=== PATIENT | male | born 1950 | race Caucasian/White ===

== ENCOUNTER 2022-09-12 09:23 | Outpatient (OUT) | payer MEDICARE, OTHER, SELFPAY ==
[2022-09-12 11:03] LABS: Prostate Specific Antigen Dx 9.87 ng/mL (<=4.00)
== END 2022-09-12 09:24 ==
LOC: LAB 09:29
PROVIDERS: PCP Family Medicine
DX: R97.20 Elevated prostate specific antigen [PSA] (principal); Z87.442 Personal history of urinary calculi
CPT/HCPCS: 36415; 84153

== ENCOUNTER 2022-11-05 08:30 | Emergency (ER) | payer MEDICARE, OTHER, SELFPAY ==
[2022-11-05 08:35] VITALS: BP 133/85; PULSE 77; RESP 18; TEMP 36.6; O2SAT 95; BMI 23.0
--- NOTE | 2022-11-05 08:46 | CT_ITS ---
[address] [address] Patient Name: TANK VILLA MRN: [id number] date: 1950 Sex: M Assigned Patient Location: ER Current Patient Location: .MAIN Accession/Order Number: [id number] Exam Date: 11/05/2022 09:42 Report Date: 11/05/2022 10:12 At the request of: JOLENE BALDWIN Procedure: CT abdomen pelvis w con EXAM: CT abdomen pelvis w con HISTORY: low abd pain COMPARISON: CT abdomen and pelvis 03/14/2018.. TECHNIQUE: Following intravenous administration of 100 cc of Omnipaque 350, axial soft tissue windows of the abdomen and pelvis were performed with coronal and sagittal reformats. CT dose reduction technique was used including Automated Exposure Control. Findings: ABDOMEN: There are couple scattered hepatic low-attenuation lesions, too small to characterize. Small stones within the gallbladder. The spleen, pancreas, and adrenal glands are unremarkable. Mild nonspecific bilateral perinephric fat stranding. Within the lower pole the left kidney there is a 0.4 cm nonobstructing stone. No renal collecting system dilatation bilaterally. Exophytic left renal cyst measuring approximately 1.3 cm. Bilateral low-attenuation lesions, too small to characterize. The bilateral ureters are nondilated. Evaluation of the bowel is limited given the absence of oral contrast. No bowel obstruction. Colonic diverticula. The appendix is nondilated. The aorta is normal caliber. Mild atherosclerotic disease. No enlarged abdominal lymph nodes or free abdominal fluid. Pelvis: The prostate is enlarged and exerts mild mass effect upon the posterior bladder wall. No bladder calculi. No enlarged pelvic lymph nodes or free pelvic fluid. No aggressive sclerotic or lytic osseous lesions. Mild multilevel degenerative spondylosis with mild levoconvex scoliosis of the lumbar spine. Mild bilateral hip joint osteoarthritis. CT/CT abdomen pelvis w con IMPRESSION: 1. Nonobstructing left renal stone. 2. Cholelithiasis. 3. Diverticulosis. 4. Other nonemergent findings, as described above. Electronically authenticated by: SEDA LICEA Date: 11/05/2022 10:12
--- NOTE | 2022-11-05 08:48 | ED_ITS ---
HPI - Abdominal Pain General Chief Complaint: Abdominal Pain Stated Complaint: ADOMINAL PAIN AND LOWER EXTREMITY PAIN RIGHT LEG Time Seen by Provider: 11/05/22 08:34 Mode of arrival: walk-in History of Present Illness HPI narrative: 72-year-old male presents for bilateral lower abdominal pain that he's had for about four days. He hasn't been having normal bowel movements, it's been decreased. No diarrhea or fever or injury. No dysuria or hematuria. No blood in his stool. The pain is moderate and continuous. Related Data Home Medications Medication Instructions Recorded Confirmed atenolol 25 mg tablet 25 mg PO Q24H 11/05/22 11/05/22 atorvastatin 80 mg tablet 80 mg PO DAILY 11/05/22 11/05/22 clopidogrel 75 mg tablet 75 mg PO DAILY 11/05/22 11/05/22 Previous Rx's Medication Instructions Recorded cephalexin 500 mg capsule 500 mg PO TID 10 days #30 caps 11/05/22 Allergies Allergy/AdvReac Type Severity Reaction Status Date / Time Penicillins Allergy Unknown Verified 11/05/22 08:38 Review of Systems ROS Narrative A ten point review of systems is negative except as noted above. Exam Narrative Exam Narrative: Nurses note and vital signs reviewed and patient is not hypoxic. General: The patient appears well and in no apparent distress. Patient is resting comfortably on cart. Skin: Warm, dry, no pallor noted. There is no rash noted. Head: Normocephalic, atraumatic Eye: Normal conjunctiva, no drainage Ears, Nose, Mouth, and Throat: oral mucosa is moist. Nares patent. Cardiovascular: Regular Rate and Rhythm Respiratory: Patient is in no distress, no accessory muscle use, lungs are clear to auscultation, no wheezing, rales or rhonchi Back: non-tender GI: soft and nondistended. Bilateral lower abdominal tenderness on palpation. No mass. Musculoskeletal: The patient has no evidence of calf tenderness, no pitting edema, symmetrical pulses noted bilaterally Neurological: A&O, normal speech Psychiatric: Cooperative Constitutional Vital Signs, click to edit/add: Last Vital Signs Temp 97.8 F 11/05/22 08:35 Pulse 77 11/05/22 08:35 Resp 18 11/05/22 08:35 BP 133/85 11/05/22 08:35 Pulse Ox 95 11/05/22 08:35 O2 Del Method Room Air 11/05/22 08:35 Course Vital Signs Vital signs: Vital Signs Temperature 97.8 F 11/05/22 08:35 Pulse Rate 77 11/05/22 08:35 Respiratory Rate 18 11/05/22 08:35 Blood Pressure 133/85 11/05/22 08:35 Pulse Oximetry 95 11/05/22 08:35 Oxygen Delivery Method Room Air 11/05/22 08:35 Temperature 97.8 F 11/05/22 08:35 Pulse Rate 77 11/05/22 08:35 Respiratory Rate 18 11/05/22 08:35 Blood Pressure 133/85 11/05/22 08:35 Pulse Oximetry 95 11/05/22 08:35 Oxygen Delivery Method Room Air 11/05/22 08:35 MDM - Abdominal Pain MDM Narrative Medical decision making narrative: CAT scan of the abdomen shows no acute findings. Urinary tract infection identified and he is given IV Rocephin. He doesn't require admission the hospital. Treatment diagnosis and follow-up were discussed with the patient and his . Differential Diagnosis Differential diagnosis: Likely abdominal pain, calculus of kidney, constipation, diverticulitis, gastroenteritis, pancreatitis and small bowel obstruction Lab Data Attestation: I reviewed the patient's lab results. Labs: Lab Results 11/05/22 11/05/22 Range/Units 08:52 09:55 WBC 9.0 (4.0-11.0) 10^3/uL RBC 5.06 (4.70-6.10) 10^6/uL Hgb 15.5 (14.0-18.0) g/dL Hct 46.7 (42.0-54.0) % MCV 92.3 (80.0-94.0) fL MCH 30.6 (25.9-34.0) pg MCHC 33.2 (29.9-35.2) g/dL RDW 12.4 (11.0-15.0) % Plt Count 232 (150-450) 10^3/uL MPV 10.8 (9.5-13.5) fL Neut % (Auto) 76.1 H (43.0-75.0) % Lymph % (Auto) 14.4 L (20.5-60.0) % [place]wood % (Auto) 6.7 (1.7-12.0) % Eos % (Auto) 1.6 (0.9-7.0) % Baso % (Auto) 0.6 (0.2-2.0) % Neut # (Auto) 6.9 H (1.4-6.5) 10^3/uL Lymph # (Auto) 1.3 (1.2-3.8) 10^3/uL [place] # (Auto) 0.6 (0.3-0.8) 10^3/uL Eos # (Auto) 0.1 (0.0-0.7) 10^3/uL Baso # (Auto) 0.1 (0.0-0.1) 10^3/uL Abs Immat Gran (auto) 0.05 H (0.00-0.03) 10^3/uL Imm/Tot Granulo (auto) 0.6 H (0.0-0.5) % Sodium 140 (136-145) mmol/L Potassium 4.4 (3.5-5.1) mmol/L Chloride 106 (98-107) mmol/L Carbon Dioxide 23.4 (21.0-32.0) mmol/L Anion Gap 15.0 BUN 17.0 (7.0-18.0) mg/dL Creatinine 0.87 (0.70-1.30) mg/dL Est GFR ( Amer) >60 (>=60) Est GFR (Non-Af Amer) >60 (>=60) BUN/Creatinine Ratio 19.5 Glucose 165 H (74-106) mg/dL Calcium 8.9 (8.5-10.1) mg/dL Total Bilirubin 0.5 (0.2-1.0) mg/dL Direct Bilirubin 0.1 (0.0-0.2) mg/dL AST 21 (15-37) U/L ALT 33 (16-63) U/L Alkaline Phosphatase 81 (46-116) U/L Total Protein 7.0 (6.4-8.2) g/dL Albumin 3.8 (3.4-5.0) g/dL Globulin 3.2 g/dL Albumin/Globulin Ratio 1.2 Amylase 71 (25-115) U/L Lipase 39.0 L (73.0-393.0) U/L Urine Color Lt. yellow (YELLOW) Urine Clarity Clear (CLEAR) Urine pH 6.0 (5.0-9.0) Ur Specific [place] 1.020 (1.005-1.025) Urine Protein Negative (NEG/TRACE) mg/dL Urine Glucose (UA) Negative (NEGATIVE) mg/dL Urine Ketones Negative (NEGATIVE) mg/dL Urine Occult Blood Trace-i (NEGATIVE) Urine Nitrite Negative (NEGATIVE) Urine Bilirubin Negative (NEGATIVE) Urine Urobilinogen 0.2 (0.2-1.0) EU/dL Ur Leukocyte Esterase Large A (NEGATIVE) Urine RBC 0-2 (0-2) #/HPF Urine WBC 20-50 A (NONE SEEN) #/HPF Ur Squamous Epith Cells Few A (NONE/RARE) #/LPF Urine Bacteria Small A (NONE SEEN) #/HPF Urine Mucus Trace A (NONE SEEN) Urine Yeast Seen A (NONE SEEN) Ur Culture Indicated? Yes Imaging Data CT scan - abdomen: Radiologist's impression: no acute findings Discharge Plan Discharge Chief Complaint: Abdominal Pain Clinical Impression: Urinary tract infection Patient Disposition: Home, Self-Care Time of Disposition Decision: 13:05 Condition: Good Mode of Transportation: Private Vehicle Prescriptions / Home Meds: New cephalexin 500 mg capsule 500 mg PO TID 10 Days Qty: 30 0RF No Action atenolol 25 mg tablet 25 mg PO Q24H atorvastatin 80 mg tablet 80 mg PO DAILY clopidogrel 75 mg tablet 75 mg PO DAILY Instructions: Urinary Tract Infection in Older Adults (ED) Stand Alone Forms: Portal Instructions Referrals: HOA IYER [Primary Care Provider] - 1 week
[2022-11-05 08:59] LABS: Basophils Absolute Auto 0.1 10^3/uL (0.0-0.1); Basophils Percent Auto 0.6 % (0.2-2.0); Eosinophils Absolute Auto 0.1 10^3/uL (0.0-0.7); Eosinophils Percent Auto 1.6 % (0.9-7.0); Hematocrit 46.7 % (42.0-54.0); Hemoglobin 15.5 g/dL (14.0-18.0); Immature Granulocytes Abs Auto 0.05 10^3/uL (0.00-0.03); Immature Granulocytes Pct Auto 0.6 % (0.0-0.5); Lymphocytes Absolute Auto 1.3 10^3/uL (1.2-3.8); Lymphocytes Percent Auto 14.4 % (20.5-60.0); Mean Corpuscular HGB Conc 33.2 g/dL (29.9-35.2); Mean Corpuscular Hemoglobin 30.6 pg (25.9-34.0); Mean Corpuscular Volume 92.3 fL (80.0-94.0); Mean Platelet Volume 10.8 fL (9.5-13.5); Monocytes Absolute Auto 0.6 10^3/uL (0.3-0.8); Monocytes Percent Auto 6.7 % (1.7-12.0); Neutrophils Absolute Auto 6.9 10^3/uL (1.4-6.5); Neutrophils Percent Auto 76.1 % (43.0-75.0); Platelet Count 232 10^3/uL (150-450); Red Blood Count 5.06 10^6/uL (4.70-6.10); Red Cell Distribution Width 12.4 % (11.0-15.0)
[2022-11-05 09:14] LABS: Alanine Aminotransferase 33 U/L (16-63); Albumin Globulin Ratio 1.2; Albumin Level 3.8 g/dL (3.4-5.0); Alkaline Phosphatase 81 U/L (46-116); Amylase 71 U/L (25-115); Aspartate Amino Transferase 21 U/L (15-37); BUN Creatinine Ratio 19.5; Bilirubin Direct 0.1 mg/dL (0.0-0.2); Bilirubin Total 0.5 mg/dL (0.2-1.0); Calcium 8.9 mg/dL (8.5-10.1); Carbon Dioxide 23.4 mmol/L (21.0-32.0); Chloride 106 mmol/L (98-107); Estimated GFR (African America >60 (>=60); Estimated GFR (Non-African Ame >60 (>=60); Globulin 3.2 g/dL; Glucose 165 mg/dL (74-106); Potassium 4.4 mmol/L (3.5-5.1); Sodium 140 mmol/L (136-145)
[2022-11-05 11:01] LABS: Bilirubin Urine NEGATIVE (NEGATIVE); Blood Urine TRACE-I (NEGATIVE); Clarity Urine CLEAR (CLEAR); Color Urine LT. YELLOW (YELLOW); Glucose Urine UA NEGATIVE (NEGATIVE); Ketones Urine NEGATIVE (NEGATIVE); Leukocyte Esterase Urine LARGE (NEGATIVE); Nitrite Urine NEGATIVE (NEGATIVE); Protein Urine NEGATIVE (NEG/TRACE); Urobilinogen Urine 0.2 EU/dL (0.2-1.0)
[2022-11-05 11:03] LABS: Urine Microscopic Indicated YES
[2022-11-05 11:10] LABS: WBC Urine 20-50 #/HPF (NONE SEEN)
[2022-11-05 11:11] LABS: Bacteria Urine SMALL #/HPF (NONE SEEN); Mucus Urine TRACE (NONE SEEN); RBC Urine 0-2 #/HPF (0-2); Squamous Epithelial Cell Urine FEW #/LPF (NONE/RARE)
[2022-11-05 11:12] LABS: Urine Culture Indicated YES
[2022-11-05] MEDS: CEFTRIAXONE 1,000 MG in 0.9 % SODIUM CHLORIDE 50 ML 100 MG IV (13:05)
--- NOTE | 2022-11-09 07:48 | PC.NURSE ---
11/09/22 0748 called in diflucan 150 mg 1 tab no refills to pt [facility] [place]. per Denise OCHOA order from 11/08/22 for pt urine c+s on 11/05/22. David Ruffin RN
--- NOTE | 2022-11-09 08:17 | PC.NURSE ---
11/09/22 0820 pt called updated on need for diflucan and called to [facility] [place]. pt v/horacio Ruffin RN
== END 2022-11-05 13:33 | disposition home or self-care (01) ==
PROVIDERS: Emergency Provider Emergency Medicine; PCP Family Medicine
DX: N39.0 Urinary tract infection, site not specified (principal); Z79.899 Other long term (current) drug therapy
CPT/HCPCS: 36415; 74177; 80048; 80076; 81001; 81003; 82150; 83690; 85025; 87086; 96365; 99285; Q9967

== ENCOUNTER 2023-03-04 08:39 | Outpatient (OUT) | payer MEDICARE, OTHER, SELFPAY ==
--- NOTE | 2023-03-04 09:14 | XR_ITS ---
The [address] [address] Patient Name: TANK VILLA MRN: [id number] date: 1950 Sex: M Assigned Patient Location: RAD Current Patient Location: RAD Accession/Order Number: [id number] Exam Date: 03/04/2023 09:10 Report Date: 03/04/2023 09:32 At the request of: NILSON BRICENO Procedure: XR abdomen 1V EXAM: XR abdomen 1V HISTORY: History Of Kidney Stones Z87.442 COMPARISON: None. TECHNIQUE: AP view of the abdomen. FINDINGS: Nonobstructive bowel gas pattern is noted. There is a punctate calculus in the inferior pole of the left kidney. The osseous structures are intact. XR/XR abdomen 1V IMPRESSION: Nonobstructive bowel gas pattern. Left nephrolithiasis. Electronically authenticated by: ABIEL RIVERA Date: 03/04/2023 09:32
[2023-03-04 09:51] LABS: Prostate Specific Antigen Dx 9.33 ng/mL (<=4.00)
== END 2023-03-04 08:40 | disposition home or self-care (01) ==
PROVIDERS: PCP Family Medicine; Visit Provider Physician Assistant
DX: N20.0 Calculus of kidney (principal); R97.20 Elevated prostate specific antigen [PSA]; Z87.442 Personal history of urinary calculi
CPT/HCPCS: 36415; 74018; 84153

== ENCOUNTER 2023-09-09 08:23 | Outpatient (OUT) | payer MEDICARE, OTHER, SELFPAY ==
[2023-09-09 10:34] LABS: Prostate Specific Antigen Dx 7.69 ng/mL (<=4.00)
== END 2023-09-09 08:24 | disposition home or self-care (01) ==
LOC: LAB 08:25
PROVIDERS: PCP Family Medicine; Visit Provider Physician Assistant
DX: R97.20 Elevated prostate specific antigen [PSA] (principal)
CPT/HCPCS: 36415; 84153

== ENCOUNTER 2023-09-30 09:38 | Outpatient (OUT) | payer MEDICARE, OTHER, SELFPAY ==
--- NOTE | 2023-09-30 09:44 | XR_ITS ---
The [address] [address] Patient Name: TANK VILLA MRN: [id number] date: 1950 Sex: M Assigned Patient Location: [facility] Current Patient Location: Accession/Order Number: [id number] Exam Date: 09/30/2023 09:50 Report Date: 10/01/2023 07:26 At the request of: NILSON STUBBS Procedure: XR shoulder RT min 2V PROCEDURE: XR shoulder RT min 2V HISTORY: Right Shoulder Pain, Fall COMPARISON: None. FINDINGS: BONES:Tiny ossification seen projecting over superior articular margin of the humeral head; cortical fragment versus calcification within the tendon. Narrowing of the acromioclavicular joint with large undersurface osteophytes. Unremarkable glenohumeral joint. SOFT TISSUES:No visible soft tissue swelling. EFFUSION:None visible. OTHER: Negative. XR/XR shoulder RT min 2V IMPRESSION: 1. Calcific tendinitis versus cortical avulsion fracture at superior rotator cuff attachment. 2. Marked degenerative changes of the acromioclavicular joint which would predispose to rotator cuff injury. Electronically authenticated by: IMELDA EDMOND Date: 10/01/2023 07:26
--- OUTSIDE RECORDS SUMMARY | 2023-09-30 10:00 | XMS_ITS | CCD ---
Author Organization [facility] Care Team Providers Care Rotary Adjuster Name Role Phone PHYSICIAN, DEFAULT Admitting Unavailable PHYSICIAN, DEFAULT Attending Unavailable SOULEYMANE SCHROEDER Primary Care Unavailable House, Ramin Simms Primary Care Physician [phone] [place], DR ABDIAZIZ Simpson Consulting Unavaila ble HOUSE, RAMIN Simms Primary Care Unavailable REQUEST, NONE LISTED Admitting Unavaila ble REQUEST, NONE LISTED Attending Unavaila ble MARJAN, YAMILEX Guerrero Attending Unavailable HOUSE, RAMIN P Primary Care Unavailable MARJAN, YAMILEX N Admitting Unavailable MARJAN, YAMILEX N Consulting Unavailable HOUSE, RAMIN P Primary Care Unavailable ALGHOTHANI, MOHAMAD Admitting Unavailable ALGHOTHANI, GALI Consulting Unavailable ALGHOTHANI, GALI Attending Unavailable HOUSE, RAMIN P Admitting Unavailable HOUSE, RAMIN P Primary Care Unavailable HOUSE, RAMIN P Consulting Unavailable HOUSE, RAMIN P Attending Unavailable FELI, DR IMELDA Seo Consulting Unavailable JANAK, FELICIA Ariza Attending Unavailab charity BRICENO, FELICIA Ariza Attending Unavailab charity PHILLIP, YAMILEX Attending Unavailable Allergies Allergy Classification Reported Allergen(s) Allergy Type Date of Onset Reaction(s) Facility (5 sources) Penicillins; Translations: [penicillins] Drug allergy (disorder) 4 Unknown (qualifier value) [facility] Repository Medications Current Medications Medication Drug Class(es) Dates Sig (Normalized) Sig (Original) acetaminophen 300 mg / codeine phosphate 30 mg oral tablet (1 source) Opioid Agonist Start: 04-30-2019 take 1 tablet by mouth every six hours Tylenol with Codeine 300 mg-30 mg Tab tab(s), Oral, q6hr, Refill(s) 0 Start Date: 04/30/19 Status: Ordered Aspirin (2 sources) Platelet Aggregation Inhibitor, Nonsteroidal Anti-inflammatory Drug Start: 02-17-2019 aspirin 81 mg Start Date: 02/17/19 Status: Ordered Start: 03-22-2018 take 81 mg by mouth once daily Aspirin Active 81 MG PO Daily June 20, 2017 12:00am atenolol 25 mg oral tablet (2 sources) beta-Adrenergic Michelle Start: 06-20-2017 atenolol 25 mg Tab Refills(s) 0 Start Date: 01/19/21 Status: Ordered atorvastatin 80 mg oral tablet (2 sources) HMG-CoA Reductase Inhibitor Start: 06-20-2017 atorvastatin 80 mg Tab Refills(s) 0 Start Date: 01/19/21 Status: Ordered Centrum Silver (1 source) Start: 02-17-2019 Centrum Silver tab(s) Start Date: 02/17/19 Status: Ordered Osteo Bi-Flex (1 source) Start: 02-17-2019 Osteo Bi-Flex Start Date: 02/17/19 Status: Ordered clopidogrel 75 mg oral tablet (3 sources) P2Y12 Platelet Inhibitor Start: 09-30-2023 take 75 mg by mouth once daily Clopidogrel Active 75 MG PO Daily September 30, 2023 12:00am Start: 01-19-2021 clopidogrel 75 mg Tab Refills(s) 0 Start Date: 01/19/21 Status: Ordered Start: 06-20-2017 End: 07-20-2017 take 75 mg by mouth once daily Clopidogrel Discontinue d 75 MG PO Daily June 20, 2017 12:00am July 20, 2017 8:22am Completed/Discontinued Medications Medication Drug Class(es) Dates Sig (Normalized) Sig (Original) acetaminophen 500 mg / diphenhydrAMINE hydrochloride 25 mg oral tablet (1 source) Histamine-1 Receptor Antagonist Start: 06-20-2017 End: 09-30-2023 take 2 tablets by mouth at bedtime Diphenhydramine-Anthony taminophen (Tylenol Pm Extra Strength) 25-500 mg Tablet Discontinued 2 TAB PO Bedtime June 20, 2017 12:00am September 30, 2023 8:58am acetaminophen 325 mg / HYDROcodone bitartrate 5 mg oral tablet (1 source) Opioid Agonist Start: 06-20-2017 End: 07-20-2017 Hydrocodone-Acetami nophen Discontinued 5 - 325 MG PO As Directed June 20, 2017 12:00am July 20, 2017 8:22am biotin 1 mg oral capsule (1 source) Start: 06-20-2017 End: 09-30-2023 take 1 mg by mouth once daily Biotin Discontinued 1 MG PO Daily June 20, 2017 12:00am September 30, 2023 8:58am cyclobenzaprine hydrochloride 10 mg oral tablet (1 source) Muscle Relaxant Start: 07-20-2017 End: 09-30-2023 take 10 mg by mouth three times daily Cyclobenzaprine Discontinued 10 MG PO Three times daily 50 July 20, 2017 12:00am September 30, 2023 8:58am gabapentin 300 mg oral capsule (1 source) Anti-epileptic Agent Start: 06-20-2017 End: 09-30-2023 take 300 mg by mouth twice daily Gabapentin Discontinued 300 MG PO Twice daily June 20, 2017 12:00am September 30, 2023 8:58am oxyCODONE hydrochloride 5 mg oral tablet (1 source) Opioid Agonist Start: 07-20-2017 End: 09-30-2023 Oxycodone (Roxicodone) 5 mg Tablet Discontinued 5 MG PO Q6H 60 July 20, 2017 September 30, 2023 8:52am Take 1 or 2 p.o. every 6 hours as needed for pain Prednisone (1 source) Start: 07-20-2017 End: 09-30-2023 Prednisone Discontinued 1 dose pk PO per package directions July 20, 2017 12:00am September 30, 2023 8:52am take 4 tabs for 3 days then take 3 tabs for 3 days then take 2 tabs for 3 days then take 1 tab for 3 days sulfamethoxazole 800 mg / trimethoprim 160 mg oral tablet (1 source) Dihydrofolate Reductase Inhibitor Antibacterial, Sulfonamide Antimicrobial Start: 07-20-2017 End: 09-30-2023 take 1 tablet by mouth every twelve hours Sulfamethoxazole-Tr imethoprim (Bactrim Ds) 800-160 mg Tablet Discontinued 1 TAB PO Q12H 10 July 20, 2017 12:00am September 30, 2023 8:52am Problems Active Problems Problem Classification Problem Date Documented Date Episodic/Chronic Acute myocardial infarction (1 source) Myocardial infarction 02-17-2019 Chronic Calculus of urinary tract (3 sources) History of calculus of kidney; Translations: [Personal history of urinary calculi] Onset: 03-28-2022 Episodic Coronary atherosclerosis and other heart disease (4 sources) Atherosclerotic heart disease of [place] coronary artery without angina pectoris; Translations: [Coronary arteriosclerosis] Onset: 08-03-2022 Chronic Disorders of lipid metabolism (5 sources) Hypercholesterolemia; Translations: [Mixed hyperlipidemia] Onset: 08-03-2022 02-17-2019 Chronic E Codes: Fall (2 sources) Fall; Translations: [Unspecified fall, initial encounter] 09-30-2023 Episodic Genitourinary symptoms and ill-defined conditions (4 sources) Blood in urine; Translations: [Dysuria] 02-24-2019 Episodic Heart valve disorders (6 sources) Nonrheumatic mitral (valve) insufficiency; Translations: [Rheumatic disorders of both mitral and aortic valves] Onset: 08-02-2022 Chronic Hyperplasia of prostate (3 sources) Benign prostatic hypertrophy with outflow obstruction; Translations: [Benign prostatic hyperplasia with lower urinary tract symptoms] Onset: 01-17-2022 Chronic Inflammatory conditions of male genital organs (1 source) Acute prostatitis 02-24-2019 Episodic Other non-traumatic joint disorders (2 sources) Pain in right shoulder; Translations: [Right shoulder pain] 09-30-2023 Episodic Colleen-; endo-; and myocarditis; cardiomyopathy (except that caused by tuberculosis or sexually transmitted disease) (2 sources) Cardiomyopathy, unspecified; Translations: [Cardiomyopathy, unspecified] Onset: 08-03-2022 Chronic Spondylosis; intervertebral disc disorders; other back problems (1 source) Prolapsed lumbar intervertebral disc; Translations: [Other intervertebral disc displacement, lumbar region] 03-13-2023 Chronic Substance-related disorders (1 source) Smoker 03-28-2022 Chronic Comment on above: Added secondary to d ocumentation in Social History. Unclassified (1 source) Drug therapy finding 02-24-2019 Past or Other Problems Problem Classification Problem Date Documented Da te Episodic/Chronic Nonspecific chest pain (4 sources) Other chest pain; Translations: [OTHER CHEST PAIN] Onset: 05-03-2022 Episodic Other screening for suspected conditions (not mental disorders or infectious disease) (6 sources) Raised prostate specific antigen; Translations: [Elevated prostate specific antigen [PSA]] Onset: 01-15-2022 Episodic Results Test Name Value Interpretation Reference Range Facility 37on 09-19-2023 37 Have blood drawn/ la b work in about October- must be fasting after midnight. Normal [facility] Office Visiton 09-19-2023 Follow-up visit [id number] Held,Mart Webb 1950 M Date Provider Department Center 09/19/2023 YAMILEX LUGO MARCO [facility] Family History Problem Relation Age of Onset Coronary artery disease Other Family Status - Relation Status Age at Other Level of Service:20140 SD OFFICE/OUTPATIENT ESTABLISHED LOW MDM 20 MIN Normal [facility] Lab Reportson 09-12-2023 Lab Reports [id number]#1.00 TIFF Normal [facility] Lab Reportson 03-18-2023 Lab Reports [id number]#1. 00TIFF Normal [facility] RAD - MISCon 03-18-2023 RAD - MISC [id number]#1.0 0TIFF Normal [facility] Patient Educationon 03-12-20 Patient Education Urology Kidney Stones Kidney stones are rock-like masses that form inside of the kidneys. Kidneys are organs that make pee (urine). A kidney stone may move into other parts of the urinary tract, including: ? The tubes that connect the kidneys to the bladder (ureters). ? The bladder. ? The tube that carries urine out of the body (urethra). Kidney stones can cause very bad pain and can block the flow of pee. The stone usually leaves your body (passes) through your pee. You may need to have a doctor take out the stone. What are the causes? Kidney stones may be caused by: ? A condition in which certain glands make too much parathyroid hormone (primary hyperparathyroidism). ? A buildup of a type of crystals in the bladder made of a chemical called uric acid. The body makes uric acid when you eat certain foods. ? Narrowing (stricture) of one or both of the ureters. ? A kidney blockage that you were born with. ? Past surgery on the kidney or the ureters, such as gastric bypass surgery. What increases the risk? You are more likely to develop this condition if: ? You have had a kidney stone in the past. ? You have a family history of kidney stones. ? You do not drink enough water. ? You eat a diet that is high in protein, salt (sodium), or sugar. ? You are overweight or very overweight (obese). What are the signs or symptoms? Symptoms of a kidney stone may include: ? Pain in the side of the belly, right below the ribs (flank pain). Pain usually spreads (radiates) to the groin. ? Needing to pee often or right away (urgently). ? Pain when going pee (urinating). ? Blood in your pee (hematuria). ? Feeling like you may vomit (nauseous). ? Vomiting. ? Fever and chills. How is this treated? Treatment depends on the size, location, and makeup of the kidney stones. The stones will often pass out of the body through peeing. You may need to: ? Drink more fluid to help pass the stone. In some cases, you may be given fluids through an IV tube put into one of your veins at the hospital. ? Take medicine for pain. ? Make changes in your diet to help keep kidney stones from coming back. Sometimes, medical procedures are needed to remove a kidney stone. This may involve: ? A procedure to break up kidney stones using a beam of light (laser) or shock waves. ? Surgery to remove the kidney stones. Follow these instructions at home: Medicines ? Take hwec-kpf-wdezmfi and prescription medicines only as told by your doctor. ? Ask your doctor if the medicine prescribed to you requires you to avoid driving or using heavy machinery. Eating and drinking ? Drink enough fluid to keep your pee pale yellow. You may be told to drink at least 8?10 glasses of water each day. This will help you pass the stone. ? If told by your doctor, change your diet. This may include: ? Limiting how much salt you eat. ? Eating more fruits and vegetables. ? Limiting how much meat, poultry, fish, and eggs you eat. ? Follow instructions from your doctor about eating or drinking restrictions. General instructions ? Collect pee samples as told by your doctor. You may need to collect a pee sample: ? 24 hours after a stone comes out. ? 8?12 weeks after a stone comes out, and every 6?12 months after that. ? Strain your pee every time you pee (urinate), for as long as told. Use the strainer that your doctor recommends. ? Do not throw out the stone. Keep it so that it can be tested by your doctor. ? Keep all follow-up visits as told by your doctor. This is important. You may need follow-up tests. How is this prevented? To prevent another kidney stone: ? Drink enough fluid to keep your pee pale yellow. This is the best way to prevent kidney stones. ? Eat healthy foods. ? Avoid certain foods as told by your doctor. You may be told to eat less protein. ? Stay at a healthy weight. Where to find more information ? National Kidney Foundation (NKF): www.kidney.org ? [employer] (UCF): www.urologyhealth.org Contact a doctor if: ? You have pain that gets worse or does not get better with medicine. Get help right away if: ? You have a fever or chills. ? You get very bad pain. ? You get new pain in your belly (abdomen). ? You pass out (faint). ? You cannot pee. Summary ? Kidney stones are rock-like masses that form inside of the kidneys. ? Kidney stones can cause very bad pain and can block the flow of pee. ? The stones will often pass out of the body through peeing. ? Drink enough fluid to keep your pee pale yellow. This information is not intended to replace advice given to you by your health care provider. Make sure you discuss any questions you have with your health care provider. Document Revised: 11/20/2021 Document Reviewed: 11/20/2021 AQH Patient Education ? 2022 [employer]. [facility] [place]enson 03-12-2023 Screens [id number]#1. 00TIFF [facility] Screens 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 DX: Elevated PSA, BPH & Hx of Kidney Stones. *No Urology Meds. S/P NEG TRUS/Bx 05/25/19 & Last Stone procedure 2012. Pt did got to the [facility] ER 11/05/22. CC: lower abdominal pain. CT ap 11/05/22 - showed small 4mm nonobstructing L renal stone. C&S 11/05/22 *<10k Graciela albicans Tx'd w/Keflex therapy, then diflucan. PSA 09/12/22 -9.87 PSA 03/04/23 -9.33 KUB 03/04/23 - punctate L stone confirmed. Dysuria: no Incomplete bladder emptying: no Hematuria: no Frequency: 2-3 hours Urgency: no Nocturia: no Stream: good stream Post void dripping: no Wearing pads/ Depends: no Urge incontinence: no Stress incontinence: no Incontinence without Sensory Awareness: no Abdominal pain: no Flank pain: no Review of Systems PHQ Score Initial Depression Screen Score: 0 SCORE no fever, chills, malaise, myalgia. no rash/lesions. no chest pain, palpitations, or SOB. no abdominal pain, nausea, vomiting. no unilateral calf swelling, redness, pain Physical Exam Vitals & Measurements HR: 72(Peripheral) RR: 16 BP: 151/94 HT: 70 in HT: 177 cm WT: 166.8 kg WT: 366.96 lb BMI: 53.24 General: nontoxic, NAD Mouth: moist mucosa Lungs: normal respiratory effort Cardio: regular rate, good distal perfusion Abdomen: nondistended, no suprapubic distention or tenderness, no CVA tenderness Neurologic: Grossly normal Skin: No rashes or suspicious lesions Assessment/Plan 1. Elevated PSA (R97.20: Elevated prostate specific antigen [PSA]) PSA: 04/16/19 - 10.1 & 17.8% 12/02/19 - 10.0 & 18.4% 01/29/21 - 9.92 01/15/22 - 10.74 09/12/22 -9.87 03/04/23 -9.33 S/P Trus/bx done 05/25/19 negative. Discussed PSA, remains elevated, slightly decreased from prior but pt has hx of fluctuating PSA. Discussed options, pt wishes to continue PSA monitoring. Will check in 6 mos (no visit, but will call pt if marked change) and 1 yr prior to next ov. Ordered: E&M of Est. Patient Moderate 30-39 Min 49153 PSA Total PSA Total 2. Nephrolithiasis (N20.0: Calculus of kidney) CT ap 11/05/22 - showed small 4mm nonobstructing L renal stone. KUB 03/04/23 - punctate L stone confirmed. no recent flank pain/gross hematuria or stone passage sx. continue increased fluid intake. Ordered: E&M of Est. Patient Moderate 30-39 Min 95727 XR Abdomen 1 View 3. Smoker (F17.200: Nicotine dependence, unspecified, uncomplicated) currently smoking. cessation encouraged. increased risk for ca. UA completed in office today shows no microhematuria or signs of infection. Ordered: E&M of Est. Patient Moderate 30-39 Min 57235 4. BPH with urinary obstruction (N40.1: Benign prostatic hyperplasia with lower urinary tract symptoms) Pt is currently taking no bladder/prostate medication and is highly satisfied with overall symptom control. No indication for treatment at this time. Continue to monitor. Ordered: Body Mass Index (BMI) documented 3008F Current tobacco smoker 1034F Depression Screening Negative 3352F E&M of Est. Patient Moderate 30-39 Min 33033 Influenza immunization status assessed 1030F Most recent diastolic blood pressure >=90 mm Hg 3080F Most recent systolic blood pressure >= 140 mm Hg 3077F Urnls Dip Stick Auto w/o Microscopy POC 99909 f/u 1 yr w PSA/KUB prior, 6mo PSA draw (call results if marked change). Follow-up With When Contact Information LUCY BRICENO PA-C, URL Within 1 year Additional Instructions: Patient Education Kidney Stones, Onxw-kc-Bque Problem List/Past Medical History Ongoing Acute prostatitis Anticoagulated BPH with urinary obstruction Dysuria Elevated cholesterol Elevated PSA Hematuria History of kidney stones Myocardial infarction Nephrolithiasis Nocturia Smoker Urine frequency Historical No qualifying data Procedure/Surgical History Transrectal biopsy of prostate using ultrasound (US) guidance (05/25/2019), Ureteroscopic removal of ureteric calculus (09/24/2012), Back Surgery, Cataract extraction, Foot Surgery, Knee replacement, Rotator cuff. Medications aspirin, 81 mg atenolol 25 mg Tab atorvastatin 80 mg Tab Centrum Silver clopidogrel 75 mg Tab Osteo Bi-Flex Tylenol with Codeine 300 mg-30 mg Tab, Oral, q6hr Allergies penicillins (Unknown) Social History Alcohol - Denies Alcohol Use, 05/25/2019 Substance Abuse - Denies Substance Abuse, 05/25/2019 Tobacco - High Risk, 05/25/2019 10 or more cigarettes (1/2 pack or more)/day in last 30 days, Smoker, current status unknown Tobacco Use:. Never Smokeless Tobacco Use:. Cigarettes, Yes, 03/28/2022 10 or more cigarettes (1/2 pack or more)/day in last 30 days Tobacco Use:. Cigarettes, 02/19/2019 Family History Congenital heart disease: Mother. Diverticulitis: Mother. Immunizations Vaccine Date Status Comments influenza virus vaccine, inactivated 12/2022 Recorded SARS-CoV-2 (COVID-19) [id number] (more content not included)... Normal [facility] Comment on above: Result Comment: Elec tronically Signed By: LUCY BRICENO PA-C\.br\Date and Time Signed: 03/12/23 10:28 EST ED Note-Physicianon 11-23-19 ED Note-Physician [id number]. 00CD:127 Normal [facility] Lab Reportson 11-22-2022 Lab Reports [id number]. 00CD:127 Normal [facility] RAD - CT Reporton 11-22-2022 RAD - [address] Report [id number]#1.0 0CD:127 [facility] CBC AUTO DIFFon 08-13-2022 BASO # 0.1 103/ul Normal 0.0-0.1 [facility] Comment on above: Performed By: #### C BC #### [facility] [address] [address] [address] Roxane Clayton Basophils/100 WBC (Bld) 0.7 % Normal 0.2-2.0 [facility] Comment on above: Performed By: #### C BC #### [facility] [address] [address] [address] Roxane Clayton EO # 0.3 103/ul Normal 0.0-0.7 [facility] Comment on above: Performed By: #### C BC #### [facility] [address] [address] [address] Roxane Clayton Eosinophils/100 WBC (Bld) 3.2 % Normal 0.9-7.0 [facility] Comment on above: Performed By: #### C BC #### [facility] [address] [place] [address] Dr. Roxane Clayton Erythrocyte distribution width (RBC) [Ratio] 12.3 % Normal 11.0-15.0 [facility] Comment on above: Performed By: #### C BC #### [facility] [address] [place] [address] Dr. Roxane Clayton Hematocrit (Bld) [Volume fraction] 49.2 % Normal 42.0-54.0 [facility] Comment on above: Performed By: #### C BC #### [facility] [address] [place] [address] Dr. Roxane Clayton Hemoglobin (Bld) [Mass/Vol] 15.8 g/dL Normal 14.0-18.0 [facility] Comment on above: Performed By: #### C BC #### [facility] [address] [place] [address] Dr. Roxane Clayton IG # 0.05 10e3/ul Critically high 0.00-0.03 [facility] Comment on above: Performed By: #### C BC #### [facility] [address] [place] [address] Dr. Roxane Clayton IG % 0.6 % Critically high 0.0-0.5 [facility] Comment on above: Performed By: #### C BC #### [facility] [address] [place] [address] Dr. Roxane Clayton LYMPH # 1.8 103/ul Normal 1.2-3.8 [facility] Comment on above: Performed By: #### C BC #### [facility] [address] [place] [address] Dr. Roxane Clayton Lymphocytes/100 WBC (Bld) 20.7 % Normal 20.5-60.0 [facility] Comment on above: Performed By: #### C BC #### [facility] [address] [place] [address] Dr. Roxane Clayton MANUAL DIFF REQ NO Normal [facility] Comment on above: Performed By: #### C BC #### [facility] [address] [place] [address] Dr. Roxane Clayton MCH (RBC) [Entitic mass] 30.9 pg Normal 25.9-34.0 [facility] Comment on above: Performed By: #### C BC #### [facility] [address] [place] [address] Dr. Roxane Clayton MCHC (RBC) [Mass/Vol] 32.1 g/dL Normal 29.9-35.2 [facility] Comment on above: Performed By: #### C BC #### [facility] [address] [place] [address] Dr. Roxane Clayton MCV (RBC) [Entitic vol] 96.3 fL Critically high 80.0-94.0 [facility] Comment on above: Performed By: #### C BC #### [facility] [address] [place] [address] Dr. Roxane Clayton MONO # 0.8 103/ul Normal 0.3-0.8 [facility] Comment on above: Performed By: #### C BC #### [facility] [address] [place] [address] Dr. Roxane Clayton Monocytes/100 WBC (Bld) 8.8 % Normal 1.7-12.0 [facility] Comment on above: Performed By: #### C BC #### [facility] [address] [place] [address] Dr. Roxane Clayton NEUT # 5.6 103/ul Normal 1.4-6.5 [facility] Comment on above: Performed By: #### C BC #### [facility] [address] [place] [address] Dr. Roxane Clayton Neutrophils/100 WBC (Bld) 66.0 % Normal 43.0-75.0 [facility] Comment on above: Performed By: #### C BC #### [facility] [address] [address] [address] Roxane Clayton Platelet mean volume (Bld) [Entitic vol] 10.8 fL Normal 9.5-13.5 [facility] Comment on above: Performed By: #### C BC #### [facility] [address] [address] [address] Roxane Clayton PLT 230 103/ul Normal 150-450 [facility] Comment on above: Performed By: #### C BC #### [facility] [address] [place] [address] Dr. Roxane Clayton RBC 5.11 106/ul Normal 4.70-6.10 [facility] Comment on above: Performed By: #### C BC #### [facility] [address] [place] [address] Dr. Roxane Clayton WBC 8.5 103/ul Normal 4.0-11.0 [facility] Comment on above: Performed By: #### C BC #### [facility] [address] [place] [address] Dr. Roxane Clayton LIPID PROFILEon 08-13-2022 CHOL-HDL RATIO NORM SEE BELOW Normal [facility] Comment on above: Result Comment: 3.3 - 4.4 LOW RISK 4.4 - 7.1 AVERAGE RISK 7.1 - 11.0 MODERATE RISK >11.0 HIGH RISK Performed By: #### C MP, LIPID #### [facility] [address] [place] [address] Dr. Roxane Clayton Cholesterol [Mass/Vol] 105 mg/dL Normal <=200 [facility] Comment on above: Performed By: #### C MP, LIPID #### [facility] [address] [place] [address] Dr. Roxane Clayton Cholesterol in HDL [Mass/Vol] 43 mg/dL Normal 40-60 [facility] Comment on above: Performed By: #### C MP, LIPID #### [facility] [address] [place] [address] Dr. Roxane Clayton Cholesterol in LDL [Mass/Vol] 54.8 mg/dL Normal [facility] Comment on above: Performed By: #### C MP, LIPID #### [facility] [address] [address] [address] Roxane Clayton Cholesterol.total/ Cholesterol in HDL [Mass ratio] 2.4 {ratio} Normal [facility] Comment on above: Performed By: #### C MP, LIPID #### [facility] [address] [address] [address] Roxane Clayton HDL NORMAL > or = 60 mg/dl - LO W CARDIOVASCULAR RISK <40 mg/dl - HIGH CARDIOVASCULAR RISK Normal [facility] Comment on above: Performed By: #### C MP, LIPID #### [facility] [address] [address] [address] Roxane Clayton LDL CALC NORMAL SEE BELOW Normal [facility] Comment on above: Result Comment: <100 mg/dl OPTIMAL 100 - 129 mg/dl NEAR OR ABOVE OPTIMAL 130 - 159 mg/dl BORDERLINE HIGH 160 - 189 mg/dl HIGH >190 mg/dl VERY HIGH Performed By: #### C MP, LIPID #### [facility] [address] [place] [address] Dr. Roxane Clayton Triglyceride [Mass/Vol] 36 mg/dL Normal <=150 [facility] Comment on above: Performed By: #### C MP, LIPID #### [facility] [address] [place] [address] Dr. Roxane Clayton VLDL CALC 7.2 mg/dL Normal [facility] Comment on above: Performed By: #### C MP, LIPID #### [facility] [address] [place] [address] Dr. Roxane Clayton PROF 14(COMP METB)on 023 Albumin [Mass/Vol] 4.0 g/dL Normal 3.4-5.0 [facility] Comment on above: Performed By: #### C MP, LIPID #### [facility] [address] [place] [address] Dr. Roxane Clayton Albumin/Globulin [Mass ratio] 1.1 {ratio} Normal [facility] Comment on above: Performed By: #### C MP, LIPID #### [facility] [address] [address] [address] Roxane Clayton ALP [Catalytic activity/Vol] 112 U/L Normal 46-116 [facility] Comment on above: Performed By: #### C MP, LIPID #### [facility] [address] [place] [address] Dr. Roxane Clayton ALT [Catalytic activity/Vol] 48 U/L Normal 16-63 [facility] Comment on above: Performed By: #### C MP, LIPID #### [facility] [address] [address] [address] Roxane Clayton Anion gap [Moles/Vol] 13.7 mmol/L Normal [facility] Comment on above: Performed By: #### C MP, LIPID #### [facility] [address] [place] [address] Dr. Roxane Clayton AST [Catalytic activity/Vol] 30 U/L Normal 15-37 [facility] Comment on above: Performed By: #### C MP, LIPID #### [facility] [address] [place] [address] Dr. Roxane Clayton Bilirubin [Mass/Vol] 0.3 mg/dL Normal 0.2-1.0 [facility] Comment on above: Performed By: #### C MP, LIPID #### [facility] [address] [place] [address] Dr. Roxane Clayton Calcium [Mass/Vol] 9.0 mg/dL Normal 8.5-10.1 [facility] Comment on above: Performed By: #### C MP, LIPID #### [facility] [address] [place] [address] Dr. Roxane Clayton Chloride [Moles/Vol] 107 mmol/L Normal 98-107 [facility] Comment on above: Performed By: #### C MP, LIPID #### [facility] [address] [place] [address] Dr. Roxane Clayton CO2 [Moles/Vol] 28.1 mmol/L Normal 21.0-32.0 [facility] Comment on above: Performed By: #### C MP, LIPID #### [facility] [address] [place], [place] [id number] Dr. Roxane Clayton Creatinine [Mass/Vol] 1.04 mg/dL Normal 0.70-1.30 [facility] Comment on above: Performed By: #### C MP, LIPID #### [facility] [address] [place] [address] Dr. Roxane Clayton EGFR-AF ALBANIAN >60 Normal >=60 [facility] Comment on above: Performed By: #### C MP, LIPID #### [facility] [address] [place] [address] Dr. Roxane Clayton EGFR-NON AF ALBANIAN >60 Normal >=60 [facility] Comment on above: Performed By: #### C MP, LIPID #### [facility] [address] [place] [address] Dr. Roxane Clayton Globulin (S) [Mass/Vol] 3.8 g/dL Normal [facility] Comment on above: Performed By: #### C MP, LIPID #### [facility] [address] [place] [address] Dr. Roxane Clayton Glucose [Mass/Vol] 134 mg/dL Critically high 74-106 [facility] Comment on above: Performed By: #### C MP, LIPID #### [facility] [address] [place] [address] Dr. Roxane Clayton Potassium [Moles/Vol] 4.8 mmol/L Normal 3.5-5.1 [facility] Comment on above: Performed By: #### C MP, LIPID #### [facility] [address] [place] [address] Dr. Roxane Clayton Protein [Mass/Vol] 7.8 g/dL Normal 6.4-8.2 [facility] Comment on above: Performed By: #### C MP, LIPID #### [facility] [address] [place] [address] Dr. Roxane Clayton Sodium [Moles/Vol] 144 mmol/L Normal 136-145 [facility] Comment on above: Performed By: #### C MP, LIPID #### [facility] [address] [place] [address] Dr. Roxane Clayton Urea nitrogen [Mass/Vol] 19.0 mg/dL Critically high 7.0-18.0 [facility] Comment on above: Performed By: #### C MP, LIPID #### [facility] [address], [place] [address] Dr. Roxane Clayton Urea nitrogen/Creatinin e [Mass ratio] 18.3 mg/mg Normal [facility] Comment on above: Performed By: #### C MP, LIPID #### [facility] [address], [place] [address] Dr. Roxane Clayton ECHOCARDIO M/2D COMPLETEon 0 08-02-2022 ECHOCARDIO M/2D COMPLETE Patient: MART VILLA Exam Date: 08/02/2022 : 1950 Gender:M Ordering : GALI GREENWOOD Admission #: [id number] Family : Order #: [id number] CLICK HERE TO VIEW EXAM ECHOCARDIOGRAM REPORT PROCEDURE: CARDIO PULMONARY ECHOCARDIO M/2D COMP INDICATIONS: Nonrheumatic Mitral valve regurgitation COMPARISON: None. DESCRIPTION: COMPLETE ECHOCARDIOGRAM Real-time transthoracic echocardiography with 2D, M-mode, spectral and color flow Doppler performed. QUALITY: Technical quality was good. LEFT VENTRICLE: Normal chamber size. Normal left ventricular wall thickness. LV EF: Global left ventricular systolic function is normal. Calculated left ventricular ejection fraction is 55%. Base of inferior and inferolateral wall is hypokenetic. DIASTOLIC: Normal diastolic function. ATRIAL SEPTUM: Inadequately seen. LEFT ATRIUM: Normal chamber size. RIGHT ATRIUM: Moderate dilatation. RIGHT VENTRICLE: Normal chamber size. Normal right ventricular systolic function. TRICUSPID VALVE: Normal mobility and thickness. No stenosis with mild regurgitation. No evidence of pulmonary hypertension. RVSP 31mmHg MITRAL VALVE: Normal mobility and thickness. No mitral valve prolapse. No evidence of mitral valve stenosis. There is no mitral annular calcification. Mild mitral regurgitation. AORTIC VALVE: Normal trileaflet appearance. Thickened aortic valve. Normal leaflet mobility. No evidence of aortic valve stenosis. Mild aortic regurgitation. AORTIC ROOT: Normal diameter and appearance. PULMONIC VALVE: Normal thickness and mobility. No stenosis. Trivial regurgitation. PERICARDIUM: No evidence of pericardial effusion. IVC: Collapses with inspirations. Normal size. CONCLUSION: Global left ventricular systolic function is normal; visually estimated ejection fraction is 55 to 60%. The base of the inferior and inferolateral wall is hypokinetic. Normal diastolic function. The right atrium is dilated. Right ventricle is normal in size and systolic function. Mild tricuspid regurgitation. Mild mitral regurgitation. Mild aortic regurgitation. Adult Echocardiography Procedure Report Left Ventricle LVEDD (3.7 - 5.6 cm): 5.51 cm LVESD (2.2 - 4.0 cm): 3.59 cm LVIVS thickness (0.6 - 1.2 cm): 0.98 cm LVPW thickness (0.5 - 1.0 cm): 1.03 cm e': 0.06 m/s E - e': 13.08 LVOT Max Gradient: 2.36 mm[Hg] Peak Velocity (LVOT): 0.77 m/s Mean Velocity (LVOT): 0.44 m/s LVOT Diameter 2.25 cm Left Ventricular Ejection Fraction: 63.34 %, 63.34 % Left Atrium LA Volume Index (2D A2C): 48.49 ml, 48.49 ml Left Atrium Systolic Dimension: 3.65 cm Mitral Valve MV E to A Ratio: 0.84 Mitral Valve A-Wave Peak Velocity: 0.96 m/s Mitral Valve E-Wave Peak Velocity: 0.81 m/s Right Ventricle RV Internal Diastolic Dimension: 3.99 cm Aorta AO Root Diam: 3.46 cm Ascending Ao Diam: 2.81 cm Aortic Valve AoV Area (Peak Richy): 2.03 cm2, 2.03 cm2 AoV Area (VTI): 2.21 cm2, 2.21 cm2 Peak Velocity(Antegrade Flow): 1.50 m/s Peak Gradient(Antegrade Flow): 9.06 mm[Hg] Mean Velocity(Antegrade Flow): 0.99 m/s Mean Gradient(Antegrade Flow): 4.58 mm[Hg] Velocity Time Integral: 34.81 cm Tricuspid Valve Peak Velocity (Regurgitant Flow): 2.27 m/s, 2.10 m/s, 2.62 m/s Peak Velocity: 0.45 m/s Pulmonic Valve Mean Gradient: 1.46 mm[Hg], 3.03 mm[Hg], 3.03 mm[Hg] Mean Velocity: 0.55 m/s, 0.79 m/s, 0.79 m/s Peak Velocity: 0.84 m/s, 1.26 m/s, 1.26 m/s Peak Gradient: 2.80 mm[Hg], 6.39 mm[Hg], 6.39 mm[Hg] Right Atrium Right Atrium Systolic Pressure: 47.13 ml, 47.13 ml Dictated by: Qiana Domingo M.D. on 08/03/2022 at 09:14 Approved by: Qiana Domingo M.D. on 08/03/2022 at 09:18 Normal [facility] XR RIBS LT PA Nik 3 XR RIBS LT PA CH EXAMINATION: XR RIBS LT PA CH HISTORY: Chest wall pain ; acute lower left rib pain after falling COMPARISON: No relevant comparison available. FINDINGS: LUNGS: No significant pulmonary parenchymal abnormalities. PLEURA: No pneumothorax, effusion, or pleural thickening. MEDIASTINUM: No visible mass or adenopathy. CARDIAC: No cardiomegaly or cardiac silhouette abnormality. RIBS: Normal. No significant arthropathy or acute abnormality. OTHER: Negative. IMPRESSION: 1. No appreciable rib fracture. 2. No acute cardiopulmonary process. Electronically authenticated by: IMELDA EDMOND Date: 2022-05-04 09:10 Normal [facility] Vital Signs Date Time Vital Sign Value Performing Clinician Gunnar neil 09-30-2023 08:51-0400 Body height 177.8 cm [facility] 09-30-2023 08:51-0400 Body mass index (BMI) [Ratio] 23.3 kg/m2 [facility] 09-30-2023 08:51-0400 Body weight 73.93 kg [facility] 09-30-2023 08:51-0400 Diastolic blood pressure 80 mm[Hg] [facility] 09-30-2023 08:51-0400 Heart rate 71 /min [facility] 09-30-2023 08:51-0400 SaO2% (BldA) [Mass fraction] 97 % [facility] 09-30-2023 08:51-0400 Systolic blood pressure 132 mm[Hg] [facility] 03-28-2022 14:12-0500 Blood Pressure Location LUCY BRICENO [facility] 03-28-2022 14:12-0500 Diastolic blood pressure 83 mm[Hg] LUCY BRICENO [facility] 03-28-2022 14:12-0500 Heart rate 77 /min LUCY BRICENO [facility] 03-28-2022 14:12-0500 Systolic blood pressure 144 mm[Hg] LUCY JANAK [facility] Encounters Encounter Date Encounter Type Care Provider Facility Start: 03-17-2024 ambulatory PA-Tye Gracia acility:[facility] Start: 09-30-2023 End: 09-30-2023 ambulatory [facility] Work Phone: Start: 09-30-2023 End: 09-30-2023 Patient encounter procedure [facility] Work Phone: Start: 09-19-2023 End: 09-19-2023 ambulatory YAMILEX PHILLIP [facility] Start: 03-12-2023 End: 03-12-2023 ambulatory FELICIA BRICENO [facility] Start: 08-13-2022 End: 08-14-2022 ambulatory YAMILEX PHILLIP Facility: Start: 08-02-2022 End: 08-03-2022 ambulatory RAMIN P HOUSE Facility:[facility] Start: 05-03-2022 End: 05-04-2022 ambulatory RAMIN P HOUSE Facility:[facility] Start: 03-28-2022 End: 03-28-2022 Patient encounter procedure LUCY BRICENO [facility] Start: 01-15-2022 End: 01-16-[address] ABDIAZIZ Lovell Facility:[facility] Start: 07-17-2018 End: 07-18-2018 Patient encounter procedure DEFAULT PHYSICIAN Facility:[facility] Procedures Date Procedure Procedure Detail Performing Clinician Start: 01-15-[address] ABDIAZIZ Lovell Comment on above: Performed By: #### P SAD #### [facility] [address] [place] [address] Dr. Roxane Clayton Start: 05-25-2019 Transrectal biopsy o f prostate using ultrasound guidance LUCY BRICENO Start: 09-24-2012 Ureteroscopic remova l of ureteric calculus LUCY BRICENO Arthroplasty of knee MARINA R JANAK Back Surgery LUCY BRICENO Extraction of cataract EMILIE BRICENO Comment on above: B/L Foot Surgery LUCY BRICENO Rotator cuff includi ng muscles and tendons (body structure) LUCY BRICENO Plan of Treatment Date Care Activity Detail Author XR Shoulder - right Views [facility] Immunizations Immunization Date Immunization Notes Care Provider Fa [facility] 01-13-2022 SARS-CoV-2 (COVID-19 ) [id number] LUCY BRICENO [facility] 12-18-2021 influenza virus vacc ine, unspecified formulation LUCY BRICENO [facility] 07-13-2021 SARS-CoV-2 mRNA ([id number] e) vaccine LUCY BRICENO [facility] 01-20-2021 influenza virus vacc ine, unspecified formulation LUCY BRICENO [facility] 12-27-2020 SARS-CoV-2 (COVID-19 ) mRNA BNT-162b2 vax LUCY BRICENO [facility] 05-28-2020 SARS-CoV-2 (COVID-19 ) mRNA BNT-162b2 vax LUCY JANAK [facility] Comment on above: Result Comment: 2021: [id number] 05-08-2020 SARS-CoV-2 (COVID-19 ) mRNA BNT-162b2 vax LUCY JANAK [facility] Comment on above: Result Comment: 2021: [id number] 04-01-2020 SARS-CoV-2 (COVID-19 ) mRNA BNT-162b2 vax LUCY JANAK [facility] Comment on above: Result Comment: Pt d oes not know the dates but states he has also had the booster 01-12-2019 influenza virus vacc ine, unspecified formulation LUCY JANAK [facility] 01-15-2017 influenza virus vacc ine, unspecified formulation LUCY JANAK [facility] 02-14-2015 influenza virus vacc ine, unspecified formulation LUCY JANAK [facility] 12-30-2014 influenza virus vacc ine, unspecified formulation LUCY JANAK [facility] 06-01-2014 pneumococcal polysaccharide vaccine, 23 valent LUCY JANAK [facility] 01-27-2014 influenza virus vacc ine, unspecified formulation LUCY JANAK [facility] 01-07-2013 influenza, whole LUCY PE RRY [facility] 01-19-2011 influenza, whole LUCY ROBERTS [facility] Payers Date Payer Category Payer Unknown [id number] 1960 Medicare [id number] 1960 Unknown [id number] 1960 Unknown [id number] 1950 Unknown [id number] 2.16.8 [id number] 1950 Unknown [id number] 2.16.84 [id number] 1950 Unknown [id number] 2.16.84 [id number] 1950 Unknown [id number] 2.16.84 [id number] 1950 Unknown [id number] 2.16.84 [id number] 1950 Unknown [id number] 2.16.8 [id number] 1950 Unknown [id number] 2.16.8 [id number] Medicare Medicare [id number] Self-pay Self Pay [id number] Unknown Unknown [facility] Health Claims [id number] Social History Date Type Detail Facility Start: 03-28-2022 Tobacco smoking status Heavy t obacco smoker (finding) [facility] Start: 09-30-2023 Tobacco smoking status Smoker (findi ng) [facility] Tobacco smoking status Never [facility] Sex Assigned At Male [facility] Start: 1950 Sex Assigned At Male F [facility] Functional Status Date Assessment Result Facility 03-28-2022 Functional Status N/A [facility] Clinical Notes 03-28-2022 to 09-19-2023 Note Date & Type Note Facility 09-19-2023 Note Noted Mitral, Aortic , tricuspid and pulmonic valve regurg- no concerning symptoms today. Will continue to monitor - d/w pt to call office for increased SOB, orthopnea, palpitations, syncope or chest pain. [facility] 09-19-2023 Note Heart failure is unc hanged. NYHA Class II. Continue current treatment regimen. Dietary sodium restriction. Encouraged daily monitoring of the patient's weight. Continue current medications. Heart failure will be reassessed in 1 year. [facility] 09-19-2023 Note [facility] CARDIOLOGY PROGR ESS NOTE HPI: Mart Villa is a 73 y.o. male here for Routine F/U CAD, Cardiomyopathy, HPL HPI 73 yo male here for Coronary Artery Disease and Hyperlipidemia Patient here for 1 year follow up CAD, primary cardiomyopathy, and valve disorder. Had routine labs w/ lipid last July 2022. He is doing great. Denies chest pain, SOB, palpitations, and lightheadedness/syncope. Overall he is feeling very well, denied chest pain, SOB, Orthopnea, palpitations, lightheadedness/dizziness or syncope. Denied any bleeding tendencies or concerns. Denied any activity limiting symptoms. Review of Systems Musculoskeletal: Positive for arthritis and joint pain. All other systems reviewed and are negative. Visit Vitals BP 134/76 (BP Location: Right arm, Patient Position: Sitting) Pulse 74 Ht 1.778 m (5' 10 ) Wt 73.5 kg (162 lb) SpO2 97% BMI 23.24 kg/m??? Smoking Status Every Day BSA 1.91 m??? Allergies Allergen Reactions Penicillins Other and Unknown rash Medications: Current Outpatient Medications on File Prior to Visit Medication Sig Dispense Refill aspirin 81 mg chewable tablet in the morning. atenolol (Tenormin) 25 mg tablet Take 1 tablet (25 mg) by mouth once daily as directed. 90 tablet 3 atorvastatin (Lipitor) 80 mg tablet Take 1 tablet (80 mg) by mouth at bedtime. 90 tablet 3 clopidogrel (Plavix) 75 mg tablet Take 1 tablet (75 mg) by mouth once daily as directed. 90 tablet 3 No current facility-administered medications on file prior to visit. Physical Exam: Constitutional: Appearance: Normal appearance. Without apparent distress HENT: Head: Normocephalic and atraumatic. Nose: Nose normal. Mouth/Throat: Mouth: Mucous membranes are moist. Eyes: Extraocular Movements: Extraocular movements intact. Conjunctiva/sclera: Conjunctivae normal. Neck: Vascular: No JVD. Cardiovascular: Rate and Rhythm: Normal rate and regular rhythm. Pulses: Dorsalis pedis pulses are 3 on the right side and 3on the left side. Posterior tibial pulses are 3 on the right side and 3 on the left side. Heart sounds: Normal heart sounds, S1 normal and S2 normal. Pulmonary: Effort: Pulmonary effort is normal. Breath sounds: Normal breath sounds. Abdominal: General: Bowel sounds are normal. Palpations: Abdomen is soft. Musculoskeletal: General: Normal range of motion. Cervical back: Normal range of motion. Right lower leg: No edema. Left lower leg: No edema. Skin: General: Skin is warm and dry. Capillary Refill: Capillary refill takes less than 2 seconds. Neurological: General: No focal deficit present. Mental Status: She is alert and oriented to person, place, and time. Psychiatric: Mood and Affect: Mood normal. Behavior: Behavior normal. Thought Content: Thought content normal. Judgment: Judgment normal. 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 continue risk factor modifications- heart healthy diet, regular exercise as tolerated and continue all medications. Hyperlipidemia Lipid abnormalities are stable Continue statin Primary cardiomyopathy (CMS/HCC) Heart failure is unchanged. NYHA Class II. Continue current treatment regimen. Dietary sodium restriction. Encouraged daily monitoring of the patient's weight. Continue current medications. Heart failure will be reassessed in 1 year. Mitral and aortic incompetence Noted Mitral, Aortic, tricuspid and pulmonic valve regurg- no concerning symptoms today. Will continue to monitor - d/w pt to call office for increased SOB, orthopnea, palpitations, syncope or chest pain. RTC 6 months - 1year Script for annual labs given to pt to be completed about October. [facility] 09-19-2023 Note Patient here for 1 y ear follow up CAD, primary cardiomyopathy, and valve disorder. Had routine labs w/ lipid last July 2022. He is doing great. Denies chest pain, SOB, palpitations, and lightheadedness/syncope. Review of Systems Musculoskeletal: Positive for arthritis and joint pain. All other systems reviewed and are negative. [facility] 09-19-2023 Note Lipid abnormalities are stable Continue statin [facility] 09-19-2023 Note Coronary artery dise ase is stable Continue GDMT- ASA, atenolol, lipitor and plavix for life. continue risk factor modifications- heart healthy diet, regular exercise as tolerated and continue all medications. [facility] 03-28-2022 Hospital Discharge instructions Patient Education 03/28/2022 14:24:56 Benign Prostatic Hyperplasia Benign Prostatic Hyperplasia Benign prostatic hyperplasia (BPH) is an enlarged prostate gland that is caused by the normal aging process and not by cancer. The prostate is a walnut-sized gland that is involved in the production of semen. It is located in front of the rectum and below the bladder. The bladder stores urine and the urethra is the tube that carries the urine out of the body. The prostate may get bigger as a man gets older. An enlarged prostate can press on the urethra. This can make it harder to pass urine. The build-up of urine in the bladder can cause infection. Back pressure and infection may progress to bladder damage and kidney (renal) failure. What are the causes? This condition is part of a normal aging process. However, not all men develop problems from this condition. If the prostate enlarges away from the urethra, urine flow will not be blocked. If it enlarges toward the urethra and compresses it, there will be problems passing urine. What increases the risk? This condition is more likely to develop in men over the age of 50 years. What are the signs or symptoms? Symptoms of this condition include: Getting up often during the night to urinate. Needing to urinate frequently during the day. Difficulty starting urine flow. Decrease in size and strength of your urine stream. Leaking (dribbling) after urinating. Inability to pass urine. This needs immediate treatment. Inability to completely empty your bladder. Pain when you pass urine. This is more common if there is also an infection. Urinary tract infection (UTI). How is this diagnosed? This condition is diagnosed based on your medical history, a physical exam, and your symptoms. Tests will also be done, such as: A post-void bladder scan. This measures any amount of urine that may remain in your bladder after you finish urinating. A digital rectal exam. In a rectal exam, your health care provider checks your prostate by putting a lubricated, gloved finger into your rectum to feel the back of your prostate gland. This exam detects the size of your gland and any abnormal lumps or growths. An exam of your urine (urinalysis). A prostate specific antigen (PSA) screening. This is a blood test used to screen for prostate cancer. An ultrasound. This test uses sound waves to electronically produce a picture of your prostate gland. Your health care provider may refer you to a specialist in kidney and prostate diseases (urologist). How is this treated? Once symptoms begin, your health care provider will monitor your condition (active surveillance or watchful waiting). Treatment for this condition will depend on the severity of your condition. Treatment may include: Observation and yearly exams. This may be the only treatment needed if your condition and symptoms are mild. Medicines to relieve your symptoms, including: ?Medicines to shrink the prostate. ?Medicines to relax the muscle of the prostate. Surgery in severe cases. Surgery may include: ?Prostatectomy. In this procedure, the prostate tissue is removed completely through an open incision or with a laparoscope or robotics. ?Transurethral resection of the prostate (TURP). In this procedure, a tool is inserted through the opening at the tip of the penis (urethra). It is used to cut away tissue of the inner core of the prostate. The pieces are removed through the same opening of the penis. This removes the blockage. ?Transurethral incision (TUIP). In this procedure, small cuts are made in the prostate. This lessens the prostate's pressure on the urethra. ?Transurethral microwave thermotherapy (TUMT). This procedure uses microwaves to create heat. The heat destroys and removes a small amount of prostate tissue. ?Transurethral needle ablation (TUNA). This procedure uses radio frequencies to destroy and remove a small amount of prostate tissue. ?Interstitial laser coagulation (ILC). This procedure uses a laser to destroy and remove a small amount of prostate tissue. ?Transurethral electrovaporization (TUVP). This procedure uses electrodes to destroy and remove a small amount of prostate tissue. ?Prostatic urethral lift. This procedure inserts an implant to push the lobes of the prostate away from the urethra. Follow these instructions at home: Take tkzk-chz-bynygky and prescription medicines only as told by your health care provider. Monitor your symptoms for any changes. Contact your health care provider with any changes. Avoid drinking large amounts of liquid before going to bed or out in public. Avoid or reduce how much caffeine or alcohol you drink. Give yourself time when you urinate. Keep all follow-up visits as told by your health care provider. This is important. Contact a health care provider if: You have unexplained back pain. Your symptoms do not get better with treatment. You develop side effects from the medicine you are taking. Your urine becomes very dark or has a bad smell. Your lower abdomen becomes distended and you have trouble passing your urine. Get help right away if: You have a fever or chills. You suddenly cannot urinate. You feel lightheaded, or very dizzy, or you faint. There are large amounts of blood or clots in the urine. Your urinary problems become hard to manage. You develop moderate to severe low back or flank pain. The flank is the side of your body between the ribs and the hip. These symptoms may represent a serious problem that is an emergency. Do not wait to see if the symptoms will go away. Get medical help right away. Call your local emergency services (911 in the [place] Do not drive yourself to the hospital. Summary Benign prostatic hyperplasia (BPH) is an enlarged prostate that is caused by the normal aging process and not by cancer. An enlarged prostate can press on the urethra. This can make it hard to pass urine. This condition is part of a normal aging process and is more likely to develop in men over the age of 50 years. Get help right away if you suddenly cannot urinate. This information is not intended to replace advice given to you by your health care provider. Make sure you discuss any questions you have with your health care provider. Document Released: 03/18/2006 Document Revised: 02/10/2019 Document Reviewed: 04/22/2017 [employer] Patient Education 2020 [employer]. Follow Up Care 01/19/2021 11:03:50 With:JANAK DUARTE, LUCY Ariza, URL Address: [address] [place] [address] When: Unknown [facility] Evaluation + Plan note Future Appointments Appointment Date:03/12/2023 11:15:00 AM Scheduled Provider:Raf Stinson MD, Abdiaziz Simpson Location:[facility] Appointment Type:URO Office Visit Diagnostic Tests PendingPSA Total 03/28/22PSA Total 03/28/22 [facility] Evaluation note Diagnosis Onset Date CAD (coronary artery disease) acute Fall acute Hyperlipemia acute Right shoulder pain acute [facility] Work Phone: Hospital course Narrative No data available for this section [facility] progress note No data available for this section [facility] Summary Purpose Family History No Family History Records FoundNo Family History Records FoundNo Family History Records FoundNo Family History Records Found Advance Directives Advance Directive Response Recorded Date/ Time Advance Directives Yes July 25, 2 018 10:09am Chief Complaint and Reason for Visit Chief Complaint Establish Reason for Visit CAD (coronary artery disease) Fall Hyperlipemia Right shoulder pain Additional Source Comments (unrecognized sect ion and content) No Status Records FoundNo Status Records FoundNo Status Records FoundNo Status Records Found INFORMATION SOURCE (unrecogn ized section and content) DATE CREATED AUTHOR 07/18/2018 [facility] DATE CREATED AUTHOR AUTHOR'S ORGANIZ ATION 08/14/2022 [facility] DATE CREATED AUTHOR AUTHOR'S ORGANIZ ATION 09/14/2023 [facility] DATE CREATED AUTHOR AUTHOR'S ORGANIZ ATION 09/20/2023 [facility] Patient Care team informatio n (unrecognized section and content) Team Status: Active Member Role Status Dates Lucy Alfaro APRN [employer]IP[employer]TER-C Primary Care Provider Active Team Status: Inactive Member Role Status Dates Lucy Alfaro APRN [employer]TER-C Primary Care Provider, Attending Provider Active Start: September 30, 2023 End: September 30, 2023 Goals (unrecognized section and content) Goals may be documented in a n alternate section FOR RECORDS PERTAINING TO PATIENTS WHO ARE OR HAVE BEEN ENROLLED IN A CHEMICAL DEPENDENCY/SUBSTANCEABUSE PROGRAM, SOME INFORMATION MAY BE OMITTED. This clinical summary was aggregated from multiple sources. Caution should be exercised in using it in the provision of clinical care. This summary normalizes information from multiple sources, and as a consequence, information in this document may materially change the coding, format and clinical context of patient data. In addition, data may be omitted in some cases. CLINICAL DECISIONS SHOULD BE BASED ON THE PRIMARY CLINICAL RECORDS. [facility] [employer] [facility]. provides no warranty or guarantee of the accuracy or completeness of information in this document.
== END 2023-09-30 09:39 | disposition home or self-care (01) ==
LOC: RAD 09:41
PROVIDERS: PCP Nurse Practitioner Family; Visit Provider Nurse Practitioner Family
DX: M25.511 Pain in right shoulder (principal); W19.XXXA Unspecified fall, initial encounter; M19.011 Primary osteoarthritis, right shoulder
CPT/HCPCS: 73030

== ENCOUNTER 2023-10-09 09:53 | Outpatient (OUT) | payer MEDICARE, OTHER, SELFPAY ==
--- NOTE | 2023-10-09 10:00 | CT_ITS ---
[address] [address] Patient Name: TANK VILLA MRN: [id number] date: 1950 Sex: M Assigned Patient Location: CT Current Patient Location: CT Accession/Order Number: [id number] Exam Date: 10/09/2023 10:12 Report Date: 10/09/2023 11:56 At the request of: NILSON STUBBS Procedure: CT lung screening low-dose EXAMINATION: CT lung screening low-dose HISTORY: Nicotine Dependence F17.210 COMPARISON: No relevant comparison available. TECHNIQUE: Axial, Coronal, and Sagittal images were created without the administration of IV contrast material.Dose reduction techniques were achieved by using automated exposure control and/or adjustment of mA and/or kV according to patient size and/or use of iterative reconstruction technique. FINDINGS: LUNGS: Scattered punctate bilateral pulmonary nodules measuring up to 4 mm, nonspecific. No focal parenchymal infiltrate PLEURA: No mass, effusion, or pneumothorax. VASCULATURE: No abnormality. LOWELL: No mass or pathologic adenopathy. MEDIASTINUM: No mass or pathologic adenopathy. CARDIAC: No enlargement, pericardial thickening, or significant calcification. CORONARY ARTERIES: Coronary calcifications are moderate. AORTA: No aortic aneurysm or dissection. Mild calcific atherosclerosis CHEST WALL: No mass or axillary adenopathy BONES: No bone lesion or fracture. LIMITED ABDOMEN: Cholelithiasis without CT evidence of acute cholecystitis OTHER: Negative. CT/CT lung screening low-dose IMPRESSION: LUNG SCREENING: Lung-RADS Category 2- Benign Appearance or Behavior. Nodules with a very low likelihood of becoming a clinically active cancer due to size or lack of growth. 2. Continue annual screening with LDCT in 12 months. Electronically authenticated by: EMILY WEINSTEIN Date: 10/09/2023 11:56
== END 2023-10-09 09:54 | disposition home or self-care (01) ==
LOC: CT 09:53
PROVIDERS: PCP Nurse Practitioner Family; Visit Provider Nurse Practitioner Family
DX: F17.210 Nicotine dependence, cigarettes, uncomplicated (principal); R91.8 Other nonspecific abnormal finding of lung field
CPT/HCPCS: 71271

== ENCOUNTER 2023-10-17 08:10 | Outpatient (OUT) | payer MEDICARE, OTHER, SELFPAY ==
--- NOTE | 2023-10-17 08:14 | MR_ITS ---
[address] [address] Patient Name: TANK VILLA MRN: [id number] date: 1950 Sex: M Assigned Patient Location: MRI Current Patient Location: MRI Accession/Order Number: [id number] Exam Date: 10/17/2023 08:45 Report Date: 10/17/2023 11:13 At the request of: JAQUELIN Perkins APLING Procedure: MR shoulder RT wo con EXAMINATION: MR shoulder RT wo con HISTORY: Internal Derangement Of Right Shoulder M24.811 ; right shoulder pain after falling COMPARISON: No relevant comparison available. TECHNIQUE: A variety of imaging planes and parameters were utilized for visualization of suspected pathology. Imaging was performed without or with contrast as indicated by examination type. FINDINGS: ROTATOR CUFF REGION CUFF TENDONS: Full-thickness tear the supraspinatus tendon and retraction approximately 2.0 cm. CUFF MUSCLES: Normal appearing muscles. DELTOID: No significant atrophy or tear. LONG BICEPS TENDON: No abnormal signal, attrition, or tear. LABRUM/BICEPS ANCHOR SUPERIOR: No visible labral tear or biceps anchor pathology. ANTERIOR/INFERIOR: No visible tear or attrition. POSTERIOR: No posterior labrum abnormality. CAPSULE No visible capsular laxity or thickening. AC JOINT REGION AC JOINT: Marked degenerative changes with large undersurface osteophyte projecting from distal end of clavicle extending inferiorly approximately 6.5 mm and impinging upon the supraspinatus muscle/tendon. AC LIGAMENTS: Normal acromioclavicular ligament. CC LIGAMENTS: Normal coracoclavicular ligaments. ACROMION: Mild lateral downsloping. SUBACROMIAL BURSA: Small effusion. HYALINE CARTILAGE: Normal. No visible cartilage narrowing or focal defect. OTHER BONES: Multiple subchondral cysts within humeral head deep to the location of the superior rotator cuff attachment. OTHER OBSERVATIONS: Negative. No other significant findings or glenohumeral effusion. MR/MR shoulder RT wo con IMPRESSION: 1. Complete tear and 2.0 cm retraction of the supraspinatus tendon. 2. Marked degenerative changes of acromioclavicular joint with large undersurface osteophyte likely contributing to disruption of the supraspinatus tendon. 3. Multiple subchondral cysts within lateral humeral head. Electronically authenticated by: IMELDA EDMOND Date: 10/17/2023 11:13
--- OUTSIDE RECORDS SUMMARY | 2023-10-17 08:18 | XMS_ITS | CCD ---
Author Organization [facility] Care Team Providers Care Sales Representative Printing Supplies Name Role Phone PHYSICIAN, DEFAULT Admitting Unavailable PHYSICIAN, DEFAULT Attending Unavailable SOULEYMANE SCHROEDER Primary Care Unavailable House, Ramin Simms Primary Care Physician RAF Lovell, DR ABDIAZIZ Simpson Consulting Unavaila ble HOUSE, RAMIN Simms Primary Care Unavailable REQUEST, NONE LISTED Admitting Unavaila ble REQUEST, NONE LISTED Attending Unavaila ble MARJAN, YAMILEX Guerrero Attending Unavailable HOUSE, RAMIN P Primary Care Unavailable MARJAN, YAMILEX N Admitting Unavailable MARJAN, YAMILEX N Consulting Unavailable HOUSE, RAMNI P Primary Care Unavailable ALGHOTHANI, MOHAMAD Admitting [...] allergy (disorder) 4 Unknown (qualifier value) [facility] Repository Medications Current Medications Medication Drug Class(es) Dates Sig (Normalized) Sig (Original) acetaminophen 300 mg / codeine phosphate 30 mg oral tablet (1 source) Opioid Agonist Start: 04-30-2019 take 1 tablet by mouth every six hours Tylenol with Codeine 300 mg-30 mg Tab tab(s), Oral, q6hr, Refill(s) 0 Start Date: 04/30/19 Status: Ordered Aspirin (3 sources) Platelet Aggregation Inhibitor, Nonsteroidal Anti-inflammatory Drug Start: 02-17-2019 aspirin 81 mg Start Date: 02/17/19 Status: Ordered Start: 03-22-2018 take 81 mg by mouth once daily Aspirin Active 81 MG PO Daily June 20, 2017 12:00am atenolol 25 mg oral tablet (3 sources) beta-Adrenergic Michelle Start: 06-20-2017 take 25 mg by mouth once daily at bedtime Atenolol Active 25 MG PO Daily at bedtime June 20, 2017 12:00am atorvastatin 80 mg oral tablet (3 sources) HMG-CoA Reductase Inhibitor Start: 06-20-2017 take 80 mg by mouth once daily Atorvastatin Active 80 MG PO Daily June 20, 2017 12:00am Centrum Silver (1 source) Start: 02-17-2019 Centrum Silver tab(s) Start Date: 02/17/19 Status: Ordered Osteo Bi-Flex (1 source) Start: 02-17-2019 Osteo Bi-Flex Start Date: 02/17/19 Status: Ordered clopidogrel 75 mg oral tablet (5 sources) P2Y12 Platelet Inhibitor Start: 09-30-2023 take [...] / diphenhydrAMINE hydrochloride 25 mg oral tablet (2 sources) Histamine-1 Receptor Antagonist Start: 06-20-2017 End: 09-30-2023 take 2 tablets by mouth at bedtime Diphenhydramine-Anthony taminophen (Tylenol Pm Extra Strength) 25-500 mg Tablet Discontinued 2 TAB PO Bedtime June 20, 2017 12:00am September 30, 2023 8:58am acetaminophen 325 mg / HYDROcodone bitartrate 5 mg oral tablet (2 sources) Opioid Agonist Start: 06-20-2017 End: 07-20-2017 Hydrocodone-Acetami nophen Discontinued 5 - 325 MG PO As Directed June 20, 2017 12:00am July 20, 2017 8:22am biotin 1 mg oral capsule (2 sources) Start: 06-20-2017 End: 09-30-2023 take 1 mg by mouth once daily Biotin Discontinued 1 MG PO Daily June 20, 2017 12:00am September 30, 2023 8:58am cyclobenzaprine hydrochloride 10 mg oral tablet (2 sources) Muscle Relaxant Start: 07-20-2017 End: 09-30-2023 take 10 mg by mouth three times daily Cyclobenzaprine Discontinued 10 MG PO Three times daily July 20, 2017 12:00am September 30, 2023 8:58am gabapentin 300 mg oral capsule (2 sources) Anti-epileptic Agent Start: 06-20-2017 End: 09-30-2023 take 300 mg by mouth twice daily Gabapentin Discontinued 300 MG PO Twice daily June 20, 2017 12:00am September 30, 2023 8:58am oxyCODONE hydrochloride 5 mg oral tablet (2 sources) Opioid Agonist Start: 07-20-2017 End: 09-30-2023 Oxycodone (Roxicodone) 5 mg Tablet Discontinued 5 MG PO Q6H 60 July 20, 2017 September 30, 2023 8:52am Take 1 or 2 p.o. every 6 hours as needed for pain Prednisone (2 sources) Start: 07-20-2017 End: 09-30-2023 Prednisone Discontinued 1 dose pk PO per package directions July 20, 2017 12:00am September 30, 2023 8:52am take 4 tabs for 3 days then take 3 tabs for 3 days then take 2 tabs for 3 days then take 1 tab for 3 days sulfamethoxazole 800 mg / trimethoprim 160 mg oral tablet (2 sources) Dihydrofolate Reductase Inhibitor Antibacterial, Sulfonamide Antimicrobial Start: [...] Episodic Coronary atherosclerosis and other heart disease (6 sources) Atherosclerotic heart disease of [place] coronary artery without angina pectoris; Translations: [Coronary arteriosclerosis] Onset: 08-03-2022 Chronic Coronary atherosclerosis and other heart disease (1 source) Presence of coronary angioplasty implant and graft; Translations: [Percutaneous transluminal coronary angioplasty status] 09-30-2023 Episodic Disorders of lipid metabolism (7 sources) Hypercholesterolemia; Translations: [Mixed hyperlipidemia] Onset: 08-03-2022 02-17-2019 Chronic E Codes: Fall (4 sources) Fall; Translations: [Unspecified fall, initial encounter] 09-30-2023 Episodic Essential hypertension (2 sources) Hypertensive disorder; Translations: [Essential (primary) hypertension] 09-30-2023 Chronic Genitourinary symptoms and ill-defined conditions (4 sources) [...] prostatitis 02-24-2019 Episodic Other non-traumatic joint disorders (4 sources) Pain in right shoulder; Translations: [Right shoulder pain] 09-30-2023 Episodic Other screening for suspected conditions (not mental disorders or infectious disease) (8 sources) Raised prostate specific antigen; Translations: [Elevated prostate specific antigen [PSA]] Onset: 01-15-2022 Episodic Colleen-; endo-; and myocarditis; cardiomyopathy (except that caused by tuberculosis or sexually transmitted disease) (2 sources) Cardiomyopathy, unspecified; Translations: [Cardiomyopathy, unspecified] Onset: 08-03-2022 Chronic Spondylosis; intervertebral disc disorders; other back problems (2 sources) Prolapsed lumbar intervertebral disc; Translations: [Other intervertebral disc displacement, lumbar region] 03-13-2023 Chronic Substance-related disorders (3 sources) Smoker; Translations: [Nicotine dependence] 03-28-2022 Chronic Comment on above: Added secondary to d ocumentation in Social History. Unclassified (1 source) Drug therapy finding 02-24-2019 Past or Other Problems Problem Classification Problem Date Documented Da te Episodic/Chronic Nonspecific chest pain (4 sources) Other chest pain; Translations: [OTHER CHEST PAIN] Onset: 05-03-2022 Episodic Results Test Name Value Interpretation Reference Range Facility 37on 09-19-2023 37 Have blood drawn/ la b work in about October- must be fasting after midnight. Normal [facility] Office Visiton 09-19-2023 Follow-up visit [id number] Mart Villa 1950 M Date Provider Department Center 09/19/2023 Hermelinda-YAMILEX PHILLIP CARD [facility] Family History Problem Relation Age of Onset Coronary artery disease Other Family Status - Relation Status Age at Other Level of Service:88094 [place] OFFICE/OUTPATIENT ESTABLISHED LOW MDM 20 MIN Normal [facility] Lab Reportson 09-12-2023 Lab Reports [id number]#1.00 TIFF Normal [facility] Lab Reportson 03-18-2023 Lab Reports [id number]#1. 00TIFF Normal [facility] RAD - MISCon 03-18-2023 RAD - MISC [id number]#1.0 0TIFF Normal [facility] Patient Educationon 03-12-20 23 Patient Education Urology Kidney Stones Kidney stones [...] these instructions at home: Medicines ? Take rlnh-tdd-sqfmnpl and prescription medicines only as told by [...] provider. Document Revised: 11/20/2021 Document Reviewed: 11/20/2021 [employer] Patient Education ? 2022 [employer] [facility] Screenson 03-12-2023 Screens [id number]#1. 00TIFF [facility] Screens 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 DX: Elevated PSA, BPH & Hx of Kidney Stones. *No Urology Meds. S/P NEG TRUS/Bx 05/25/19 & Last Stone procedure 2012. Pt did got to the [facility] ER 11/05/22. CC: lower abdominal pain. CT [...] E&M of Est. Patient Moderate 30-39 Min 82934 PSA Total PSA Total 2. Nephrolithiasis (N20.0: Calculus of kidney) CT ap 11/05/22 - showed small 4mm nonobstructing L renal stone. KUB 03/04/23 - punctate L stone confirmed. no recent flank pain/gross hematuria or stone passage sx. continue increased fluid intake. Ordered: E&M of Est. Patient Moderate 30-39 Min 73144 XR Abdomen 1 View 3. Smoker (F17.200: Nicotine dependence, unspecified, uncomplicated) currently smoking. cessation encouraged. increased risk for ca. UA completed in office today shows no microhematuria or signs of infection. Ordered: E&M of Est. Patient Moderate 30-39 Min 04929 4. BPH with urinary obstruction (N40.1: Benign prostatic hyperplasia with lower urinary tract symptoms) Pt is currently taking no bladder/prostate medication and is highly satisfied with overall symptom control. No indication for treatment at this time. Continue to monitor. Ordered: Body Mass Index (BMI) documented 3008F Current tobacco smoker 1034F Depression Screening Negative 3352F E&M of Est. Patient Moderate 30-39 Min 67833 Influenza immunization status assessed 1030F Most recent diastolic blood pressure >=90 mm Hg 3080F Most recent systolic blood pressure >= 140 mm Hg 3077F Urnls Dip Stick Auto w/o Microscopy POC 42213 f/u 1 yr w PSA/KUB prior, 6mo PSA draw (call results if marked change). Follow-up With When Contact Information LUCY BRICENO PA-C, URL Within 1 year Additional Instructions: Patient Education Kidney Stones, Apic-jk-Nctc Problem List/Past Medical History Ongoing Acute prostatitis [...] (COVID-19) [id number] (more content not included)... Normal [facility] Comment on above: Result Comment: Elec tronically Signed By: LUCY BRICENO PA-C\.br\Date and Time Signed: 03/12/23 10:28 EST ED Note-Physicianon 11-23-19 ED Note-Physician [id number]#1. 00CD:127 [facility] Lab Reportson 11-22-2022 Lab Reports [id number]#1. 00CD:127 Normal [facility] RAD - CT Reporton 11-22-2022 RAD - CT Report [id number]#1.0 0CD:127 [facility] CBC AUTO DIFFon 08-13-2022 BASO # 0.1 103/ul Normal 0.0-0.1 [facility] Comment on above: Performed By: #### C BC #### [facility] [address] [place] [address] Dr. Roxane Clayton Basophils/100 WBC (Bld) 0.7 % Normal 0.2-2.0 [facility] Comment on above: Performed By: #### C BC #### [facility] [address] [place] [address] Dr. Roxane Clayton EO # 0.3 103/ul Normal 0.0-0.7 [facility] Comment on above: Performed By: #### C BC #### [facility] [address] [place] [address] Dr. Roxane Calyton Eosinophils/100 WBC (Bld) 3.2 % Normal 0.9-7.0 [facility] Comment on above: Performed By: #### C BC #### [facility] [address] [place] [address] Dr. Roxane Clayton Erythrocyte distribution width (RBC) [Ratio] 12.3 % Normal 11.0-15.0 [facility] Comment on above: Performed By: #### C BC #### [facility] [address] [place] [address] Dr. Roxane Clayton Hematocrit (Bld) [Volume fraction] 49.2 % Normal 42.0-54.0 [facility] Comment on above: Performed By: #### C BC #### [facility] [address] [place] [address] Dr. Roxane Clayton Hemoglobin (Bld) [Mass/Vol] 15.8 g/dL Normal 14.0-18.0 [facility] Comment on above: Performed By: #### C BC #### [facility] [address] [place] [address] Dr. Roxane Clayton IG # 0.05 10e3/ul Critically high 0.00-0.03 [facility] Comment on above: Performed By: #### C BC #### [facility] [address] [place] [address] Dr. Roxane Clayton IG % 0.6 % Critically high 0.0-0.5 [facility] Comment on above: Performed By: #### C BC #### [facility] [address] [place] [address] Dr. Roxane Clayton LYMPH # 1.8 103/ul Normal 1.2-3.8 [facility] Comment on above: Performed By: #### C BC #### [facility] [address] [place] [address] Dr. Roxane Clayton Lymphocytes/100 WBC (Bld) 20.7 % Normal 20.5-60.0 [facility] Comment on above: Performed By: #### C BC #### [facility] [address] [place] [address] Dr. Roxane Clayton MANUAL DIFF REQ NO Normal [facility] Comment on above: Performed By: #### C BC #### [facility] [address] [place] [address] Dr. Roxane Clayton MCH (RBC) [Entitic mass] 30.9 pg Normal 25.9-34.0 [facility] Comment on above: Performed By: #### C BC #### [facility] [address] [place] [address] Dr. Roxane Clayton MCHC (RBC) [Mass/Vol] 32.1 g/dL Normal 29.9-35.2 [facility] Comment on above: Performed By: #### C BC #### [facility] [address] [place] [address] Dr. Roxane Clayton MCV (RBC) [Entitic vol] 96.3 fL Critically high 80.0-94.0 [facility] Comment on above: Performed By: #### C BC #### [facility] [address] [place] [address] Dr. Roxane Clayton MONO # 0.8 103/ul Normal 0.3-0.8 [facility] Comment on above: Performed By: #### C BC #### [facility] [address] [place] [address] Dr. Roxane Clayton Monocytes/100 WBC (Bld) 8.8 % Normal 1.7-12.0 [facility] Comment on above: Performed By: #### C BC #### [facility] [address] [place] [address] Dr. Roxane Clatyon NEUT # 5.6 103/ul Normal 1.4-6.5 [facility] Comment on above: Performed By: #### C BC #### [facility] [address] [address] [address] Roxane Clayton Neutrophils/100 WBC (Bld) 66.0 % Normal 43.0-75.0 [facility] Comment on above: Performed By: #### C BC #### [facility] [address] [place] [address] Dr. Roxane Clayton Platelet mean volume (Bld) [Entitic vol] 10.8 fL Normal 9.5-13.5 [facility] Comment on above: Performed By: #### C BC #### [facility] [address] [place] [address] Dr. Roxane Clayton PLT 230 103/ul Normal 150-450 [facility] Comment on above: Performed By: #### C BC #### [facility] [address] [place] [address] Dr. Roxane Clayton RBC 5.11 106/ul Normal 4.70-6.10 [facility] Comment on above: Performed By: #### C BC #### [facility] [address] [place] [address] Dr. Roxane Clayton WBC 8.5 103/ul Normal 4.0-11.0 [facility] Comment on above: Performed By: #### C BC #### [facility] [address] [place] [address] Dr. Roxane Clayton LIPID PROFILEon 08-13-2022 CHOL-HDL RATIO NORM SEE BELOW Normal [facility] Comment on above: Result Comment: 3.3 - 4.4 LOW RISK 4.4 - 7.1 AVERAGE RISK 7.1 - 11.0 MODERATE RISK >11.0 HIGH RISK Performed By: #### C MP, LIPID #### [facility] [address] [place] [address] Dr. Roxane Clayton Cholesterol [Mass/Vol] 105 mg/dL Normal <=200 [facility] Comment on above: Performed By: #### C MP, LIPID #### [facility] [address] [place] [address] Dr. Roxane Clayton Cholesterol in HDL [Mass/Vol] 43 mg/dL Normal 40-60 [facility] Comment on above: Performed By: #### C MP, LIPID #### [facility] [address] [place] [address] Dr. Roxane Clayton Cholesterol in LDL [Mass/Vol] 54.8 mg/dL Normal [facility] Comment on above: Performed By: #### C MP, LIPID #### [facility] [address] [place] [address] Dr. Roxane Clayton Cholesterol.total/ Cholesterol in HDL [Mass ratio] 2.4 {ratio} Normal [facility] Comment on above: Performed By: #### C MP, LIPID #### [facility] [address] [place] [address] Dr. Roxane Clayton HDL NORMAL > or = 60 mg/dl - LO W CARDIOVASCULAR RISK <40 mg/dl - HIGH CARDIOVASCULAR RISK Normal [facility] Comment on above: Performed By: #### C MP, LIPID #### [facility] [address] [place] [address] Dr. Roxane Clayton LDL CALC NORMAL SEE BELOW Normal [facility] Comment on above: Result Comment: <100 mg/dl OPTIMAL 100 - 129 mg/dl NEAR OR ABOVE OPTIMAL 130 - 159 mg/dl BORDERLINE HIGH 160 - 189 mg/dl HIGH >190 mg/dl VERY HIGH Performed By: #### C MP, LIPID #### [facility] [address] [place] [address] Dr. Roxane Clayton Triglyceride [Mass/Vol] 36 mg/dL Normal <=150 [facility] Comment on above: Performed By: #### C MP, LIPID #### [facility] [address] [place] [address] Dr. Roxane Clayton VLDL CALC 7.2 mg/dL Normal [facility] Comment on above: Performed By: #### C MP, LIPID #### [facility] [address] [place] [address] Dr. Roxane Clayton PROF 14(COMP METB)on 023 Albumin [Mass/Vol] 4.0 g/dL Normal 3.4-5.0 [facility] Comment on above: Performed By: #### C MP, LIPID #### [facility] [address] [address] [address] Roxane Clayton Albumin/Globulin [Mass ratio] 1.1 {ratio} Normal [facility] Comment on above: Performed By: #### C MP, LIPID #### [facility] [address] [address] [address] Roxane Clayton ALP [Catalytic activity/Vol] 112 U/L Normal 46-116 [facility] Comment on above: Performed By: #### C MP, LIPID #### [facility] [address] [address] [address] Roxane Clayton ALT [Catalytic activity/Vol] 48 U/L Normal 16-63 [facility] Comment on above: Performed By: #### C MP, LIPID #### [facility] [address] [address] [address] Roxane Clayton Anion gap [Moles/Vol] 13.7 mmol/L Normal [facility] Comment on above: Performed By: #### C MP, LIPID #### [facility] [address] [address] [address] Roxane Clayton AST [Catalytic activity/Vol] 30 U/L Normal 15-37 [facility] Comment on above: Performed By: #### C MP, LIPID #### [facility] [address] [address] [address] Roxane Clayton Bilirubin [Mass/Vol] 0.3 mg/dL Normal 0.2-1.0 [facility] Comment on above: Performed By: #### C MP, LIPID #### [facility] [address] [address] [address] Roxane Clayton Calcium [Mass/Vol] 9.0 mg/dL Normal 8.5-10.1 [facility] Comment on above: Performed By: #### C MP, LIPID #### [facility] [address] [address] [address] Roxane Clayton Chloride [Moles/Vol] 107 mmol/L Normal 98-107 [facility] Comment on above: Performed By: #### C MP, LIPID #### [facility] [address] [address] [address] Roxane Clayton CO2 [Moles/Vol] 28.1 mmol/L Normal 21.0-32.0 [facility] Comment on above: Performed By: #### C MP, LIPID #### [facility] [address] [address] [address] Roxane Clayton Creatinine [Mass/Vol] 1.04 mg/dL Normal 0.70-1.30 [facility] Comment on above: Performed By: #### C MP, LIPID #### [facility] [address] [address] [address] Roxane Clayton EGFR-AF [place] >60 Normal >=60 [facility] Comment on above: Performed By: #### C MP, LIPID #### [facility] [address] [place] [address] Dr. Roxane Clayton EGFR-NON AF [place] >60 Normal >=60 [facility] Comment on above: Performed By: #### C MP, LIPID #### [facility] [address] [place] [address] Dr. Roxane Clayton Globulin (S) [Mass/Vol] 3.8 g/dL Normal [facility] Comment on above: Performed By: #### C MP, LIPID #### [facility] [address] [place] [address] Dr. Roxane Clayton Glucose [Mass/Vol] 134 mg/dL Critically high 74-[address] [facility] Comment on above: Performed By: #### C MP, LIPID #### [facility] [address] [place] [address] Dr. Roxane Clayton Potassium [Moles/Vol] 4.8 mmol/L Normal 3.5-5.1 [facility] Comment on above: Performed By: #### C MP, LIPID #### [facility] [address] [place] [address] Dr. Roxane Clayton Protein [Mass/Vol] 7.8 g/dL Normal 6.4-8.2 [facility] Comment on above: Performed By: #### C MP, LIPID #### [facility] [address] [place], [place] [address] Dr. Roxane Clayton Sodium [Moles/Vol] 144 mmol/L Normal 136-145 [facility] Comment on above: Performed By: #### C MP, LIPID #### [facility] [address] [address] [address] Roxane Clayton Urea nitrogen [Mass/Vol] 19.0 mg/dL Critically high 7.0-18.0 [facility] Comment on above: Performed By: #### C MP, LIPID #### [facility] [address] [place], [place] [address] Dr. Roxane Clayton Urea nitrogen/Creatinin e [Mass ratio] 18.3 mg/mg Normal [facility] Comment on above: Performed By: #### C MP, LIPID #### [facility] [address] [address] [address] Roxane Clayton ECHOCARDIO M/2D COMPLETEon 0 08-02-2022 ECHOCARDIO M/2D COMPLETE Patient: MART VILLA Exam Date: 08/02/2022 : 1950 Gender:M Ordering : GLAI GREENWOOD Admission #: [id number] Family : Order #: [id number] CLICK HERE TO VIEW EXAM ECHOCARDIOGRAM REPORT [...] Domingo M.D. on 08/03/2022 at 09:18 Normal [facility] XR RIBS LT PA Nik XR RIBS LT PA CH EXAMINATION: XR [...] by: IMELDA EDMOND Date: 2022-05-04 09:10 Normal [facility] Vital Signs Date Time Vital Sign Value Performing Clinician Gunnar neil 09-30-2023 08:51-0400 Body height 177.8 cm [facility] 09-30-2023 08:51-0400 Body mass index (BMI) [Ratio] 23.3 kg/m2 [facility] 09-30-2023 08:51-0400 Body weight 73.93 kg [facility] 09-30-2023 08:51-0400 Diastolic blood pressure 80 mm[Hg] [facility] 09-30-2023 08:51-0400 Heart rate 71 /min [facility] 09-30-2023 08:51-0400 SaO2% (BldA) [Mass fraction] 97 % [facility] 09-30-2023 08:51-0400 Systolic blood pressure 132 mm[Hg] [facility] 03-28-2022 14:12-0500 Blood Pressure Location LUCY BRICENO [facility] 03-28-2022 14:12-0500 Diastolic blood pressure 83 mm[Hg] LUCY BRICENO [facility] 03-28-2022 14:12-0500 Heart rate 77 /min LUCY BRICENO [facility] 03-28-2022 14:12-0500 Systolic blood pressure 144 mm[Hg] LUCY JANAK [facility] Encounters Encounter Date Encounter Type Care Provider Facility Start: 03-17-2024 ambulatory PA-C LUCY BRICENO [facility]ility[facility] [place] Start: 10-01-2023 ambulatory [facility] Work Phone: Start: 10-01-2023 Non-patient / Non-visit [facility] Physician [facility] Work Phone: Start: 09-30-2023 End: 09-30-2023 ambulatory [facility] Work Phone: Start: 09-30-2023 End: 09-30-2023 Patient encounter procedure [facility] Physician [facility] Work Phone: Start: 09-19-2023 End: 09-19-2023 ambulatory YAMILEX PHILLIP [facility] Start: 03-12-2023 End: 03-12-2023 ambulatory PA-C LUCY BRICENO Facility:[facility] Start: 08-13-2022 End: 08-14-2022 ambulatory YAMILEX PHILLPI Facility: Start: 08-02-2022 End: 08-03-2022 ambulatory RAMIN IYER Facility:[facility] Start: 05-03-2022 End: 05-04-2022 ambulatory RAMIN IYER Facility:[facility] Start: 03-28-2022 End: 03-28-2022 Patient encounter procedure LUCYWOJCIECH BRICENO [facility] Start: 01-15-2022 End: 01-16-[address] ABDIAZIZ Lovell Facility:[facility] Start: 07-17-2018 End: 07-18-2018 Patient encounter procedure DEFAULT PHYSICIAN Facility:[facility] Procedures Date Procedure Procedure Detail Performing Clinician Start: 01-15-[address] ABDIAZIZ Lovell Comment on above: Performed By: #### P SAD #### [facility] [address] [place] [address] Dr. Roxane Clayton Start: 05-25-2019 Transrectal biopsy o f prostate using ultrasound guidance LUCY BRICENO Start: 09-24-2012 Ureteroscopic remova l of ureteric calculus LUCY BRICENO Arthroplasty of knee MARINA BRICENO Back Surgery LUCY BRICENO Extraction of cataract EMILIE BRICENO Comment on above: B/L Foot Surgery LUCY BRICENO History of placement of stent for coronary artery disease H/O heart artery stent Rotator cuff includi ng muscles and tendons (body structure) LUCY BRICENO Plan of Treatment Date Care Activity Detail Author Start: 10-01-2023 Patient referral [facility] Work Phone: Patient referral [facility] R [facility] Work Phone: XR Shoulder - right Views [facility] Immunizations Immunization Date Immunization Notes Care Provider Fa cility 01-13-2022 SARS-CoV-2 (COVID-19 ) [id number] LUCY JANAK [facility] 12-18-2021 influenza virus vacc ine, unspecified formulation LUCY JANAK [facility] 07-13-2021 SARS-CoV-2 mRNA (xdearjougyf-vhxe-cvhicc e) vaccine LUCY JANAK [facility] 01-20-2021 influenza virus vacc ine, unspecified formulation LUCY JANAK [facility] 12-27-2020 SARS-CoV-2 (COVID-19 ) mRNA BNT-162b2 vax LUCY JANAK [facility] 05-28-2020 SARS-CoV-2 (COVID-19 ) mRNA BNT-162b2 vax LUCY JANAK [facility] Comment on above: Result Comment: 2021: [id number] 05-08-2020 SARS-CoV-2 (COVID-19 ) mRNA BNT-162b2 vax LUCY JANAK [facility] Comment on above: Result Comment: 2021: [id number] 04-01-2020 SARS-CoV-2 (COVID-19 ) mRNA BNT-162b2 vax LUCY JANAK [facility] Comment on above: Result Comment: Pt d oes not know the dates but states he has also had the booster 01-12-2019 influenza virus vacc ine, unspecified formulation LUCY JANAK [facility] 01-15-2017 influenza virus vacc ine, unspecified formulation LUCY JANAK [facility] 02-14-2015 influenza virus vacc ine, unspecified formulation LUCY BRICENO [facility] 12-30-2014 influenza virus vacc ine, unspecified formulation LUCY BRICENO [facility] 06-01-2014 pneumococcal polysaccharide vaccine, 23 valent LUCY BRICENO [facility] 01-27-2014 influenza virus vacc ine, unspecified formulation LUCY BRICENO [facility] 01-07-2013 influenza, whole LUCY PE RRY [facility] 01-19-2011 influenza, whole LUCY PE RRY [facility] Payers Date Payer Category Payer Unknown [id number] 1960 Medicare [id number] 1960 Unknown [id number] 1960 Unknown [id number] 1950 Unknown [id number] 2.16.8 [id number] 1950 Unknown [id number] 2.16.84 [id number] 1950 Unknown [id number] 2.16.84 [id number] 1949 Unknown [id number] 2.16.84 [id number] 1950 Unknown [id number] 2.16.84 [id number] 1949 Unknown [id number] 2.16.8 [id number] 1950 Unknown [id number] 2.16.8 [id number] Medicare Medicare [id number] Self-pay Self Pay [id number] Unknown Unknown [facility] Health Claims [id number] Social History Date Type Detail Facility Start: 03-28-2022 Tobacco smoking status Heavy t obacco smoker (finding) [facility] Start: 09-30-2023 Tobacco smoking status Smoker (findi ng) [facility] Tobacco smoking status Never [facility] Sex Assigned At Male [facility] Start: 1950 Sex Assigned At Male F [facility] Functional Status Date Assessment Result Facility 03-28-2022 Functional Status N/A [facility] Clinical Notes 03-28-2022 to 09-19-2023 Note Date & Type Note Facility 09-19-2023 Note Noted Mitral, Aortic , tricuspid and pulmonic valve regurg- no concerning symptoms today. Will continue to monitor - d/w pt to call office for increased SOB, orthopnea, palpitations, syncope or chest pain. [facility] 09-19-2023 Note Heart failure is unc hanged. NYHA Class II. Continue current treatment regimen. Dietary sodium restriction. Encouraged daily monitoring of the patient's weight. Continue current medications. Heart failure will be reassessed in 1 year. [facility] 09-19-2023 Note UTP CARDIOLOGY PROGR ESS [...] to pt to be completed about October. [facility] 09-19-2023 Note Patient here for 1 y ear follow up CAD, primary cardiomyopathy, and valve disorder. Had routine labs w/ lipid last July 2022. He is doing great. Denies chest pain, SOB, palpitations, and lightheadedness/syncope. Review of Systems Musculoskeletal: Positive for arthritis and joint pain. All other systems reviewed and are negative. [facility] 09-19-2023 Note Lipid abnormalities are stable Continue statin [facility] 09-19-2023 Note Coronary artery dise ase is stable Continue GDMT- ASA, atenolol, lipitor and plavix for life. continue risk factor modifications- heart healthy diet, regular exercise as tolerated and continue all medications. [facility] 03-28-2022 Hospital Discharge instructions Patient Education [...] urethra. Follow these instructions at home: Take ltzc-frm-lbbwyoh and prescription medicines only as told by [...] 03/18/2006 Document Revised: 02/10/2019 Document Reviewed: 04/22/2017 [employer] Patient Education 2020 [employer] Follow Up Care 01/19/2021 11:03:50 With:LUCY BRICENO PA-C, URL Address: [address] [place] [address] When: Unknown [facility] Evaluation + Plan note Future Appointments Appointment Date:03/12/2023 11:15:00 AM Scheduled Provider:Raf Stinson MD, Abdiaziz Simpson Location:[facility] Appointment Type:URO Office Visit Diagnostic Tests PendingPSA Total 03/28/22PSA Total 03/28/22 [facility] Evaluation note Diagnosis Onset Date CAD (coronary artery disease) acute Fall acute Hyperlipemia acute Right shoulder pain acute [facility] Work Phone: Evaluation note* Diagnosis Onset Date Resolution Status CAD (coronary artery disease) acute Fall acute H/O heart artery stent acute Hyperlipemia acute Hypertension acute Nicotine dependence acute Right shoulder pain acute Screening for lung cancer ac john [facility] Work Phone: Hospital course Narrative No data available for this section [facility] Hospital Discharge instructionsAmbulatory Orders* Referral to Orthopedics Time Frame: 10/01/23, Location: None Selected [facility] Work Phone: Progress note No data available for this section [facility] Summary Purpose Family History No Family History Records FoundNo Family History Records FoundNo Family History Records FoundNo Family History Records Found Advance Directives Advance Directive Response Recorded Date/ Time Advance Directives Yes July 25, 2 018 10:09am Chief Complaint and Reason for Visit Chief Complaint Establish Reason for Visit CAD (coronary artery disease) Fall Hyperlipemia Right shoulder pain Chief Complaint Establish Reason for Visit CAD (coronary artery disease) Fall H/O heart artery stent Hyperlipemia Hypertension Nicotine dependence Right shoulder pain Screening for lung cancer Additional Source Comments (unrecognized sect ion and content) No Status Records FoundNo Status Records FoundNo Status Records FoundNo Status Records Found INFORMATION SOURCE (unrecogn ized section and content) DATE CREATED AUTHOR 07/18/2018 [facility] DATE CREATED AUTHOR AUTHOR'S ORGANIZ ATION 08/14/2022 [facility] DATE CREATED AUTHOR AUTHOR'S ORGANIZ ATION 09/14/2023 [facility] DATE CREATED AUTHOR AUTHOR'S ORGANIZ ATION 09/20/2023 [facility] Patient Care team informatio n (unrecognized section and content) Team Status: Active Member Role Status Dates Lucy Alfaro APRN GOVERNMENT MINISTER-C Primary Care Provider Active Team Status: Inactive Member Role Status Dates Lucy Alfaro APRN GOVERNMENT MINISTER-C Primary Care Provider, Attending Provider Active Start: September 30, 2023 End: September 30, 2023 Team Status: Active Member Role Status Dates Lucy MENG Alfaro GOVERNMENT MINISTER-C Primary Care Provider, Attending Provider Active Start: October 01, 2023 Goals (unrecognized section and content) Goals [...] BE BASED ON THE PRIMARY CLINICAL RECORDS. [facility] [employer] [facility]. provides no warranty or guarantee of the accuracy or completeness of information in this document.
== END 2023-10-17 08:11 | disposition home or self-care (01) ==
LOC: MRI 08:10
PROVIDERS: PCP Nurse Practitioner Family; Visit Provider Nurse Practitioner Family
DX: M24.811 Other specific joint derangements of right shoulder, not elsewhere classified (principal); M75.121 Complete rotator cuff tear or rupture of right shoulder, not specified as traumatic
CPT/HCPCS: 73221

== ENCOUNTER 2023-11-26 08:20 | Outpatient (OUT) | payer MEDICARE, OTHER, SELFPAY ==
[2023-11-26 08:34] LABS: Basophils Absolute Auto 0.1 10^3/uL (0.0-0.1); Basophils Percent Auto 0.6 % (0.2-2.0); Eosinophils Absolute Auto 0.2 10^3/uL (0.0-0.7); Eosinophils Percent Auto 2.8 % (0.9-7.0); Hematocrit 45.3 % (42.0-54.0); Hemoglobin 14.9 g/dL (14.0-18.0); Immature Granulocytes Abs Auto 0.04 10^3/uL (0.00-0.03); Immature Granulocytes Pct Auto 0.5 % (0.0-0.5); Lymphocytes Absolute Auto 1.9 10^3/uL (1.2-3.8); Lymphocytes Percent Auto 22.1 % (20.5-60.0); Mean Corpuscular HGB Conc 32.9 g/dL (29.9-35.2); Mean Corpuscular Volume 94.4 fL (80.0-94.0); Mean Platelet Volume 10.9 fL (9.5-13.5); Monocytes Absolute Auto 0.8 10^3/uL (0.3-0.8); Monocytes Percent Auto 9.6 % (1.7-12.0); Neutrophils Absolute Auto 5.6 10^3/uL (1.4-6.5); Neutrophils Percent Auto 64.4 % (43.0-75.0); Platelet Count 232 10^3/uL (150-450); Red Cell Distribution Width 12.2 % (11.0-15.0); White Blood Count 8.7 10^3/uL (4.0-11.0)
--- OUTSIDE RECORDS SUMMARY | 2023-11-26 08:38 | XMS_ITS | CCD ---
Author Organization [facility] CliniSyla Care Team Providers Care Vendor Specialist Name Role Phone PHYSICIAN, DEFAULT Admitting Unavailable PHYSICIAN, DEFAULT Attending Unavailable SOULEYMANE SCHROEDER Primary Care Unavailable House, Ramin Simms Primary Care Physician RAF Lovell, DR ABDIAZIZ Simpson Consulting Unavaila ble HOUSE, RAMIN Simms Primary Care Unavailable REQUEST, NONE LISTED Admitting Unavaila ble REQUEST, NONE LISTED Attending Unavaila ble MARJAN, YAMILEX N Attending Unavailable HOUSE, RAMIN P Primary Care Unavailable MARJAN, YAMILEX N Admitting Unavailable MARJAN, YAMILEX N Consulting Unavailable HOUSE, RAMIN P Primary Care Unavailable ALGHOTHANI, MOHAMAD Admitting Unavailable ALGHOTHANI, MOHAMAD Consulting Unavailable ALGHOTHANI, MOHAMAD Attending Unavailable HOUSE, RAMIN P Admitting Unavailable HOUSE, RAMIN P Primary Care Unavailable HOUSE, RAMIN P Consulting Unavailable HOUSE, RAMIN P Attending Unavailable FELI, DR IMELDA Seo Consulting Unavailable JANAK, FELICIA Ariza Attending Unavailab charity BRICENO, FELICIA Ariza Attending Unavailab charity PHILLIP, YAMILEX Attending Unavailable HOUSE, RAMIN P Referring Unavailable HOUSE, RAMIN P Primary Care Unavailable DAINA, SEDA Webb Attending Unavailable DAINA, SEDA Webb Referring Unavailable HOUSE, RAMIN P Primary Care Unavailable DAINA, SEDA Webb Referring Unavailable HOUSE, RAMIN P Primary Care Unavailable DAINA, SEDA Webb Attending Unavailable DAINA, SEDA Webb Referring Unavailable HOUSE, RAMIN P Primary Care Unavailable DAINA, SEDA Webb Admitting Unavailable DAINA, SEDA Webb Attending Unavailable DAINA, SEDA Webb Referring Unavailable HOUSE, RAMIN P Primary Care Unavailable EMILY SILVER Attending Unavailable ROHRBACHELUCY Seo Primary Care Unavailable JAQUELIN SMALL Attending Unavailable DAINA, SEDA Webb Attending Unavailable JAQUELIN SMALL Attending Unavailable Allergies Allergy Classification Reported Allergen(s) Allergy Type Date of Onset Reaction(s) Facility (6 sources) Penicillins; Translations: [penicillins] Drug allergy (disorder) 4 Unknown (qualifier value) [facility] Rep[facility] Medications Current Medications Medication Drug Class(es) Dates Sig (Normalized) Sig (Original) acetaminophen 300 mg / codeine phosphate 30 mg oral tablet (1 source) Opioid Agonist Start: 04-30-2019 take 1 tablet by mouth every six hours Tylenol with Codeine 300 mg-30 mg Tab tab(s), Oral, q6hr, Refill(s) 0 Start Date: 04/30/19 Status: Ordered Aspirin (4 sources) Platelet Aggregation Inhibitor, Nonsteroidal Anti-inflammatory Drug Start: 02-17-2019 aspirin 81 mg Start Date: 02/17/19 Status: Ordered Start: 06-20-2017 take 81 mg by mouth once daily Aspirin Active 81 MG PO Daily June 20, 2017 12:00am atenolol 25 mg oral tablet (4 sources) beta-Adrenergic Michelle Start: 06-20-2017 take 25 mg by mouth once daily at bedtime Atenolol Active 25 MG PO Daily at bedtime June 20, 2017 12:00am atorvastatin 80 mg oral tablet (4 sources) HMG-CoA Reductase Inhibitor Start: 06-20-2017 take 80 mg by mouth once daily Atorvastatin Active 80 MG PO Daily June 20, 2017 12:00am Centrum Silver (1 source) Start: 02-17-2019 Centrum Silver tab(s) Start Date: 02/17/19 Status: Ordered Osteo Bi-Flex (1 source) Start: 02-17-2019 Osteo Bi-Flex Start Date: 02/17/19 Status: Ordered clopidogrel 75 mg oral tablet (7 sources) P2Y12 Platelet Inhibitor Start: 09-30-2023 take [...] / diphenhydrAMINE hydrochloride 25 mg oral tablet (3 sources) Histamine-1 Receptor Antagonist Start: 06-20-2017 End: 09-30-2023 take 2 tablets by mouth at bedtime Diphenhydramine-Anthony taminophen (Tylenol Pm Extra Strength) 25-500 mg Tablet Discontinued 2 TAB PO Bedtime June 20, 2017 12:00am September 30, 2023 8:58am acetaminophen 325 mg / HYDROcodone bitartrate 5 mg oral tablet (3 sources) Opioid Agonist Start: 06-20-2017 End: 07-20-2017 Hydrocodone-Acetami nophen Discontinued 5 - 325 MG PO As Directed June 20, 2017 12:00am July 20, 2017 8:22am biotin 1 mg oral capsule (3 sources) Start: 06-20-2017 End: 09-30-2023 take 1 mg by mouth once daily Biotin Discontinued 1 MG PO Daily June 20, 2017 12:00am September 30, 2023 8:58am cyclobenzaprine hydrochloride 10 mg oral tablet (3 sources) Muscle Relaxant Start: 07-20-2017 End: 09-30-2023 take 10 mg by mouth three times daily Cyclobenzaprine Discontinued 10 MG PO Three times daily 50 July 20, 2017 12:00am September 30, 2023 8:58am gabapentin 300 mg oral capsule (3 sources) Anti-epileptic Agent Start: 06-20-2017 End: 09-30-2023 take 300 mg by mouth twice daily Gabapentin Discontinued 300 MG PO Twice daily June 20, 2017 12:00am September 30, 2023 8:58am oxyCODONE hydrochloride 5 mg oral tablet (3 sources) Opioid Agonist Start: 07-20-2017 End: 09-30-2023 Oxycodone (Roxicodone) 5 mg Tablet Discontinued 5 MG PO Q6H 60 July 20, 2017 September 30, 2023 8:52am Take 1 or 2 p.o. every 6 hours as needed for pain Prednisone (3 sources) Start: 07-20-2017 End: 09-30-2023 Prednisone Discontinued 1 dose pk PO per package directions 30 July 20, 2017 12:00am September 30, 2023 8:52am take 4 tabs for 3 days then take 3 tabs for 3 days then take 2 tabs for 3 days then take 1 tab for 3 days sulfamethoxazole 800 mg / trimethoprim 160 mg oral tablet (3 sources) Dihydrofolate Reductase Inhibitor Antibacterial, Sulfonamide Antimicrobial Start: 07-20-2017 End: 09-30-2023 take 1 tablet by mouth every twelve hours Sulfamethoxazole-Tr imethoprim (Bactrim Ds) 800-160 mg Tablet Discontinued 1 TAB PO Q12H July 20, 2017 12:00am September 30, 2023 8:52am Problems Active Problems Problem Classification Problem Date Documented Da te Episodic/Chronic Acute myocardial infarction (1 source) Myocardial infarction 02-17-2019 Chronic Calculus of urinary tract (3 sources) History of calculus of kidney; Translations: [Personal history of urinary calculi] Onset: 03-28-2022 Episodic Coronary atherosclerosis and other heart disease (10 sources) Coronary arteriosclerosis; Translations: [Atherosclerotic heart disease of kenaitze coronary artery without angina pectoris] Onset: 08-03-2022 09-30-2023 Chronic Coronary atherosclerosis and other heart disease (3 sources) Presence of coronary angioplasty implant and graft; Translations: [Percutaneous transluminal coronary angioplasty status] 09-30-2023 Episodic Disorders of lipid metabolism (10 sources) Hypercholesterolemia ; Translations: [Hyperlipidemia] Onset: 08-03-2022 02-17-2019 Chronic E Codes: Fall (6 sources) Fall; Translations: [Unspecified fall, initial encounter] 09-30-2023 Episodic Essential hypertension (6 sources) Hypertensive disorder; Translations: [Essential (primary) hypertension] Onset: 10-24-2023 09-30-2023 Chronic Genitourinary symptoms and ill-defined conditions [...] prostatitis 02-24-2019 Episodic Other non-traumatic joint disorders (6 sources) Pain in right shoulder; Translations: [Right shoulder pain] 09-30-2023 Episodic Other screening for suspected conditions (not mental disorders or infectious disease) (10 sources) Raised prostate specific antigen; Translations: [Elevated prostate specific antigen [PSA]] Onset: 01-15-2022 Episodic Colleen-; endo-; and myocarditis; cardiomyopathy (except that caused by tuberculosis or sexually transmitted disease) (2 sources) Cardiomyopathy, unspecified; Translations: [Cardiomyopathy, unspecified] Onset: 08-03-2022 Chronic Spondylosis; intervertebral disc disorders; other back problems (3 sources) Prolapsed lumbar intervertebral disc; Translations: [Other intervertebral disc displacement, lumbar region] 03-13-2023 Chronic Substance-related disorders (6 sources) Smoker; Translations: [Nicotine dependence] 03-28-2022 Chronic Comment on above: Added secondary to d ocumentation in Social History. Unclassified (1 source) Drug therapy finding 02-24-2019 Unclassified (1 source) right shoulder rotator cuff tear Onset: 11-06-2023 Past or Other Problems Problem Classification Problem Date Documented Da te Episodic/Chronic Nonspecific chest pain (4 sources) Other chest pain; Translations: [OTHER CHEST PAIN] Onset: 05-03-2022 Episodic Results Test Name Value Interpretation Reference Range Facility BASIC METABOLIC PANLon 10-23 Anion gap [Moles/Vol] 8 mmol/L Normal 5-15 [facility] Comment on above: Performed By: #### 7 18-7, BMP #### [facility] ([id number]) [address] [facility] [address] [address] [address] [place] [address] Calcium [Mass/Vol] 9.1 mg/dL Normal 8.5-10.5 [facility] Comment on above: Performed By: #### 7 18-7, BMP #### [facility] ([id number]) [address], [address] [place] [address] Chloride [Moles/Vol] 106 mmol/L Normal 98-109 [facility] Comment on above: Performed By: #### 7 18-7, BMP #### [facility] ([id number]) [address], [address] [place] [address] CO2 [Moles/Vol] 26 mmol/L Normal 22-32 [facility] Comment on above: Performed By: #### 7 18-7, BMP #### [facility] ([id number]) [address] [place] [address] Creatinine [Mass/Vol] 0.88 mg/dL Normal 0.60-1.30 [facility] Comment on above: Result Comment: METH OD TRACEABLE TO IDMS STANDARD Performed By: #### 7 18-7, BMP #### [facility] ([id number]) [address] [place] [address] eGFR (CKD-EPI) NON-RACE DEPENDENT >90 Normal >59 [facility] Comment on above: Result Comment: Reported eGFR is based on the CKD-EPI 2020 equation that does not use a race coefficient. Performed By: #### 7 18-7, BMP #### [facility] ([id number]) [address] [place] [address] Glucose [Mass/Vol] 144 mg/dL High 65-99 [facility] Comment on above: Performed By: #### 7 18-7, BMP #### [facility] ([id number]) [address] [place] [address] Potassium [Moles/Vol] 4.6 mmol/L Normal 3.5-5.0 [facility] Comment on above: Performed By: #### 7 18-7, BMP #### [facility] ([id number]) [address] [place] [address] Sodium [Moles/Vol] 140 mmol/L Normal 134-146 [facility] Comment on above: Performed By: #### 7 18-7, BMP #### [facility] ([id number]) [address] [place] [address] Urea nitrogen [Mass/Vol] 18 mg/dL Normal 5-27 [facility] Comment on above: Performed By: #### 7 18-7, BMP #### [facility] ([id number]) [address] [place] [address] HEMOGLOBINon 10-24-2023 Hemoglobin (Bld) [Mass/Vol] 15.3 g/dL Normal 13.0-17.0 [facility] Comment on above: Performed By: #### 7 , BMP #### [facility] ([id number]) [address] [place] [address] Documentationon 10-23-2023 Documentation [id number] Mart Villa 1950 Date Provider Department Center 10/23/[address] Family History Problem Relation Age of Onset Coronary artery disease Other Family Status - Relation Status Age at Other [facility] 36on 09-19-2023 36 Have blood drawn/ la b work in about October- must be fasting after midnight. Normal [facility] Office Visiton 09-19-2023 Follow-up visit [id number] Mart Villa 1950 Date Provider Department Center 09/19/2023 YAMILEX LUGO MARCO A Davis Family History Problem Relation Age of Onset Coronary artery disease Other Family Status - Relation Status Age at Other Level of Service:[address] [place] OFFICE/OUTPATIENT ESTABLISHED LOW MDM 20 MIN Normal [facility] Lab Reportson 09-12-2023 Lab Reports [id number]#1. 00TIFF Normal [facility] Lab Reportson 03-18-2023 Lab Reports [id number]# 1.00TIFF Normal [facility] RAD - MISCon 03-18-2023 RAD - MISC [id number]#1 .00TIFF Normal [facility] Patient Educationon 03-12-20 23 Patient Education [...] these instructions at home: Medicines ? Take ymvh-nsd-udroxvi and prescription medicines only as told by [...] provider. Document Revised: 11/20/2021 Document Reviewed: 11/20/2021 [email or web address] Patient Education ? 2022 [employer] 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 DX: Elevated PSA, BPH & Hx of Kidney Stones. *No Urology Meds. S/P NEG TRUS/Bx 05/25/19 & Last Stone procedure 2012. Pt did got to the [facility] ER 11/05/22. CC: lower abdominal pain. [...] E&M of Est. Patient Moderate 30-39 Min 75728 PSA Total PSA Total 2. Nephrolithiasis (N20.0: Calculus of kidney) CT ap 11/05/22 - showed small 4mm nonobstructing L renal stone. KUB 03/04/23 - punctate L stone confirmed. no recent flank pain/gross hematuria or stone passage sx. continue increased fluid intake. Ordered: E&M of Est. Patient Moderate 30-39 Min 03468 XR Abdomen 1 View 3. Smoker (F17.200: Nicotine dependence, unspecified, uncomplicated) currently smoking. cessation encouraged. increased risk for ca. UA completed in office today shows no microhematuria or signs of infection. Ordered: E&M of Est. Patient Moderate 30-39 Min 15019 4. BPH with urinary obstruction (N40.1: Benign prostatic hyperplasia with lower urinary tract symptoms) Pt is currently taking no bladder/prostate medication and is highly satisfied with overall symptom control. No indication for treatment at this time. Continue to monitor. Ordered: Body Mass Index (BMI) documented 3008F Current tobacco smoker 1034F Depression Screening Negative 3352F E&M of Est. Patient Moderate 30-39 Min 45920 Influenza immunization status assessed 1030F Most recent diastolic blood pressure >=90 mm Hg 3080F Most recent systolic blood pressure >= 140 mm Hg 3077F Urnls Dip Stick Auto w/o Microscopy POC 82018 f/u 1 yr w PSA/KUB prior, 6mo PSA draw (call results if marked change). Follow-up With When Contact Information LUCY BRICENO PA-C, URL Within 1 year Additional Instructions: Patient Education Kidney Stones, Mysa-gj-Zfzt Problem List/Past Medical History Ongoing Acute prostatitis [...] (COVID-19) [id number] (more content not included)... Normal [facility] Comment on above: Result Comment: Elec tronically Signed By: LUCY BRICENO PA-C\.br\Date and Time Signed: 03/12/23 10:28 EST ED Note-Physicianon 11-23-19 ED Note-Physician [id number]# 1.00CD:127 Normal [facility] Lab Reportson 11-22-2022 Lab Reports [id number]# 1.00CD:127 Normal [facility] RAD - CT Reporton 11-22-2022 RAD - CT Report [id number]#1 .00CD:127 Normal [facility] CBC AUTO DIFFon 08-13-2022 BASO # 0.1 103/ul Normal 0.0-0.1 [facility] Comment on above: Performed By: #### C BC #### [facility] [address] [address] [address] Roxane Clayton Basophils/100 WBC (Bld) 0.7 % Normal 0.2-2.0 [facility] Comment on above: Performed By: #### C BC #### [facility] [address] [place] [address] Dr. Roxane Clayton EO # 0.3 103/ul Normal 0.0-0.7 [facility] Comment on above: Performed By: #### C BC #### [facility] [address] [place] [address] Dr. Roxane Clayton Eosinophils/100 WBC (Bld) 3.2 % Normal 0.9-7.0 [facility] Comment on above: Performed By: #### C BC #### [facility] [address] [place] [address] Dr. Roxane Clayton Erythrocyte distribution width (RBC) [Ratio] 12.3 % Normal 11.0-15.0 [facility] Comment on above: Performed By: #### C BC #### [facility] [address] [place] [address] Dr. Roxane Clayton Hematocrit (Bld) [Volume fraction] 49.2 % Normal 42.0-54.0 [facility] Comment on above: Performed By: #### C BC #### [facility] [address] [place] [address] Dr. Roxane Clayton Hemoglobin (Bld) [Mass/Vol] 15.8 g/dL Normal 14.0-18.0 [facility] Comment on above: Performed By: #### C BC #### [facility] [address] [place] [address] Dr. Roxane Clayton IG # 0.05 10e3/ul Critically high 0.00-0.03 [facility] Comment on above: Performed By: #### C BC #### [facility] [address] [place] [address] Dr. Roxane Clayton IG % 0.6 % Critically high 0.0-0.5 [facility] Comment on above: Performed By: #### C BC #### [facility] [address] [place] [address] Dr. Roxane Clayton LYMPH # 1.8 103/ul Normal 1.2-3.8 [facility] Comment on above: Performed By: #### C BC #### [facility] [address] [place] [address] Dr. Roxane Clayton Lymphocytes/100 WBC (Bld) 20.7 % Normal 20.5-60.0 [facility] Comment on above: Performed By: #### C BC #### [facility] [address] [place] [address] Dr. Roxane Clayton MANUAL DIFF REQ NO Normal [facility] Comment on above: Performed By: #### C BC #### [facility] [address] [place] [address] Dr. Roxane Clayton MCH (RBC) [Entitic mass] 30.9 pg Normal 25.9-34.0 [facility] Comment on above: Performed By: #### C BC #### [facility] [address] [place] [address] Dr. Roxane Clayton MCHC (RBC) [Mass/Vol] 32.1 g/dL Normal 29.9-35.2 [facility] Comment on above: Performed By: #### C BC #### [facility] [address] [place] [address] Dr. Roxane Clayton MCV (RBC) [Entitic vol] 96.3 fL Critically high 80.0-94.0 [facility] Comment on above: Performed By: #### C BC #### [facility] [address] [place] [address] Dr. Roxane Clayton MONO # 0.8 103/ul Normal 0.3-0.8 [facility] Comment on above: Performed By: #### C BC #### [facility] [address] [place] [address] Dr. Roxane Clayton Monocytes/100 WBC (Bld) 8.8 % Normal 1.7-12.0 [facility] Comment on above: Performed By: #### C BC #### [facility] [address] [place] [address] Dr. Roxane Clayton NEUT # 5.6 103/ul Normal 1.4-6.5 [facility] Comment on above: Performed By: #### C BC #### [facility] [address] [place] [address] Dr. Roxane Clayton Neutrophils/100 WBC (Bld) 66.0 % Normal 43.0-75.0 [facility] Comment on above: Performed By: #### C BC #### [facility] [address] [place] [address] Dr. Roxane Clayton Platelet mean volume (Bld) [Entitic vol] 10.8 fL Normal 9.5-13.5 [facility] Comment on above: Performed By: #### C BC #### [facility] [address] [place] [address] Dr. Roxane Clayton PLT 230 103/ul Normal 150-450 [facility] Comment on above: Performed By: #### C BC #### [facility] [address] [place] [address] Dr. Roxane Clayton RBC 5.11 106/ul Normal 4.70-6.10 [facility] Comment on above: Performed By: #### C BC #### [facility] [address] [place] [address] Dr. Roxane Clayton WBC 8.5 103/ul Normal 4.0-11.0 [facility] Comment on above: Performed By: #### C BC #### [facility] [address] [place] [address] Dr. Roxane Clayton LIPID PROFILEon 08-13-2022 CHOL-HDL RATIO NORM SEE BELOW Normal [facility] Comment on above: Result Comment: 3.3 - 4.4 LOW RISK 4.4 - 7.1 AVERAGE RISK 7.1 - 11.0 MODERATE RISK >11.0 HIGH RISK Performed By: #### C MP, LIPID #### [facility] [address] [address] [address] Roxane Clayton Cholesterol [Mass/Vol] 105 mg/dL Normal <=200 [facility] Comment on above: Performed By: #### C MP, LIPID #### [facility] [address] [address] [address] Roxane Clayton Cholesterol in HDL [Mass/Vol] 43 mg/dL Normal 40-60 [facility] Comment on above: Performed By: #### C MP, LIPID #### [facility] [address] [address] [address] Roxane Clayton Cholesterol in LDL [Mass/Vol] 54.8 mg/dL Normal [facility] Comment on above: Performed By: #### C MP, LIPID #### [facility] [address] [address] [address] Roxane Clayton Cholesterol.total/Ch olesterol in HDL [Mass ratio] 2.4 {ratio} Normal [facility] Comment on above: Performed By: #### C MP, LIPID #### [facility] [address] [address] [address] Roxane Clayton HDL NORMAL > or = 60 mg/dl - LO W CARDIOVASCULAR RISK <40 mg/dl - HIGH CARDIOVASCULAR RISK Normal [facility] Comment on above: Performed By: #### C MP, LIPID #### [facility] [address] [address] [address] Roxane Clayton LDL CALC NORMAL SEE BELOW Normal [facility] Comment on above: Result Comment: <100 mg/dl OPTIMAL 100 - 129 mg/dl NEAR OR ABOVE OPTIMAL 130 - 159 mg/dl BORDERLINE HIGH 160 - 189 mg/dl HIGH >190 mg/dl VERY HIGH Performed By: #### C MP, LIPID #### [facility] [address] [address] [address] Roxane Clayton Triglyceride [Mass/Vol] 36 mg/dL Normal <=150 [facility] Comment on above: Performed By: #### C MP, LIPID #### [facility] [address] [address] [address] Roxane Clayton VLDL CALC 7.2 mg/dL Normal [facility] Comment on above: Performed By: #### C MP, LIPID #### [facility] [address] [address] [address] Roxane Clayton PROF 14(COMP METB)on 023 Albumin [Mass/Vol] 4.0 g/dL Normal 3.4-5.0 [facility] Comment on above: Performed By: #### C MP, LIPID #### [facility] [address] [place] [address] Dr. Roxane Clayton Albumin/Globulin [Mass ratio] 1.1 {ratio} Normal [facility] Comment on above: Performed By: #### C MP, LIPID #### [facility] [address] [place] [address] Dr. Roxane Clayton ALP [Catalytic activity/Vol] 112 U/L Normal 46-116 [facility] Comment on above: Performed By: #### C MP, LIPID #### [facility] [address] [place] [address] Dr. Roxane Clayton ALT [Catalytic activity/Vol] 48 U/L Normal 16-63 [facility] Comment on above: Performed By: #### C MP, LIPID #### [facility] [address] [address] [address] Roxane Clayton Anion gap [Moles/Vol] 13.7 mmol/L Normal [facility] Comment on above: Performed By: #### C MP, LIPID #### [facility] [address] [address] [address] Roxane Clayton AST [Catalytic activity/Vol] 30 U/L Normal 15-37 [facility] Comment on above: Performed By: #### C MP, LIPID #### [facility] [address] [place] [address] Dr. Roxane Clayton Bilirubin [Mass/Vol] 0.3 mg/dL Normal 0.2-1.0 [facility] Comment on above: Performed By: #### C MP, LIPID #### [facility] [address] [address] [address] Roxane Clayton Calcium [Mass/Vol] 9.0 mg/dL Normal 8.5-10.1 [facility] Comment on above: Performed By: #### C MP, LIPID #### [facility] [address] [address] [address] Roxane Clayton Chloride [Moles/Vol] 107 mmol/L Normal 98-107 [facility] Comment on above: Performed By: #### C MP, LIPID #### [facility] [address] [place] [address] Dr. Roxane Clayton CO2 [Moles/Vol] 28.1 mmol/L Normal 21.0-32.0 [facility] Comment on above: Performed By: #### C MP, LIPID #### [facility] [address] [place] [address] Dr. Roxane Clayton Creatinine [Mass/Vol] 1.04 mg/dL Normal 0.70-1.30 [facility] Comment on above: Performed By: #### C MP, LIPID #### [facility] [address] [place] [address] Dr. Roxane Clayton EGFR-AF SINGAPOREAN >60 Normal >=60 [facility] Comment on above: Performed By: #### C MP, LIPID #### [facility] [address] [place] [address] Dr. Roxane Clayton EGFR-NON AF SINGAPOREAN >60 Normal >=60 [facility] Comment on above: Performed By: #### C MP, LIPID #### [facility] [address] [place] [address] Dr. Roxane Clayton Globulin (S) [Mass/Vol] 3.8 g/dL Normal [facility] Comment on above: Performed By: #### C MP, LIPID #### [facility] [address] [place] [address] Dr. Roxane Clayton Glucose [Mass/Vol] 134 mg/dL Critically high 74-106 [facility] Comment on above: Performed By: #### C MP, LIPID #### [facility] [address] [address] [address] Roxane Clayton Potassium [Moles/Vol] 4.8 mmol/L Normal 3.5-5.1 [facility] Comment on above: Performed By: #### C MP, LIPID #### [facility] [address] [address] [address] Roxane Clayton Protein [Mass/Vol] 7.8 g/dL Normal 6.4-8.2 [facility] Comment on above: Performed By: #### C MP, LIPID #### [facility] [address] [address] [address] Roxane Clayton Sodium [Moles/Vol] 144 mmol/L Normal 136-145 [facility] Comment on above: Performed By: #### C MP, LIPID #### [facility] [address] [address] [address] Roxane Clayton Urea nitrogen [Mass/Vol] 19.0 mg/dL Critically high 7.0-18.0 [facility] Comment on above: Performed By: #### C MP, LIPID #### [facility] [address] [address] [address] Roxane Clayton Urea nitrogen/Creatinine [Mass ratio] 18.3 mg/mg Normal [facility] Comment on above: Performed By: #### C MP, LIPID #### [facility] [address] [address] [address] Roxane Clayton ECHOCARDIO M/2D COMPLETEon 0 08-02-2022 ECHOCARDIO M/2D COMPLETE Patient: MART VILLA Exam Date: 08/02/2022 : 1950 Gender:M Ordering : GALI GREENWOOD Admission #: [id number] Family : Order #: [id number] CLICK HERE TO VIEW EXAM ECHOCARDIOGRAM REPORT [...] M.D. on 08/03/2022 at 09:14 Approved by: Qinaa Domingo M.D. on 08/03/2022 at 09:18 Normal [facility] XR RIBS LT PA Nik 3 XR [...] by: IMELDA EDMOND Date: 2022-05-04 09:10 Normal [facility] Vital Signs Date Time Vital Sign Value Performing Clinician Faci lity 10-25-2023 08:22-0400 Body height 177.8 cm [facility] 10-25-2023 08:22-0400 Body mass index (BMI) [Ratio] 23.3 kg/m2 [facility] 10-25-2023 08:22-0400 Body weight 73.93 kg [facility] 10-25-2023 08:22-0400 Diastolic blood pressure 74 mm[Hg] [facility] 10-25-2023 08:22-0400 Heart rate 75 /min [facility] 10-25-2023 08:22-0400 SaO2% (BldA) [Mass fraction] 96 % [facility] 10-25-2023 08:22-0400 Systolic blood pressure 122 mm[Hg] [facility] 09-30-2023 08:51-0400 Body height 177.8 cm [facility] 09-30-2023 08:51-0400 Body mass index (BMI) [Ratio] 23.3 kg/m2 [facility] 09-30-2023 08:51-0400 Body weight 73.93 kg [facility] 09-30-2023 08:51-0400 Diastolic blood pressure 80 mm[Hg] [facility] 09-30-2023 08:51-0400 Heart rate 71 /min [facility] 09-30-2023 08:51-0400 SaO2% (BldA) [Mass fraction] 97 % [facility] 09-30-2023 08:51-0400 Systolic blood pressure 132 mm[Hg] [facility] 03-28-2022 14:12-0500 Blood Pressure Location LUCY BRICENO [facility] 03-28-2022 14:12-0500 Diastolic blood pressure 83 mm[Hg] LUCY BRICENO [facility] 03-28-2022 14:12-0500 Heart rate 77 /min LUCY BRICENO [facility] 03-28-2022 14:120500 Systolic blood pressure 144 mm[Hg] LUCY BRICENO [facility] Encounters Encounter Date Encounter Type Care Provider Facility Start: 03-17-2024 ambulatory GABRIELA-C LUCY Gracia acility:[facility] [place] Start: 11-13-2023 End: 11-13-2023 ambulatory JAQUELIN B APLING Not Available Start: 11-06-2023 End: 11-06-2023 Evaluation and management of inpatient EMILY Rinaldi [facility] Start: 11-06-2023 End: 11-06-2023 Evaluation and management of inpatient SEDA Tracey [facility] Start: 10-25-2023 Patient encounter status [facility] Start: 10-25-2023 End: 10-25-2023 ambulatory [facility] Work Phone: Start: 10-25-2023 End: 10-25-2023 Patient encounter procedure [facility] Work Phone: Start: 10-24-2023 End: 10-24-2023 ambulatory [facility] Start: 10-24-2023 Encounter for other preprocedural examination [facility] Start: 10-24-2023 End: 10-25-2023 ambulatory [facility] Start: 10-22-2023 End: 10-22-2023 ambulatory SEDA TRUJILLODLESTON Not Available Start: 10-14-2023 End: 10-14-2023 ambulatory JAQUELIN B APLING Not Available Start: 10-01-2023 ambulatory [facility] Work Phone: Start: 10-01-2023 Non-patient / Non-visit [facility] Work Phone: Start: 09-30-2023 End: 09-30-2023 ambulatory [facility] Work Phone: Start: 09-30-2023 End: 09-30-2023 Patient encounter procedure [facility] Work Phone: Start: 09-19-2023 End: 09-19-2023 ambulatory YAMILEX PHILLIP [facility] Start: 03-12-2023 End: 03-12-2023 ambulatory GABRIELA-C LUCY BRICENO Facility:[facility] Start: 08-13-2022 End: 08-14-2022 ambulatory YAMILEX PHILLIP Facility:[facility] Start: 08-02-2022 End: 08-03-2022 ambulatory RAMIN P HOUSE Facility:[facility] Start: 05-03-2022 End: 05-04-2022 ambulatory RAMIN P HOUSE Facility:[facility] Start: 03-28-2022 End: 03-28-2022 Patient encounter procedure LUCY BRICENO [facility] Start: 01-15-2022 End: 01-16-[address] ABDIAZIZ Lovell Facility: Start: 07-17-2018 End: 07-18-2018 Patient encounter procedure DEFAULT PHYSICIAN Facility:[facility] Procedures Date Procedure Procedure Detail Performing Clinician Start: 01-15-[address] ABDIAZIZ Lovell Comment on above: Performed By: #### P SAD #### [facility] [address] [place] [address] Dr. Roxane Clayton Start: 05-25-2019 Transrectal biopsy o f prostate using ultrasound guidance LUCY BRICENO Start: 09-24-2012 Ureteroscopic remova l of ureteric calculus LUCY BRICENO Arthroplasty of knee EMILIEFE R JANAK Back Surgery LUCY JANAK Extraction of cataract EMILIE JEFFREY JANAK Comment on above: B/L Foot Surgery LUCY BRICENO History of placement of stent for coronary artery disease H/O heart artery stent Rotator cuff includi ng muscles and tendons (body structure) LUCY BRCIENO Plan of Treatment Date Care Activity Detail Author Start: 10-01-2023 Patient referral [facility] Work Phone: Patient referral [facility] Work Phone: XR Shoulder - right Views [facility] Immunizations Immunization Date Immunization Notes Care Provider Brooke henry 01-13-2022 SARS-CoV-2 (COVID-19 ) [id number] LUCY BRICENO [facility] 12-18-2021 influenza virus vacc ine, unspecified formulation LUCY BRICENO [facility] 07-13-2021 SARS-CoV-2 mRNA (vorlbtwqogn-orsl-vsorfx e) vaccine LUCY BRICENO [facility] 01-20-2021 influenza virus vacc ine, unspecified formulation LUCY BRICENO [facility] 12-27-2020 SARS-CoV-2 (COVID-19 ) mRNA BNT-162b2 vax LUCY BRICENO [facility] 05-28-2020 SARS-CoV-2 (COVID-19 ) mRNA BNT-162b2 vax LUCY BRICENO [facility] Comment on above: Result Comment: 2021: [id number] 05-08-2020 SARS-CoV-2 (COVID-19 ) mRNA BNT-162b2 vax LUCY BRICENO [facility] Comment on above: Result Comment: 2021: [id number] 04-01-2020 SARS-CoV-2 (COVID-19 ) mRNA BNT-162b2 vax LUCY BRICENO [facility] Comment on above: Result Comment: Pt d oes not know the dates but states he has also had the booster 01-12-2019 influenza virus vacc ine, unspecified formulation LUCY BRICENO [facility] 01-15-2017 influenza virus vacc ine, unspecified formulation LUCY BRICENO [facility] 02-14-2015 influenza virus vacc ine, unspecified formulation LUCY BRICENO [facility] 12-30-2014 influenza virus vacc ine, unspecified formulation LUCY BRICENO [facility] 06-01-2014 pneumococcal polysaccharide vaccine, 23 valent LUCY BRICENO [facility] 01-27-2014 influenza virus vacc ine, unspecified formulation LUCY BRICENO [facility] 01-07-2013 influenza, whole LUCY PE RRY [facility] 01-19-2011 influenza, whole LUCY PE RRY [facility] Payers Date Payer Category Payer Unknown [id number] 1960 Medicare [id number] 1959 Unknown [id number] 1959 Unknown [id number] 1950 Unknown [id number] 2.16.8 40.1.063938.3.579.2.647 1950 Unknown [id number] 2.16.84 0.1.850616.3.579.2.593 1950 Unknown [id number] 2.16.84 0.1.831992.3.579.2.593 1950 Unknown [id number] 2.16.84 0.1.112313.3.579.2.593 1950 Unknown [id number] 2.16.84 0.1.575294.3.579.2.593 1950 Unknown [id number] 2.16.8 40.1.019203.3.579.2.727 1950 Unknown [id number] 2.16.8 40.1.596064.3.579.2.727 1950 Unknown [id number] 2.16.8 40.1.062805.3.579.2.1286 1949 Unknown [id number] 2.16.8 40.1.803167.3.579.2.1286 1949 Unknown [id number] 2.16.8 40.1.676239.3.579.2.1286 1949 Unknown [id number] 2.16.8 40.1.199716.3.579.2.1286 1949 Unknown [id number] 2.16.8 40.1.515857.3.579.2.1286 1949 Unknown [id number] 2.16.8 40.1.866575.3.579.2.1286 1949 Unknown [id number] 2.16.8 40.1.618133.3.579.2.1286 1949 Unknown [id number] 2.16.84 0.1.360811.3.579.2.1259 1950 Unknown [id number] 2.16.84 0.1.309424.3.579.2.1259 1950 Unknown [id number] 2.16.84 0.1.968164.3.579.2.1259 Medicare Medicare [id number] Self-pay Self Pay [id number] Unknown Unknown [facility] Health Claims [id number] Social History Date Type Detail Facility Start: 03-28-2022 Tobacco smoking status Heavy t obacco smoker (finding) [facility] Start: 09-30-2023 Tobacco smoking status Smoker (findi ng) [facility] Tobacco smoking status Never [facility] Sex Assigned At Male [facility] Start: 1950 Sex Assigned At Male F [facility] Functional Status Date Assessment Result Facility 03-28-2022 Functional Status N/A [facility] Clinical Notes 03-28-2022 to 10-23-2023 Note Date & Type Note Facility 10-23-2023 Note RCRI= 2 points Class III Risk 10.1 % 30-day risk of , [place], or cardiac arrest From a cardiac perspective pt may proceed with shoulder, he is a moderate risk for a low to moderate risk surgery. He may hold plavix 5-7 days prior and resume post op. Please monitor hemodynamics carefully and prevent any major fluid shifts. Yamilex Phillip [facility] Cardiology Available 7a-5pm via [employer] Chat Pager [phone] [facility] 09-19-2023 Note Noted Mitral, Aortic , tricuspid and pulmonic valve regurg- no concerning symptoms today. Will continue to monitor - d/w pt to call office for increased SOB, orthopnea, palpitations, syncope or chest pain. [facility] 09-19-2023 Note Heart failure is unc hanged. NYHA Class II. Continue current treatment regimen. Dietary sodium restriction. Encouraged daily monitoring of the patient's weight. Continue current medications. Heart failure will be reassessed in 1 year. [facility] 09-19-2023 Note UTP CARDIOLOGY PROGR ESS NOTE [...] to pt to be completed about October. [facility] 09-19-2023 Note Patient here for 1 y ear follow up CAD, primary cardiomyopathy, and valve disorder. Had routine labs w/ lipid last July 2022. He is doing great. Denies chest pain, SOB, palpitations, and lightheadedness/syncope. Review of Systems Musculoskeletal: Positive for arthritis and joint pain. All other systems reviewed and are negative. [facility] 09-19-2023 Note Lipid abnormalities are stable Continue statin [facility] 09-19-2023 Note Coronary artery dise ase is stable Continue GDMT- ASA, atenolol, lipitor and plavix for life. continue risk factor modifications- heart healthy diet, regular exercise as tolerated and continue all medications. [facility] 03-28-2022 Hospital Discharge instructions Patient Education 03/28/2022 [...] urethra. Follow these instructions at home: Take hfri-jkd-smiblsd and prescription medicines only as told by [...] 03/18/2006 Document Revised: 02/10/2019 Document Reviewed: 04/22/2017 [employer] Patient Education 2020 [employer]. Follow Up Care 01/19/2021 11:03:50 With:LUCY BRICENO PA-C, URL Address: [address] [place] [address] When: Unknown [facility] Evaluation + Plan note Future Appointments Appointment Date:03/12/2023 11:15:00 AM Scheduled Provider:Raf Stinson MD, Abdiaziz Simpson Location:[facility] Appointment Type:URO Office Visit Diagnostic Tests PendingPSA Total 03/28/22PSA Total 03/28/22 [facility] Evaluation note Diagnosis Onset Date CAD (coronary artery disease) acute Fall acute Hyperlipemia acute Right shoulder pain acute [facility] Work Phone: Evaluation note* Diagnosis Onset Date Resolution Status CAD (coronary artery disease) acute Fall acute H/O heart artery stent acute Hyperlipemia acute Hypertension acute Nicotine dependence acute Right shoulder pain acute Screening for lung cancer [place] [facility] Work Phone: Evaluation note* Diagnosis Onset Date Resolution Status CAD (coronary artery disease) acute Fall acute H/O heart artery stent acute Hyperlipemia acute Hypertension acute Nicotine dependence acute Right shoulder pain acute Screening for lung cancer [place] CAD (coronary artery disease) acute H/O heart artery stent acute Hyperlipemia acute Hypertension acute Nicotine dependence acute Pre-op evaluation acute [facility] Work Phone: Hospital course Narrative No data available for this section [facility] Hospital Discharge instructionsAmbulatory Orders* Referral to Orthopedics Time Frame: 10/01/23, Location: None Selected [facility] Work Phone: Progress note No data available for this section [facility] Summary Purpose Family History No Family History Records FoundNo Family History Records FoundNo Family History Records FoundNo Family History Records FoundNo Family History Records FoundNo Family History Records Found Advance Directives No Advanced Directives Records Found Advance Directive Response Recorded Date/ Time Advance Directives Yes July 25, 2 018 10:09am Chief Complaint and Reason for Visit Chief Complaint Establish Reason for Visit CAD (coronary artery disease) Fall Hyperlipemia Right shoulder pain Chief Complaint Establish Reason for Visit CAD (coronary artery disease) Fall H/O heart artery stent Hyperlipemia Hypertension Nicotine dependence Right shoulder pain Screening for lung cancer Chief Complaint Establish Surgery Clearance- testing 10/23 @ [place] Reason for Visit CAD (coronary artery disease) Fall H/O heart artery stent Hyperlipemia Hypertension Nicotine dependence Right shoulder pain Screening for lung cancer CAD (coronary artery disease) H/O heart artery stent Hyperlipemia Hypertension Nicotine dependence Pre-op evaluation Additional Source Comments (unrecognized sect ion and content) No Status Records FoundNo Status Records FoundNo Status Records FoundNo Status Records FoundNo Status Records FoundNo Status Records Found INFORMATION SOURCE (unrecogn ized section and content) DATE CREATED AUTHOR 07/18/2018 [facility] DATE CREATED AUTHOR AUTHOR'S ORGANIZ ATION 08/14/2022 [facility] DATE CREATED AUTHOR AUTHOR'S ORGANIZ ATION 09/14/2023 [facility] DATE CREATED AUTHOR AUTHOR'S ORGANIZ ATION 10/25/2023 [facility] DATE CREATED AUTHOR AUTHOR'S ORGANIZ ATION 11/08/2023 [facility] DATE CREATED AUTHOR AUTHOR'S ORGANIZ ATION 11/15/2023 [facility] EPIC Patient Care team informatio n (unrecognized section and content) Team Status: Active Member Role Status Dates Lucy Alfaro APRN BOX [employer]ACKER-C Primary Care Provider Active Team Status: Inactive Member Role Status Dates Lucy Alfaro APRN [employer]-C Primary Care Provider, Attending Provider Active Start: September 30, 2023 End: September 30, 2023 Team Status: Active Member Role Status Dates Lucy Alfaro APRN NP-C Primary Care Provider, Attending Provider Active Start: October 01, 2023 Team Status: Inactive Member Role Status Dates Lucy Alfaro APRN [employer]ER-C Primary Care Provider, Attending Provider Active Start: October 25, 2023 End: October 25, 2023 Goals (unrecognized section and content) Goals [...] BE BASED ON THE PRIMARY CLINICAL RECORDS. [employer] [facility]. provides no warranty or guarantee of the accuracy or completeness of information in this document.
[2023-11-26 09:39] LABS: Alanine Aminotransferase 72 U/L (16-63); Albumin Globulin Ratio 1.4; Albumin Level 3.8 g/dL (3.4-5.0); Alkaline Phosphatase 93 U/L (46-116); Anion Gap 11.7; Aspartate Amino Transferase 28 U/L (15-37); BUN Creatinine Ratio 17.8; Bilirubin Total 0.4 mg/dL (0.2-1.0); Calcium 8.8 mg/dL (8.5-10.1); Carbon Dioxide 27.1 mmol/L (21.0-32.0); Chloride 106 mmol/L (98-107); Chol HDL Ratio 2.3; Cholesterol 100 mg/dL (<=200); Estimated GFR (African America >60 (>=60); Estimated GFR (Non-African Ame >60 (>=60); Globulin 2.7 g/dL; Glucose 153 mg/dL (74-106); HDL Cholesterol 43 mg/dL (40-60); LDL Cholesterol Calculated 44.2 mg/dL; Potassium 4.8 mmol/L (3.5-5.1); Sodium 140 mmol/L (136-145); Total Protein 6.5 g/dL (6.4-8.2); Triglycerides 64 mg/dL (<=150); VLDL CHOLESTEROL 12.8 mg/dL
== END 2023-11-26 08:21 | disposition home or self-care (01) ==
LOC: LAB 08:21
PROVIDERS: PCP Nurse Practitioner Family; Visit Provider Nurse Practitioner
DX: I08.0 Rheumatic disorders of both mitral and aortic valves (principal); E78.2 Mixed hyperlipidemia; I25.10 Atherosclerotic heart disease of native coronary artery without angina pectoris
CPT/HCPCS: 36415; 80053; 80061; 85025

== ENCOUNTER 2024-03-11 09:10 | Outpatient (OUT) | payer MEDICARE, OTHER, SELFPAY ==
--- NOTE | 2024-03-11 09:30 | XR_ITS ---
The [address] [address] Patient Name: TANK VILLA MRN: [id number] date: 1950 Sex: M Assigned Patient Location: LAB Current Patient Location: Accession/Order Number: [id number] Exam Date: 03/11/2024 09:35 Report Date: 03/12/2024 05:05 At the request of: NILSON BRICENO Procedure: XR abdomen 1V EXAMINATION: XR abdomen 1V HISTORY: Kidney Stone COMPARISON: XR abdomen 03/04/2023 FINDINGS: KIDNEY/URETER - RIGHT: No visible renal or ureteral calcifications. KIDNEY/URETER - LEFT: Stable small calcification projecting over inferior pole of kidney. PELVIS: No visible ureteral stones. Stable pelvic calcifications favoring phleboliths. BOWEL: No abnormal dilation or deviation. BONES: No acute abnormality. OTHER: Negative. No abnormal gaseous collections. XR/XR abdomen 1V IMPRESSION: 1. Grossly stable left nephrolithiasis. Electronically authenticated by: IMELDA EDMOND Date: 03/12/2024 05:05
== END 2024-03-11 09:11 | disposition home or self-care (01) ==
PROVIDERS: PCP Nurse Practitioner Family; Visit Provider Physician Assistant
DX: N20.0 Calculus of kidney (principal); R97.20 Elevated prostate specific antigen [PSA]
CPT/HCPCS: 36415; 74018; 84153

== ENCOUNTER 2024-08-17 08:48 | Outpatient (OUT) | payer MEDICARE, OTHER, SELFPAY ==
--- NOTE | 2024-08-17 08:57 | CA_ITS ---
Patient Name: TANK VILLA MR#: [id number] : 1950 Exam Date: 08/17/2024 Ordering Doctor: YAMILEX PHILLIP ECHOCARDIOGRAM REPORT PROCEDURE: CA ECHO DOPPLER COMPLETE INDICATIONS: Mitral and Aortic valve insufficiency COMPARISON: None. DESCRIPTION: COMPLETE ECHOCARDIOGRAM Real-time transthoracic echocardiography with 2D, M-mode, spectral and color flow Doppler performed. QUALITY: Technical quality was good. LEFT VENTRICLE: Normal chamber size. Borderline left ventricular hypertrophy. Global left ventricular systolic function is normal. LV EF: Estimated left ventricular ejection fraction is 55%. DIASTOLIC: Normal diastolic function. ATRIAL SEPTUM: LEFT ATRIUM: Moderate dilatation. RIGHT ATRIUM: Moderate dilatation. RIGHT VENTRICLE: Normal chamber size. Normal right ventricular systolic function. TRICUSPID VALVE: Normal mobility and thickness. No stenosis with mild regurgitation. No evidence of pulmonary hypertension. RVSP 28 mmHg MITRAL VALVE: Normal mobility and thickness. No evidence of mitral valve stenosis. There is no mitral annular calcification. Mild mitral regurgitation. AORTIC VALVE: Normal trileaflet appearance. Thickened aortic valve. Normal leaflet mobility. No evidence of aortic valve stenosis. Mild to moderate aortic regurgitation. AORTIC ROOT: Normal diameter and appearance, measuring 3.4 cm. PULMONIC VALVE: Normal thickness and mobility. No stenosis. Trivial regurgitation. PERICARDIUM: No evidence of pericardial effusion. IVC: Collapses with inspirations. Normal size. PLEURA: CONCLUSION: 1. Normal left ventricular size and systolic function. Estimated LVEF is 55%. 2. Normal right ventricular size and systolic function. 3. Moderate biatrial dilatation. 4. Normal diastolic function. 5. Mild to moderate aortic regurgitation. 6. Mild mitral and tricuspid regurgitation. 7. Normal right-sided pressures. Adult Echocardiography Procedure Report Left Ventricle LVEDD (3.7 - 5.6 cm): 4.83 cm LVESD (2.2 - 4.0 cm): 3.86 cm LVIVS thickness (0.6 - 1.2 cm): 1.34 cm LVPW thickness (0.5 - 1.0 cm): 1.15 cm e': 0.10 m/s E - e': 7.11 LVOT Max Gradient: 2.59 mm[Hg] LVOT Area (cm2): 0.80 m/s Peak Velocity (LVOT): 0.80 m/s Mean Velocity (LVOT): 0.55 m/s LVOT Diameter 2.24 cm Left Ventricular Ejection Fraction: 55 % Left Atrium LA Volume Index (2D A2C): 36.71 ml/m2 Left Atrium Systolic Dimension: 3.55 cm Mitral Valve MV E to A Ratio: 1.06 Mitral Valve A-Wave Peak Velocity: 0.64 m/s Mitral Valve E-Wave Peak Velocity: 0.68 m/s Right Ventricle RV Internal Diastolic Dimension: 3.58 cm Aorta AO Root Diam: 3.41 cm Ascending Ao Diam: 3.06 cm Aortic Valve AoV Area (Peak Richy): 2.15 cm2, 2.15 cm2 AoV Area (VTI): 2.04 cm2, 2.04 cm2 Peak Velocity(Antegrade Flow): 1.48 m/s Peak Gradient(Antegrade Flow): 8.73 mm[Hg] Mean Velocity(Antegrade Flow): 0.99 m/s Mean Gradient(Antegrade Flow): 4.56 mm[Hg] Velocity Time Integral: 34.58 cm Tricuspid Valve Peak Velocity (Regurgitant Flow): 2.23 m/s, 2.50 m/s, 2.29 m/s, 2.33 m/s Pulmonic Valve Mean Gradient: 2.52 mm[Hg] Mean Velocity: 0.73 m/s Peak Velocity: 1.12 m/s, 0.66 m/s Peak Gradient: 1.74 mm[Hg], 5.06 mm[Hg] Right Atrium Right Atrium Systolic Pressure: 48.00 ml, 48.00 ml Dictated by: Lester Alfaro M.D. on 08/17/2024 at 18:07 Approved by: Lester Alfaro M.D. on 08/17/2024 at 18:12
== END 2024-08-17 08:49 | disposition home or self-care (01) ==
LOC: CARD 08:48
PROVIDERS: PCP Nurse Practitioner Family; Visit Provider Nurse Practitioner
DX: I08.0 Rheumatic disorders of both mitral and aortic valves (principal)
CPT/HCPCS: 93306

== ENCOUNTER 2024-10-09 08:31 | Outpatient (OUT) | payer MEDICARE, OTHER, SELFPAY ==
--- NOTE | 2024-10-09 08:34 | CT_ITS ---
The [address] [address] Patient Name: TANK VILLA MRN: [id number] date: 1950 Sex: M Assigned Patient Location: CT Current Patient Location: CT Accession/Order Number: [id number] Exam Date: 10/09/2024 09:09 Report Date: 10/09/2024 09:16 At the request of: NILSON STUBBS Procedure: CT lung screening low-dose LOW-DOSE SCREENING CHEST CT WITHOUT CONTRAST COMPARISON: 10/09/2023 CLINICAL DATA: Current smoker for approximately 59 years. Spiral axial unenhanced low-dose images were obtained through the chest. Images were reviewed using both narrow and wide window settings. This CT exam was performed using one or more following dose reduction techniques: Automated exposure control, adjustment of the mA and/or kV according to patient size, or use of iterative reconstruction technique. The heart is within normal limits for size. No pericardial effusion is seen. Coronary artery disease is noted. There is no aortic aneurysm. Minor plaque is present at the aortic arch and proximal great vessels. There are small stable nonpathologic mediastinal lymph nodes. Dextroscoliotic curvature and degenerative changes are visualized at the spine. There is scarring at both apices, greater on the right where there is similar associated pleural-based nodularity. There is no developing consolidation, pleural effusion or pneumothorax. No new pulmonary nodules are identified. Limited imaging through the upper abdomen shows cholelithiasis. CT/CT lung screening low-dose IMPRESSION: STABLE SCARRING AND ASSOCIATED NODULARITY. NO NEW PULMONARY NODULES. INCIDENTAL CHOLELITHIASIS. Lung RADS category 2 - benign Twelve-month low-dose CT follow-up suggested Impression dictated by: Sosa Cornelius M.D. 10/09/2024 9:16 AM Dictation Location: [place] [address] Electronically authenticated by: [id number] Y Date: 10/09/2024 09:16
--- OUTSIDE RECORDS SUMMARY | 2024-10-09 08:50 | XMS_ITS | CCD ---
Author Organization [facility] CliniSyms Care Team Providers Care Preschool Substitute Teacher Name Role Phone PHYSICIAN, DEFAULT Admitting Unavailable PHYSICIAN, DEFAULT Attending Unavailable SOULEYMANE SCHROEDER Primary Care Unavailable House, Ramin Simms Primary Care Physician [phone] HEMANT Lovell, DR ABDIAZIZ Simpson Consulting Unavaila ble HOUSE, RAMIN Simms Primary Care Unavailable REQUEST, NONE LISTED Admitting Unavaila ble REQUEST, NONE LISTED Attending Unavaila ble MARJAN, FÁTIMA Guerrero Attending Unavailable HOUSE, RAMIN P Primary Care Unavailable MARJAN, FÁTIMA Guerrero Admitting Unavailable MARJAN, FÁTIMA Guerrero Consulting Unavailable HOUSE, RAMIN P Primary Care Unavailable ALGHOTHANI, GALI Admitting Unavailable ALGHOTHANI, GALI Consulting Unavailable ALGHOTHANI, GALI Attending Unavailable HOUSE, RAMIN P Admitting Unavailable HOUSE, RAMIN P Primary Care Unavailable HOUSE, RAMIN P Consulting Unavailable HOUSE, RAMIN P Attending Unavailable FELI, DR IMELDA Seo Consulting Unavailable HOUSE, RAMIN P Referring Unavailable HOUSE, RAMIN P Primary Care Unavailable DAINA, SEDA Webb Attending Unavailable DAINA, SEDA A Referring Unavailable HOUSE, RAMIN P Primary Care Unavailable EMPIRE, SEDA A Referring Unavailable HOUSE, RAMIN P Primary Care Unavailable EMPIRE, SEDA Webb Attending Unavailable DAINA, SEDA A Referring Unavailable HOUSE, RAMIN P Primary Care Unavailable DAINA, SEDA A Admitting Unavailable DAINA, SEDA Tracey Attending Unavailable DAINA, SEDA A Referring Unavailable HOUSE, RAMIN P Primary Care Unavailable EMILY SILVER Attending Unavailable LUCY ALFARO Primary Care Unavailable Angelina RESOURCE SPECIALIST TEACHER, Lucy Webb Primary Care Provider ALYX GARCIA Primary Care Physician LUCY BRICENO Attending Unavailable LUCY BRICENO Attending Unavailable House , Ramin Simms Primary Care Provider IMELDA VILLA Attending Unavailable IMELDA VILLA Attending Unavailable APLING, SILVA B Attending Unavailable DAINA, SEDA Webb Attending Unavailable RUSHER, IMELDA Webb Attending Unavailable RUSHER, IMELDA Webb Attending Unavailable APLING, SILVA Perkins Attending Unavailable JOHN ESPINAL Attending Unavailable ANTHONY SEGOVIA Referring Unavailable APLING, SILVA B Attending Unavailable BLACKSTON, MADELYN T Attending Unavailable APLING, SILVA B Referring Unavailable BLACKSTON, MADELYN T Attending Unavailable APLING, SILVA B Referring Unavailable KELBLEY, FÁTIMA Attending Unavailable APLING, SILVA B Referring Unavailable BLACKSTON, MADELYN T Attending Unavailable APLING, SILVA B Referring Unavailable KELBLEY, FÁTIMA Attending Unavailable APLING, SILVA B Referring Unavailable BLACKSTON, MADELYN T Attending Unavailable APLING, SILVA B Referring Unavailable KELBLEY, FÁTIMA Attending Unavailable APLING, SILVA B Referring Unavailable BLACKSTON, MADELYN T Attending Unavailable APLING, SILVA B Referring Unavailable KELBLEY, FÁTIMA Attending Unavailable APLING, SILVA B Referring Unavailable BRINK, JORY Attending Unavailable APLING, SILVA B Referring Unavailable KELBLEY, FÁTIMA Attending Unavailable APLING, SILVA B Referring Unavailable APLING, SILVA B Attending Unavailable BRINK, JORY Attending Unavailable APLING, SILVA B Referring Unavailable KELBLEY, FÁTIMA Attending Unavailable APLING, SILVA B Referring Unavailable APLING, SILVA B Attending Unavailable BRINK, JORY Attending Unavailable APLING, SILVA B Referring Unavailable KELBLEY, FÁTIMA Attending Unavailable APLING, SILVA B Referring Unavailable BLACKSTON, MADELYN T Attending Unavailable APLING, SILVA B Referring Unavailable APLING, SILVA B Attending Unavailable SHAHZAD, MOI Attending Unavailable MARJAN, FÁTIMA Attending Unavailable Lucy Alfaro APRN Primary Care Provider Lucy Alfaro APRN Attending Provider Allergies Allergy Classification Reported Allergen(s) Allergy Type Date of Onset Reaction(s) Facility (6 sources) Penicillins; Translations: [penicillins] Drug allergy (disorder) 4 Unknown (qualifier value) [facility] Repository (20 sources) Penicillins; Translations: [penicillins] Drug Intolerance 4 Rash, Unknown (qualifier value) [facility] Healthcare (1 source) Penicillins Propensity to adverse reactions to drug 9 [facility] Medications Current Medications Medication Drug Class(es) Dates Sig (Normalized) Sig (Original) acetaminophen 300 mg / codeine phosphate 30 mg oral tablet (1 source) Opioid Agonist Start: 04-30-2019 take 1 tablet by mouth every six hours Tylenol with Codeine 300 mg-30 mg Tab tab(s), Oral, q6hr, Refill(s) 0 Start Date: 04/30/19 Status: Ordered Aspirin (20 sources) Platelet Aggregation Inhibitor, Nonsteroidal Anti-inflammatory Drug Start: 02-17-2019 aspirin 81 mg Start Date: 02/17/19 Status: Ordered Start: 06-20-2017 take 1 tablet by thompson th once daily Aspirin 81 mg Tablet,Delayed Release (Dr/Ec) Active 81 MG PO Daily June 20, 2017 12:00am Complies with drug therapy take 1 tablet by thompson th once daily aspirin 81 MG chewable tablet Chew 1 tablet every day by oral route. Active atenolol 25 mg oral tablet (20 sources) beta-Adrenergic Michelle Start: 06-20-2017 take 1 tablet by mouth once daily at bedtime Atenolol 25 mg tablet Active 25 MG PO Daily at bedtime June 20, 2017 12:00am Complies with drug therapy take 0.5 tablet by mouth in the morning atenolol (TENORMIN) 50 mg tablet Take 0.5 tablets (25 mg total) by mouth in the morning. Active atorvastatin 80 mg oral tablet (20 sources) HMG-CoA Reductase Inhibitor Start: 06-20-2017 take 1 tablet by mouth once daily Atorvastatin 80 mg tablet Active 80 MG PO Daily June 20, 2017 12:00am Complies with drug therapy take 2 tablets by mouth in the m orning atorvastatin (LIPITOR) 40 mg tablet Take 2 tablets (80 mg total) by mouth in the morning. Active Centrum Silver (2 sources) Start: 02-17-2019 Centrum Silver tab(s) Start Date: 02/17/19 Status: Ordered Osteo Bi-Flex (1 source) Start: 02-17-2019 Osteo Bi-Flex Start Date: 02/17/19 Status: Ordered clopidogrel 75 mg oral tablet (20 sources) P2Y12 Platelet Inhibitor Start: 01-19-2021 take 1 tablet by mouth once daily Clopidogrel 75 mg tablet Active 75 MG PO Daily September 30, 2023 12:00am Complies with drug therapy Start: 06-20-2017 End: 07-20-2017 take 1 tablet by mouth once daily Clopidogrel 75 mg tablet Discontinued 75 MG PO Daily June 20, 2017 12:00am July 20, 2017 8:22am diphenhydrAMINE hydrochloride 25 mg oral capsule (1 source) Histamine-1 Receptor Antagonist take 1 capsule by mouth every six hours as needed diphenhydrAMINE (BENADRYL) 25 mg capsule Take 1 capsule (25 mg total) by mouth every 6 (six) hours as needed for itching. Active ferrous sulfate (20 sources) take 1 tablet by mouth in the morning Ferrous Sulfate (IRON PO) Take 1 tablet by mouth in the morning. Active hydrocortisone 10 mg/ml / neomycin 3.5 mg/ml / polymyxin b [id number] unt/ml otic solution (3 sources) Aminoglycoside Antibacterial, Polymyxin-class Antibacterial, Corticosteroid Start: End: Psrsicer-Tlzwhyaut-Gf 3.5-10,000-1 mg/mL-unit/mL-% solution Active 4 DROPS OTIC Three times daily 10 October 01, 2024 8:44am Complies with drug therapy metFORMIN hydrochloride 500 mg oral tablet (20 sources) Biguanide Start: End: take 1 tablet by mouth once daily Metformin 500 mg tablet Active 500 MG PO Daily 90 October 01, 2024 8:46am Complies with drug therapy Multiple Vitamins-Minerals (multivitamin with iron-minerals) liquid (11 sources) Multiple Vitamins-Minerals (multivitamin with iron-minerals) liquid Take by mouth Daily Active zazwabka-omcg-CX-calci um &mins (THERAGRAN-M) 9 mg iron-400 mcg tablet (1 source) wdwnzyju-ncij-DK -calc ium &mins (THERAGRAN-M) 9 mg iron-400 mcg tablet Take 1 tablet by mouth in the morning. Active triamcinolone acetonide 1 mg/ml topical cream (1 source) Corticosteroid Start: Triamcinolone Acetonide 0.1 % cream Active 1 APPLIC TOPICAL Twice daily 30 August 31, 2024 12:00am Complies with drug therapy Completed/Discontinued Medications Medication Drug Class(es) Dates Sig (Normalized) Sig (Original) acetaminophen 500 mg / diphenhydrAMINE hydrochloride 25 mg oral tablet (8 sources) Histamine-1 Receptor Antagonist Start: 06-20-2017 End: 09-30-2023 take 2 tablets by mouth at bedtime Diphenhydramine-Ac etaminophen (Tylenol Pm Extra Strength) 25-500 mg Tablet Discontinued 2 TAB PO Bedtime June 20, 2017 12:00am September 30, 2023 8:58am take 1 tablet by thompson th once daily as needed for sleep diphenhydrAMINE-acetaminophen (TYLENOL P M) 25-500 mg tablet Take 1 tablet by mouth nightly as needed for sleep. Active acetaminophen 325 mg / HYDROcodone bitartrate 5 mg oral tablet (7 sources) Opioid Agonist Start: 06-20-2017 End: 07-20-2017 Hydrocodone-Acetaminophen 5-325 mg tablet Discontinued 5 - 325 MG PO As Directed as needed for Pain June 20, 2017 12:00am July 20, 2017 8:22am biotin 1 mg oral capsule (7 sources) Start: 06-20-2017 End: 09-30-2023 take 1 capsule by mouth once daily Biotin 1 mg Capsule Discontinued 1 MG PO Daily June 20, 2017 12:00am September 30, 2023 8:58am cyclobenzaprine hydrochloride 10 mg oral tablet (7 sources) Muscle Relaxant Start: 07-20-2017 End: 09-30-2023 take 1 tablet by mouth three times daily as needed for muscle spasms Cyclobenzaprine 10 mg tablet Discontinued 10 MG PO Three times daily as needed for back spasms 50 July 20, 2017 12:00am September 30, 2023 8:58am gabapentin 300 mg oral capsule (7 sources) Anti-epilept ic Agent Start: 06-20-2017 End: 09-30-2023 take 1 capsule by mouth twice daily Gabapentin 300 mg capsule Discontinued 300 MG PO Twice daily June 20, 2017 12:00am September 30, 2023 8:58am oxyCODONE hydrochloride 5 mg oral tablet (7 sources) Opioid Agonist Start: 07-20-2017 End: 09-30-2023 Oxycodone (Roxicodone) 5 mg Tablet Discontinued 5 MG PO Q6H as needed for Pain 60 July 20, 2017 September 30, 2023 8:52am Take 1 or 2 p.o. every 6 hours as needed for pain predniSONE 10 mg oral tablet (7 sources) Start: 07-20-2017 End: 09-30-2023 Prednisone 10 mg tablets,dos e pack Discontinued 1 dose pk PO per package directions July 20, 2017 12:00am September 30, 2023 8:52am take 4 tabs for 3 days then take 3 tabs for 3 days then take 2 tabs for 3 days then take 1 tab for 3 days Start: 07-20-2017 End: 09-30-2023 Prednisone Discontinued 1 do se pk PO per package directions July 20, 2017 12:00am September 30, 2023 8:52am take 4 tabs for 3 days then take 3 tabs for 3 days then take 2 tabs for 3 days then take 1 tab for 3 days sulfamethoxazole 800 mg / trimethoprim 160 mg oral tablet (7 sources) Dihydrofolate Reductase Inhibitor Antibacterial, Sulfonamide Antimicrobial Start: 07-20-2017 End: 09-30-2023 take 1 tablet by mouth every twelve hours Sulfamethoxazole-Trimethoprim (Bactrim Ds) 800-160 mg Tablet Discontinued 1 TAB PO Q12H July 20, 2017 12:00am September 30, 2023 8:52am Problems Active Problems Problem Classification Problem Date Documented Date Episodic/Chronic Acute myocardial infarction (2 sources) Myocardial infarction 02-17-2019 Chronic Allergic reactions (2 sources) Atopic dermatitis; Translations: [Atopic dermatitis, unspecified] 08-31-2024 Chronic Calculus of urinary tract (6 sources) History of calculus of kidney; Translations: [Personal history of urinary calculi] Onset: 2 Episodic Cataract (1 source) After-cataract of bilateral eyes; Translations: [Other secondary cataract, bilateral] 11-29-2023 Chronic Chronic ulcer of skin (4 sources) Pressure ulcer of other site, stage 1; Translations: [Pressure ulcer, other site] 05-07-2024 Chronic Coronary atherosclerosis and other heart disease (17 sources) Coronary arteriosclerosis; Translations: [Atherosclerotic heart disease of [place] coronary artery without angina pectoris] Onset: 3 09-30-2023 Chronic Coronary atherosclerosis and other heart disease (4 sources) Presence of coronary angioplasty implant and graft; Translations: [Percutaneous transluminal coronary angioplasty status] 09-30-2023 Episodic Diabetes mellitus without complication (7 sources) Impaired fasting glycemia; Translations: [Impaired fasting glucose] 10-25-2023 Episodic Disorders of lipid metabolism (17 sources) Hypercholesterolemia; Translations: [Hyperlipidemia] Onset: 3 02-17-2019 Chronic E Codes: Fall (11 sources) Fall; Translations: [Unspecified fall, initial encounter] 09-30-2023 Episodic Essential hypertension (13 sources) Hypertensive disorder; Translations: [Essential (primary) hypertension] Onset: 4 09-30-2023 Chronic Genitourinary symptoms and ill-defined conditions (8 sources) Blood in urine; Translations: [Dysuria] 02-24-2019 Episodic Heart valve disorders (6 sources) Nonrheumatic mitral (valve) insufficiency; Translations: [Rheumatic disorders of both mitral and aortic valves] Onset: 3 Chronic Hyperplasia of prostate (5 sources) Benign prostatic hypertrophy with outflow obstruction; Translations: [Benign prostatic hyperplasia with lower urinary tract symptoms] Onset: 2 Chronic Inflammatory conditions of male genital organs (2 sources) Acute prostatitis 02-24-2019 Episodic Osteoarthritis (4 sources) Arthritis of right acromioclavicular joint; Translations: [Primary osteoarthritis, right shoulder] 01-14-2024 Chronic Other acquired deformities (8 sources) Deformity of metatarsal; Translations: [Unspecified acquired deformity of left lower leg] 04-30-2024 Episodic Other connective tissue disease (2 sources) Pain of left hand; Translations: [Pain in left hand] 01-28-2024 Episodic Other connective tissue disease (2 sources) Pain in finger of left hand; Translations: [Pain in left finger(s)] 01-28-2024 Episodic Other connective tissue disease (4 sources) Triggering of digit; Translations: [Trigger finger, left ring finger] 01-29-2024 Episodic Other connective tissue disease (4 sources) Dupuytren's contracture; Translations: [Palmar fascial fibromatosis [Dupuytren]] 01-29-2024 Episodic Other connective tissue disease (4 sources) Bursitis of left foot; Translations: [Other enthesopathy of left foot and ankle] 04-30-2024 Episodic Other connective tissue disease (8 sources) Pain in left foot; Translations: [Pain in left foot] 04-30-2024 Episodic Other connective tissue disease (1 source) Dupuytren contracture of left palm; Translations: [Palmar fascial fibromatosis [Dupuytren]] 01-28-2024 Episodic Other connective tissue disease (1 source) Trigger finger of left hand; Translations: [Trigger finger, unspecified finger] 01-28-2024 Episodic Other ear and sense organ disorders (3 sources) Otitis externa; Translations: [Unspecified otitis externa, unspecified ear] 08-31-2024 Chronic Other ear and sense organ disorders (1 source) Unspecified otitis externa, unspecified ear; Translations: [Infective otitis externa, unspecified] 08-31-2024 Chronic Other nervous system disorders (8 sources) Difficulty walking; Translations: [Difficulty in walking, not elsewhere classified] 04-30-2024 Chronic Other non-traumatic joint disorders (20 sources) Pain in right shoulder; Translations: [Right shoulder pain] 09-30-2023 Episodic Other non-traumatic joint disorders (16 sources) Stiffness of right shoulder; Translations: [Stiffness of right shoulder, not elsewhere classified] 12-31-2023 Episodic Other screening for suspected conditions (not mental disorders or infectious disease) (17 sources) Raised prostate specific antigen; Translations: [Elevated prostate specific antigen [PSA]] Onset: 2 Episodic Other skin disorders (4 sources) Acquired keratoderma; 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] palmaris et plantaris] 04-30-2024 Episodic Colleen-; endo-; and myocarditis; cardiomyopathy (except that caused by tuberculosis or sexually transmitted disease) (2 sources) Cardiomyopathy, unspecified; Translations: [Cardiomyopathy, unspecified] Onset: 3 Chronic Residual codes; unclassified (4 sources) History of arthroscopic procedure on shoulder; Translations: [Other specified postprocedural states] 01-22-2024 Episodic Residual codes; unclassified (2 sources) Tobacco use; Translations: [Tobacco use] Onset: 5 Episodic Spondylosis; intervertebral disc disorders; other back problems (7 sources) Prolapsed lumbar intervertebral disc; Translations: [Other intervertebral disc displacement, lumbar region] 03-13-2023 Chronic Comment on above: Problem List clean-u p per request of Phys. EHR Cmte Substance-related disorders (13 sources) Smoker; Translations: [Nicotine dependence] Onset: 4 03-28-2022 Chronic Comment on above: Added secondary to d ocumentation in Social History. Unclassified (2 sources) Drug therapy finding 02-24-2019 Unclassified (1 source) right shoulder rotator cuff tear Onset: 4 Past or Other Problems Problem Classification Problem Date Documented Da te Episodic/Chronic Nonspecific chest pain (4 sources) Other chest pain; Translations: [OTHER CHEST PAIN] Onset: 05-03-2022 Episodic Results Test Name Value Interpretation Reference Range Facility Office Visiton 08-26-2024 Follow-up visit [id number] [facility] Tracey 1950 M Date Provider Department Center 08/26/2024 [id number] Family History Problem Relation Age of Onset Coronary artery disease Other Family Status - Relation Status Age at Mother Father Other Level of Service:52361 SC OFFICE/OUTPATIENT ESTABLISHED MOD MDM 30 MIN Normal [facility] Urology Office/Clinic Noteon 03-17-2024 Urology Office/Clinic Note Urology Office/Clinic Note Chief Complaint 1yr f/u HPI Staff 74 yr old male here for 1 year with PSA and KUB. IPSS - 10 DX: Elevated PSA, BPH & Hx of Kidney Stones. PSA: 09/12/22 -9.87 03/04/23 -9.33 09/09/23 - 7.59 03/11/24 - 8.20 KUB 03/04/23 - punctate L stone confirmed. 03/11/24 - grossly stable left nephrolithiasis Dysuria: denies Incomplete bladder emptying: Hematuria: denies Frequency: denies Urgency: denies Nocturia: 1x per night sometimes, others 0 Stream: good stream Leaking: denies Post void dripping: denies Wearing pads/ Depends: denies Urge incontinence: denies Stress incontinence: denies Incontinence without Sensory Awareness: denies Abdominal pain: denies Flank pain: denies Sexual complaints: denies Physical Exam Vitals & Measurements T: 37 ???C(Oral) HR: 57(Peripheral) RR: 18 BP: 110/58 HT: 70 in HT: 177 cm WT: 72.4 kg WT: 159.614 lb BMI: 23.11 Assessment/Plan UA shows sm leuks only. Asx. MELQUIADES 21. 1. BPH with urinary obstruction (N40.1: Benign prostatic hyperplasia with lower urinary tract symptoms) IPSS 10 QOL 1 Pt is currently taking no bladder/prostate medication and is highly satisfied with overall symptom control. No indication for treatment at this time. Continue to monitor. Ordered: Body Mass Index (BMI) documented 3008F Complex E&M Add on G2211 Current tobacco smoker 1034F Depression Screening Negative 3352F E&M of Est. Patient Moderate 30-39 Min 71026 Fall Risk Screen 2 or more w/injury 1100F Influenza immunization status assessed 1030F Medication list documented in medical record 1159F Most recent diastolic blood pressure <80 mm Hg 3078F Review of all meds by a prescribing practitioner or clinical pharmacist documented in EHR 1160F Systolic BP <130 mm Hg (Most Recent) 3074F Urnls Dip Stick Auto w/o Microscopy POC 29780 2. Elevated PSA (R97.20: Elevated prostate specific antigen [PSA]) PSA: 04/16/19 - 10.1 & 17.8% 12/02/19 - 10.0 & 18.4% 01/29/21 - 9.92 01/15/22 - 10.74 09/12/22 -9.87 03/04/23 -9.33 09/09/23 - 7.59 03/11/24 - 8.2 S/P Trus/bx done 05/25/19 negative. Discussed PSA, remains elevated, decreased from prior but pt has hx of fluctuating PSA. Discussed options, pt wishes to continue PSA monitoring. Will repeat in 1 yr. Ordered: Complex E&M Add on G2211 E&M of Est. Patient Moderate 30-39 Min 56267 PSA Total 3. Nephrolithiasis (N20.0: Calculus of kidney) CT ap 11/05/22 - showed small 4mm nonobstructing L renal stone. KUB 03/04/23 - punctate L stone confirmed. KUB 03/11/24 - stable L stones. No recent flank pain/gross hematuria or stone passage sx. Continue increased fluid intake. Repeat KUB 1 yr. Ordered: Complex E&M Add on G2211 E&M of Est. Patient Moderate 30-39 Min 08509 XR Abdomen 1 View 4. Smoker (F17.200: Nicotine dependence, unspecified, uncomplicated) Cessation encouraged. Ordered: Complex E&M Add on G2211 E&M of Est. Patient Moderate 30-39 Min 11229 Follow-up With When Contact Information JANAK DUARTE, LUCY Ariza, URL In 1 year [address] [place] [address] Additional Instructions: Patient Education Benign Prostatic Hyperplasia Problem List/Past Medical History Ongoing Acute prostatitis Anticoagulated BPH with urinary obstruction Elevated cholesterol Elevated PSA Hematuria Myocardial infarction Nephrolithiasis Nocturia Smoker Historical Dysuria History of kidney stones Urine frequency Procedure/Surgical History Transrectal biopsy of prostate using ultrasound (US) guidance (05/25/2019), Ureteroscopic removal of ureteric calculus (09/24/2012), Back Surgery, Cataract extraction, Foot Surgery, Knee replacement, Rotator cuff. Medications aspirin, 81 mg atenolol 25 mg Tab atorvastatin 80 mg Tab Centrum Silver clopidogrel 75 mg Tab metformin 500 mg Tab, 500 mg= 1 tab(s) Allergies penicillins (Unknown) Social History Alcohol - Denies Alcohol Use, 05/25/2019 Never., 03/17/2024 Substance Abuse - Denies Substance Abuse, 05/25/2019 Never., 03/17/2024 Tobacco - High Risk, 05/25/2019 10 or more cigarettes (1/2 pack or more)/day in last 30 days Tobacco Use:. Never Smokeless Tobacco Use:. Cigarettes, 03/17/2024 10 or more cigarettes (1/2 pack or more)/day in last 30 days Tobacco Use:. Cigarettes, 02/19/2019 Family History Congenital heart disease: Mother. Diverticulitis: Mother. Immunizations Vaccine Date Status Comments influenza virus vaccine, inactivated 12/2022 Recorded SARS-CoV-2 (COVID-19) [id number] 01/13/2022 Recorded influenza virus vaccine, inactivated 12/18/2021 Recorded SARSCoV2 mRNA(tozinamer-glenny- sucros) vac 07/13/2021 Recorded influenza virus vaccine, inactivated 01/20/2021 Recorded SARS-CoV-2 (COVID-19) mRNA BNT-162b2 vax 12/27/2020 Recorded SARS-CoV-2 (COVID-19) mRNA BNT-162b2 vax 05/28/2020 Recorded 2022-03-28: [id number] SARS-CoV-2 (COVID-19) mRNA BNT-162b2 (more content not included)... Normal [facility] Comment on above: Result Comment: Elec tronically Signed By: LUCY BRICENO PA-C\Date and Time Signed: 03/17/24 12:50 EST No Panel Informationon 03-11 Prostate Specific Antigen Total 8.20 ng/mL High <=4.00 [facility] 36on 11-27-2023 36 Regarding lab results from 11/26/2023: VAN De Los Santos MA His labs look great- CBC, kidney and liver function perfect Cholesterol levels are well controlled- continue all meds. Patient informed. Normal [facility] Basophils Auto (Bld) [#/Vol] on 11-26-2023 Basophils (Bld) [#/Vol] 0.1 10 3/uL 0.0-0.1 [facility] Basophils/100 WBC Auto (Bld) on 11-26-2023 Basophils/100 WBC (Bld) 0.6 % 0.2-2.0 [facility] Cholesterol in LDL Calc [Mas s/Vol]on 11-26-2023 Cholesterol in LDL [Mass/Vol] 44.2 mg/dL [facility] Comment on above: <100 mg/dl [id number] 0-129 mg/dl NEAR OR ABOVE [id number] mg/dl BORDERLINE [id number] mg/dl HIGH>190 mg/dl VERY HIGH Cholesterol in VLDL Calc [Ma ss/Vol]on 11-26-2023 Cholesterol in VLDL [Mass/Vol] 12.8 mg/dL [facility] Eosinophils/100 WBC Auto (Bl d)on 11-26-2023 Eosinophils/100 WBC (Bld) 2.8 % 0.9-7.0 [facility] Erythrocyte distribution wid th Auto (RBC) [Ratio]on 11-26-2023 Erythrocyte distribution width (RBC) [Ratio] 12.2 % 11.0-15.0 [facility] Estimated glomerular filtrat ion rate (GFR) non- Americanon 11-26-2023 GFR/1.73 sq M.predicted among non-blacks MDRD (S/P/Bld) [Vol rate/Area] mL/min/{1.73_m2} >=60 [facility] Globulin Calc (S) [Mass/Vol] on 11-26-2023 Globulin (S) [Mass/Vol] 2.7 g/dL [facility] Hematocrit Auto (Bld) [Volum e fraction]on 11-26-2023 Hematocrit (Bld) [Volume fraction] 45.3 % 42.0-54.0 [facility] Hemoglobin [Mass/volume] in Bloodon 11-26-2023 Hemoglobin (Bld) [Mass/Vol] 14.9 g/dL 14.0-18.0 [facility] Laboratory - Chemistry and C hemistry - challengeon 11-26-2023 Albumin [Mass/Vol] 3.8 g/dL 3.4-5.0 [facility] ALP [Catalytic activity/Vol] 93 U/L 46-116 [facility] ALT [Catalytic activity/Vol] 72 U/L High 16-63 [facility] AST [Catalytic activity/Vol] 28 U/L 15-37 [facility] Bilirubin [Mass/Vol] 0.4 mg/dL 0.2-1.0 [facility] Calcium [Mass/Vol] 8.8 mg/dL 8.5-10.1 [facility] Chloride [Moles/Vol] 106 mmol/L 98-107 [facility] Cholesterol [Mass/Vol] 100 mg/dL <=200 [facility] Cholesterol in HDL [Mass/Vol] 43 mg/dL 40-60 [facility] Comment on above: > or =60 mg/dl - LOW CARDIOVASCULAR RISK<40 mg/dl - HIGH CARDIOVASCULAR RISK CO2 [Moles/Vol] 27.1 mmol/L 21.0-32.0 [facility] Creatinine [Mass/Vol] 0.90 mg/dL 0.70-1.30 [facility] GFR/1.73 sq M.predicted MDRD (S/P/Bld) [Vol rate/Area] mL/min/{1.73_m2} >=60 [facility] Glucose [Mass/Vol] 153 mg/dL High 74-106 [facility] Potassium [Moles/Vol] 4.8 mmol/L 3.5-5.1 [facility] Protein [Mass/Vol] 6.5 g/dL 6.4-8.2 [facility] Sodium [Moles/Vol] 140 mmol/L 136-145 [facility] Triglyceride [Mass/Vol] 64 mg/dL <=150 [facility] Urea nitrogen [Mass/Vol] 16.0 mg/dL 7.0-18.0 [facility] Urea nitrogen/Creatinine [Mass ratio] 17.8 mg/mg [facility] Laboratory - Hematology and Cell countson 11-26-2023 Immature granulocytes/100 WBC (Bld) 0.5 % 0.0-0.5 [facility] Leukocytes [#/volume] correc lila for nucleated erythrocytes in Blood by Automated counon 11-26-2023 WBC corrected for nucl RBC Auto (Bld) [#/Vol] 8.7 10 3/uL 4.0-11.0 [facility] Lymphocytes Auto (Bld) [#/Vo l]on 11-26-2023 Lymphocytes (Bld) [#/Vol] 1.9 10 3/uL 1.2-3.8 [facility] Lymphocytes/100 WBC Auto (Bl d)on 11-26-2023 Lymphocytes/100 WBC (Bld) 22.1 % 20.5-60.0 [facility] MCH Auto (RBC) [Entitic mass ]on 11-26-2023 MCH (RBC) [Entitic mass] 31.0 pg 25.9-34.0 [facility] MCHC Auto (RBC) [Mass/Vol]on 11-26-2023 MCHC (RBC) [Mass/Vol] 32.9 g/dL 29.9-35.2 [facility] MCV Auto (RBC) [Entitic vol] on 11-26-2023 MCV (RBC) [Entitic vol] 94.4 fL High 80.0-94.0 [facility] Monocytes Auto (Bld) [#/Vol] on 11-26-2023 Monocytes (Bld) [#/Vol] 0.8 10 3/uL 0.3-0.8 [facility] Monocytes/100 WBC Auto (Bld) on 11-26-2023 Monocytes/100 WBC (Bld) 9.6 % 1.7-12.0 [facility] Neutrophils Auto (Bld) [#/Vo l]on 11-26-2023 Neutrophils (Bld) [#/Vol] 5.6 10 3/uL 1.4-6.5 [facility] Neutrophils/100 WBC Auto (Bl d)on 11-26-2023 Neutrophils/100 WBC (Bld) 64.4 % 43.0-75.0 [facility] No Panel Informationon 11-25 Eosinophils # (Auto) 0.2 10 3/uL 0.0-0.7 [facility] Immature Granulocyte # (Auto) 0.04 10 3/uL High 0.00-0.03 [facility] Platelet mean volume Auto (B ld) [Entitic vol]on 11-26-2023 Platelet mean volume (Bld) [Entitic vol] 10.9 fL 9.5-13.5 [facility] Platelets Auto (Bld) [#/Vol] on 11-26-2023 Platelets (Bld) [#/Vol] 232 10 3/uL 150-450 [facility] RBC Auto (Bld) [#/Vol]on RBC (Bld) [#/Vol] 4.80 10 6/uL 4.70-6.10 [facility] Serum or plasma albumin/glob ulin mass ratioon 11-26-2023 Albumin/Globulin [Mass ratio] 1.4 {ratio} [facility] Serum or plasma anion gap de terminationon 11-26-2023 Anion gap [Moles/Vol] 11.7 mmol/L [facility] Serum or plasma total choles terol/high density lipoprotein (HDL) cholesterol mass nicolle 11-26-2023 Cholesterol.total/C holesterol in HDL [Mass ratio] 2.3 {ratio} [facility] Comment on above: 3.3 - 4.4 LOW RISK4. 4 - 7.1 AVERAGE RISK7.1 - 11.0 MODERATE RISK>11.0 HIGH RISK ECG 12 leadon 10-25-2023 TRACEMASTERVUE [facility] BASIC METABOLIC PANLon 10-23 Anion gap [Moles/Vol] 8 mmol/L Normal 5-15 [facility] Comment on above: Performed By: #### 7 18-7, BMP #### [facility] ([id number]) [address], [address] [place] [address] Calcium [Mass/Vol] 9.1 mg/dL Normal 8.5-10.5 [facility] Comment on above: Performed By: #### 7 18-7, BMP #### [facility] ([id number]) [address], [address] [place] [address] Chloride [Moles/Vol] 106 mmol/L Normal 98-109 [facility] Comment on above: Performed By: #### 7 -7, BMP #### [facility] ([id number]) [address], [address] [place] [address] CO2 [Moles/Vol] 26 mmol/L Normal 22-32 [facility] Comment on above: Performed By: #### 7 18-7, BMP #### [facility] ([id number]) [address], [address] [place] [address] Creatinine [Mass/Vol] 0.88 mg/dL Normal 0.60-1.30 [facility] Comment on above: Result Comment: METH OD TRACEABLE TO IDMS STANDARD Performed By: #### 7 -7, BMP #### [facility] ([id number]) [address], [address] [place] [address] eGFR (CKD-EPI) NON-RACE DEPENDENT >90 Normal >59 [facility] Comment on above: Result Comment: Reported eGFR is based on the CKD-EPI 2020 equation that does not use a race coefficient. Performed By: #### 7 18-7, BMP #### [facility] ([id number]) [address], [address] [place] [address] Glucose [Mass/Vol] 144 mg/dL High 65-99 [facility] Comment on above: Performed By: #### 7 18-7, BMP #### [facility] ([id number]) [address], [address] [place] [address] Potassium [Moles/Vol] 4.6 mmol/L Normal 3.5-5.0 [facility] Comment on above: Performed By: #### 7 18-7, BMP #### [facility] ([id number]) [address], [address] [place] [address] Sodium [Moles/Vol] 140 mmol/L Normal 134-146 [facility] Comment on above: Performed By: #### 7 18-7, BMP #### [facility] ([id number]) [address], [address] [place] [address] Urea nitrogen [Mass/Vol] 18 mg/dL Normal 5-27 [facility] Comment on above: Performed By: #### 7 18-7, BMP #### [facility] ([id number]) [address], [address] [place] [address] Basic Metabolic Panelon 07-2 Anion gap [Moles/Vol] 8 mmol/L 5 - 15 mmol/L [facility] Calcium [Mass/Vol] 9.1 mg/dL 8.5 - 10. 5 mg/dL [facility] Chloride [Moles/Vol] 106 mmol/L 98 - 109 mmol/L [facility] CO2 [Moles/Vol] 26 mmol/L 22 - 32 mmol/L [facility] Creatinine [Mass/Vol] 0.88 mg/dL 0.60 - 1.30 mg/dL [facility] Comment on above: METHOD TRACEABLE TO IDWY STANDARD eGFR (CKD-EPI)non-race dependent - PINF [facility] Comment on above: Reported eGFR is based on the CKD-EPI 2020 equation that does not use a race coefficient. Glucose [Mass/Vol] 144 mg/dL High 65 - 99 mg/dL [facility] Interpretation and review of laboratory results Abnormal [facility] Potassium [Moles/Vol] 4.6 mmol/L 3.5 - 5.0 mmol/L [facility] Sodium [Moles/Vol] 140 mmol/L 134 - 146 mmol/L [facility] Urea nitrogen [Mass/Vol] 18 mg/dL 5 - 27 mg/dL [facility] HEMOGLOBINon 10-24-2023 Hemoglobin (Bld) [Mass/Vol] 15.3 g/dL Normal 13.0-17.0 [facility] Comment on above: Performed By: #### 7 18-7, BMP #### [facility] ([id number]) [facility], [address] [place] [address] Hemoglobinon 10-24-2023 Hemoglobin (Bld) [Mass/Vol] 15.3 g/dL 13.0 - 17.0 g/dL [facility] Hemoglobin (Bld) [Mass/Vol]o n 10-24-2023 [facility] Documentationon 10-23-2023 Documentation [id number] [employer] 1950 [facility] Provider Department Center 10/23/2023 FÁTIMA LUGO Leida [facility] Family History Problem Relation Age of Onset Coronary artery disease Other Family Status - Relation Status Age at Other Normal [facility] 37on 09-19-2023 36 Have blood drawn/ lab work in about October- must be fasting after midnight. Normal [facility] Office Visiton 09-19-2023 Follow-up visit [id number] Mart Villa 1950 Date Provider Department Center 09/19/2023 [facility] Problem Relation Age of Onset Coronary artery disease Other Family Status - Relation Status Age at Other Level of Service:44811 SC OFFICE/OUTPATIENT ESTABLISHED LOW MDM 20 MIN Normal [facility] Lab Reportson 09-12-2023 Lab Reports [id number]# 1.00TIFF Normal [facility] CBC AUTO DIFFon 08-13-2022 BASO # 0.1 103/ul Normal 0.0-0.1 [facility] Comment on above: Performed By: #### C BC #### [facility] [address] [address] [address] Roxane Clayton Basophils/100 WBC (Bld) 0.7 % Normal 0.2-2.0 [facility] Comment on above: Performed By: #### C BC #### [facility] [address] [place] [address] Dr. Roxane Clayton EO # 0.3 103/ul Normal 0.0-0.7 [facility] Comment on above: Performed By: #### C BC #### [facility] [address] [place] [address] Dr. Roxane Clayton Eosinophils/100 WBC (Bld) 3.2 % Normal 0.9-7.0 [facility] Comment on above: Performed By: #### C BC #### [facility] [address] [place] [address] Dr. Roxane Clayton Erythrocyte distribution width (RBC) [Ratio] 12.3 % Normal 11.0-15.0 [facility] Comment on above: Performed By: #### C BC #### [facility] [address] [place] [address] Dr. Roxane Clayton Hematocrit (Bld) [Volume fraction] 49.2 % Normal 42.0-54.0 [facility] Comment on above: Performed By: #### C BC #### [facility] [address] [place] [address] Dr. Roxane Clayton Hemoglobin (Bld) [Mass/Vol] 15.8 g/dL Normal 14.0-18.0 [facility] Comment on above: Performed By: #### C BC #### [facility] [address] [place] [address] Dr. Roxane Clayton IG # 0.05 10e3/ul Critically high 0.00-0.03 [facility] Comment on above: Performed By: #### C BC #### [facility] [address] [place] [address] Dr. Roxane Clayton IG % 0.6 % Critically high 0.0-0.5 [facility] Comment on above: Performed By: #### C BC #### [facility] [address] [place] [address] Dr. Roxane Clayton LYMPH # 1.8 103/ul Normal 1.2-3.8 [facility] Comment on above: Performed By: #### C BC #### [facility] [address] [place] [address] Dr. Roxane Clayton Lymphocytes/100 WBC (Bld) 20.7 % Normal 20.5-60.0 [facility] Comment on above: Performed By: #### C BC #### [facility] [address] [place] [address] Dr. Roxane Clayton MANUAL DIFF REQ NO Normal [facility] Comment on above: Performed By: #### C BC #### [facility] [address] [place] [address] Dr. Roxane Clayton MCH (RBC) [Entitic mass] 30.9 pg Normal 25.9-34.0 [facility] Comment on above: Performed By: #### C BC #### [facility] [address] [place] [address] Dr. Roxane Clayton MCHC (RBC) [Mass/Vol] 32.1 g/dL Normal 29.9-35.2 [facility] Comment on above: Performed By: #### C BC #### [facility] [address] [place] [address] Dr. Roxane Clayton MCV (RBC) [Entitic vol] 96.3 fL Critically high 80.0-94.0 [facility] Comment on above: Performed By: #### C BC #### [facility] [address] [place] [address] Dr. Roxane Clayton MONO # 0.8 103/ul Normal 0.3-0.8 [facility] Comment on above: Performed By: #### C BC #### [facility] [address] [place] [address] Dr. Roxane Clayton Monocytes/100 WBC (Bld) 8.8 % Normal 1.7-12.0 [facility] Comment on above: Performed By: #### C BC #### [facility] [address] [place] [address] Dr. Roxane Clayton NEUT # 5.6 103/ul Normal 1.4-6.5 [facility] Comment on above: Performed By: #### C BC #### [facility] [address] [place] [address] Dr. Roxane Clayton Neutrophils/100 WBC (Bld) 66.0 % Normal 43.0-75.0 [facility] Comment on above: Performed By: #### C BC #### [facility] [address] [place] [address] Dr. Roxane Clayton Platelet mean volume (Bld) [Entitic vol] 10.8 fL Normal 9.5-13.5 [facility] Comment on above: Performed By: #### C BC #### [facility] [address] [place] [address] Dr. Roxane Clayton PLT 230 103/ul Normal 150-450 [facility] Comment on above: Performed By: #### C BC #### [facility] [address] [place] [address] Dr. Roxane Clayton RBC 5.11 106/ul Normal 4.70-6.10 [facility] Comment on above: Performed By: #### C BC #### [facility] [address] [place] [address] Dr. Roxane Clayton WBC 8.5 103/ul Normal 4.0-11.0 [facility] Comment on above: Performed By: #### C BC #### [facility] [address] [place] [address] Dr. Roxane Clayton LIPID PROFILEon 08-13-2022 CHOL-HDL RATIO NORM SEE BELOW Normal [facility] Comment on above: Result Comment: 3.3 - 4.4 LOW RISK 4.4 - 7.1 AVERAGE RISK 7.1 - 11.0 MODERATE RISK >11.0 HIGH RISK Performed By: #### C MP, LIPID #### [facility] [address] [place] [address] Dr. Roxane Clayton Cholesterol [Mass/Vol] 105 mg/dL Normal <=200 [facility] Comment on above: Performed By: #### C MP, LIPID #### [facility] [address] [address] [address] Roxane Clayton Cholesterol in HDL [Mass/Vol] 43 mg/dL Normal 40-60 [facility] Comment on above: Performed By: #### C MP, LIPID #### [facility] [address] [id number] Roxane Clayton Cholesterol in LDL [Mass/Vol] 54.8 mg/dL Normal [facility] Comment on above: Performed By: #### C MP, LIPID #### [facility] [address] [address] [address] Roxane Clayton Cholesterol.total/C holesterol in HDL [Mass ratio] 2.4 {ratio} Normal [facility] Comment on above: Performed By: #### C MP, LIPID #### [facility] [address] [address] [address] Roxane Clayton HDL NORMAL > or = 60 mg/dl - LOW CARDIOVASCULAR RISK <40 mg/dl - HIGH CARDIOVASCULAR RISK Normal [facility] Comment on above: Performed By: #### C MP, LIPID #### [facility] [address] [place] [address] Dr. Roxane Clayton LDL CALC NORMAL SEE BELOW Normal [facility] Comment on above: Result Comment: <100 mg/dl OPTIMAL 100 - 129 mg/dl NEAR OR ABOVE OPTIMAL 130 - 159 mg/dl BORDERLINE HIGH 160 - 189 mg/dl HIGH >190 mg/dl VERY HIGH Performed By: #### C MP, LIPID #### [facility] [address] [place] [address] Dr. Roxane Clayton Triglyceride [Mass/Vol] 36 mg/dL Normal <=150 [facility] Comment on above: Performed By: #### C MP, LIPID #### [facility] [address] [address] [address] Roxane Clayton VLDL CALC 7.2 mg/dL Normal [facility] Comment on above: Performed By: #### C MP, LIPID #### [facility] [address] [address] [address] Roxane Clayton PROF 14(COMP METB)on 023 Albumin [Mass/Vol] 4.0 g/dL Normal 3.4-5.0 [facility] Comment on above: Performed By: #### C MP, LIPID #### [facility] [address] [place] [address] Dr. Roxane Clayton Albumin/Globulin [Mass ratio] 1.1 {ratio} Normal [facility] Comment on above: Performed By: #### C MP, LIPID #### [facility] [address] [address] [address] Roxane Clayton ALP [Catalytic activity/Vol] 112 U/L Normal 46-116 [facility] Comment on above: Performed By: #### C MP, LIPID #### [facility] [address] [place] [address] Dr. Roxane Clayton ALT [Catalytic activity/Vol] 48 U/L Normal 16-63 [facility] Comment on above: Performed By: #### C MP, LIPID #### [facility] [address] [place] [address] Dr. Roxane Clayton Anion gap [Moles/Vol] 13.7 mmol/L Normal [facility] Comment on above: Performed By: #### C MP, LIPID #### [facility] [address] [place] [address] Dr. Roxane Clayton AST [Catalytic activity/Vol] 30 U/L Normal 15-37 [facility] Comment on above: Performed By: #### C MP, LIPID #### [facility] [address] [place] [address] Dr. Roxane Clayton Bilirubin [Mass/Vol] 0.3 mg/dL Normal 0.2-1.0 [facility] Comment on above: Performed By: #### C MP, LIPID #### [facility] [address] [address] [address] Roxane Clayton Calcium [Mass/Vol] 9.0 mg/dL Normal 8.5-10.1 [facility] Comment on above: Performed By: #### C MP, LIPID #### [facility] [address] [place] [address] Dr. Roxane Clayton Chloride [Moles/Vol] 107 mmol/L Normal 98-107 [facility] Comment on above: Performed By: #### C MP, LIPID #### [facility] [address] [address] [address] Roxane Clayton CO2 [Moles/Vol] 28.1 mmol/L Normal 21.0-32.[address] [facility] Comment on above: Performed By: #### C MP, LIPID #### [facility] [address] [address] [address] Roxane Clayton Creatinine [Mass/Vol] 1.04 mg/dL Normal 0.70-1.30 [facility] Comment on above: Performed By: #### C MP, LIPID #### [facility] [address] [place] [address] Dr. Roxane Clayton EGFR-AF UZBEK >60 Normal >=[address] [facility] Comment on above: Performed By: #### C MP, LIPID #### [facility] [address] [place] [address] Dr. Roxane Clayton EGFR-NON AF UZBEK >60 Normal >=60 [facility] Comment on above: Performed By: #### C MP, LIPID #### [facility] [address] [place] [address] Dr. Roxane Clayton Globulin (S) [Mass/Vol] 3.8 g/dL Normal [facility] Comment on above: Performed By: #### C MP, LIPID #### [facility] [address] [place] [address] Dr. Roxane Clayton Glucose [Mass/Vol] 134 mg/dL Critically high 74-106 [facility] Comment on above: Performed By: #### C MP, LIPID #### [facility] [address] [place] [address] Dr. Roxane Clayton Potassium [Moles/Vol] 4.8 mmol/L Normal 3.5-5.1 [facility] Comment on above: Performed By: #### C MP, LIPID #### [facility] [address] [place] [address] Dr. Roxane Clayton Protein [Mass/Vol] 7.8 g/dL Normal 6.4-8.2 [facility] Comment on above: Performed By: #### C MP, LIPID #### [facility] [address] [address] [address] Roxane Clayton Sodium [Moles/Vol] 144 mmol/L Normal 136-145 [facility] Comment on above: Performed By: #### C MP, LIPID #### [facility] [address] [address] [address] Roxane Clayton Urea nitrogen [Mass/Vol] 19.0 mg/dL Critically high 7.0-18.0 [facility] Comment on above: Performed By: #### C MP, LIPID #### [facility] [address] [address] [address] Roxane Clayton Urea nitrogen/Creatinine [Mass ratio] 18.3 mg/mg Normal [facility] Comment on above: Performed By: #### C MP, LIPID #### [facility] [address] [address] [address] Roxane Clayton ECHOCARDIO M/2D COMPLETEon 0 08-02-2022 ECHOCARDIO M/2D COMPLETE Patient: MART VILLA Exam Date: 08/02/2022 : 1950 Gender:M Ordering : GALI GREENWOOD Admission #: [id number] Family : Order #: [id number] CLICK HERE TO VIEW EXAM ECHOCARDIOGRAM REPORT [...] Domingo M.D. on 08/03/2022 at 09:18 Normal [facility] XR RIBS LT PA Nik 3 XR [...] by: IMELDA EDMOND Date: 2022-05-04 09:10 Normal [facility] Vital Signs Date Time Vital Sign Value Performing Clinician Facility 10-01-2024 08:25-0400 Body height 177.8 cm Lucy Alfaro APRN Work Phone: [facility] 10-01-2024 08:25-0400 Body mass index (BMI) [Ratio] 21.8 kg/m2 Lucy Alfaro APRN Work Phone: [facility] 10-01-2024 [id number] Body temperature 98.2 [degF] Lucy Rosalesacher SOFTWARE PROJECT MANAGER Work Phone: [facility] 10-01-2024 08:25-0400 Body weight 68.94 kg Lucy Cheeklemuel WARDN Work Phone: [facility] 10-01-2024 08:25-0400 Diastolic blood pressure 68 mm[Hg] Lucy Cheeklemuel WARDN Work Phone: [facility] 10-01-2024 08:25-0400 Heart rate 67 /min Lucy Cheeklemuel AWRDN Work Phone: [facility] 10-01-2024 08:25-0400 SaO2% (BldA) [Mass fraction] 98 % Lucy Rosalesrafat WARDN Work Phone: [facility] 10-01-2024 08:25-0400 Systolic blood pressure 110 mm[Hg] Lucy Rosalesrafat WARDN Work Phone: [facility] 08-31-2024 14:23-0400 Body height 177.8 cm [facility] 08-31-2024 14:23-0400 Body mass index (BMI) [Ratio] 21.8 kg/m2 [facility] 08-31-2024 14:23-0400 Body temperature 97.3 [degF] [facility] 08-31-2024 14:23-0400 Body weight 68.94 kg [facility] 08-31-2024 14:23-0400 Diastolic blood pressure 78 mm[Hg] [facility] 08-31-2024 14:23-0400 Heart rate 73 /min [facility] 08-31-2024 14:23-0400 SaO2% (BldA) [Mass fraction] 93 % [facility] 08-31-2024 14:23-0400 Systolic blood pressure 128 mm[Hg] [facility] 08-25-2024 09:34-0400 Body height 177.8 cm Imelda Villa DPM Work Phone: [facility] 08-25-2024 09:34-0400 Body mass index (BMI) [Ratio] 21.52 kg/m2 Imelda Villa DPM Work Phone: [facility] 08-25-2024 09:34-0400 Body weight 68.04 kg Imelda Villa DPM Work Phone: [facility] 05-28-2024 09:04-0500 Body height 177.8 cm Imelda Villa DPM Work Phone: [facility] 05-28-2024 09:04-0500 Body mass index (BMI) [Ratio] 22.53 kg/m2 Imelda Villa DPM Work Phone: [facility] 05-28-2024 09:04-0500 Body weight 71.22 kg Imelda Villa DPM Work Phone: [facility] 05-07-2024 15:34-0500 Body height 177.8 cm Imelda Villa DPM Work Phone: [facility] 05-07-2024 15:34-0500 Body mass index (BMI) [Ratio] 22.53 kg/m2 Imelda Villa DPM Work Phone: [facility] 05-07-2024 15:34-0500 Body weight 71.22 kg Imelda Villa DPM Work Phone: [facility] 04-29-2024 08:24-0500 Body height 177.8 cm [facility] 04-29-2024 08:24-0500 Body mass index (BMI) [Ratio] 22.4 kg/m2 [facility] 04-29-2024 08:24-0500 Body temperature 96.5 [degF] [facility] 04-29-2024 08:24-0500 Body weight 70.93 kg [facility] 04-29-2024 08:24-0500 Diastolic blood pressure 84 mm[Hg] [facility] 04-29-2024 08:24-0500 Heart rate 72 /min [facility] 04-29-2024 08:24-0500 SaO2% (BldA) [Mass fraction] 96 % [facility] 04-29-2024 08:24-0500 Systolic blood pressure 126 mm[Hg] [facility] 03-17-2024 09:32-0500 Blood Pressure Location LUCY BRICENO [facility] 03-17-2024 09:32-0500 Body temperature 98.6 [degF] LUCY GRANADOSRY [facility] 03-17-2024 09:32-0500 Diastolic blood pressure 58 mm[Hg] LUCY GRANADOSRY [facility] 03-17-2024 09:32-0500 Heart rate 57 /min LUCY BRICENO [facility] 03-17-2024 09:32-0500 Respiratory rate 18 /min LUCY BRICENO [facility] 03-17-2024 09:32-0500 Systolic blood pressure 110 mm[Hg] LUCY BRICENO [facility] 01-27-2024 14:27-0400 Body height 177.8 cm [facility] [facility] 01-27-2024 14:27-0400 Body mass index (BMI) [Ratio] 23.3 kg/m2 [facility] 01-27-2024 14:27-0400 Body temperature 97.4 [degF] [facility] 01-27-2024 14:27-0400 Body weight 73.93 kg [facility] 01-27-2024 14:27-0400 Diastolic blood pressure 78 mm[Hg] [facility] 01-27-2024 14:27-0400 Heart rate 71 /min [facility] 01-27-2024 14:27-0400 SaO2% (BldA) [Mass fraction] 98 % [facility] 01-27-2024 14:27-0400 Systolic blood pressure 130 mm[Hg] [facility] 10-25-2023 08:22-0400 Body height 177.8 cm [facility] 10-25-2023 08:22-0400 Body mass index (BMI) [Ratio] 23.3 kg/m2 [facility] 10-25-2023 08:22-0400 Body weight 73.93 kg [facility] 10-25-2023 08:22-0400 Diastolic blood pressure 74 mm[Hg] [facility] 10-25-2023 08:22-0400 Heart rate 75 /min [facility] 10-25-2023 08:22-0400 SaO2% (BldA) [Mass fraction] 96 % [facility] 10-25-2023 08:22-0400 Systolic blood pressure 122 mm[Hg] [facility] 10-24-2023 10:01-0400 Body height 177.8 cm [facility] 10-24-2023 10:01-0400 Body mass index (BMI) [Ratio] 23.39 kg/m2 [facility] 10-24-2023 10:01-0400 Body weight 73.94 kg [facility] 09-30-2023 08:51-0400 Body height 177.8 cm [facility] 09-30-2023 08:51-0400 Body mass index (BMI) [Ratio] 23.3 kg/m2 [facility] 09-30-2023 08:51-0400 Body weight 73.93 kg [facility] 09-30-2023 08:51-0400 Diastolic blood pressure 80 mm[Hg] [facility] 09-30-2023 08:51-0400 Heart rate 71 /min [facility] 09-30-2023 08:51-0400 SaO2% (BldA) [Mass fraction] 97 % [facility] 09-30-2023 08:51-0400 Systolic blood pressure 132 mm[Hg] [facility] 03-28-2022 14:12-0500 Blood Pressure Location LUCY JANAK [facility] 03-28-2022 14:12-0500 Diastolic blood pressure 83 mm[Hg] LUCY BRICENO [facility] 03-28-2022 14:12-0500 Heart rate 77 /min LCUY BRICENO [facility] 03-28-2022 14:12-0500 Systolic blood pressure 144 mm[Hg] LUCY BRICENO [facility] Encounters Encounter Date Encounter Type Care Provider Facility Start: 03-18-2025 ambulatory LUCY Burnette ty:[facility] [place] Start: 10-01-2024 End: 10-01-2024 ambulatory Lucy Alfaro APRN Work Phone: [facility] Work Phone: Start: 10-01-2024 End: 10-01-2024 Patient encounter procedure Lucy Alfaro APRN [facility] Work Phone: Start: 08-31-2024 End: 08-31-2024 ambulatory [facility] Work Phone: Start: 08-31-2024 End: 08-31-2024 [facility] Start: 08-26-2024 End: 08-26-2024 ambulatory MOI [facility] Start: 08-25-2024 End: 08-25-2024 Bamboo flowsheet Imelda Villa DPM Work Phone: [facility] Start: 08-25-2024 End: 08-25-2024 Bamboo flowsheet Imelda Villa DPM Work Phone: [facility] Start: 08-25-2024 End: 08-25-2024 Office outpatient visit 15 minutes Imelda Villa DPM Work Phone: [facility] Comment on above: Bursitis of left rea t (Primary Dx); Acquired keratoderma; 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; Pain in left foot; Difficulty walking Start: 08-25-2024 End: 08-25-2024 ambulatory IMELDA VILLA Not Available Start: 05-28-2024 End: 05-28-2024 Bamboo flowsheet Imelda Villa DPM Work Phone: [facility] Start: 05-28-2024 End: 05-28-2024 Bamboo flowsheet Imelda Villa DPM Work Phone: [facility] Start: 05-28-2024 End: 05-28-2024 Office outpatient visit 15 minutes Imelda Villa DPM Work Phone: [facility] Comment on above: Pressure injury of l eft foot, stage 1 (Primary Dx); Pain in left foot; 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; Difficulty walking Start: 05-28-2024 End: 05-28-2024 ambulatory IMELDA VILLA Not Available Start: 05-07-2024 End: 05-07-2024 Office outpatient visit 15 minutes Imelda Villa DPM Work Phone: [facility] Comment on above: Pressure injury of l eft foot, stage 1 (Primary Dx); Pain in left foot; 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; Difficulty walking Start: 05-07-2024 End: 05-07-2024 ambulatory IMELDA VILLA Not Available Start: 05-07-2024 End: 05-07-2024 Bamboo flowsheet Imelda Villa DPM Work Phone: [facility] Start: 05-07-2024 End: 05-07-2024 Bamboo flowsheet Imelda Villa DPM Work Phone: [facility] Start: 04-30-2024 End: 04-30-2024 Bamboo flowsheet Imelda Villa DPM Work Phone: [facility] Start: 04-30-2024 End: 04-30-2024 Bamboo flowsheet Imelda Villa DPM Work Phone: [facility] Start: 04-30-2024 End: 04-30-2024 Office outpatient visit 25 minutes Imelda Villa DPM Work Phone: [facility] Comment on above: Bursitis of left rea t (Primary Dx); 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; Acquired keratoderma; Pain in left foot; Difficulty walking Start: 04-30-2024 End: 04-30-2024 ambulatory IMELDA VILLA Not Available Start: 04-29-2024 End: 04-29-2024 ambulatory [facility] Work Phone: Start: 04-29-2024 End: 04-29-2024 [facility] encounter [facility] Work Phone: Start: 03-17-2024 End: 03-17-2024 ambulatory LUCY BRICENO Facility:[facility] Start: 03-17-2024 End: 03-17-2024 Patient encounter procedure LUCY BRICENO [facility] Start: 03-11-2024 Non-patient / Non-visit [facility] Work Phone: Start: 03-04-2024 End: 03-04-2024 Bamboo flowsheet Silva Mak RESOURCE SPECIALIST TEACHER Work Phone: [facility] Start: 03-04-2024 End: 03-04-2024 Bamboo flowsheet Silva Perkins Apling RESOURCE SPECIALIST TEACHER Work Phone: [facility] Start: 03-04-2024 End: 03-04-2024 Office outpatient visit 10 minutes Silva Mak RESOURCE SPECIALIST TEACHER Work Phone: [facility] Comment on above: Right shoulder pain, unspecified chronicity (Primary Dx); S/P right rotator cuff repair Start: 03-04-2024 End: 03-04-2024 ambulatory SILVA MAK Not Available Start: 02-06-2024 End: 02-06-2024 Bamboo flowsheet Madelyn Smyth [place] PT Work Phone: [facility] Start: 02-06-2024 End: 02-06-2024 Bamboo flowsheet Madelyn T Erlinda PT Work Phone: [facility] Start: 02-06-2024 End: 02-06-2024 ambulatory Madelyn Smyth Erlinda PT Work Phone: [facility] Comment on above: Acute pain of right shoulder (Primary Dx); Shoulder stiffness, right; S/P right rotator cuff repair Start: 02-04-2024 End: 02-04-2024 ambulatory Fátima Sanders DEVELOPMENT PLANNER [facility] Comment on above: Acute pain of right shoulder (Primary Dx); Shoulder stiffness, right; S/P right rotator cuff repair Start: 01-30-2024 End: 01-30-2024 ambulatory Jory Walsh DEVELOPMENT PLANNER [facility] Comment on above: Acute pain of right shoulder (Primary Dx); Shoulder stiffness, right; S/P right rotator cuff repair Start: 01-29-2024 End: 01-29-2024 Bamboo flowsheet Silva Mak RESOURCE SPECIALIST TEACHER Work Phone: [facility] Start: 01-29-2024 End: 01-29-2024 Bamboo flowsheet Silva Mak RESOURCE SPECIALIST TEACHER Work Phone: [facility] Start: 01-29-2024 End: 01-29-2024 Office outpatient visit 15 minutes Silva Mak RESOURCE SPECIALIST TEACHER Work Phone: [facility] Comment on above: Left hand pain (Prim zack Dx); Finger pain, left; Trigger ring finger of left hand; Dupuytren's contracture Start: 01-29-2024 End: 01-29-2024 ambulatory SILVA B APLING Not Available Start: 01-28-2024 End: 01-28-2024 Bamboo flowsheet Fátima Sanders DEVELOPMENT PLANNER [facility] Start: 01-28-2024 End: 01-28-2024 Bamboo flowsheet Fátima Sanders DEVELOPMENT PLANNER [facility] Start: 01-28-2024 End: 01-28-2024 ambulatory Fátima Sanders DEVELOPMENT PLANNER [facility] Comment on above: Acute pain of right shoulder (Primary Dx); Shoulder stiffness, right; S/P right rotator cuff repair Start: 01-27-2024 End: 01-27-2024 ambulatory [facility] Work Phone: Start: 01-27-2024 End: 01-27-2024 Patient encounter procedure [facility] Work Phone: Start: 01-23-2024 End: 01-23-2024 Bamboo flowsheet Jory Walsh DEVELOPMENT PLANNER [facility] Start: 01-23-2024 End: 01-23-2024 Bamboo flowsheet Jory Walsh DEVELOPMENT PLANNER [facility] Start: 01-23-2024 End: 01-23-2024 ambulatory Jory Walsh DEVELOPMENT PLANNER [facility] Comment on above: Acute pain of right shoulder (Primary Dx); Shoulder stiffness, right; S/P right rotator cuff repair Start: 01-22-2024 End: 01-22-2024 Bamboo flowsheet Silva Mak RESOURCE SPECIALIST TEACHER Work Phone: [facility] Start: 01-22-2024 End: 01-22-2024 Bamboo flowsheet Silva Tracying RESOURCE SPECIALIST TEACHER Work Phone: [facility] Start: 01-22-2024 End: 01-22-2024 Postop follow up visit related to original px Silva Mak RESOURCE SPECIALIST TEACHER Work Phone: [facility] Comment on above: S/P right rotator cu ff repair (Primary Dx); Arthritis of right acromioclavicular joint Start: 01-22-2024 End: 01-22-2024 ambulatory SILVA Perkins APLING Not Available Start: 01-21-2024 End: 01-21-2024 Bamboo flowsheet Fátima Rinaldiy DEVELOPMENT PLANNER [facility] Start: 01-21-2024 End: 01-21-2024 Bamboo flowsheet Fátima Rinaldiy DEVELOPMENT PLANNER [facility] Start: 01-21-2024 End: 01-21-2024 ambulatory Fátima Rinaldiy DEVELOPMENT PLANNER [facility] Comment on above: Acute pain of right shoulder (Primary Dx); Shoulder stiffness, right; S/P right rotator cuff repair Start: 01-16-2024 End: 01-16-2024 Bamboo flowsheet Jory Walsh DEVELOPMENT PLANNER [facility] Start: 01-16-2024 End: 01-16-2024 Bamboo flowsheet Jory Walsh DEVELOPMENT PLANNER [facility] Start: 01-16-2024 End: 01-16-2024 ambulatory Jory Walsh DEVELOPMENT PLANNER [facility] Comment on above: Acute pain of right shoulder (Primary Dx); Shoulder stiffness, right; S/P right rotator cuff repair Start: 01-14-2024 End: 01-14-2024 Bamboo flowsheet Fátima Rinaldiy DEVELOPMENT PLANNER [facility] Start: 01-14-2024 End: 01-14-2024 Bamboo flowsheet Fátima Rinaldiy DEVELOPMENT PLANNER [facility] Start: 01-14-2024 End: 01-14-2024 ambulatory Fátima Rinaldiy DEVELOPMENT PLANNER [facility] Comment on above: Acute pain of right shoulder (Primary Dx); Shoulder stiffness, right; S/P right rotator cuff repair Start: 01-09-2024 End: 01-09-2024 Bamboo flowsheet Madelyn Coffey PT Work Phone: [facility] Start: 01-09-2024 End: 01-09-2024 Bamboo flowsheet Madelyn Coffey PT Work Phone: [facility] Start: 01-09-2024 End: 01-09-2024 ambulatory Madelyn Coffey PT Work Phone: [facility] Comment on above: Acute pain of right shoulder (Primary Dx); Shoulder stiffness, right; S/P right rotator cuff repair Start: 01-07-2024 End: 01-07-2024 Bamboo flowsheet Fátima Rinaldiy DEVELOPMENT PLANNER [facility] Start: 01-07-2024 End: 01-07-2024 Bamboo flowsheet Fátima Rinaldiy DEVELOPMENT PLANNER [facility] Start: 01-07-2024 End: 01-07-2024 ambulatory Fátima Rinaldiy DEVELOPMENT PLANNER [facility] Comment on above: S/P right rotator cu ff repair (Primary Dx); Acute pain of right shoulder; Shoulder stiffness, right Start: 01-02-2024 End: 01-02-2024 Bamboo flowsheet Madelyn Coffey PT Work Phone: [facility] Start: 01-02-2024 End: 01-02-2024 Bamboo flowsheet Madelyn Coffey PT Work Phone: [facility] Start: 01-02-2024 End: 01-02-2024 ambulatory Madelyn Coffey PT Work Phone: [facility] Comment on above: Acute pain of right shoulder (Primary Dx); S/P right rotator cuff repair; Shoulder stiffness, right Start: 12-31-2023 End: 12-31-2023 Bamboo flowsheet Fátima Rinaldiy DEVELOPMENT PLANNER [facility] Start: 12-31-2023 End: 12-31-2023 Bamboo flowsheet Fátima Rinaldiy DEVELOPMENT PLANNER [facility] Start: 12-31-2023 End: 12-31-2023 ambulatory Fátima Rinaldiy DEVELOPMENT PLANNER [facility] Comment on above: Acute pain of right shoulder (Primary Dx); Shoulder stiffness, right; S/P right rotator cuff repair Start: 12-26-2023 End: 12-26-2023 ambulatory Madelyn Coffey PT Work Phone: [facility] Comment on above: Acute pain of right shoulder (Primary Dx); Shoulder stiffness, right; S/P right rotator cuff repair Start: 12-24-2023 End: 12-24-2023 Bamboo flowsheet Fátima Rinaldiy DEVELOPMENT PLANNER [facility] Start: 12-24-2023 End: 12-24-2023 Bamboo flowsheet Fátima Sanders DEVELOPMENT PLANNER [facility] Start: 12-24-2023 End: 12-24-2023 ambulatory Fátima Sanders DEVELOPMENT PLANNER [facility] Comment on above: Acute pain of right shoulder (Primary Dx); Shoulder stiffness, right; S/P right rotator cuff repair Start: 12-19-2023 End: 12-19-2023 Bamboo flowsheet Madelyn Mckeonton PT Work Phone: [facility] Start: 12-19-2023 End: 12-19-2023 Bamboo flowsheet Madelyn Smyth [place] PT Work Phone: [facility] Start: 12-19-2023 End: 12-19-2023 ambulatory Madelyn Mckeonton PT Work Phone: [facility] Comment on above: Acute pain of right shoulder (Primary Dx); Shoulder stiffness, right; S/P right rotator cuff repair Start: 12-17-2023 End: 12-17-2023 ambulatory Madelyn Coffey PT Work Phone: [facility] Comment on above: Acute pain of right shoulder (Primary Dx); Shoulder stiffness, right; S/P right rotator cuff repair Start: 12-17-2023 End: 12-17-2023 Bamboo flowsheet Madelyn Smyth [place] PT Work Phone: [facility] Start: 12-17-2023 End: 12-17-2023 Bamboo flowsheet Madelyn Smyth [place] PT Work Phone: [facility] Start: 12-11-2023 End: 12-11-2023 Bamboo flowsheet Silva Mak RESOURCE SPECIALIST TEACHER Work Phone: [facility] Start: 12-11-2023 End: 12-11-2023 Bamboo flowspaloma Mak RESOURCE SPECIALIST TEACHER Work Phone: [facility] Start: 12-11-2023 End: 12-11-2023 Postop follow up visit related to original px Silva Mak RESOURCE SPECIALIST TEACHER Work Phone: [facility] Comment on above: S/P right rotator cu ff repair (Primary Dx) Start: 12-11-2023 End: 12-11-2023 ambulatory SILVA Perkins APLING Not Available Start: 11-29-2023 End: 11-29-2023 Bamboo flowsheet John Espinal DO Work Phone: [facility] Start: 11-29-2023 End: 11-29-2023 Bamboo flowsheet John Espinal DO Work Phone: [facility] Start: 11-29-2023 End: 11-29-2023 ambulatory JOHN ESPINAL Not Available Start: 11-26-2023 Non-patient / Non-visit [facility] Work Phone: Start: 11-13-2023 End: 11-13-2023 ambulatory SILVA Perkins APLING Not Available Start: 11-06-2023 End: 11-06-2023 Evaluation and management of inpatient EMILY Rinaldi NADEEM [facility] Start: 11-06-2023 End: 11-06-2023 Evaluation and management of inpatient [facility] Start: 10-25-2023 Patient encounter status [facility] Start: 10-25-2023 Preprocedural examin ation done Lucy Alfaro APRN Work Phone: [facility] Start: 10-25-2023 End: 10-25-2023 ambulatory [facility] Work Phone: Start: 10-25-2023 End: 10-25-2023 Patient encounter procedure [facility] Work Phone: Start: 10-24-2023 End: 10-24-2023 ambulatory [facility] Start: 10-24-2023 Encounter for other preprocedural examination [facility] Start: 10-24-2023 End: 10-24-2023 Patient encounter procedure [facility] Pre-Admission Testing 1 [facility] - Pre Admit Comment on above: Preop examination (P rimary Dx); Coronary artery disease, unspecified vessel or lesion type, unspecified whether angina present, unspecified whether [place] or transplanted heart; Hypertension, unspecified type Start: 10-24-2023 End: 10-24-2023 Preprocedural examination done Pm 1 [facility] Start: 10-24-2023 End: 10-25-2023 ambulatory SEDA WASHINGTON [facility] Start: 10-22-2023 End: 10-22-2023 ambulatory SEDA WASHINGTON Not Available Start: 10-14-2023 End: 10-14-2023 ambulatory SILVA MAK Not Available Start: 10-01-2023 ambulatory [facility] Work Phone: Start: 10-01-2023 Non-patient / Non-visit [facility] Work Phone: Start: 09-30-2023 End: 09-30-2023 ambulatory [facility] Work Phone: Start: 09-30-2023 End: 09-30-2023 Patient encounter procedure [facility] Work Phone: Start: 09-19-2023 End: 09-19-2023 ambulatory FÁTIMA PHILLIP [facility] Start: 08-13-2022 End: 08-14-2022 ambulatory FÁTIMA PHILLIP Facility:[facility] Start: 08-02-2022 End: 08-03-2022 ambulatory RAMIN IYER Facility:[facility] Start: 05-03-2022 End: 05-04-2022 ambulatory RAMIN P JAYLON Facility:[facility] Start: 03-28-2022 End: 03-28-2022 Patient encounter procedure LUCY BRICENO [facility] Start: 01-15-2022 End: 01-16-[address] ABDIAZIZ Lovell Facility:[facility] Start: 07-17-2018 End: 07-18-2018 Patient encounter procedure DEFAULT PHYSICIAN Facility:[facility] Procedures Date Procedure Procedure Detail Performing Clinician Start: 11-29-2023 End: 11-29-2023 [facility] medical xm&eval steffany new pt 1/> vst Bilateral posterior capsular opacification John Espinal DO Work Phone: Comment on above: Bilateral posterior capsular opacification (Primary Dx) Start: 01-15-[address] ABDIAZIZ Lovell Comment on above: Performed By: #### P SAD #### [facility] [address] [place] [address] Dr. Roxane Clayton Start: 05-25-2019 Transrectal biopsy o f prostate using ultrasound guidance LUCY BRICENO Start: 09-24-2012 Ureteroscopic remova l of ureteric calculus LUCY BRICENO Arthroplasty of knee MARINA BRICENO Back Surgery LUCY BRICENO Extraction of cataract EMILIE BRICENO Comment on above: B/L Foot Surgery LUCY BRICENO History of placement of stent for coronary artery disease H/O heart artery stent History of repair of musculotendinous cuff of shoulder S/P right rotator cuff repair Fátima Kelbley DEVELOPMENT PLANNER History of repair of musculotendinous cuff of shoulder S/P right rotator cuff repair Madelyn Coffey PT Work Phone: History of repair of musculotendinous cuff of shoulder S/P right rotator cuff repair Fátima Kelbley DEVELOPMENT PLANNER History of repair of musculotendinous cuff of shoulder S/P right rotator cuff repair Madelyn Coffey PT Work Phone: History of repair of musculotendinous cuff of shoulder S/P right rotator cuff repair Fátima Kelbley DEVELOPMENT PLANNER History of repair of musculotendinous cuff of shoulder S/P right rotator cuff repair Jory Walsh DEVELOPMENT PLANNER History of repair of musculotendinous cuff of shoulder S/P right rotator cuff repair Fátima Kelbley DEVELOPMENT PLANNER History of repair of musculotendinous cuff of shoulder S/P right rotator cuff repair Silva Mak RESOURCE SPECIALIST TEACHER Work Phone: History of repair of musculotendinous cuff of shoulder S/P right rotator cuff repair Jory Bralz DEVELOPMENT PLANNER History of repair of musculotendinous cuff of shoulder S/P right rotator cuff repair Fátima Sanders DEVELOPMENT PLANNER History of repair of musculotendinous cuff of shoulder S/P right rotator cuff repair Jory Brlaz DEVELOPMENT PLANNER History of repair of musculotendinous cuff of shoulder S/P right rotator cuff repair Fátima Nimcoy DEVELOPMENT PLANNER History of repair of musculotendinous cuff of shoulder S/P right rotator cuff repair Madelyn Mckeonton PT Work Phone: History of repair of musculotendinous cuff of shoulder S/P right rotator cuff repair Silva Mak RESOURCE SPECIALIST TEACHER Work Phone: History of repair of musculotendinous cuff of shoulder S/P right rotator cuff repair Madelyn Mckeonton PT Work Phone: History of repair of musculotendinous cuff of shoulder S/P right rotator cuff repair Silva Mak RESOURCE SPECIALIST TEACHER Work Phone: History of repair of musculotendinous cuff of shoulder S/P right rotator cuff repair Madelyn Mckeonton PT Work Phone: History of repair of musculotendinous cuff of shoulder S/P right rotator cuff repair Fátima Sanders DEVELOPMENT PLANNER History of repair of musculotendinous cuff of shoulder S/P right rotator cuff repair Madelyn Mckeonton PT Work Phone: Rotator cuff includi ng muscles and tendons (body structure) LUCY BRICENO Plan of Treatment Date Care Activity Detail Author Start: 10-23-2024 Adult BMI Screening Adult BMI Screen ing [facility] Start: 10-23-2024 Tobacco Screening Tobacco Screening [facility] Start: 08-25-2024 End: 08-25-2024 Patient encounter procedure [facility] Comment on above: Arrived Start: 05-28-2024 End: 05-28-2024 Patient encounter procedure [facility] Comment on above: Arrived Start: 05-07-2024 End: 05-07-2024 Patient encounter procedure 05/07/2024 3:45 PM EST Office Visit [facility] [address] [place] [id number] Imelda Villa, DPM [address] [place] [address] Arrived [facility] Comment on above: Arrived Start: 04-30-2024 End: 04-30-2024 Patient encounter procedure 04/30/2024 9:15 AM EST Office Visit [facility] [address] [place] [phone] Imelda Villa, DP [address] [place] [address] Arrived [facility] Comment on above: Arrived Start: 03-04-2024 End: 03-04-2024 Patient encounter procedure [facility] Comment on above: Right shoulder pain, unspecified chronicity (Primary Dx); S/P right rotator cuff repair Start: 02-06-2024 End: 02-06-2024 ambulatory 02/06/2024 7:00 AM EST Treatment [facility] [address] [facility] [address] [place] [address] Madelyn Coffey, PT [address] [facility] [address] [place] [address] [facility] Start: 02-04-2024 End: 02-04-2024 ambulatory 02/04/2024 7:00 AM EST Treatment [facility] [address] [place] [address] [place] [address] Fátima Sanders PTA [facility] Start: 01-30-2024 End: 01-30-2024 ambulatory 01/30/2024 7:30 AM EDT Treatment [facility] [address] [place] [address] [place] [address] Jory Walsh PTA [facility] Start: 01-29-2024 End: 01-29-2024 Patient encounter procedure [facility] Comment on above: Left hand pain (Prim zack Dx); Finger pain, left Start: 01-28-2024 End: 01-28-2024 ambulatory 01/28/2024 7:00 AM EDT Treatment [facility] [address] [place] [address] [place] [address] Fátima Sanders PTA [facility] Start: 01-23-2024 End: 01-23-2024 ambulatory [facility] Comment on above: Arrived Start: 01-22-2024 End: 01-22-2024 Patient encounter procedure [facility] Comment on above: S/P right rotator cu ff repair (Primary Dx); Arthritis of right acromioclavicular joint Start: 01-21-2024 End: 01-21-2024 ambulatory 01/21/2024 7:00 AM EDT Treatment [facility] [address] [facility] [address] [place] [address] Fátima Sanders DEVELOPMENT PLANNER [facility] Start: 01-16-2024 End: 01-16-2024 ambulatory [facility] Comment on above: Arrived Start: 01-15-2024 End: 01-15-2024 Patient encounter procedure 01/15/2024 7:20 AM EDT Procedure Visit [facility] John Espinal, DO [address] [facility] [address] [place], [place] [id number] [facility] Start: 01-14-2024 End: 01-14-2024 ambulatory 01/14/2024 7:00 AM EDT Treatment [facility] [address] [facility] [address] [place] [address] Fátima Sanders DEVELOPMENT PLANNER [facility] Start: 01-09-2024 End: 01-09-2024 ambulatory [facility] Comment on above: Arrived Start: 01-07-2024 End: 01-07-2024 ambulatory 01/07/2024 7:00 AM EDT Treatment [facility] [address] [place] [place] [address] Fátima Sanders DEVELOPMENT PLANNER [facility] Start: 01-02-2024 End: 01-02-2024 ambulatory 01/02/2024 7:00 AM EDT Treatment [facility] [address] [place] [address] Madelyn Coffey, PT [address] [place] [address] [facility] Start: 12-31-2023 End: 12-31-2023 ambulatory 12/31/2023 7:00 AM EDT Treatment [facility] [address] [place] [address] Fátima Sanders PTA [facility] Start: 12-26-2023 End: 12-26-2023 ambulatory 12/26/2023 7:00 AM EDT Treatment [facility] [address] [place] [place] [address] Madelyn Coffey, PT [address] [place] [address] [facility] Start: 12-25-2023 End: 12-25-2023 Patient encounter procedure 12/25/2023 6:40 AM EDT Procedure Visit [facility] John Espinal, DO [address] [place] [address] [facility] Start: 12-24-2023 End: 12-24-2023 ambulatory 12/24/2023 7:00 AM EDT Treatment [facility] [address] [place] [address] Fátima Sanders DEVELOPMENT PLANNER [facility] Start: 12-19-2023 End: 12-19-2023 ambulatory 12/19/2023 7:00 AM EDT Treatment [facility] [address] [place] [address] Madelyn Coffey, PT [address] [place] [address] [facility] Start: 12-17-2023 End: 12-17-2023 ambulatory 12/17/2023 2:30 PM EDT Evaluation [facility] [address] [place] [address] Madelyn Coffey, PT [address] [place] [address] Arrived [facility] Comment on above: Arrived Start: 12-11-2023 End: 12-11-2023 Patient encounter procedure [facility] Comment on above: S/P right rotator cu ff repair (Primary Dx) Start: 12-01-2023 Influenza vaccination [facility] Start: 11-29-2023 End: 11-29-2023 Patient encounter procedure 11/29/2023 10:00 AM EDT Office Visit [facility] [address] [place] [id number] John Espinal, DO [address] [place] [address] Arrived [facility] Comment on above: Arrived Start: 11-06-2023 End: 11-06-2023 Admission to same day surgery center 11/06/2023 7:30 AM EDT - 11/06/2023 9:15 AM EDT Surgery [facility] [address] [place] [id number] Seda Washington, DO [address] [place] [address] ARTHROSCOPIC REPAIR ROTATOR CUFF SHOULDER [48551 (CPT )] [facility] Comment on above: ARTHROSCOPIC REPAIR ROTATOR CUFF SHOULDER [36160 (CPT )] Start: 11-06-2023 End: 11-06-2023 Arthroscopy shoulder rotator cuff repair ARTHROSCOPIC REPAIR ROTATOR CUFF SHOULDER right shoulder rotator cuff tear 11/06/2023 7:30 AM EDT [facility] Start: 11-06-2023 Subsequent hospital visit by physician 11/06/2023 7:30 AM EDT Hospital Encounter [facility] [address] [place] [phone] Seda Washington, DO [address] [facility] [address] [place] [address] [facility] Start: 10-01-2023 Patient referral [facility] Work Phone: Start: 05-27-2023 COVID-19 Vaccine ( season) COVID-19 Vaccine ( season) [facility] Start: 2014 Fall Risk Screening Fall Risk Screen ing [facility] Start: 01-06-1968 DTaP,Tdap and Td Vac cines (1 - Tdap) DTaP,Tdap and Td Vaccines (1 - Tdap) [facility] Start: 1961 Depression Screening Depression Scre ening [facility] Start: 1950 Medicare Annual Well ness Visit Medicare Annual Wellness Visit [facility] Start: 1950 Screening for malign ant neoplasm of colon [facility] Start: 1950 Tobacco Counseling Tobacco Counselin g [facility] Comprehensive metabo lic 2000 panel - Serum or Plasma [facility] Patient referral [facility] Work Phone: XR Shoulder - right Views [facility] Immunizations Immunization Date Immunization Notes Care Provider Fa cility 01-28-2024 influenza virus vacc ine, unspecified formulation Silva Mak NP Work Phone: [facility] 01-21-2023 influenza virus vacc ine, unspecified formulation Fátima Sanders [facility] 12-30-2022 influenza virus vacc ine, unspecified formulation LUCY BRICENO [facility] 01-13-2022 SARS-CoV-2 (COVID-19 ) [id number] LUCY GRANADOSRY [facility] 12-18-2021 influenza virus vacc ine, unspecified formulation LUCY JANAK [facility] 07-13-2021 SARS-CoV-2 mRNA (fbcjmwsclij-olft-mojsiw e) vaccine LUYC JANAK [facility] 01-20-2021 influenza virus vacc ine, unspecified formulation LUCY JAANK [facility] 12-27-2020 SARS-CoV-2 (COVID-19 ) mRNA BNT-162b2 vax LUCY JANAK [facility] 05-28-2020 SARS-CoV-2 (COVID-19 ) mRNA BNT-162b2 vax LUCY JANAK [facility] Comment on above: Result Comment: 2021: [id number] 05-08-2020 SARS-CoV-2 (COVID-19 ) mRNA BNT-162b2 vax LUCY JANAK [facility] Comment on above: Result Comment: 2021: [id number] 04-01-2020 SARS-CoV-2 (COVID-19 ) mRNA BNT-162b2 vax LUCY JANAK [facility] Comment on above: Result Comment: Pt d oes not know the dates but states he has also had the booster 01-12-2019 influenza virus vacc ine, unspecified formulation LUCY JANAK [facility] 01-15-2017 influenza virus vacc ine, unspecified formulation LUCY JANAK [facility] 02-14-2015 influenza virus vacc ine, unspecified formulation LUCY JANAK [facility] 12-30-2014 influenza virus vacc ine, unspecified formulation LUCY JANAK [facility] 06-01-2014 pneumococcal polysaccharide vaccine, 23 valent LUCY JANAK [facility] 01-27-2014 influenza virus vacc ine, unspecified formulation LUCY JANAK [facility] 01-07-2013 influenza, whole LUCY PE RRY [facility] 01-19-2011 influenza, whole LUCY PE RRY [facility] Payers Date Payer Category Payer Private Health Insurance [id number] 2022 Unknown 2022 Unknown [id number] 2013 Medicare [id number] [id number]. [id number] 1959 Medicare [id number] 1959 Unknown [id number] 1959 Unknown [id number] 1949 Unknown [id number] 2.16.840.1.386783.3.579.2.647 1949 Unknown [id number] 2.16.840.1.665933.3.579.2.593 1949 Unknown [id number] 2.16.840.1.596039.3.579.2.593 1949 Unknown [id number] 2.16.840.1.230006.3.579.2.593 1949 Unknown [id number] 2.16.840.1.371367.3.579.2.593 1949 Unknown [id number] 2.16.840.1.902198.3.579.2.1286 1949 Unknown [id number] 2.16.840.1.755451.3.579.2.1286 1949 Unknown [id number] 2.16.840.1.590864.3.579.2.1286 1949 Unknown [id number] 2.16.840.1.378347.3.579.2.1286 1949 Unknown [id number] 2.16.840.1.292047.3.579.2.1286 1949 Unknown [id number] 2.16.840.1.306739.3.579.2.1286 1949 Unknown [id number] 2.16.840.1.826971.3.579.2.1286 1949 Unknown [id number] 2.16.840.1.635558.3.579.2.727 1949 Unknown [id number] 2.16.840.1.939544.3.579.2.727 1949 Unknown [id number] 2.16.840.1.858224.3.579.2.1259 1949 Unknown [id number] 2.16.840.1.033341.3.579.2.125 1949 Unknown [id number] 2.16.840.1.358351.3.579.2.125 1949 Unknown [id number] 2.16.840.1.771489.3.579.2.125 1949 Unknown [id number] 2.16.840.1.146097.3.579.2.125 1949 Unknown [id number] 2.16.840.1.640419.3.579.2.1258 1949 Unknown [id number] 2.16.840.1.926820.3.579.2.1258 1949 Unknown [id number] 2.16.840.1.727297.3.579.2.1258 1949 Unknown [id number] 2.16.840.1.338631.3.579.2.125 1949 Unknown [id number] 2.16.840.1.300219.3.579.2.1258 1949 Unknown [id number] 2.16.840.1.198620.3.579.2.1258 1949 Unknown [id number] 2.16.840.1.539630.3.579.2.1258 1949 Unknown [id number] 2.16.840.1.000726.3.579.2.125 1949 Unknown [id number] 2.16.840.1.135395.3.579.2.125 1949 Unknown [id number] 2.16.840.1.790784.3.579.2.125 1949 Unknown [id number] 2.16.840.1.339401.3.579.2.125 1949 Unknown [id number] 2.16.840.1.061107.3.579.2.1259 1949 Unknown [id number] 2.16.840.1.628785.3.579.2.1259 1949 Unknown [id number] 2.16.840.1.386140.3.579.2.1259 1949 Unknown [id number] 2.16.840.1.118566.3.579.2.1259 1949 Unknown [id number] 2.16.840.1.087987.3.579.2.125 1949 Unknown [id number] 2.16.840.1.519678.3.579.2.125 1949 Unknown [id number] 2.16.840.1.484649.3.579.2.125 1949 Unknown [id number] 2.16.840.1.309088.3.579.2.1259 1949 Unknown [id number] 2.16.840.1.067599.3.579.2.125 1949 Unknown [id number] 2.16.840.1.373366.3.579.2.1259 1949 Unknown [id number] 2.16.840.1.042356.3.579.2.125 1949 Unknown [id number] 2.16.840.1.810849.3.579.2.1259 Medicare Medicare [id number] Self-pay Self Pay [id number] Unknown [facility] Health Claims [id number] Social History Date Type Detail Facility Start: 03-28-2022 End: 03-17-2024 Tobacco smoking status Heavy tobacco smoker (finding) [facility] Start: 09-30-2023 End: 09-30-2023 Tobacco smoking status Smoker (finding) [facility] Tobacco smoking status Never [facility] Start: 12-11-2023 End: 08-25-2024 Sex Assigned At Male [facility] Start: 1950 Sex Assigned At Male F [facility] Start: 09-30-2023 End: 10-14-2023 Tobacco smoking status NHIS Smokes tobacco daily [facility] History of tobacco use Cigarette Smoker [facility] Start: 10-14-2023 End: 10-24-2023 Tobacco use and exposure Smokeless tobacco non-user [facility] Start: 12-11-2023 End: 08-25-2024 Alcoholic beverage intake Ex-drinker (finding) [facility] Start: 12-11-2023 End: 08-25-2024 History of Social function [facility] Start: 1950 Sex assigned at Not on file [facility] Start: 04-29-2024 End: 08-31-2024 Sex Male (finding) [facility] Start: 10-24-2023 Alcoholic beverage intake Lifetime non-drinker (finding) [facility] Medical Equipment Procedure Code Equipment Code Equipment Origin al Text Equipment Identifier Dates Anch Sut 4.75mm 2 Healicoil - Sna - [id number] Start: 01-28-2019 Anch Sut 4.75mm 2 Regenesorb - Sna - [id number] Start: 01-28-2019 Anch Sut 4.5mm Ftprnt Ult Pk Rpl [id number] +Cmt - Sna - [id number] Start: 01-28-2019 Functional Status Date Assessment Result Facility 03-17-2024 Functional Status N/A [facility] 03-28-2022 Functional Status N/A [facility] Clinical Notes 03-28-2022 to 08-31-2024 Note Date & Type Note Facility 08-31-2024 Evaluation note Diagnosis Onset Date Resolution Atopic dermatitis acute August 2:20pm Otitis externa acute August 31, 2024 2:20pm CAD (coronary artery disease) acute October 01, 2024 8 :21am Hyperlipemia acute October 01 8:21am Hypertension acute October 01 8:21am Impaired fasting glucose acute October 01, 2024 8 :21am [facility] Work Phone: [phone]) 745-304805-28-2025 NoteSUBJECTIVE Reason for Visit: Mart Villa is a 74 y.o. year old male patient being seen for routine 1 year follow-up visit. HPI: Mart Villa is a 74 y.o. year old male with significant medical history of CAD and hyperlipidemia, cardiomyopathy, and valvular disorder. 08/26/2024 office visit: Patient is seen and evaluated at the office today, he is accompanied by his . He has no significant complaints. He denies chest pain, palpitations, lightheadedness or dizziness, or lower extremity edema. He does endorse HASSAN but he says he can walk at least a couple blocks before he has to take breaks but he said this is stable and has not gotten worse. He is interested in quitting smoking and expressed interest in taking Chantix. 09/19/2023 office visit (Fátima Phillip NP): Patient here for 1 year follow up CAD, primary cardiomyopathy, and valve disorder. Had routine labs w/ lipid last July 2022. He is doing great. Denies chest pain, SOB, palpitations, and lightheadedness/syncope. Overall he is feeling very well, denied chest pain, SOB, Orthopnea, palpitations, lightheadedness/dizziness or syncope. Denied any bleeding tendencies or concerns. Denied any activity limiting symptoms. Past Medical History: Diagnosis Date Cardiomyopathy (CMS/HCC) Coronary artery disease Heart valve disease Hyperlipidemia Myocardial infarction (CMS/HCC) Past Surgical History: Procedure Laterality Date BACK SURGERY CARDIAC CATHETERIZATION CORONARY STENT PLACEMENT KNEE SURGERY PROSTATE BIOPSY SHOULDER SURGERY TONSILLECTOMY Patient Active Problem List Diagnosis Acute prostatitis Anticoagulated BPH with urinary obstruction Coronary atherosclerosis Current smoker Disorder of lipid metabolism Dysuria Elevated PSA Hematuria History of kidney stones Elevated cholesterol Hyperlipidemia Old myocardial infarction Nocturia Nephrolithiasis Mitral and aortic incompetence Primary cardiomyopathy (CMS/HCC) Urine frequency Chronic ischemic heart disease Essential hypertension Hypertensive heart disease without heart failure Nicotine dependence Osteoarthritis family history includes Coronary artery disease in an other family member. Social History Tobacco Use Smoking status: Every Day Current packs/day: 1.25 Types: Cigarettes Smokeless tobacco: Never Substance Use Topics Alcohol use: Not Currently Drug use: Not Currently OBJECTIVE Visit Vitals Smoking Status Every Day Physical Exam Constitutional: General Appearance: well-developed, appears stated age. Level of Distress: no acute distress. Neck: Jugular Veins: normal jugular venous pressure. Lungs: Auscultation: no rales or rhonchi and normal breath sounds. Cardiovascular: Rate And Rhythm: regular Heart Sounds: normal S1 and s2; Systolic Murmur: not heard. Diastolic Murmur: not heard. Extremities: no edema Peripheral Pulses: Pulses: full and equal in all extremities except if noted. Abdomen: Inspection and Palpation: non distended or tender and soft. Musculoskeletal: Inspection: no joint tenderness or swelling. Neurologic: Gait: normal gait. Psychiatric: Mental Status: alert and normal affect. Skin: Inspection and Palpation: warm and dry. Allergies: Allergies Allergen Reactions Penicillins Other and Unknown rash Outpatient Medications: Current Outpatient Medications Medication Instructions aspirin 81 mg chewable tablet Daily RT atenolol (TENORMIN) 25 mg, oral, Once Daily atorvastatin (LIPITOR) 80 mg, oral, Nightly clopidogrel (PLAVIX) 75 mg, oral, Once Daily metFORMIN (GLUCOPHAGE) 500 mg, oral, Daily traMADol (ULTRAM) 50 mg, oral, Every 6 hours PRN Recent Labs: No visits with results within 6 Month(s) from this visit. Latest known visit with results is: No results found for any previous visit. Most recent labs 11/26/2023, reviewed: I have personally reviewed and anaylzed the following laboratory results above. These findings have been analyzed in the context of the patient's clinical presentation. 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 I have personally reviewed and analyzed all available cardiac diagnostic tests and imaging reports. Findings have been analyzed in the context of the patient's clinical status. Assessment and Plan # Coronary atherosclerosis Denies chest pain Coronary artery disease is stable Stent x 2 2005 Stable - Continue aspirin 81 mg daily - Continue clopidog (more content not included)...[facility]05-27-2025 History of Present illness Narrative* Imelda Villa, DPM - 08/25/2024 9:30 AM EDT Images from the original note were not included. Subjective Patient ID: Mart Villa is a 74 y.o. male who presents for FUV (Mart Villa is a 74 y.o. male. Ptis here today for FUV of left foot, area where the lesion was removed. Patient relates wound is healed. Vinicius Alfaro 04/23/24 A1C: 6.1(04/2024)). HPI Follow-up assessment: Persistent callus left forefoot with ulceration by history. Patient reports favorable progress with skin care and offloading measures. Reports mild occasional discomfort, depending on activity. Denies redness, swelling, bleeding or drainage. Reports good compliance with modified functional orthotic therapy. Medications Current Outpatient Medications: aspirin 81 MG chewable tablet, Chew 1 tablet every day by oral route., Disp: , Rfl: atenolol (Tenormin) 25 MG tablet, Take 25 mg by mouth Daily, Disp: , Rfl: atorvastatin (Lipitor) 80 MG tablet, Take 80 mg by mouth at bedtime, Disp: , Rfl: clopidogrel (Plavix) 75 MG tablet, Take 75 mg by mouth Daily, Disp: , Rfl: Ferrous Sulfate (IRON PO), Take 1 tablet by mouth in the morning. (Patient not taking: Reported on 04/30/2024), Disp: , Rfl: metFORMIN (Glucophage) 500 MG tablet, Daily, Disp: , Rfl: Multiple Vitamins-Minerals (multivitamin with iron-minerals) liquid, Take by mouth Daily, Disp: , Rfl: Allergies Penicillins Past Surgical History Past Surgical History: Procedure Laterality Date BACK SURGERY 1994 BACK SURGERY 2020 CATARACT EXTRACTION FOOT SURGERY 1999 KNEE SURGERY 2012 ROTATOR CUFF REPAIR Right 11/06/2023 Dr. Washington Family History No family history on file. Objective General Examination: GENERAL EXAMINATION: Alert and oriented. Pleasant disposition. Presents wearing New Balance shoes, with modified functional orthoses. Vascular: DORSALIS PEDIS PULSE: 2/4, bilaterally . POSTERIOR TIBIAL PULSE: 1/4, bilaterally . TEMPERATURE GRADIENT: warm to slightly cool . EDEMA: Unremarkable for ankle edema. CAPILLARY FILLING TIME(sec): capillary fill intact bilateral digits less than 3 secs . Neurologic: MUSCLE POWER: No focal deficits. TINELS SIGN: Negative along the tarsal tunnel. SHARP SENSATION:Tactile and soft touch sensation intact. Dermatologic: SKIN FINDINGS:Intact, skin turgor is good. HYPERTROPHIC LESION: Left foot: Well-defined, raised IPK lesion located sub 5th metatarsal condyle;mildly tender, mildly inflamed, non-fluctuant, without ulcerative changes. Toenail pathology: mildly dystrophic. INTERDIGITAL MACERATION: Clean, non-inflamed and dry. ULCER: There are no clinical signs of ulceration or open wound; maintaining effective secondary intention closure left foot left foot SKIN PATHOLOGY: texture, turgor, hair growth, within normal limits . Orthopedic: FOOT MORPHOLOGY: Stance assessment: Right foot: Moderately pronated foot type; relaxed hind foot position is slightly everted, with loss of medial column height and contour. Deformity remains somewhat flexible and reducible. Left foot: Stable, nearly rectus foot construct, status post reconstruction. Well-healed surgical incisions are noted. Patient is able to initiate and hold a double heel raise; functional hindfoot supination is noted; no symptoms noted today. JOINT RANGE OF MOTION: Passive ankle dorsiflexion is limited bilateral; reflective of mild gastrocsoleus equinus, somewhat more apparent on the right. Otherwise maintains functional subtalar joint, midtarsal and MTP joint range of motion, without guarding or crepitus . DEFORMITIES: Adult acquired flat foot deformity on the right as noted . PAIN ELICITED WITH PALPATION OF: Radiology: Assessment/Plan Symptomatic IPK/sub lesional bursitis left foot. Maintains effective closure of previous ulceration left foot.. Plan: Review of clinical findings, response to date and treatment rationale and objectives. Left foot: Aseptic technique: # 15 scalpel: Sharp debridement of symptomatic IPK lesion; reducing direct and indirect pressure; providing favorable symptom relief. Offloading: Modified functional orthotic left. Patient again noted favorable ineffective relief upon leaving the clinic. Skin care measures reviewed. Discourage any barefoot walking. Procedure: This note was created with the assistance of a speech recognition program. While intending to generate a timely document that accurately reflects the content of the visit, no guarantee can be provided that every grammatical or spelling mistake has been or will be identified or corrected. Thank you for your understanding. Imelda Villa DPM documented in this [facility]05-27-2025 Instructions* Patient Instructions* Imelda Villa DPM - 08/25/2024 9:30 AM EDT As noted documented in this [facility]02-27-2025 History of Present illness Narrative* Imelda Villa DPM - 05/28/2024 9:15 AM EST Images from the original note were not included. Subjective Patient ID: Mart Villa is a 74 y.o. male who presents for FUV (Mart Villa is a 74 y.o. male. Ptis here today for FUV of left foot, area where the lesion was removed. Patient relates wound is healed. A1C: 6.1). HPI Follow-up assessment: Enriquez stage I pressure ulceration of the left forefoot. Patient reports effective relief of symptoms, with favorable healing of the wound. Reports no bleeding or drainage over the past week or so. Denies streaking or constitutional symptoms. Reports favorable resolution of localized redness and swelling. Tolerance to ADLs and walking activity much improved. Modification of functional orthotic has remained beneficial in offloading the symptomatic area. Medications Current Outpatient Medications: aspirin 81 MG chewable tablet, Chew 1 tablet every day by oral route., Disp: , Rfl: atenolol (Tenormin) 25 MG tablet, Take 25 mg by mouth Daily, Disp: , Rfl: atorvastatin (Lipitor) 80 MG tablet, Take 80 mg by mouth at bedtime, Disp: , Rfl: clopidogrel (Plavix) 75 MG tablet, Take 75 mg by mouth Daily, Disp: , Rfl: Ferrous Sulfate (IRON PO), Take 1 tablet by mouth in the morning. (Patient not taking: Reported on 04/30/2024), Disp: , Rfl: metFORMIN (Glucophage) 500 MG tablet, Daily, Disp: , Rfl: Multiple Vitamins-Minerals (multivitamin with iron-minerals) liquid, Take by mouth Daily, Disp: , Rfl: Allergies Penicillins Past Surgical History Past Surgical History: Procedure Laterality Date BACK SURGERY 1994 BACK SURGERY 2020 CATARACT EXTRACTION FOOT SURGERY 1999 KNEE SURGERY 2011 ROTATOR CUFF REPAIR Right 11/06/2023 Dr. Washington Family History No family history on file. Objective General Examination: GENERAL EXAMINATION: Alert and oriented. Pleasant disposition. Presents wearing a good-quality new balance shoes, with modified functional orthoses. Vascular: DORSALIS PEDIS PULSE: 2/4, bilaterally . POSTERIOR TIBIAL PULSE: 1/4, bilaterally . TEMPERATURE GRADIENT: warm to slightly cool . EDEMA: Unremarkable for ankle edema. CAPILLARY FILLING TIME(sec): capillary fill intact bilateral digits less than 3 secs . Neurologic: MUSCLE POWER: No focal deficits. TINELS SIGN: Negative along the tarsal tunnel. SHARP SENSATION:Tactile and soft touch sensation intact. Dermatologic: SKIN FINDINGS:Intact, skin turgor is good. HYPERTROPHIC LESION: Left foot: Mild residual, minimally raised keratosis sub 5th metatarsal condyle. NAIL PATHOLOGY: Mildly dystrophic. INTERDIGITAL MACERATION: Clean, non-inflamed and dry. ULCER: Left foot: Enriquez stage 0 wound appearance; reflecting effective secondary intention healing. The site is minimally tender, non-inflamed, non-fluctuant. Soft tissue envelope well-perfused. Wound measurements: 05/07/2024: 0.9 x 0.7 x 0.1 cm. SKIN PATHOLOGY: texture, turgor, hair growth, within normal limits . Orthopedic: FOOT MORPHOLOGY: Stance assessment: Right foot: Moderately pronated foot type; relaxed hind foot position is slightly everted, with loss of medial column height and contour. Deformity remains somewhat flexible and reducible. Left foot: Stable, nearly rectus foot construct, status post reconstruction. Well-healed surgical incisions are noted. Patient is able to initiate and hold a double heel raise; functional hindfoot supination is noted; no symptoms noted today. JOINT RANGE OF MOTION: Passive ankle dorsiflexion is limited bilateral; reflective of mild gastrocsoleus equinus, somewhat more apparent on the right. Otherwise maintains functional subtalar joint, midtarsal and MTP joint range of motion, without guarding or crepitus . DEFORMITIES: Adult acquired flat foot deformity on the right as noted . PAIN ELICITED WITH PALPATION OF: Associated with ulcerative changes of IPK lesion of the left forefoot as described. Radiology: Assessment/Plan Symptomatic Enriquez stage I decubitus ulceration of IPK lesion sub 5th metatarsal condyle left foot. Plan: Review of clinical findings, response to date and treatment objectives. Skin care measures: Recommend use of file or pumice stone as needed; followed by emollient of choice. Offloading: Modification of left functional orthotic and insole. Discussed appropriate supportive footwear. Discourage any barefoot walking. Procedure: This note was created with the assistance of a speech recognition program. While intending to generate a timely document that accurately reflects the content of the visit, no guarantee can be provided that every grammatical or spelling mistake has been or will be identified or corrected. Thank you for your understanding. Imelda Villa DPM documented in this [facility]02-27-2025 Instructions* Patient Instructions* Imelda Villa DPM - 05/28/2024 9:15 AM EST As noted documented in this [facility]02-06-2025 History of Present illness Narrative* Imelda Villa DPM - 05/07/2024 3:45 PM EST Images from the original note were not included. Subjective Patient ID: Mart Villa is a 74 y.o. male who presents for Foot Pain (Pt is here today with continued pain to the area where the lesion was removed. Hard to walk, can't touch it. He also noted swelling in the Lt ankle /A1C: 6.1/). HPI Chief complaint: Continued, somewhat progressive pain of the left forefoot subsequent to most recent visit and debridement of IPK lesion. Denies interval injury or trauma. Denies pop or snap sensation. Denies streaking or constitutional symptoms. Has noted no obvious bleeding or drainage. Modification of functional orthotic has been beneficial in offloading the symptomatic area. There has been no specific treatment otherwise since last visit. Medications Current Outpatient Medications: aspirin 81 MG chewable tablet, Chew 1 tablet every day by oral route., Disp: , Rfl: atenolol (Tenormin) 25 MG tablet, Take 25 mg by mouth Daily, Disp: , Rfl: atorvastatin (Lipitor) 80 MG tablet, Take 80 mg by mouth at bedtime, Disp: , Rfl: clopidogrel (Plavix) 75 MG tablet, Take 75 mg by mouth Daily, Disp: , Rfl: Ferrous Sulfate (IRON PO), Take 1 tablet by mouth in the morning. (Patient not taking: Reported on 04/30/2024), Disp: , Rfl: metFORMIN (Glucophage) 500 MG tablet, Daily, Disp: , Rfl: Multiple Vitamins-Minerals (multivitamin with iron-minerals) liquid, Take by mouth Daily, Disp: , Rfl: Allergies Penicillins Past Surgical History Past Surgical History: Procedure Laterality Date BACK SURGERY 1994 BACK SURGERY 2020 CATARACT EXTRACTION FOOT SURGERY 1999 KNEE SURGERY 2011 ROTATOR CUFF REPAIR Right 11/06/2023 Dr. Washington Family History No family history on file. Objective General Examination: GENERAL EXAMINATION: Alert and oriented. Pleasant disposition. Presents wearing a good-quality new balance shoes, with modified functional orthoses. Vascular: DORSALIS PEDIS PULSE: 2/4, bilaterally . POSTERIOR TIBIAL PULSE: 1/4, bilaterally . TEMPERATURE GRADIENT: warm to slightly cool . EDEMA: Unremarkable for ankle edema. CAPILLARY FILLING TIME(sec): capillary fill intact bilateral digits less than 3 secs . Neurologic: MUSCLE POWER: No focal deficits. TINELS SIGN: Negative along the tarsal tunnel. SHARP SENSATION:Tactile and soft touch sensation intact. Dermatologic: SKIN FINDINGS:Intact, skin turgor is good. HYPERTROPHIC LESION: Left foot: The IPK lesion has progressed to a Enriquez stage I decubitus wound; located sub 5th metatarsal condyle. NAIL PATHOLOGY: Mildly dystrophic. INTERDIGITAL MACERATION: Clean, non-inflamed and dry. ULCER: Left foot: Enriquez stage I full-thickness decubitus wound of IPK lesion; located sub 5th metatarsal condyle. The wound bed is well hydrated, clean and granular; without probing, tunneling, underminingor tracking. Minimal serous drainage without pustular drainage. The margins are well adhered, mildly keratotic. Unremarkable for pustular drainage, malodor or clinical evidence of infection or cellulitis. Unremarkable for streaking. Soft tissue envelope well-perfused without evidence of ischemic necrosis. Wound measurements: 05/07/2024: 0.9 x 0.7 x 0.1 cm. SKIN PATHOLOGY: texture, turgor, hair growth, within normal limits . Orthopedic: FOOT MORPHOLOGY: Stance assessment: Right foot: Moderately pronated foot type; relaxed hind foot position is slightly everted, with loss of medial column height and contour. Deformity remains somewhat flexible and reducible. Left foot: Stable, nearly rectus foot construct, status post reconstruction. Well-healed surgical incisions are noted. Patient is able to initiate and hold a double heel raise; functional hindfoot supination is noted; no symptoms noted today. JOINT RANGE OF MOTION: Passive ankle dorsiflexion is limited bilateral; reflective of mild gastrocsoleus equinus, somewhat more apparent on the right. Otherwise maintains functional subtalar joint, midtarsal and MTP joint range of motion, without guarding or crepitus . DEFORMITIES: Adult acquired flat foot deformity on the right as noted . PAIN ELICITED WITH PALPATION OF: Associated with ulcerative changes of IPK lesion of the left forefoot as described. Radiology: Assessment/Plan Symptomatic Enriquez stage I decubitus ulceration of IPK lesion sub 5th metatarsal condyle left foot. Plan: Review of clinical findings, suspected etiology and contributing/aggravating factors, treatment strategy, rationale and objectives. Left foot. Wound site cleansing followed by antibiotic dressing. Debridement not indicated. Daily wound care measures: Cleanse once or twice daily with warm soapy water; apply Neosporin ointment or equivalent. Band-Aid dressing while active and in footwear, otherwise allow exposure to air as able to do so. Offloading: Modification of left functional orthotic and insole. Procedure: This note was created with the assistance of a speech recognition program. While intending to generate a timely document that accurately reflects the content of the visit, no guarantee can be provided that every grammatical or spelling mistake has been or will be identified or corrected. Thank you for your understanding. Imelda Villa DPM documented in this encounterSaint [facility]–[id number] Instructions* Patient Instructions* Imelda Villa DPM - 05/07/2024 3:45 PM EST Wound care measures as noted documented in this encounterSaint [facility]–[id number] History of Present illness Narrative* Imelda Villa DPM - 04/30/2024 9:15 AM EST Images from the original note were not included. Subjective Patient ID: Mart Villa is a 74 y.o. male who presents for Foot Callouses (74 yo OP presents todaywith concerns of a painful callus on left foot, ongoing for quite a while . ). HPI Patient last in clinic in January of 2022. Chief complaint: Progressively painful and enlarging callus of the left forefoot; over the past 6months or so, impacting ADLs and his ability to walk comfortably. Has recently noted some element of dark discoloration. Denies bleeding or drainage. Denies streaking or constitutional symptoms. Attempts at self care have been difficult, ineffective and not practical; increasing risk exposure;in light of recent shoulder surgery. Denies injury or trauma. Relates no recent change in in footwear, typically wearing new balance shoes with polypropylene functional orthoses. Medications Current Outpatient Medications: aspirin 81 MG chewable tablet, Chew 1 tablet every day by oral route., Disp: , Rfl: atenolol (Tenormin) 25 MG tablet, Take 25 mg by mouth Daily, Disp: , Rfl: atorvastatin (Lipitor) 80 MG tablet, Take 80 mg by mouth at bedtime, Disp: , Rfl: clopidogrel (Plavix) 75 MG tablet, Take 75 mg by mouth Daily, Disp: , Rfl: metFORMIN (Glucophage) 500 MG tablet, Daily, Disp: , Rfl: Multiple Vitamins-Minerals (multivitamin with iron-minerals) liquid, Take by mouth Daily, Disp: , Rfl: Ferrous Sulfate (IRON PO), Take 1 tablet by mouth in the morning. (Patient not taking: Reported on 04/30/2024), Disp: , Rfl: Allergies Penicillins Past Surgical History Past Surgical History: Procedure Laterality Date BACK SURGERY 1994 BACK SURGERY 2020 CATARACT EXTRACTION FOOT SURGERY 1999 KNEE SURGERY 2012 ROTATOR CUFF REPAIR Right 11/06/2023 Dr. Washington Family History No family history on file. Objective General Examination: GENERAL EXAMINATION: Alert and oriented. Pleasant disposition. Presents wearing a good-quality new balance shoes. Vascular: DORSALIS PEDIS PULSE: 2/4, bilaterally . POSTERIOR TIBIAL PULSE: 1/4, bilaterally . TEMPERATURE GRADIENT: warm to slightly cool . EDEMA: Unremarkable for ankle edema. CAPILLARY FILLING TIME(sec): capillary fill intact bilateral digits less than 3 secs . Neurologic: MUSCLE POWER: No focal deficits. TINELS SIGN: Negative along the tarsal tunnel. SHARP SENSATION:Tactile and soft touch sensation intact. Dermatologic: SKIN FINDINGS:Intact, skin turgor is good. HYPERTROPHIC LESION: Left foot: Raised, well-defined, nucleated IPK lesion; located sub-5th metatarsal condyle; acutely tender and locally inflamed, without drainage or ulcerative changes. Negative for pigment or verrucous change. NAIL PATHOLOGY: Mildly dystrophic. INTERDIGITAL MACERATION: Clean, non-inflamed and dry. ULCER: no sign of ulceration or open wound . SKIN PATHOLOGY: texture, turgor, hair growth, within normal limits . Orthopedic: FOOT MORPHOLOGY: Stance assessment: Right foot: Moderately pronated foot type; relaxed hind foot position is slightly everted, with loss of medial column height and contour. Deformity remains somewhat flexible and reducible. Left foot: Stable, nearly rectus foot construct, status post reconstruction. Well-healed surgical incisions are noted. Patient is able to initiate and hold a double heel raise; functional hindfoot supination is noted; no symptoms noted today. JOINT RANGE OF MOTION: Passive ankle dorsiflexion is limited bilateral; reflective of mild gastrocsoleus equinus, somewhat more apparent on the right. Otherwise maintains functional subtalar joint, midtarsal and MTP joint range of motion, without guarding or crepitus . DEFORMITIES: Adult acquired flat foot deformity on the right as noted . PAIN ELICITED WITH PALPATION OF: Associated with IPK lesion of the left forefoot as described Radiology: Assessment/Plan Progressively symptomatic IPK/sub lesional bursitis left foot. Plan: Patient remains well satisfied with a conservative and palliative care approach; typically providing favorable transient symptom relief. Left foot: Aseptic technique: # 15 scalpel: Sharp debridement of symptomatic IPK lesion; reducing direct and indirect pressure; providing favorable symptom relief. Pressure relief padding 3 days. Offloading: Modified functional orthotic left. Patient noted favorable relief upon leaving the clinic. Discussed appropriate supportive footwear. Discourage any barefoot walking. Hygiene and skin care measures discussed. Pumice stone as needed. Procedure: This note was created with the assistance of a speech recognition program. While intending to generate a timely document that accurately reflects the content of the visit, no guarantee can be provided that every grammatical or spelling mistake has been or will be identified or corrected. Thank you for your understanding. Imelda Villa DPM documented in this [facility]01-30-2025 Instructions* Patient Instructions* Imelda Villa DPM - 04/30/2024 9:15 AM EST As noted documented in this [facility]12-17-2024 Hospital Discharge instructions Patient Education 03/17/2024 11:24:55 Benign Prostatic Hyperplasia Benign Prostatic Hyperplasia Benign prostatic hyperplasia (BPH) is an enlarged prostate gland that is caused by the normal agingprocess. The prostate may get bigger as a man gets older. The condition is not caused by cancer. The prostate is a walnut-sized gland that is involved in the production of semen. It is located in front of the rectum and below the bladder. The bladder stores urine. The urethra carries stored urine ou t of the body. An enlarged prostate can press on the urethra. This can make it harder to pass urine. The buildup of urine in the bladder can cause infection. Back pressure and infection may progress to bladder damage and kidney (renal) failure. What are the causes? This condition is part of the normal aging process. However, not all men develop problems from thiscondition. If the prostate enlarges away from the urethra, urine flow will not be blocked. If it enlarges toward the urethra and compresses it, there will be problems passing urine. What increases the risk? This condition is more likely to develop in men older than 50 years. What are the signs or [...] urethra. Follow these instructions at home: Take [id number] and prescription medicines only as told by your health care provider. Monitor your symptoms for any changes. Contact your health care provider with any changes. Avoid drinking large amounts of liquid before going to bed or out in public. Avoid or reduce how much caffeine or alcohol you drink. Give yourself time when you urinate. Keep all follow-up visits. This is important. Contact a health care provider if: You have unexplained back pain. Your symptoms do not get better with treatment. You develop side effects from the medicine you are taking. Your urine becomes very dark or has a bad smell. Your lower abdomen becomes distended and you have trouble passing urine. Get help right away if: You have a fever or chills. You suddenly cannot urinate. You feel light-headed or very dizzy, or you faint. There are large amounts of blood or clots in your urine. Your urinary problems become hard to manage. You develop moderate to severe low back or flank pain. The flank is the side of your body between the ribs and the hip. These symptoms may be an emergency. Get help right away. Call 911. Do not wait to see if the symptoms will go away. Do not drive yourself to the hospital. Summary Benign prostatic hyperplasia (BPH) is an enlarged prostate that is caused by the normal aging process. It is not caused by cancer. An enlarged prostate can press on the urethra. This can make it hard to pass urine. This condition is more likely to develop in men older than 50 years. Get help right away if you suddenly cannot urinate. This information is not intended to replace advice given to you by your health care provider. Make sure you discuss any questions you have with your health care provider. Document Revised: 10/04/2021 Document Reviewed: 10/04/2021 [employer] Patient Education 2023 [employer]. Follow Up Care 03/12/2023 10:35:12 With:JANAK DUARTE, LUCY To, URL Address: [place] [address] When:Within 1 Year(s) [facility] [place] 12-17-2024 NotePatient Education Urology Benign Prostatic Hyperplasia Benign prostatic hyperplasia (BPH) is an enlarged prostate gland that is caused by the normal agingprocess. The prostate may get bigger as a man gets older. The condition is not caused by cancer. The prostate is a walnut-sized gland that is involved in the production of semen. It is located in front of the rectum and below the bladder. The bladder stores urine. The urethra carries stored urine ou t of the body. An enlarged prostate can press on the urethra. This can make it harder to pass urine. The buildup of urine in the bladder can cause infection. Back pressure and infection may progress to bladder damage and kidney (renal) failure. What are the causes? This condition is part of the normal aging process. However, not all men develop problems from thiscondition. If the prostate enlarges away from the urethra, urine flow will not be blocked. If it enlarges toward the urethra and compresses it, there will be problems passing urine. What increases the risk? This condition is more likely to develop in men older than 50 years. What are the signs or symptoms? Symptoms of this condition include: ??? Getting up often during the night to urinate. ??? Needing to urinate frequently during the day. ??? Difficulty starting urine flow. ??? Decrease in size and strength of your urine stream. ??? Leaking (dribbling) after urinating. ??? Inability to pass urine. This needs immediate treatment. ??? Inability to completely empty your bladder. ??? Pain when you pass urine. This is more common if there is also an infection. ??? Urinary tract infection (UTI). How is this diagnosed? This condition is diagnosed based on your medical history, a physical exam, and your symptoms. Tests will also be done, such as: ??? A post-void bladder scan. This measures any amount of urine that may remain in your bladder after you finish urinating. ??? A digital rectal exam. In a rectal exam, your health care provider checks your prostate by putting a lubricated, gloved finger into your rectum to feel the back of your prostate gland. This exam detects the size of your gland and any abnormal lumps or growths. ??? An exam of your urine (urinalysis). ??? A prostate specific antigen (PSA) screening. This is a blood test used to screen for prostate cancer. ??? An ultrasound. This test uses sound waves [...] severity of your condition. Treatment may include: ??? Observation and yearly exams. This may be the only treatment needed if your condition and symptoms are mild. ??? Medicines to relieve your symptoms, including: ? Medicines to shrink the prostate. ? Medicines to relax the muscle of the prostate. ??? Surgery in severe cases. Surgery may include: ? Prostatectomy. In this procedure, the prostate tissue is removed completely through an open incision or with a laparoscope or robotics. ? Transurethral resection of the prostate (TURP). In this procedure, a tool is inserted through theopening at the tip of the penis (urethra). It is used to cut away tissue of the inner core of the prostate. The pieces are removed through the same opening of the penis. This removes the blockage. ? Transurethral incision (TUIP). In this procedure, small cuts are made in the prostate. This lessens the prostate's pressure on the urethra. ? Transurethral microwave thermotherapy (TUMT). This procedure uses microwaves to create heat. The heat destroys and removes a small amount of prostate tissue. ? Transurethral needle ablation (TUNA). This procedure uses radio frequencies to destroy and removea small amount of prostate tissue. ? Interstitial laser coagulation (ILC). This procedure uses a laser to destroy and remove a small amount of prostate tissue. ? Transurethral electrovaporization (TUVP). This procedure uses electrodes to destroy and remove a small amount of prostate tissue. ? Prostatic urethral lift. This procedure inserts an implant to push the lobes of the prostate awayfrom the urethra. Follow these instructions at home: ??? Take pgnr-exf-gswwkob and prescription medicines only as told by your health care provider. ??? Monitor your symptoms for any changes. Contact your health care provider with any changes. ??? Avoid drinking large amounts of liquid before going to bed or out in public. ??? Avoid or reduce how much caffeine or alcohol you drink. ??? Give yourself time when you urinate. ??? Keep all follow-up visits. This is important. Contact a health care provider if: ??? You have unexplained back pain. ??? Your symptoms do not get (more content not included)...[facility]12-04-2024 History of Present illness Narrative* Silva Mak NP - 03/04/2024 8:00 AM EST Subjective Patient ID: Mart Villa is a 74 y.o. male. 3 months and 3 1/2 weeks s/p RT RCR and distal clavicle resection (DOS 11/06/23). He is very pleased with surgery. S/p PT at [facility] #16 visits Doing well. Occas pain, especially in the AM. He tends to sleep on RT side. Pain will be anterior and top of shoulder. Denies pain the last couple days. No pain meds. Denies topicals. Finished PT. Doing HEP. Denies N/T, swelling. Denies popping/grinding. Denies issues with incisions. Objective Ortho Exam Shoulder Musculoskeletal Exam Inspection Inspection additional comments: Nv intact distally, 180 abduction, 180 forward flexion, IR L1, ER 70, 4/5 abduction I reviewed the p.t note from 02/06/24 #16, pt d/C from therapy, doing well. Assessment/Plan Encounter Diagnoses: ICD-10-CM 1. Right shoulder pain, unspecified chronicity M25.511 2. S/P right rotator cuff repair Z98.890 Activities as tolerated, f/U prn documented in this encounterSaint [facility]–[id number] History of Present illness Narrative* Silva Mak NP - 01/29/2024 1:00 PM EDT Images from the original note were not included. Subjective Patient ID: Mart Villa is a 74 y.o. male. LT Hand/LT RF Trigger Finger No studies Pt is RT handed Notes he has a small callus/swelling at 4th MCP joint x 2-3 years. He noticed some locking/popping/cracking x 1 week in the RF. Notes he can make a full fist w/o locking. Admits catching when bendingthe finger. Denies pain. Denies N/T. Notes he can see and feel his tendon in his RF, it has become more prominent the past week. Denies swelling. The past few weeks he has noticed the tendon poking out more. Admits cracking and clicking only in the RF x past few weeks. Denies ice, heat or creams. Denies waking at night. He notes stiffness in the am in the RF otherwise he has no issues throughout the day, it is more the appearance that bothers him TX: Objective Ortho Exam Hand/Wrist Musculoskeletal Exam Inspection Left Erythema: none Ecchymosis: none Edema: none Deformity comment: there is a dupytrens nodule along the RF into the palm Palpation Left Triggering: middle Ring tenderness to palpation: A1 renee Palpation additional comments: No pain to palpation Range of Motion Range of motion additional comments: Full rom of the finger without pain or triggering Neurovascular Left Radial pulse: normal and 2+ Capillary refill: brisk Assessment/Plan Encounter Diagnoses: ICD-10-CM 1. Left hand pain M79.642 2. Finger pain, left M79.645 3. Trigger ring finger of left hand M65.342 4. Dupuytren's contracture M72.0 In regards to the trigger finger It seems like this is the worst in the am and eventually goes away, it does not affect him in his daily life, he notes he will keep an eye on it In regards to the dupuytrens There is a nodule but has full rom of the ring finger and no pain, we discussed there is surgery for this but if not causing any issues would recommend to continue to monitor, he was more concerned about the cosmetic appearance, discussed activities as tolerated, f/U prn documented in this encounterNOMS [id number] History of Present illness Narrative* Silva Mak NP - 01/22/2024 8:00 AM EDT Subjective Patient ID: Mart Villa is a 74 y.o. male. 11 weeks s/p RT RCR and distal clavicle resection (DOS 11/06/23) Denies issues with incisions. Denies drainage/fevers/chills. Pain anterior and superior shoulder. The radiating pain into his neck has resolved. Pain comes and goes. Notes a lot of improvement in his ROM with P.T. Pain at rest 2/10. Pain at worst 6/10 when showering and washing himself. Denies waking at night. Denies N/T. Denies swelling. Denies pain meds. Denies ice, heat or creams. Has been doing pendulum exercises. Objective Ortho Exam Shoulder Musculoskeletal Exam Inspection Inspection additional comments: Nv intact distally, 170 abduction, 170 forward flexion, IR L1, ER 50, 4-/5 abduction Assessment/Plan Encounter Diagnoses: ICD-10-CM 1. S/P right rotator cuff repair Z98.890 2. Arthritis of right acromioclavicular joint M19.011 May begin strengthening, also sent a referral for P.T. for therapy to begin strengthening, f/u in 6-8 weeks documented in this [facility]10-10-2024 History of Present illness Narrative* Madelyn Coffey, PT - 01/09/2024 7:30 AM EDT Physical Therapy Treatment Visit Patient Name: Mart Villa Today's Date: 01/09/2024 Encounter Diagnoses Name Primary? Acute pain of right shoulder Yes Shoulder stiffness, right S/P right rotator cuff repair Visit number: 8 Timed Code Treatment: 42 minutes Total Treatment Time: 50 minutes Time In: 7:30 AM Time Out: 8:20AM History: Pt. Presents to PT PO right RCR and distal clavicle resection. DOS 11/06/23. Pt. Having increased right upper trapezius muscle pain. No pendulum exercises and has not been doing anything with right UE. Precautions: AROM/PROM only; NO strengthening Subjective: pt. Reports of less shoulder pain while reaching overhead to perform tasks. Pain: 1-2/10 Objective: PT Evaluation (12/17/23) Right shoulder AROM: flexion 120 degrees, abduction 80 deg, ER C5, IR L5 Right shoulder PROM: flexion 130 degrees, abduction 90 deg, ER 40 deg Palpation: supraspinatus and infraspinatus atrophy Strength: right shoulder grossly 3-/5 in all planes, fires rotator cuff muscles Flexibility: right upper trapezius muscle tightness Treatment: Manual Therapy: (12 minutes) Delivered manual ther to right UE/ shoulder pt supine: STM, PROM in all planes to improve mobility and decrease pain, within pt toelrance Therapeutic Exercise: (21 minutes supervised/ 31 minutes total) Guided pt through A-AROM ther and flex ex per grid to improve right UE/shoulder functional mobility and strength Therapeutic Activity: (10 minutes) Exercises to improve dynamic activities, functional tasks, functional mobility to return to prior activity level Neuromuscular re-education: Balance Training, Muscle Facilitation, Dynamic Stability, Core Stabilization, and Blood Flow Restriction Training (BFRT) Modalities:( minutes) IFC with ice right shoulder Post session CP to R shoulder to decrease muscle soreness Assessment: Pt. Has participated in 8 PT session with start of POC on 12/17/23 for right shoulder RCR/distal clavicle resection. 8 weeks P.O, pt able to reach above shoulder height with less shoulder pain. Continues to demonstrate good PROM but AROM is limited due to shoulder weakness. Good tolerance with all ther ex today. AROM to 145 degrees in flexion and abduction today. 01-22-24 F/U with Nicanor Mak Outcome Measure: in chart Rehab Diagnosis: right shoulder RCR Short Term Goal: To be met in 2 weeks Goal 1: Pt to be instructed in home exercise program. Summer Counselor Goals: To be met in 10 weeks Goal 1: Pt to report independence and compliance with home program. Goal 2: Pt. Will report of 0/10 right shoulder pain while reaching/lifting objects overhead to helpimprove his functional mobility and quality of life. Goal 3: Pt. Will demonstrate 160 degrees or greater right shoulder flexion/abduction to help improve his functional mobility and return to PLOF. Goal 4: Pt. Will demonstrate 75 degrees or greater passive ER to help improve his functional mobility of right shoulder with daily tasks. Goal 5: Pt. Will demonstrate 4+/5 or greater right shoulder strength grossly in all planes to help improve his functional mobility and PLOF to perform daily tasks with no limitations. Goal 6: Pt. Will score 65 or greater on UEFS to help improve his functional mobility. Pt will benefit from skilled PT for 1-2x/week from 12/17/23 to 02/25/24 to address the above impairments. I hereby deem this POC medically necessary. Please sign below. Date: documented in this encounterSaint [id number] History of Present illness Narrative* Madelyn Coffey, PT - 01/02/2024 7:00 AM EDT Physical Therapy Treatment Visit Patient Name: Mart Villa Today's Date: 01/02/2024 Encounter Diagnoses Name Primary? Acute pain of right shoulder Yes S/P right rotator cuff repair Shoulder stiffness, right Visit number: 6 Timed Code Treatment: 45 minutes Total Treatment Time: 45 minutes Time In: 7:05 AM Time Out: 7:50 AM History: Pt. Presents to PT PO right RCR and distal clavicle resection. DOS 11/06/23. Pt. Having increased right upper trapezius muscle pain. No pendulum exercises and has not been doing anything with right UE. Precautions: AROM/PROM only; NO strengthening Subjective: Pt. Reports his shoulder is feeling better today. Able to reaching overhead with less pain. Pain: 3/10 Objective: PT Evaluation (12/17/23) Right shoulder AROM: flexion 120 degrees, abduction 80 deg, ER C5, IR L5 Right shoulder PROM: flexion 130 degrees, abduction 90 deg, ER 40 deg Palpation: supraspinatus and infraspinatus atrophy Strength: right shoulder grossly 3-/5 in all planes, fires rotator cuff muscles Flexibility: right upper trapezius muscle tightness Treatment: Manual Therapy: (14 minutes) Delivered manual ther to right UE/ shoulder pt supine: STM, PROM in all planes to improve mobility and decrease pain, within pt toelrance Therapeutic Exercise: (29 minutes supervised) Guided pt through A-AROM ther and flex ex per grid toimprove right UE/shoulder functional mobility and strength Therapeutic Activity: Exercises to improve dynamic activities, functional tasks, functional mobility to return to prior activity level Neuromuscular re-education: Balance Training, Muscle Facilitation, Dynamic Stability, Core Stabilization, and Blood Flow Restriction Training (BFRT) Modalities:( minutes) IFC with ice right shoulder Post session CP to R shoulder to decrease muscle soreness Assessment: Pt. Has participated in 6 PT session with start of POC on 12/17/23 for right shoulder RCR/distal clavicle resection. 7 weeks P.O, pt. Is able to reach above shoulder height with less shoulder pain today. Continues to demonstrate good PROM but AROM is limited due to shoulder weakness. Good tolerancewith all ther ex today. 01-22-24 F/U with Nicanor Mak Outcome Measure: in chart Rehab Diagnosis: right shoulder RCR Short Term Goal: To be met in 2 weeks Goal 1: Pt to be instructed in home exercise program. Summer Counselor Goals: To be met in 10 weeks Goal 1: Pt to report independence and compliance with home program. Goal 2: Pt. Will report of 0/10 right shoulder pain while reaching/lifting objects overhead to helpimprove his functional mobility and quality of life. Goal 3: Pt. Will demonstrate 160 degrees or greater right shoulder flexion/abduction to help improve his functional mobility and return to PLOF. Goal 4: Pt. Will demonstrate 75 degrees or greater passive ER to help improve his functional mobility of right shoulder with daily tasks. Goal 5: Pt. Will demonstrate 4+/5 or greater right shoulder strength grossly in all planes to help improve his functional mobility and PLOF to perform daily tasks with no limitations. Goal 6: Pt. Will score 65 or greater on UEFS to help improve his functional mobility. Pt will benefit from skilled PT for 1-2x/week from 12/17/23 to 02/25/24 to address the above impairments. I hereby deem this POC medically necessary. Please sign below. Date: documented in this encounterSaint [id number] History of Present illness Narrative* Madelyn Coffey, PT - 12/26/2023 7:00 AM EDT Physical Therapy Treatment Visit Patient Name: Mart Villa Today's Date: 12/26/2023 Encounter Diagnoses Name Primary? Acute pain of right shoulder Yes Shoulder stiffness, right S/P right rotator cuff repair Visit number: 4 Timed Code Treatment Minutes: 30 minutes Total Treatment Time: 45 minutes Time In: 7:00 AM Time Out: 7:45 AM History: Pt. Presents to PT PO right RCR and distal clavicle resection. DOS 11/06/23. Pt. Having increased right upper trapezius muscle pain. No pendulum exercises and has not been doing anything with right UE. Precautions: AROM/PROM only; NO strengthening Subjective: Pt. Reports of increases right shoulder pain since last PT session for no reason. Pt reports he has not done anything and has no reason for increased pain. Pain: 2-7/10; increased shoulder pain while reaching up Objective: PT Evaluation (12/17/23) Right shoulder AROM: flexion 120 degrees, abduction 80 deg, ER C5, IR L5 Right shoulder PROM: flexion 130 degrees, abduction 90 deg, ER 40 deg Palpation: supraspinatus and infraspinatus atrophy Strength: right shoulder grossly 3-/5 in all planes, fires rotator cuff muscles Flexibility: right upper trapezius muscle tightness Treatment: Manual Therapy: (12 minutes) Delivered manual ther to right UE/ shoulder pt supine: STM, PROM in all planes to improve mobility and decrease pain, within pt toelrance Therapeutic Exercise: (18 minutes supervised) Guided pt through ther and flex ex per grid to improve right UE/shoulder functional mobility and strength Therapeutic Activity: Exercises to improve dynamic activities, functional tasks, functional mobility to return to prior activity level Neuromuscular re-education: Balance Training, Muscle Facilitation, Dynamic Stability, Core Stabilization, and Blood Flow Restriction Training (BFRT) Modalities:( 15 minutes) IFC with ice right shoulder Post session CP to R shoulder to decrease muscle soreness Assessment: Pt. Has participated in 4 PT session with start of POC on 12/17/23 for right shoulder RCR/distal clavicle resection. Nearing 7 weeks P.O, pt c/o can't lift his arm up past shoulder height. Pt performed A-AROM static stretching and mobility ex within pt tolerance. Held most ther ex today due to increased pain today. Pt. Continues to demonstrate good shoulder PROM but has sharp catching pain with AROM. E-stim and ice to end of session to help decrease inflammation. Outcome Measure: in chart Rehab Diagnosis: right shoulder RCR Short Term Goal: To be met in 2 weeks Goal 1: Pt to be instructed in home exercise program. Halfway Goals: To be met in 10 weeks Goal 1: Pt to report independence and compliance with home program. Goal 2: Pt. Will report of 0/10 right shoulder pain while reaching/lifting objects overhead to helpimprove his functional mobility and quality of life. Goal 3: Pt. Will demonstrate 160 degrees or greater right shoulder flexion/abduction to help improve his functional mobility and return to PLOF. Goal 4: Pt. Will demonstrate 75 degrees or greater passive ER to help improve his functional mobility of right shoulder with daily tasks. Goal 5: Pt. Will demonstrate 4+/5 or greater right shoulder strength grossly in all planes to help improve his functional mobility and PLOF to perform daily tasks with no limitations. Goal 6: Pt. Will score 65 or greater on UEFS to help improve his functional mobility. Pt will benefit from skilled PT for 1-2x/week from 12/17/23 to 02/25/24 to address the above impairments. I hereby deem this POC medically necessary. Please sign below. Date: documented in this encounterSaint [facility]–[id number] History of Present illness Narrative* Madelyn Coffey, PT - 12/19/2023 7:00 AM EDT Physical Therapy Treatment Visit Patient Name: Mart Villa Today's Date: 12/19/2023 Encounter Diagnoses Name Primary? Acute pain of right shoulder Yes Shoulder stiffness, right S/P right rotator cuff repair Visit number: 2 Timed Code Treatment Minutes: 45 minutes Total Treatment Time: 45 minutes Time In: 0705 Time Out: 0750 History: Pt. Presents to PT PO right RCR and distal clavicle resection. DOS 11/06/23. Pt. Having increased right upper trapezius muscle pain. No pendulum exercises and has not been doing anything with right UE. Precautions: AROM/PROM only; NO strengthening Subjective: Pt. Reports of mild soreness after last PT session but nothing he can't handle. Pain: 2-4/10; increased shoulder pain while reaching Objective: PT Evaluation (12/17/23) Right shoulder AROM: flexion 120 degrees, abduction 80 deg, ER C5, IR L5 Right shoulder PROM: flexion 130 degrees, abduction 90 deg, ER 40 deg Palpation: supraspinatus and infraspinatus atrophy Strength: right shoulder grossly 3-/5 in all planes, fires rotator cuff muscles Flexibility: right upper trapezius muscle tightness Treatment: PT evaluation (20 minutes) Education: HEP education with demonstration, Educated on Eval Findings and POC Manual Therapy: (16 minutes) supine: PROM in flexion, abduction, ER, Passive ROM, Joint mobilization, Soft Tissue Mobilization, Myofascial Release, Muscle Energy Technique, Neural Mobilization, Myofascial Cupping, Dry Needling, IASTM, and Scar mobilization Therapeutic Exercise: (14 minutes) exercises in grid; Strength, Endurance, Flexibility, ROM, HEP, Neural Mobilization, Power, and Core Stability; UBE 3/3 Therapeutic Activity: Exercises to improve dynamic activities, functional tasks, functional mobility to return to prior activity level Neuromuscular re-education: Balance Training, Muscle Facilitation, Dynamic Stability, Core Stabilization, and Blood Flow Restriction Training (BFRT) Modalities: Heat, Ice, Electrical Stimulation, Ultrasound, Cervical Mechanical Traction, Lumbar Mechanical Traction, Iontophoresis, and Fluidotherapy Assessment: Pt. Has participated in 2 PT session with start of POC on 12/17/23 for right shoulder RCR/distal clavicle resection. Pt. Will benefit from skilled PT services. Pt. Demonstrates improved shoulder ROM in flexion and ER (50 degrees). Good tolerated with all therex. Outcome Measure: in chart Rehab Diagnosis: right shoulder RCR Short Term Goal: To be met in 2 weeks Goal 1: Pt to be instructed in home exercise program. Halfway Goals: To be met in 10 weeks Goal 1: Pt to report independence and compliance with home program. Goal 2: Pt. Will report of 0/10 right shoulder pain while reaching/lifting objects overhead to helpimprove his functional mobility and quality of life. Goal 3: Pt. Will demonstrate 160 degrees or greater right shoulder flexion/abduction to help improve his functional mobility and return to PLOF. Goal 4: Pt. Will demonstrate 75 degrees or greater passive ER to help improve his functional mobility of right shoulder with daily tasks. Goal 5: Pt. Will demonstrate 4+/5 or greater right shoulder strength grossly in all planes to help improve his functional mobility and PLOF to perform daily tasks with no limitations. Goal 6: Pt. Will score 65 or greater on UEFS to help improve his functional mobility. Pt will benefit from skilled PT for 1-2x/week from 12/17/23 to 02/25/24 to address the above impairments. I hereby deem this POC medically necessary. Please sign below. Date: documented in this [facility]09-11-2024 History of Present illness Narrative* Silva Mak NP - 12/11/2023 12:00 PM EDT Subjective Patient ID: Mart Villa is a 73 y.o. male. 5 weeks s/p RT RCR and distal clavicle resection (DOS 11/06/23) Denies issues with incisions. Denies drainage/fevers/chills. Pain anterior and superior shoulder and into his neck. Pain is constant and varies in severity. Pain at rest 3/10. Pain at worst 5-6/10 at night, notes its hard to get comfortable laying on it. Occaswakes at night. Denies N/T. Denies swelling. Denies pain meds. Denies ice, heat or creams. He still has not been doing pendulum exercises, states Dr. Washington told his to not do them,then said he would get a call saying if he can do them and never got a call. Objective Ortho Exam Shoulder Musculoskeletal Exam Inspection Right Prior incision: arthroscopic portals Incision: well-healed Inspection additional comments: Nv intact distally, 130 abduction, 40 forward flexion, IR L1, ER 50 Assessment/Plan Encounter Diagnoses: ICD-10-CM 1. S/P right rotator cuff repair Z98.890 Ambulatory referral to Physical Therapy May begin AROM/PROM, also sent a referral for P.T. for jeaneth condon to begin no strengthening , f/U in 6 weeks documented in this encounterSaint Luke[facility]–[id number] History of Present illness Narrative* John Espinal DO - 11/29/2023 10:00 AM EDT Images from the original note were not included. Subjective Patient ID: Mart Villa is a 73 y.o. male. Chief Complaint YAG; Blurred Vision HPI YAG In right eye. Blurred Vision In both eyes. Onset was gradual. Vision is blurred and difficult to focus. Severity is moderate. Occurring constantly. It is worse throughout the day. Context: mid-range vision, near vision, watchingTV and computer work. Since onset it is gradually worsening. Associated symptoms include glare and haloes. Comments Pt referred by Dr Segovia for YAG eval. Right eye (OD). Pt states vision right eye (OD) has been very cloudy. Not using any drops. Last edited by John Espinal DO on 11/29/2023 10:50 AM. No current outpatient medications on file. (Ophthalmic Agents) No current facility-administered medications for this visit. (Ophthalmic Agents) Current Outpatient Medications (Other) Medication Sig Dispense Refill aspirin 81 MG chewable tablet Chew 1 tablet every day by oral route. atenolol (Tenormin) 25 MG tablet Take 25 mg by mouth Daily atorvastatin (Lipitor) 80 MG tablet Take 80 mg by mouth at bedtime clopidogrel (Plavix) 75 MG tablet Take 75 mg by mouth Daily Ferrous Sulfate (IRON PO) Take 1 tablet by mouth in the morning. No current facility-administered medications for this visit. (Other) Past Medical History: Diagnosis Date Dry eyes H/O heart artery stent 2005 x 2 Allergies Allergen Reactions Penicillins Rash Other Reaction(s): Other, Unknown rash Review of Systems Constitutional: Negative. HENT: Negative. Eyes: Negative. Respiratory: Negative. Cardiovascular: Negative. Gastrointestinal: Negative. Genitourinary: Negative. Musculoskeletal: Negative. Skin: Negative. Neurological: Negative. Psychiatric/Behavioral: Negative. Hematological: Negative. Endocrine: Negative. Allergic/Immunologic: Negative. Objective Base Eye Exam Visual Acuity (Snellen - Linear) Right Left Dist cc 20/400 20/40 Correction: Glasses Tonometry (Applanation, 10:51 AM) Right Left Pressure 16 16 Pupils Pupils Right PERRL Left PERRL Visual Huynh Left Right Full Full Extraocular Movement Right Left Full Full Neuro/Psych Oriented x3: Yes Dilation Both eyes: 1.0% Mydriacyl @ 10:02 AM Additional Tests Glare Testing High Right Left 20/200 Slit Lamp and Fundus Exam External Exam Right Left External Rosacea Rosacea Slit Lamp Exam Right Left Lids/Lashes Blepharitis, Dermatochalasis - upper lid, Ptosis Blepharitis, Dermatochalasis - upper lid, Ptosis Conjunctiva/Sclera White and quiet White and quiet Cornea Decreased tear film/oily Decreased tear film/oily Anterior Chamber Deep and quiet Deep and quiet Iris Round and reactive Round and reactive Lens Posterior chamber intraocular lens, 4+ Posterior capsular opacification Posterior chamber intraocular lens, 2+ Posterior capsular opacification Anterior Vitreous Normal Normal Fundus Exam Right Left Disc Normal Normal Macula Normal Hypopigmented spot superior fovea Vessels Normal Normal Periphery Normal Normal Assessment/Plan Bilateral posterior capsular opacification - PCO OU: (Posterior Capsule Opacification) Can be observed without intervention if PCO is not visually significant. Nd:YAG laser capsulotomy may be considered if impairment of vision rises to a level that dose not meet the patient's functional needs or interferes with activities of daily living. Risks, benefits and alternatives to the procedure will be reviewed. If the patient has undergone Nd:YAG laser capsulotomy, they are to notify their disk operator promptly if they have a significant change in symptoms, such as flashes of light (photopsia), an increase in floaters, loss of visual field or decrease in visual acuity. documented in this encounterSaint Luke's [facility] Hospital–[id number] Instructions* Patient Instructions* Claudia Garcia RN - 10/24/2023 9:45 AM EDT Preoperative Education Checklist- General Surgery date: 11/06/23 Surgery time: 0730 a.m. Arrival time: 0610 a.m. 1. Bring a photo ID and your insurance card with you the day of surgery. You will check in at the main lobby of the [facility]- registration desk is straight ahead as soon as you walk in. Tell them you are here for surgery. 2. If you have a Living Will/Durable Power of Transmission Systems Operator for Health Care that is not on file here, please bring a copy the day of surgery. 3. Please shower/bathe the night before surgery with the provided soap or wipes. Do not shower the morning of surgery- you will do use wipes when you arrive here at the hospital before getting into your surgical gown. Do not shave the area of your procedure for 2 days prior to your surgery. 4. NO powder, lotion, perfume/cologne, aftershave, make-up, deodorant, or hair products after you have bathed. 5. NO nail nigerien/acrylic on at least one finger. If you are having a hand, wrist or foot surgery then all nail nigerien and artificial/acrylic nails must be removed from that hand or foot. 6. Avoid ALL Aspirin and non-steroidal anti-inflammatory drugs and certain vitamins (Ibuprofen, Advil, Aleve, Excedrin, Meloxicam, Celebrex, fish/krill oil, etc.) for 7 days prior to surgery as instructed by your surgeon and/or your prescribing doctor. Tylenol IS ALLOWED. If you are on Ticlid, Xarelto, Eliquis, Pradaxa, Plavix or Coumadin, please check with your prescribing doctor for instructions for when to stop them. 7. If you use an inhaler, continue to use it routinely. 8. Nothing to eat or drink (not even water, gum, mints, or hard candy!) AFTER midnight prior to your surgery. 9. Take only medications that you are instructed to on the morning of surgery with a TINY SIP OF WATER. 10. Choose a responsible adult that will be able to drive you home when you are discharged from your hospital stay for your surgery and can stay with you in your home for 24 hours after your procedure. You must NOT drive any vehicle or operate any machinery for 24 hours after surgery. 11. When you dress for your appointment, please wear loose fitting clothing that is appropriate to accommodate your surgical area procedure. BRING WITH YOU ANY DEVICES YOU MAY NEED: LILA hose, ice machine, sling/swath, brace or special shoe, oversized zip-up or button up shirt, CPAP machine if staying overnight. 12. Do NOT wear jewelry, watches, or any piercings or metal for surgery- leave these valuables and money at home. 13. Do NOT wear contact lenses for surgery- glasses are okay if needed. 14. The anesthesiologist will talk with you the day of surgery and will ask you to sign a Consent Form. 15. Refrain from smoking or any type of tobacco use for at least 8 hours and marijuana for 24 hoursprior to arrival for your surgery. 16. If a GREEN BLOOD band is given to you, please bring it with you for the day of surgery. 17. Notify your surgeon if you develop any illness before your surgery. 18. If you are staying overnight, please DO NOT BRING your home medications with you. 19. If you have any questions prior to surgery, please call the Preadmission Testing office at [phone], Mon.-Fri. 7 a.m.-3 p.m. Leave a voicemail if needed. Pre-Surgery Instructions: Medication Instructions aspirin 81 mg Check with prescribing doctor for instructions atenolol (TENORMIN) 50 mg tablet Take night before procedure as usual atorvastatin (LIPITOR) 40 mg tablet Stop taking 0 days prior to procedure clopidogrel (PLAVIX) 75 mg tablet Check with prescribing doctor for instructions diphenhydrAMINE (BENADRYL) 25 mg capsule Stop taking 0 days prior to procedure diphenhydrAMINE-acetaminophen (TYLENOL PM) 25-500 mg tablet Stop taking 0 days prior to procedure ipqcojgy-ltry-SX-calcium &mins (THERAGRAN-M) 9 mg iron-400 mcg tablet Stop taking 0 days prior to procedure How to Avoid an Infection after Your Surgery Your doctor will give you specific instructions, but remember: -ALWAYS wash hands before caring for your incision. -No picking, scratching, or rubbing your incision. -No creams, lotion, powder, rubbing alcohol or hydrogen peroxide on the incision (can harm the tissue and slow healing). -Your doctor will give you specific instructions for what type of dressing you will need and how often it will need changed for infection purposes. -No tight clothing on incision. -Do not allow anyone to touch your incision unless they are cleaning, checking, or redressing it (be sure they wash their hands first). -No contact of your incision with pets; avoid sleeping with pets. -Take full course of antibiotic if prescribed for you after surgery- do not stop unless directed lilian your physician. You may also be given an antibiotic prior to your surgery to help prevent surgical site infections. -Eat a healthy and varied diet including proteins, fruits, and vegetables to help promote wound healing and keep blood sugars under control if you are diabetic. -Smoking slows the healing process by decreasing the amount of oxygen in your blood that is needed for tissue healing. Try to avoid or stop smoking if possible. LOOK at your incision each morning and each night to check the progress of healing. Some soreness, numbness, itching and/or mild bruising around the incision is normal. Call your doctor if you noticeany of the following: -Increased redness or hardening around the incision area. -Increased pain at the incision site. -Incision feels hot to the touch. -Swelling or pulling apart of the incision edges. -Yellow or green drainage or foul odor coming from the incision. -Bleeding from the incision (apply pressure as needed). -Fever higher than 101 degrees Fahrenheit for more than 4 hours. SHOWERING: Your doctor will give you specific instructions, but remember: -Be careful getting into and out of the shower. -Showers should be quick (5 minutes or less). -Use a clean washcloth to gently wash your incision with soap and water and pat the area dry with aclean towel. -No re-using wash cloths or towels; get a fresh one to clean your incision. -Do not soak in the bathtub, go swimming or use a hot tub (Jacuzzi), or perform activities where your hand or arm are submerged in water or exposed to any fluids or substances (washing dishes, cooking, gardening, hunting, etc.) until instructed by your doctor. -If your have the sticky strips (steri-strips) over the incision, it is OK to shower with them. Do not remove them. Let them fall off on their own. If you have a question, call your doctor s office. Go to the follow-up appointment with your doctor. documented in this encounter[facility]24 Miscellaneous Notes* Perioperative Nursing Note - Claudia Garcia RN - 10/24/2023 9:45 AM EDT Preoperative Education Checklist- General Surgery date: 11/06/23 Surgery time: 0730 a.m. Arrival time: 0610 a.m. 1. Bring a photo ID and your insurance card with you the day of surgery. You will check in at the main lobby of the [facility]- registration desk is straight ahead as soon as you walk in. Tell them you are here for surgery. 2. If you have a Living Will/Durable Power of Transmission Systems Operator for Health Care that is not on file here, please bring a copy the day of surgery. 3. Please shower/bathe the night before surgery with the provided soap or wipes. Do not shower the morning of surgery- you will do use wipes when you arrive here at the hospital before getting into your surgical gown. Do not shave the area of your procedure for 2 days prior to your surgery. 4. NO powder, lotion, perfume/cologne, aftershave, make-up, deodorant, or hair products after you have bathed. 5. NO nail nigerien/acrylic on at least one finger. If you are having a hand, wrist or foot surgery then all nail nigerien and artificial/acrylic nails must be removed from that hand or foot. 6. Avoid ALL Aspirin and non-steroidal anti-inflammatory drugs and certain vitamins (Ibuprofen, Advil, Aleve, Excedrin, Meloxicam, Celebrex, fish/krill oil, etc.) for 7 days prior to surgery as instructed by your surgeon and/or your prescribing doctor. Tylenol IS ALLOWED. If you are on Ticlid, Xarelto, Eliquis, Pradaxa, Plavix or Coumadin, please check with your prescribing doctor for instructions for when to stop them. 7. If you use an inhaler, continue to use it routinely. 8. Nothing to eat or drink (not even water, gum, mints, or hard candy!) AFTER midnight prior to your surgery. 9. Take only medications that you are instructed to on the morning of surgery with a TINY SIP OF WATER. 10. Choose a responsible adult that will be able to drive you home when you are discharged from your hospital stay for your surgery and can stay with you in your home for 24 hours after your procedure. You must NOT drive any vehicle or operate any machinery for 24 hours after surgery. 11. When you dress for your appointment, please wear loose fitting clothing that is appropriate to accommodate your surgical area procedure. BRING WITH YOU ANY DEVICES YOU MAY NEED: LILA hose, ice machine, sling/swath, brace or special shoe, oversized zip-up or button up shirt, CPAP machine if staying overnight. 12. Do NOT wear jewelry, watches, or any piercings or metal for surgery- leave these valuables and money at home. 13. Do NOT wear contact lenses for surgery- glasses are okay if needed. 14. The anesthesiologist will talk with you the day of surgery and will ask you to sign a Consent Form. 15. Refrain from smoking or any type of tobacco use for at least 8 hours and marijuana for 24 hoursprior to arrival for your surgery. 16. If a GREEN BLOOD band is given to you, please bring it with you for the day of surgery. 17. Notify your surgeon if you develop any illness before your surgery. 18. If you are staying overnight, please DO NOT BRING your home medications with you. 19. If you have any questions prior to surgery, please call the Preadmission Testing office at [phone], Mon.-Fri. 7 a.m.-3 p.m. Leave a voicemail if needed. Pre-Surgery Instructions: Medication Instructions aspirin 81 mg Check with prescribing doctor for instructions atenolol (TENORMIN) 50 mg tablet Take night before procedure as usual atorvastatin (LIPITOR) 40 mg tablet Stop taking 0 days prior to procedure clopidogrel (PLAVIX) 75 mg tablet Check with prescribing doctor for instructions diphenhydrAMINE (BENADRYL) 25 mg capsule Stop taking 0 days prior to procedure diphenhydrAMINE-acetaminophen (TYLENOL PM) 25-500 mg tablet Stop taking 0 days prior to procedure qzccxocu-vzaf-TH-calcium &mins (THERAGRAN-M) 9 mg iron-400 mcg tablet Stop taking 0 days prior to procedure How to Avoid an Infection after Your Surgery Your doctor will give you specific instructions, but remember: -ALWAYS wash hands before caring for your incision. -No picking, scratching, or rubbing your incision. -No creams, lotion, powder, rubbing alcohol or hydrogen peroxide on the incision (can harm the tissue and slow healing). -Your doctor will give you specific instructions for what type of dressing you will need and how often it will need changed for infection purposes. -No tight clothing on incision. -Do not allow anyone to touch your incision unless they are cleaning, checking, or redressing it (be sure they wash their hands first). -No contact of your incision with pets; avoid sleeping with pets. -Take full course of antibiotic if prescribed for you after surgery- do not stop unless directed lilian your physician. You may also be given an antibiotic prior to your surgery to help prevent surgical site infections. -Eat a healthy and varied diet including proteins, fruits, and vegetables to help promote wound healing and keep blood sugars under control if you are diabetic. -Smoking slows the healing process by decreasing the amount of oxygen in your blood that is needed for tissue healing. Try to avoid or stop smoking if possible. LOOK at your incision each morning and each night to check the progress of healing. Some soreness, numbness, itching and/or mild bruising around the incision is normal. Call your doctor if you noticeany of the following: -Increased redness or hardening around the incision area. -Increased pain at the incision site. -Incision feels hot to the touch. -Swelling or pulling apart of the incision edges. -Yellow or green drainage or foul odor coming from the incision. -Bleeding from the incision (apply pressure as needed). -Fever higher than 101 degrees Fahrenheit for more than 4 hours. SHOWERING: Your doctor will give you specific instructions, but remember: -Be careful getting into and out of the shower. -Showers should be quick (5 minutes or less). -Use a clean washcloth to gently wash your incision with soap and water and pat the area dry with aclean towel. -No re-using wash cloths or towels; get a fresh one to clean your incision. -Do not soak in the bathtub, go swimming or use a hot tub (Jacuzzi), or perform activities where your hand or arm are submerged in water or exposed to any fluids or substances (washing dishes, cooking, gardening, hunting, etc.) until instructed by your doctor. -If your have the sticky strips (steri-strips) over the incision, it is OK to shower with them. Do not remove them. Let them fall off on their own. If you have a question, call your doctor s office. Go to the follow-up appointment with your doctor. * Perioperative Nursing Note - Claudia Garcia RN - 10/24/2023 9:45 AM EDT Hibiclens and surgical instructions reviewed. Patient verbalized understanding. [facility]* Perioperative Nursing Note - Claudia Garcia RN - 10/24/2023 9:45 AM EDT Preoperative Education Checklist- General Surgery date: 11/06/23 Surgery time: 0730 a.m. Arrival time: 0610 a.m. 1. Bring a photo ID and your insurance card with you the day of surgery. You will check in at the main lobby of the [facility]- registration desk is straight ahead as soon as you walk in. Tell them you are here for surgery. 2. If you have a Living Will/Durable Power of Transmission Systems Operator for Health Care that is not on file here, please bring a copy the day of surgery. 3. Please shower/bathe the night before surgery with the provided soap or wipes. Do not shower the morning of surgery- you will do use wipes when you arrive here at the hospital before getting into your surgical gown. Do not shave the area of your procedure for 2 days prior to your surgery. 4. NO powder, lotion, perfume/cologne, aftershave, make-up, deodorant, or hair products after you have bathed. 5. NO nail nigerien/acrylic on at least one finger. If you are having a hand, wrist or foot surgery then all nail nigerien and artificial/acrylic nails must be removed from that hand or foot. 6. Avoid ALL Aspirin and non-steroidal anti-inflammatory drugs and certain vitamins (Ibuprofen, Advil, Aleve, Excedrin, Meloxicam, Celebrex, fish/krill oil, etc.) for 7 days prior to surgery as instructed by your surgeon and/or your prescribing doctor. Tylenol IS ALLOWED. If you are on Ticlid, Xarelto, Eliquis, Pradaxa, Plavix or Coumadin, please check with your prescribing doctor for instructions for when to stop them. 7. If you use an inhaler, continue to use it routinely. 8. Nothing to eat or drink (not even water, gum, mints, or hard candy!) AFTER midnight prior to your surgery. 9. Take only medications that you are instructed to on the morning of surgery with a TINY SIP OF WATER. 10. Choose a responsible adult that will be able to drive you home when you are discharged from your hospital stay for your surgery and can stay with you in your home for 24 hours after your procedure. You must NOT drive any vehicle or operate any machinery for 24 hours after surgery. 11. When you dress for your appointment, please wear loose fitting clothing that is appropriate to accommodate your surgical area procedure. BRING WITH YOU ANY DEVICES YOU MAY NEED: LILA hose, ice machine, sling/swath, brace or special shoe, oversized zip-up or button up shirt, CPAP machine if staying overnight. 12. Do NOT wear jewelry, watches, or any piercings or metal for surgery- leave these valuables and money at home. 13. Do NOT wear contact lenses for surgery- glasses are okay if needed. 14. The anesthesiologist will talk with you the day of surgery and will ask you to sign a Consent Form. 15. Refrain from smoking or any type of tobacco use for at least 8 hours and marijuana for 24 hoursprior to arrival for your surgery. 16. If a GREEN BLOOD band is given to you, please bring it with you for the day of surgery. 17. Notify your surgeon if you develop any illness before your surgery. 18. If you are staying overnight, please DO NOT BRING your home medications with you. 19. If you have any questions prior to surgery, please call the Preadmission Testing office at [phone], Mon.-Fri. 7 a.m.-3 p.m. Leave a voicemail if needed. Pre-Surgery Instructions: Medication Instructions aspirin 81 mg Check with prescribing doctor for instructions atenolol (TENORMIN) 50 mg tablet Take night before procedure as usual atorvastatin (LIPITOR) 40 mg tablet Stop taking 0 days prior to procedure clopidogrel (PLAVIX) 75 mg tablet Check with prescribing doctor for instructions diphenhydrAMINE (BENADRYL) 25 mg capsule Stop taking 0 days prior to procedure diphenhydrAMINE-acetaminophen (TYLENOL PM) 25-500 mg tablet Stop taking 0 days prior to procedure ywdiifeq-razu-PB-calcium &mins (THERAGRAN-M) 9 mg iron-400 mcg tablet Stop taking 0 days prior to procedure How to Avoid an Infection after Your Surgery Your doctor will give you specific instructions, but remember: -ALWAYS wash hands before caring for your incision. -No picking, scratching, or rubbing your incision. -No creams, lotion, powder, rubbing alcohol or hydrogen peroxide on the incision (can harm the tissue and slow healing). -Your doctor will give you specific instructions for what type of dressing you will need and how often it will need changed for infection purposes. -No tight clothing on incision. -Do not allow anyone to touch your incision unless they are cleaning, checking, or redressing it (be sure they wash their hands first). -No contact of your incision with pets; avoid sleeping with pets. -Take full course of antibiotic if prescribed for you after surgery- do not stop unless directed lilian your physician. You may also be given an antibiotic prior to your surgery to help prevent surgical site infections. -Eat a healthy and varied diet including proteins, fruits, and vegetables to help promote wound healing and keep blood sugars under control if you are diabetic. -Smoking slows the healing process by decreasing the amount of oxygen in your blood that is needed for tissue healing. Try to avoid or stop smoking if possible. LOOK at your incision each morning and each night to check the progress of healing. Some soreness, numbness, itching and/or mild bruising around the incision is normal. Call your doctor if you noticeany of the following: -Increased redness or hardening around the incision area. -Increased pain at the incision site. -Incision feels hot to the touch. -Swelling or pulling apart of the incision edges. -Yellow or green drainage or foul odor coming from the incision. -Bleeding from the incision (apply pressure as needed). -Fever higher than 101 degrees Fahrenheit for more than 4 hours. SHOWERING: Your doctor will give you specific instructions, but remember: -Be careful getting into and out of the shower. -Showers should be quick (5 minutes or less). -Use a clean washcloth to gently wash your incision with soap and water and pat the area dry with aclean towel. -No re-using wash cloths or towels; get a fresh one to clean your incision. -Do not soak in the bathtub, go swimming or use a hot tub (Jacuzzi), or perform activities where your hand or arm are submerged in water or exposed to any fluids or substances (washing dishes, cooking, gardening, hunting, etc.) until instructed by your doctor. -If your have the sticky strips (steri-strips) over the incision, it is OK to shower with them. Do not remove them. Let them fall off on their own. If you have a question, call your doctor s office. Go to the follow-up appointment with your doctor. [facility] Nurse Note* Perioperative Nursing Note - Claudia Garcia RN - 10/24/2023 9:45 AM EDT Hibiclens and surgical instructions reviewed. Patient verbalized understanding. [facility]07-24-2024 NoteRCRI= 2 points Class III Risk 10.1 % 30- day risk of , [place], or cardiac arrest From a cardiac perspective pt may proceed with shoulder, he is a moderate risk for a low to moderate risk surgery. He may hold plavix 5-7 days prior and resume post op. Please monitor hemodynamics carefully and prevent any major fluid shifts. Fátima Phillip [facility] Card[facility] Available 7a-5pm via [employer] Chat Pager [phone]06-20-2024 NoteNoted Mitral, Aortic, tricuspid and pulmonic valve regurg- no concerning symptoms today. Will continue to monitor - d/w pt to call office for increased SOB, orthopnea, palpitations, syncope or chest pain.[facility]06-20-2024 NoteHeart failure is unchanged. NYHA Class II. Continue current treatment regimen. Dietary sodium restriction. Encouraged daily monitoring of the patient's weight. Continue current medications. Heart failure will be reassessed in 1 year.[facility] 09-19-2023 NotePatient here for 1 year follow up CAD, primary cardiomyopathy, and valve disorder. Had routine labs w/ lipid last July 2022. He is doing great. Denies chest pain, SOB, palpitations, and lightheadedness/syncope. Review of Systems Musculoskeletal: Positive for arthritis and joint pain. All other systems reviewed and are negative.[facility] 09-19-2023 NoteUTP CARDIOLOGY PROGRESS NOTE HPI: Mart Villa is a 73 [...] given to pt to be completed about October.[facility]06-20-2024 NoteLipid abnormalities are stable Continue statinUnZanesville City Hospital06-20-2024 NoteCoronary artery disease is stable Continue GDMT- ASA, atenolol, lipitor and plavix for life. continue risk factor modifications- heart healthy diet, regular exercise as tolerated and continue all medications.[facility] 03-28-2022 Hospital Discharge instructions Patient Education 03/28/2022 14:24:56 Benign Prostatic Hyperplasia Benign Prostatic Hyperplasia Benign prostatic hyperplasia (BPH) is an enlarged prostate gland that is caused by the normal agingprocess and not by cancer. The prostate is [...] urethra. Follow these instructions at home: Take ndbj-ihu-mgvkzpt and prescription medicines only as told by [...] 03/18/2006 Document Revised: 02/10/2019 Document Reviewed: 04/22/2017 [employer] Patient Education 2020 [employer]. Follow Up Care 01/19/2021 11:03:50 With:LUCY BRICENO PA-C, URL Address: [address] [place] [address]. [place] [address] When: Unknown [facility] evaluation + Plan note Future Appointments Appointment Date:03/12/2023 11:15:00 AM Scheduled Provider:Abdiaziz Carbone Jr., MD Location:[facility] Appointment Type:URO Office Visit Diagnostic Tests Pending * PSA Total 03/28/22 * PSA Total 03/28/22 [facility] evaluation + Plan note Future Appointments Appointment Date:03/18/2025 08:20:00 AM Scheduled Provider:LUCY BRICENO PA-C Location:[facility] Appointment Type:URO Office Visit Diagnostic Tests Pending * PSA Total 03/17/24 [facility] evaluation note* Diagnosis Onset Date Resolution Status CAD (coronary artery disease) acute Fall acute Hyperlipemia acute Right shoulder pain acute [facility] Work Phone: Evaluation note* Diagnosis Onset Date Resolution Status CAD (coronary artery disease) acute Fall acute H/O heart artery stent acute Hyperlipemia acute Hypertension acute Nicotine dependence acute Right shoulder pain acute Screening for lung cancer [place] [facility] Work Phone: Evaluation note* Diagnosis Onset Date Resolution Status CAD (coronary artery disease) acute Fall acute H/O heart artery stent acute Hyperlipemia acute Hypertension acute Nicotine dependence acute Right shoulder pain acute Screening for lung cancer [place] CAD (coronary artery disease) acute H/O heart artery stent acute Hyperlipemia acute Hypertension acute Nicotine dependence acute Pre-op evaluation acute [facility] Work Phone: Evaluation note* Diagnosis Acute pain of right shoulder- Primary Shoulder stiffness, right S/P right rotator cuff repair [facility] Diagnosis Acute pain of right shoulder- Primary S/P right rotator cuff repair Shoulder stiffness, right [facility] Diagnosis S/P right rotator cuff repair- Primary Acute pain of right shoulder Shoulder stiffness, right [facility] Diagnosis Acute pain of right shoulder- Primary Shoulder stiffness, right S/P right rotator cuff repair [facility] Diagnosis Acute pain of right shoulder- Primary Shoulder stiffness, right S/P right rotator cuff repair [facility] Diagnosis Acute pain of right shoulder- Primary Shoulder stiffness, right S/P right rotator cuff repair S/P right rotator cuff repair- Primary Arthritis of right acromioclavicular joint [facility]* Diagnosis Acute pain of right shoulder- Primary Shoulder stiffness, right S/P right rotator cuff repair S/P right rotator cuff repair- Primary Arthritis of right acromioclavicular joint [facility]* Diagnosis S/P right rotator cuff repair- Primary Arthritis of right acromioclavicular joint [facility]* Diagnosis Acute pain of right shoulder- Primary Shoulder stiffness, right S/P right rotator cuff repair [facility]* Diagnosis Onset Date Resolution Status Impaired fasting glucose acu te [facility] Work Phone: Evaluation note* Diagnosis Left hand pain- Primary Pain in soft tissues of limb Finger pain, left Pain in soft tissues of limb Trigger ring finger of left hand Dupuytren's contracture Contracture of palmar fascia [facility]* Diagnosis Acute pain of right shoulder- Primary Shoulder stiffness, right S/P right rotator cuff repair [facility]* Diagnosis Right shoulder pain, unspecified chronicity- Primary S/P right rotator cuff repair [facility] Diagnosis Acute pain of right shoulder- Primary Shoulder stiffness, right S/P right rotator cuff repair [facility]* Diagnosis Bilateral posterior capsular opacification- Primary Unspecified after-cataract documented in [facility]* Diagnosis S/P right rotator cuff repair- Primary documented [facility]* Diagnosis Onset Date Resolution Status Admit Date CAD (coronary artery disease) acute April 29, 2024 8:17am Fall acute April 29, 2024 8:17am H/O heart artery stent acute [facility] 2024 8:17am Hyperlipemia acute April 8:17am Hypertension acute April 8:17am Impaired fasting glucose acute April 29, 2024 8:17am Medicare annual wellness vis it, subsequent acute April 29 8:17am Nicotine dependence acute 2024 8:17am Right shoulder pain acute Apr 2024 8:17am Screening for lung cancer acute April 29, 2024 8:17am [facility] Work Phone: Evaluation note* Diagnosis Bursitis of left foot- Primary 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 Acquired keratoderma Pain in left foot Pain in soft tissues of limb Difficulty walking Difficulty in walking documented [facility]* Diagnosis Pressure injury of left foot, stage 1- Primary Pain in left foot Pain in soft tissues of limb 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 Difficulty walking Difficulty in walking documented [facility]* Diagnosis Preop examination- Primary Unspecified pre-operative examination Coronary artery disease, unspecified vessel or lesion type, unspecified whether angina present, unspecified whether [place] or transplanted heart Hypertension, unspecified type Preop examination Unspecified pre-operative examination Coronary artery disease, unspecified vessel or lesion type, unspecified whether angina present, unspecified whether [place] or transplanted heart Hypertension, unspecified type [facility] Diagnosis Bursitis of left foot- Primary 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 Pain in left foot Pain in soft tissues of limb Difficulty walking Difficulty in walking documented in this encounter [facility]* Diagnosis Onset Date Resolution Status Admit Date Otitis externa acute August 31, 2024 2:20pm [facility] Work Phone: Hospital course Narrative No data available for this section [facility] Discharge instructionsAmbulatory Orders* Referral to Orthopedics Time Frame: 10/01/23, Location: None [facility] Work Phone: Progress note No data available for this section [facility] reason for referral (narrative)* Consultation (Routine) - Authorized Specialty Diagnoses / Procedures Referred By Loy smyth Referred To Contact Physical Therapy Diagnoses S/P right rotator cuff repair Procedures SC OFFICE/OUTPATIENT NEW HIGH MDM 60 MINUTES Silva Mak, RESOURCE SPECIALIST TEACHER [address] [facility] [address] [place] [address] Madelyn Coffey, PT [address] [facility] [address] [place] [address] Referral ID Status Reason Start Date Expiration Date Visits Requested Visits Authorized [id number] Authorized Consult and Treat 12/11/2023 06/08/2024 10 10 [facility]arrative[facility]No reason for referral information [facility] Work Phone: Reason for visit Narrative* Consultation (Routine) - Authorized Specialty Diagnoses / Procedures Referred By Loy smyth Referred To Contact Physical Therapy Diagnoses S/P right rotator cuff repair Procedures SC OFFICE/OUTPATIENT NEW HIGH MDM 60 MINUTES Silva Mak, RESOURCE SPECIALIST TEACHER [address] [facility] [address] [place] [address] Madelyn Coffey, PT [address] [facility] [address] [place] [address] Referral ID Status Reason Start Date Expiration Date Visits Requested Visits Authorized [id number] Authorized Consult and Treat 12/11/2023 06/08/2024 30 30 [facility]* Consultation (Routine) - Authorized Specialty Diagnoses / Procedures Referred By Contac t Referred To Contact Physical Therapy Diagnoses S/P right rotator cuff repair Procedures SC OFFICE/OUTPATIENT NEW HIGH MDM 60 MINUTES Silva Mak, RESOURCE SPECIALIST TEACHER [address] [facility] [address] [place] [address] Phone: tel: fax: Madelyn Coffey, PT [address] [facility] [address] [place] [address] Phone: tel: fax: Referral ID Status Reason Start Date Expiration Date Visits Requested Visits Authorized [id number] Authorized Consult and Treat 12/11/2023 06/08/2024 30 30 [facility] N[facility]* Consultation (Routine) - Authorized Specialty Diagnoses / Procedures Referred By Loy t Referred To Contact Physical Therapy Diagnoses S/P right rotator cuff repair Primary osteoarthritis, right shoulder Procedures SC OFFICE/OUTPATIENT NEW HIGH MDM 60 MINUTES Silva Mak, RESOURCE SPECIALIST TEACHER [address] [facility] [address] [place] [address] Phone: tel: fax: Madelyn Cofefy, PT [address] [facility] [address] [place] [address] Phone: tel: fax: Referral ID Status Reason Start Date Expiration Date Visits Requested Visits Authorized [id number] Authorized Consult and Treat 12/11/2023 06/08/2024 30 30 [facility] N[facility]* Consultation (Routine) - Closed Specialty Diagnoses / Procedures Referred By Loy smyth Referred To Contact Physical Therapy Diagnoses S/P right rotator cuff repair Primary osteoarthritis, right shoulder Procedures SC OFFICE/OUTPATIENT NEW HIGH MDM 60 MINUTES Silva Mak, RESOURCE SPECIALIST TEACHER [address] [place] [address] Phone: tel: fax: Madelyn Coffey, PT [address] [place] [address] Phone: tel: fax: Referral ID Status Reason Start Date Expiration Date V isits Requested Visits Authorized [id number] Closed Consult and Treat 12/11/2023 06/08/2024 30 30 [facility] N[facility]* Consultation (Routine) - Authorized Specialty Diagnoses / Procedures Referred By Loy smyth Referred To Contact Physical Therapy Diagnoses S/P right rotator cuff repair Procedures SC OFFICE/OUTPATIENT NEW HIGH MDM 60 MINUTES Silva Mak NP [address] [place] [address] Madelyn Coffey, PT [address] [place] [address] Referral ID Status Reason Start Date Expiration Date Visits Requested Visits Authorized [id number] Authorized Consult and Treat 12/11/2023 06/08/2024 10 10 [facility] Summary Purpose Family History No Family History Records FoundNo Family History Records FoundNo Family History Records Found No data available for this section No Family History Records FoundNo Family History Records FoundNo Family History Records Found Advance Directives Advance Directive Response Recorded Date/ Time Advance Directives Yes July 25 10:09am Advance Directive Response Recorded Date/ Time Advance Directives Yes July 25 9:09am Chief Complaint and Reason for Visit Chief Complaint Establish Reason for Visit CAD (coronary artery disease) Fall Hyperlipemia Right shoulder pain Chief Complaint Establish Reason for Visit CAD (coronary artery disease) Fall H/O heart artery stent Hyperlipemia Hypertension Nicotine dependence Right shoulder pain Screening for lung cancer Chief Complaint Establish Surgery Clearance- testing 10/23 @ [place] Reason for Visit CAD (coronary artery disease) Fall H/O heart artery stent Hyperlipemia Hypertension Nicotine dependence Right shoulder pain Screening for lung cancer CAD (coronary artery disease) H/O heart artery stent Hyperlipemia Hypertension Nicotine dependence Pre-op evaluation Chief Complaint L Hand Pain Reason for Visit Impaired fasting glu cose Chief Complaint Admit Date Diabetic Check-up April 29, 2024 8 :17am Reason for Visit Admit Date CAD (coronary artery disease) April 292024 8:17am Fall April 29, 2024 8 :17am H/O heart artery stent April 29 8:17am Hyperlipemia April 29, 2024 8 :17am Hypertension April 29, 2024 8 :17am Impaired fasting glucose April 29 8:17am Medicare annual wellness visit, subseque nt April 29, 2024 8:17am Nicotine dependence April 29, 2024 8 :17am Right shoulder pain April 29, 2024 8 :17am Screening for lung cancer April 29, 2024 8:17am Chief Complaint Admit Date ear pain August 31, 2024 2:20p m Reason for Visit Admit Date Otitis externa August 31, 2024 2:20p m Chief Complaint Admit Date ear pain August 31, 2024 2:20p m diabetic check October 01, 2024 8:21a m Reason for Visit Admit Date Atopic dermatitis August 31, 2024 2:20p m Otitis externa August 31, 2024 2:20p m CAD (coronary artery disease) October 01, 2024 8:21am Hyperlipemia October 01, 2024 8:21a m Hypertension October 01, 2024 8:21a m Impaired fasting glucose October 01, 2024 8:21am Reason for Referral Specialty Diagnoses / Procedures Referred By Contac t Referred To Contact Diagnoses Preop examination Coronary artery disease, unspecified vessel or lesion type, unspecified whether angina present, unspecified whether [place] or transplanted heart Hypertension, unspecified type Procedures ECG 12 lead Seda [place] DO [address] [address] Referral ID Status Reason Start Date Expiration Date V isits Requested Visits Authorized [id number] Pending Review 10/22/2023 10/21/2024 1 1 Additional Source Comments (unrecognized sect ion and content) No Status Records FoundNo Status Records FoundNo Status Records FoundNo Status Records FoundNo Status Records FoundNo Status Records Found INFORMATION SOURCE (unrecogn ized section and content) DATE CREATED AUTHOR 07/18/[address] [facility] DATE CREATED AUTHOR AUTHOR'S ORGANIZ ATION 08/14/2022 [facility] DATE CREATED AUTHOR AUTHOR'S ORGANIZ ATION 11/08/2023 [facility] DATE CREATED AUTHOR AUTHOR'S ORGANIZ ATION 03/20/2024 [facility] DATE CREATED AUTHOR AUTHOR'S ORGANIZ ATION 08/28/2024 [facility] DATE CREATED AUTHOR AUTHOR'S ORGANIZ ATION 08/29/2024 [facility] Patient Care team informatio n (unrecognized section and content) Team Status: Active Member Role Status Dates Lucy Alfaro APRN RESOURCE SPECIALIST TEACHER-C Primary Care Provider Active Team Status: Inactive Member Role Status Dates Lucy Alfaro APRN RESOURCE SPECIALIST TEACHER-C Primary Care Provider, Attending Provider Active Start: September 30, 2023 End: September 30, 2023 Team Status: Active Member Role Status Dates Lucy Alfaro APRN RESOURCE SPECIALIST TEACHER-C Primary Care Provider, Attending Provider Active Start: October 01, 2023 Team Status: Inactive Member Role Status Dates Lucy Alfaro APRN RESOURCE SPECIALIST TEACHER-C Primary Care Provider, Attending Provider Active Start: October 25, 2023 End: October 25, 2023 Preschool Substitute Teacher Relationship Specialty Start Date End Date Lucy Alfaro NP [address] [place] [id number] PCP - General Family Medicine 10/14/23 Preschool Substitute Teacher Relationship Specialty Start Date End Date Lucy Alfaro NP [address] [place] [address] PCP - General Family Medicine 10/14/23 Preschool Substitute Teacher Relationship Specialty Start Date End Date Lucy Alfaro NP [address] [place], [place] [address], [place] [address] PCP - General Family Medicine 10/14/23 Preschool Substitute Teacher Relationship Specialty Start Date End Date Lucy Alfaro NP [address] [place] [address] PCP - General Family Medicine 10/14/23 Preschool Substitute Teacher Relationship Specialty Start Date End Date Lucy Alfaro NP [address] [facility] [place] [address] PCP - General Family Medicine 10/14/23 Preschool Substitute Teacher Relationship Specialty Start Date End Date Lucy Alfaro NP [address] [facility] [place] [place] [address] PCP - General Family Medicine 10/14/23 Preschool Substitute Teacher Relationship Specialty Start Date End Date Lucy Alfaro NP [address] [facility] [place] [address] PCP - General Family Medicine 10/14/23 Preschool Substitute Teacher Relationship Specialty Start Date End Date Lucy Alfaro NP [address] [facility] [place] [address] PCP - General Family Medicine 10/14/23 Preschool Substitute Teacher Relationship Specialty Start Date End Date Lucy Alfaro NP [address] [facility] [place] [address] PCP - General Family Medicine 10/14/23 Preschool Substitute Teacher Relationship Specialty Start Date End Date Lucy Alfaro NP [address] [place] [address] PCP - General Family Medicine 10/14/23 Preschool Substitute Teacher Relationship Specialty Start Date End Date Lucy Alfaro NP [address] [place] [address] PCP - General Family Medicine 10/14/23 Preschool Substitute Teacher Relationship Specialty Start Date End Date Lucy Alfaro NP [address] [place] [address] PCP - General Family Medicine 10/14/23 Team Status: Active Member Role Status Dates Lucy Alfaro APRN RESOURCE SPECIALIST TEACHER-C Primary Care Provider Active Start: November 26, 2023 SAMEER De Los Santos-C Attending Provider Active S tart: November 26, 2023 Team Status: Inactive Member Role Status Dates Lucy Alfaro APRN RESOURCE SPECIALIST TEACHER-C Primary Care Provider, Attending Provider Active Start: January 27, 2024 End: January 27, 2024 Preschool Substitute Teacher Relationship Specialty Start Date End Date Lcuy Alfaro NP [address] [place] [address] PCP - General Family Medicine 10/14/23 Preschool Substitute Teacher Relationship Specialty Start Date End Date Lucy Alfaro NP [address] [place] [address] PCP - General Family Medicine 10/14/23 Preschool Substitute Teacher Relationship Specialty Start Date End Date Lucy Alfaro NP [address] [place], [place] [id number] PCP - General Family Medicine 10/14/23 Preschool Substitute Teacher Relationship Specialty Start Date End Date Lucy Alfaro NP [address] [place] [id number] PCP - General Family Medicine 10/14/23 Team Status: Active Member Role Status Dates Lucy Alfaro APRN RESOURCE SPECIALIST TEACHER-C Primary Care Provider Active Start: March 112023 Lucy Briceno PA-C Attending Provider Active Start: March 11, 2024 Team Status: Inactive Member Role Status Dates MENG Mcneil Primary Care Provider, Attending Provider Active Start: April 29, 2024 End: April 29, 2024 Preschool Substitute Teacher Relationship Specialty Start Date End Date Lucy Alfaro NP [address] [place] [address] PCP - General Family Medicine 10/14/23 Preschool Substitute Teacher Relationship Specialty Start Date End Date Lucy Alfaro NP [address] [place] [address] PCP - General Family Medicine 10/14/23 Preschool Substitute Teacher Relationship Specialty Start Date End Date Ramin Iyer DO [address] [place] [address] PCP - General Family Medicine 01/21/19 Team Status: Inactive Member Role Status Dates Lucy Alfaro APRN RESOURCE SPECIALIST TEACHER-Tye Primary Care Provider, Attending Provider Active Start: August 31, 2024 End: August 31, 2024 Team Status: Inactive Member Role Status Dates Lucy Alfaro APRN RESOURCE SPECIALIST TEACHER-C Primary Care Provider Active Start: August 31, 2024 End: August 31, 2024 MENG Mcneil Attending Provider Act herb Start: August 31, 2024 End: August 31, 2024 Team Status: Inactive Member Role Status Dates Lucy Alfaro APRN RESOURCE SPECIALIST TEACHER-C Primary Care Provider Active Start: October 01, 2024 End: October 01, 2024 Lucy Alfaro APRN NP-C Attending Provider Act herb Start: October 01, 2024 End: October 01, 2024 Goals (unrecognized section and content) Goals may be documented in a n alternate section Reason for Visit (unrecogniz ed section and content) Reason Comments Post-op Reason Comments Pain Reason Comments Follow-up Reason Comments YAG Blurred Vision Reason Comments Follow-up Reason Comments Foot Callouses 74 yo OP presents to day with concerns of a painful callus on left foot, ongoing for quite a while . Reason Comments Foot Pain Pt is here today wit h continued pain to the area where the lesion was removed. Hard to walk, can't touch it. He also noted swelling in the Lt ankle A1C: 6.1 Reason Comments FUV Mart Villa is a 74 y.o. male. Pt is here today for FUV of left foot, area where the lesion was removed. Patient relates wound is healed. A1C: 6.1 Reason Comments PRASHANT Villa is a 74 y.o. male. Pt is here today for FUV of left foot, area where the lesion was removed. Patient relates wound is healed. Vinicius Alfaro 04/23/24 A1C: 6.1(04/2024) FOR RECORDS PERTAINING TO PATIENTS WHO ARE [...] BE BASED ON THE PRIMARY CLINICAL RECORDS. [employer] [facility]. provides no warranty or guarantee of the accuracy or completeness of information in this document.
== END 2024-10-09 08:32 | disposition home or self-care (01) ==
LOC: CT 08:32
PROVIDERS: PCP Nurse Practitioner Family; Visit Provider Nurse Practitioner Family
DX: F17.210 Nicotine dependence, cigarettes, uncomplicated (principal); K80.20 Calculus of gallbladder without cholecystitis without obstruction
CPT/HCPCS: 71271

== ENCOUNTER 2024-11-05 08:46 | Outpatient (OUT) | payer MEDICARE, OTHER, SELFPAY ==
--- OUTSIDE RECORDS SUMMARY | 2024-10-08 04:58 | XMS_ITS | Continuity of Care Document ---
Author Name [facility] Organization [facility] Care Team Providers Care Cottage Parent Name Role Phone [facility] Unavailable Unavailable Problems Combined list of problems from Department of Defense and Veterans Affairs facilities. It does not include entries that were removed or entered in error. Problem Status Onset Date Problem Type Date of Resolution Comments Source CAD - Coronary Artery Disease (SCT 47395676) Active Condition TO [facility] Coronary artery disease Active Condition [facility] Coronary Artery Disease * (ICD-9-CM 414.9) Active Condition May 27, 2012 Entered By: MATHEUS BUNN MD Comment: stents x2 CX, mi 2012 Entered By: MATHEUS BUNN MD Comment: [facility] cardio [facility] DJD * (ICD-9-CM 715.90) Active Condition May 27, 2012 Entered By: MATHEUS BUNN MD Comment: left TKA, L3-4 surgery x2 [address] [facility] Essential hypertension Active Condition [facility] Exposure to Potentially Hazardous Substance ([facility] 720223324767560) Active Condition [facility] H/O: urinary stone Active Condition [facility] HTN - Hypertension (SCT 00725783) Active Condition [facility] Hypercholesterolemia Active Condition [facility] Hyperlipidemia (SCT 71097716) Active Condition [facility] Hypertensive heart disease Active Condition [facility] Hypertensive heart disease without congestive heart failure Active Condition [facility] Nicotine dependence Active Condition [facility] Tobacco Use Disorder * (ICD-9-CM 305.1) Active Condition [facility] Tobacco User ([facility] 665012079) Active Condition [facility] Diagnosis: ICD-10-CM I25.10 Athscl heart disease of [place] coronary artery w/o ang pctrs Active Diagnosis [facility] Medications Combined list of outpatient medications from Department of Defense and Veterans Affairs facilities.Medications provided include 1) outpatient medications from the last 15 months, and 2) patient-reported medications. Medication Details Route Status Patient Instructions Prescription Expires Prescription Number Last Dispense Date Ordering Provider Order Date Order Qty Source ASCORBIC ACID TAB TAKE EVERY DAY ACTIVE MOUNIKA BUNN MD 2012 [facility] ASPIRIN 81MG TAB,EC TAKE ONE TABLET BY MOUTH EVERY DAY ORAL ACTIVE MOUNIKA BUNN MD 2012 [facility] ATENOLOL 25MG TAB TAKE ONE TABLET BY MOUTH EVERY DAY ORAL ACTIVE MOUNIKA BUNN MD 2012 [facility] ATORVASTATI N [place] 80MG TAB TAKE ONE TABLET BY MOUTH EVERY DAY ORAL ACTIVE MOUNIKA BUNN MD 2012 [facility] CLOPIDOGREL BISULFATE 75MG TAB TAKE ONE TABLET BY MOUTH EVERY DAY ORAL ACTIVE MOUNIKA BUNN MD 2012 [facility] GLUCOSAMINE CAP/TAB TAKE BY MOUTH ORAL ACTIVE MOUNIKA BUNN MD 2012 [facility] HYDROCODONE 5MG/ACETAMI NOPHEN 325MG TAB TAKE ONE TABLET BY MOUTH ORAL ACTIVE MOUNIKA BUNN MD 2012 [facility] MULTIVITAMI NS/MINERALS TAB TAKE BY MOUTH EVERY DAY ORAL ACTIVE MOUNIKA BUNN MD 2012 [facility] Allergies, Adverse Reactions, Alerts Combined list of allergies from Department of Defense and Veterans Affairs facilities. It does not include entries that were removed or entered in error. Substance Category Reaction Severity Reaction type Status Date Reported Comments Source PENICILLIN Propensity to adverse reactions to drug (finding) Eruption active 05/27/[address] [facility] Immunizations Combined list of available immunizations from the Department of Defense and Veterans Affairs facilities. Immunization Series Date Given Administered By Site Reaction Lot Number CVX Code Drug Casino Floor Walker Status Comments Source ZOSTER RECOMBINANT 2 2022 187 complet ed HISTORICA L INFORMATI ON - FROM OTHER PROVIDER, Lot#: [id number] [facility] ZOSTER RECOMBINANT 1 2022 187 complet ed HISTORICA L INFORMATI ON - FROM OTHER PROVIDER, [facility] INFLUENZA, UNSPECIFIED FORMULATION 2021 88 complet ed HISTORICA L INFORMATI ON - FROM OTHER PROVIDER, [facility] COVID-19 ([employer]), MRNA, LNP-S, PF, 30 MCG/0.3 ML DOSE 3 2021 208 complet ed [facility] INFLUENZA, UNSPECIFIED FORMULATION 2020 88 complet ed [facility] COVID-19 (PFIZER), MRNA, LNP-S, PF, 30 MCG/0.3 ML DOSE 3 2020 208 complet ed [facility] COVID-19 (PFIZER), MRNA, LNP-S, PF, 30 MCG/0.3 ML DOSE 2 2020 208 complet ed [facility] COVID-19 (PFIZER), MRNA, LNP-S, PF, 30 MCG/0.3 ML DOSE 1 2020 208 complet ed [facility] INFLUENZA, INJECTABLE, QUADRIVALENT, PRESERVATIVE FREE 2018 150 complet ed 02, Partner: [facility]. Administe red by: [email or web address] [facility] Clinician (NPI=Not Provided) . Partner 69 Lot#: [id number] Mfr: [employer] PE[place]AL[place] [facility] PNEUMOCOCCAL POLYSACCHARID E [id number] 2017 33 complet ed merck, [id number], exp 2018august 13 [facility] INFLUENZA (HISTORICAL) 2016 88 complet ed [facility] INFLUENZA (HISTORICAL) 2015 88 complet ed [facility] PNEUMOCOCCAL CONJUGATE PCV 13 2015 133 complet ed [facility] TDAP 2015 115 complet ed [employer] [id number] [facility] INFLUENZA (HISTORICAL) 2014 88 complet ed [facility] FLU,3 YRS (HISTORICAL) 2013 88 complet ed [facility] FLU,3 YRS (HISTORICAL) 2012 88 complet ed [facility] ZOSTER (varicella zoster) (HISTORICAL) 2012 complet ed [facility] PNEUMOCOCCAL, UNSPECIFIED FORMULATION 2011 109 complet ed locally [facility] FLU,3 YRS (HISTORICAL) 2011 88 complet ed [facility] Vital Signs Combined list of inpatient and outpatient Vital Signs from Department of Defense and Veterans Affairs, ranging from 12 months to all on record, depending upon the facility. Vital Sign Value Date Comments Source PAIN 2 11/28/2023 09:21:00 [facility] Encounters Combined list of: 1) Encounters from Department of Veterans Affairs facilities going backup to the last 18 months, not all [place] inpatient encounters are included; 2) Encounters from the Department of [facility] facilities going backup to 280 months. Location Location Details Encounter Type Encounter Number Reason For Visit Attending Provider ADM Date DC Date Status Disposition Source [facility] Outpatient Encounter [id number] 05/[address] [facility] Outpatient Encounter [id number] 11/27 [facility] Outpatient Encounter [id number] Diagnos is: ICD-10- CM I25.10 Athscl heart disease of [place] coronar y artery w/o ang pctrs KYLER LEE NP 11/27 [facility] Social History Combined list of available smoking, tobacco, and other social history from Department of Defense and Veterans Affairs facilities. Social History Type Response Date Comment Sourc e Tobacco smoking status NHIS VA-TOBACCO USE WI 30 MIN OF WAKEUP 11/28/2023 [facility] History of tobacco use [place]-TOBACCO USER EVERY DAY 4 [facility] History of tobacco use NM-TOBACCO USER EVERY DAY 3 [facility] History of tobacco use [place]-TOBACCO USER EVERY DAY 2 [facility] History of tobacco use VA-TOBACCO USER EVERY DAY 1 [facility] History of tobacco use VA-TOBACCO USE MED NO 05/12/2018 [facility] History of tobacco use CURRENT TOBACCO USER 05/13/2017 [facility] History of tobacco use CURRENT TOBACCO USER 05/15/2016 [facility] History of tobacco use TOBACCO SCREEN TACTICS WORKBOOK 06/13/2015 [facility] History of tobacco use CURRENT TOBACCO USER 06/05/2014 [facility] History of tobacco use CURRENT TOBACCO USER 05/13/2013 [facility] History of tobacco use CURRENT TOBACCO USER 05/27/2012 [facility] Plan of Care List of future care activities from Department of Veterans Affairs facilities. Additional future care activities may be listed in the Assessment and Plan section. Date/Time Care Activity Care Activity Detail Facili ty 11/19/2024 AMBULATORY - MEDICINE AMBULATORY - MEDICI NE [facility]
--- OUTSIDE RECORDS SUMMARY | 2024-11-05 08:48 | XMS_ITS | Clinical Summary ---
Author Organization [facility] tem Address [id number] [place] [address] Care Team Providers Care Rangeland Management Specialist Name Role Phone Lucy Alfaro APRN-VAN Primary Care Provid er Allergies Active Allergy Reactions Criticality Noted Date Comments Penicillins 01/21/2019 rash Medications clopidogrel (PLAVIX) 75 mg tablet Take 1 tablet (75 mg total) by mouth in the morning. Active atorvastatin (LIPITOR) 40 mg tablet Take 2 tablets (80 mg total) by mouth in the morning. Active atenolol (TENORMIN) 50 mg tablet Take 0.5 tablets (25 mg total) by mouth in the morning. Active aspirin 81 mg Take 1 tablet (81 mg total) by mouth in the morning. Active nghqzdzf-uyaa-[id number] A-calcium &mins (THERAGRAN-M) 9 mg iron-400 mcg tablet Take 1 tablet by mouth in the morning. Active diphenhydrAMINE -acetaminophen (TYLENOL PM) 25-500 mg tablet Take 1 tablet by mouth nightly as needed for sleep. Active diphenhydrAMINE (BENADRYL) 25 mg capsule Take 1 capsule (25 mg total) by mouth every 6 (six) hours as needed for itching. Active Family History Medical History Relation Name Comments No Known Problems Father Heart disease Mother Hyperlipidemia Mother Hypertension Mother Relation Name Status Comments Father Mother Social History Tobacco Use Types Packs/Day Years Used Date Smoking Tobacco: Every Day Cigarettes Smokeless Tobacco: Never Tobacco Cessation:Ready to Q uit: Not Asked; Counseling Given: Not Answered Alcohol Use Standard Drinks/Week Comments Never 0 (1 standard drink = 0.6 oz pur e alcohol) AUDIT-C Answer Date Recorded Frequency of Alcohol Consumption Never 01/21/2019 Average Number of Drinks Not on file 019 Frequency of Binge Drinking Not on file 12/31 Childcare Answer Date Recorded Childcare Unknown 09/10/2018 Employment Answer Date Recorded Employment Unknown 09/10/2018 Purpose - Life Answer Date Recorded Purpose and direction in life Unknown Sex and Gender Information Value Date Recorded Sex Assigned at Not on file Legal Sex Male 11:39 AM EDT Gender Identity Not on file Sexual Orientation Not on file Last Filed Vital Signs Vital Sign Reading Time Taken Comments Blood Pressure 129/62 11/06/2023 4:30 PM EDT Pulse 79 11/06/2023 4:30 PM EDT Temperature 36.1 C (97 F) 11/06/2023 3:50 PM EDT Respiratory Rate 18 11/06/2023 4:30 PM EDT Oxygen Saturation 92% 11/06/2023 4:30 PM EDT Inhaled Oxygen Concentration - - Weight 73.9 kg (163 lb) 11/06/2023 9:02 AM EDT Height 177.8 cm (5' 10 ) 11/06/2023 9:02 AM EDT Body Mass Index 23.39 11/06/2023 9:02 AM EDT Plan of Treatment Health Maintenance Due Date Last Done Comments Tobacco Counseling 1950 Depression Screening 1961 DTaP,Tdap and Td Vaccines (1 - Tdap) 01/06/1968 Fall Risk Screening 2014 COVID-19 Vaccine (2023-2 5 season) 2023 01/24/2023, 01/13/2022, 07/13/2021, Additional history exists Tobacco Screening 11/05/2024 11/06/2023 Influenza Vaccine 11/30/2024 01/21/2023, , 01/20/2021, Additional history exists Zoster (Shingles) Vaccine Completed 10/25/2022, Medical Devices Implanted Type Area Fruit Packer Device Identifier Shelf Expiration Date Model / Serial / Lot Anch Sut 4.75mm 2 Healicoil - Sna - [id number] Implanted:Qty: 1 on 01/28/2019 by Ryan [place] DO at [facility] [place] Left: Shoulder [employer] Nephew 07/14/2021 [id number] / NA / [id number] Anch Sut 4.75mm 2 Regenesorb - Sna - [id number] Implanted:Qty: 1 on 01/28/2019 by Ryan [place] DO at [facility] [place] Left: Shoulder [employer] Nephew 08/20/2021 [id number] / NA / [id number] Anch Sut 4.5mm Ftprnt Ult Pk Rpl [id number]+Cmt - Sna - [id number] Implanted:Qty: 2 on 01/28/2019 by Ryan [place] DO at [facility] [place] Left: Shoulder [employer] Nephew 11/16/2022 [id number] / NA / [id number] Healicoil Regenesorb 4.75mm Suture [place] Implanted:Qty: 1 on 11/06/2023 by Ryan [place] DO at [facility] [place] Right: Shoulder CARBONE [employer] NEPHEW ORTHO 04/03/2025 [id number] / NA / [id number] Healicoil Regenesorb 4.75 Suture [place] Implanted:Qty: 1 on 11/06/2023 by Ryan [place] DO at [facility] [place] Right: Shoulder [employer] NEPHEW ORTHO 11/23/2025 [id number] / NA / [id number] Healicoil Knotless Regenesorb Suture [place] Implanted:Qty: 2 on 11/06/2023 by Ryan [place] DO at [facility] [place] Right: Shoulder CARBONE [employer] NEPHEW ORTHO 08/01/2026 [id number] / NA / [id number] Explanted Type Area Fruit Packer Device Identifier Shelf Expiration Date Model / Serial / Lot Anch Sut 4.75mm 2 Healicoil - Sn/A - [id number] Implanted:Qty : 1 Explanted:Qty : 1 on 01/28/2019 by Ryan [place] DO at [facility] [place] Left: Shoulder [employer]hew 06/10/2021 [id number] / N/A / [id number] Insurance MEDICARE [facility] [place] [address] Care Teams Rangeland Management Specialist Relationship Specialty Start Date End Date Lucy Alfaro APRN-VAN [address] [place], [place] [id number] PCP - General Nurse Practitioner 10/30/23
--- OUTSIDE RECORDS SUMMARY | 2024-11-05 08:48 | XMS_ITS | Clinical Summary ---
Author Organization [facility] Healthcare Address [address] [place] [address] Care Team Providers Care Surgery Scheduler Name Role Phone Lucy Alfaro GAS PLUMBER Primary Care Provider Allergies Active Allergy Reactions Criticality Noted Date Comments Penicillins Rash Low 03/19/2014 Other Reaction(s): Other, Unknown rash Medications clopidogrel (Plavix) 75 MG tablet Take 75 mg by mouth Daily Active atorvastatin (Lipitor) 80 MG tablet Take 80 mg by mouth at bedtime Active atenolol (Tenormin) 25 MG tablet Take 25 mg by mouth Daily Active aspirin 81 MG chewable tablet Chew 1 tablet every day by oral route. Active Ferrous Sulfate (IRON PO) Take 1 tablet by mouth in the morning. 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; Pain in left foot; Difficulty walking 08/25/2024 Bamboo flowsheet [facility] [address] [place] [id number] Tao Villa DPM 08/25/2024 Travel from Last 3 Months Social History Tobacco Use Types Packs/Day Years Used Date Smoking Tobacco: Every Day Cigarettes Smokeless Tobacco: Never Alcohol Use Standard Drinks/Week Comments Not Currently 0 (1 standard drink = 0.6 oz pur e alcohol) Sex and Gender Information Value Date Recorded Sex Assigned at Not on file Legal Sex Male 8:33 PM EDT Gender Identity Not on file Sexual Orientation Not on file Last Filed Vital Signs Vital Sign Reading Time Taken Comments Blood Pressure 134/82 01/07/2019 12:00 PM EDT Pulse - - Temperature - - Respiratory Rate - - Oxygen Saturation - - Inhaled Oxygen Concentration - - Weight 68 kg (150 lb) 08/25/2024 9:34 AM EDT Height 177.8 cm (5' 10 ) 08/25/2024 9:34 AM EDT Body Mass Index 21.52 08/25/2024 9:34 AM EDT Plan of Treatment Health Maintenance Due Date Last Done Comments CT Colonography 1950 Colonoscopy 1950 Colorectal Cancer Screening 1950 FIT-DNA 1950 FIT 1950 FOBT 1950 Sigmoidoscopy 1950 Influenza Vaccine (#1) 2024 4, 01/21/2023, 12/18/2021, Additional history exists Pneumococcal Vaccine: 65+ Years Completed 3, 06/01/2014 Insurance MEDICARE [facility] [place] [address] Care Teams Surgery Scheduler Relationship Specialty Start Date End Date Lucy Alfaro NP [address] [place], [place] [id number] PCP - General Family Medicine 10/14/23
--- OUTSIDE RECORDS SUMMARY | 2024-11-05 08:48 | XMS_ITS | Encounter Summary ---
Author Organization [facility] Address [address] [facility] [place] [address] Care Team Providers Care Press Offbearer Name Role Phone Lucy Alfaro NP Primary Care Provider Encounter Details Date Type Department Care Team (Late st Contact Info) Description 10/21/2023 Orders Only [facility] [address] [place] [id number] Silva Mak NP Internal derangement of right shoulder Social History Tobacco Use Types Packs/Day Years Used Date Smoking Tobacco: Every Day Cigarettes Smokeless Tobacco: Never Alcohol Use Standard Drinks/Week Comments Not Currently 0 (1 standard drink = 0.6 oz pur e alcohol) Sex and Gender Information Value Date Recorded Sex Assigned at Not on file Legal Sex Male 8:33 PM EDT Gender Identity Not on file Sexual Orientation Not on file documented as of this encounter Plan of Treatment Not on file documented as of this encounter Procedures Procedure Name Priority Date/Time Associated Diagnosis Comments MR SHOULDER RIGHT WO IV CONTRAST Routine 10/21/2023 9:19 AM EDT Internal derangement of right shoulder documented in this encounter Results * MR shoulder right wo IV contrast (10/21/2023 9:19 AM EDT) Silva Mak NP IMG MRI PROCEDURES Final Resul t documented in this encounter Visit Diagnoses Diagnosis Internal derangement of right shoulder documented in this encounter Care Teams Press Offbearer Relationship Specialty Start Date End Date Lucy Alfaro NP [address] [place] [address] [place] [address] PCP - General Family Medicine 10/14/23 documented as of this encounter
--- OUTSIDE RECORDS SUMMARY | 2024-11-05 08:48 | XMS_ITS | Clinical Summary ---
Author Organization [facility] Address [address] [place] [address] Care Team Providers Care Dock Associate Name Role Phone Brenda Martínez MD Primary Care Provider [phone] Allergies Active Allergy Reactions Criticality Noted Date Comments Penicillins Other,Unknown 03/19/2014 rash Medications aspirin 81 mg chewable tablet in the morning. Active metFORMIN (Glucophage) 500 mg tablet Take 500 mg by mouth in the morning. Active traMADol (Ultram) 50 mg tablet Take 50 mg by mouth every 6 (six) hours if needed. 4 Active clopidogrel (Plavix) 75 mg tabletIndications: Atherosclerosis of [place] coronary artery of [place] heart without angina pectoris Take 1 tablet (75 mg) by mouth once daily as directed. 90 tablet 3 5 10/09/19 26 Active atorvastatin (Lipitor) 80 mg tabletIndications: Atherosclerosis of [place] coronary artery of [place] heart without angina pectoris,Mixed hyperlipidemia Take 1 tablet (80 mg) by mouth at bedtime. 90 tablet 3 5 10/09/19 26 Active atenolol (Tenormin) 25 mg tabletIndications: Atherosclerosis of [place] coronary artery of [place] heart without angina pectoris Take 1 tablet (25 mg) by mouth once daily as directed. 90 tablet 3 5 10/09/19 26 Active atenolol (Tenormin) 25 mg tabletIndications: Atherosclerosis of [place] coronary artery of [place] heart without angina pectoris Take 1 tablet (25 mg) by mouth once daily as directed. 90 tablet 3 5 10/09/19 25 Discontinu ed(Reorder ) atorvastatin (Lipitor) 80 mg tabletIndications: Atherosclerosis of [place] coronary artery of [place] heart without angina pectoris,Mixed hyperlipidemia Take 1 tablet (80 mg) by mouth at bedtime. 90 tablet 3 5 10/09/19 25 Discontinu ed(Reorder ) clopidogrel (Plavix) 75 mg tabletIndications: Atherosclerosis of [place] coronary artery of [place] heart without angina pectoris Take 1 tablet (75 mg) by mouth once daily as directed. 90 tablet 3 5 10/09/19 25 Discontinu ed(Reorder ) Active Problems Problem Noted Date Diagnosed Date Chronic ischemic heart disease 09/19/2023 Overview (09/19/2023): May 27, 2012 Entered By: MOUNIKA BUNN MD Comment: stents x2 CX, mi 2006May 27, 2012 Entered By: MOUNIKA BUNN MD Comment: [facility] cardio Essential hypertension 09/19/2023 Hypertensive heart disease without heart failure 09/19/2023 Nicotine dependence 09/19/2023 Osteoarthritis 09/19/2023 Overview (09/19/2023): May 27, 2012 Entered By: MOUNIKA BUNN MD Comment: left TKA, L3-4 surgery x2 2012 Acute prostatitis 08/03/2022 Anticoagulated 08/03/2022 BPH with urinary obstruction 08/03/2022 Current smoker 08/03/2022 Overview (08/03/2022): Added secondary to documentation in Social History. Dysuria 08/03/2022 Elevated PSA 08/03/2022 Hematuria 08/03/2022 History of kidney stones 08/03/2022 Elevated cholesterol 08/03/2022 Nocturia 08/03/2022 Nephrolithiasis 08/03/2022 Urine frequency 08/03/2022 Disorder of lipid metabolism 10/26/2013 Old myocardial infarction 02/12/2012 Primary cardiomyopathy 08/21/2011 Assessment & Plan (09/19/2023 9:50 AM EDT): Heart failure is unchanged. NYHA Class II. Continue current treatment regimen. Dietary sodium restriction. Encouraged daily monitoring of the patient's weight. Continue current medications. Heart failure will be reassessed in 1 year. Assessment & Plan (08/03/2022 2:24 PM EDT): Normal EF 55-60% Normal diastolic function Currently euvolemic and without exacerbation Coronary atherosclerosis 08/20/2011 Assessment & Plan (09/19/2023 9:54 AM EDT): Coronary artery disease is stable Continue GDMT- ASA, atenolol, lipitor and plavix for life. continue risk factor modifications- heart healthy diet, regular exercise as tolerated and continue all medications. Assessment & Plan (08/03/2022 2:21 PM EDT): Coronary artery disease is stable Continue GDMT- ASA, lipitor, atenolol, and plavix continue risk factor modifications- heart healthy diet, regular exercise as tolerated and continue all medications. Hyperlipidemia 08/20/2011 Assessment & Plan (09/19/2023 6:35 AM EDT): Lipid abnormalities are stable Continue statin Assessment & Plan (08/03/2022 2:21 PM EDT): Continue statin Lipid levels typically well controlled Mitral and aortic incompetence 08/20/2011 Assessment & Plan (09/19/2023 9:53 AM EDT): Noted Mitral, Aortic, tricuspid and pulmonic valve regurg- no concerning symptoms today. Will continue to monitor - d/w pt to call office for increased SOB, orthopnea, palpitations, syncope or chest pain. Assessment & Plan (08/03/2022 2:22 PM EDT): Reviewed echocardiogram with pt and valvular regurg remains mild TV-MV and AO valve. Encounters Date Type Department Care Team Description 10/08/[address] [phone] Nu Woods MA Atherosclerosis of [place] coronary artery of [place] heart without angina pectoris; Mixed hyperlipidemia 08/26/2024 11:20 AM EDT Office Visit [address] [phone] Bereket Hendricks CNP Atherosclerosis of [place] coronary artery of [place] heart without angina pectoris (Primary Dx); Mixed hyperlipidemia; Mitral and aortic incompetence; Tobacco abuse 08/14/2024 Orders Only [facility] [address] [place] [address] Kylee Contreras MA Mitral valve insufficiency and aortic valve insufficiency from Last 3 Months Family History Medical History Relation Name Comments Coronary artery disease Other Relation Name Status Comments Father Mother Other Social History Tobacco Use Types Packs/Day Years Used Date Smoking Tobacco: Every Day Cigarettes Smokeless Tobacco: Never Tobacco Cessation:Ready to Q uit: Not Asked; Counseling Given: Not Answered Alcohol Use Standard Drinks/Week Comments Not Currently 0 (1 standard drink = 0.6 oz pur e alcohol) [place] Safety & Environment Answer Date Rec orded Fear of Current or Ex-Partner Not on file Emotionally Abused Not on file 05/23/2023 Physically Abused Not on file 05/23/2023 Sexually Abused Not on file 05/23/2023 Physically or Sexually Abused Not on file Sex and Gender Information Value Date Recorded Sex Assigned at Not on file Legal Sex Male 9:43 PM EDT Gender Identity Not on file Sexual Orientation Not on file Last Filed Vital Signs Vital Sign Reading Time Taken Comments Blood Pressure 134/78 08/26/2024 10:55 AM EDT Pulse 65 08/26/2024 10:55 AM EDT Temperature - - Respiratory Rate - - Oxygen Saturation 98% 08/26/2024 10:55 AM EDT Inhaled Oxygen Concentration - - Weight 70.3 kg (155 lb) 08/26/2024 10:55 AM EDT Height 177.8 cm (5' 10 ) 08/26/2024 10:55 AM EDT Body Mass Index 22.24 08/26/2024 10:55 AM EDT Plan of Treatment Health Maintenance Due Date Last Done Comments CT Colonography 1950 Colonoscopy 1950 Colorectal Cancer Screening 1950 FIT-DNA 1950 FIT 1950 FOBT 1950 Medicare Annual Wellness (AWV) 1950 Sigmoidoscopy 1950 Depression Screening 1961 Fall Risk Screening 2014 COVID-19 Vaccine ( season) 2023 01/24/2023, 01/13/2022, 07/13/2021, Additional history exists Influenza Vaccine (#1) 2024 , 01/21/2023, 12/30/2021, Additional history exists Adult Tetanus 06/12/2025 06/13/2015 Pneumococcal Vaccine: 50+ Years Completed 08/24/2022, 05/13/2017, 06/13/2015, Additional history exists Zoster Vaccines Completed 10/25/2022, 08/24/2022 HIB Vaccines Aged Out No longer eligi ble based on patient's age to complete this topic HPV Vaccines Aged Out No longer eligi ble based on patient's age to complete this topic IPV Vaccines Aged Out No longer eligi ble based on patient's age to complete this topic Meningococcal B Vaccine Aged Out No l onger eligible based on patient's age to complete this topic Meningococcal Vaccine Aged Out No terry lori eligible based on patient's age to complete this topic Rotavirus Vaccines Aged Out No longer eligible based on patient's age to complete this topic Insurance [facility]ICARE [facility] Care Teams Dock Associate Relationship Specialty Start Date End Date Brenda Martínez MD [address] [facility] [address] PCP - General 09/19/23
--- NOTE | 2024-11-05 08:49 | US_ITS ---
The [address] [address] Patient Name: TANK VILLA MRN: [id number] date: 1950 Sex: M Assigned Patient Location: [place] Current Patient Location: [place] Accession/Order Number: [id number] Exam Date: 11/05/2024 09:36 Report Date: 11/05/2024 09:44 At the request of: NILSON STUBBS Procedure: US extremity nonvascular LT LIMITED ULTRASOUND - left lower extremity COMPARISON: None CLINICAL DATA: Lump at the mid left lozoya for the past week. Blood thinners. No reported trauma or bruising. Real-time ultrasound evaluation of the area of clinical concern was performed. There is a elongate subcutaneous anechoic area suggesting fluid within the subcutaneous fat measuring approximately 20 x 3 x 8 mm in size. This is compressible and shows no color flow. This is nonspecific and could be edema. Although hematoma and abscess are in the differential, they are thought less likely with the history provided. Correlation and follow-up are suggested. US/US extremity nonvascular LT IMPRESSION: NONSPECIFIC ELONGATE SUBCUTANEOUS FLUID COLLECTION AT THE SITE OF PALPABLE CONCERN, DESCRIBED. Impression dictated by: Sosa Cornelius M.D. 11/05/2024 9:44 AM Dictation Location: [facility] [employer] [employer] Electronically authenticated by: [id number] Date: 11/05/2024 09:44
== END 2024-11-05 08:47 | disposition home or self-care (01) ==
LOC: US 08:46
PROVIDERS: PCP Nurse Practitioner Family; Visit Provider Nurse Practitioner Family
DX: R22.42 Localized swelling, mass and lump, left lower limb (principal)
CPT/HCPCS: 76882

== ENCOUNTER 2024-12-02 08:03 | Outpatient (OUT) | payer MEDICARE, OTHER, SELFPAY ==
--- OUTSIDE RECORDS SUMMARY | 2024-11-19 07:00 | XMS_ITS | Continuity of Care Document ---
Author Name [facility] Organization [facility] Care Team Providers Care Receptionist Clerk Name Role Phone [facility] Unavailable Unavailable Problems Combined list of problems from Department of Defense and Veterans Affairs facilities. It does not include entries that were removed or entered in error. Problem Status Onset Date Problem Type Date of Resolution Comments Source CAD - Coronary Artery Disease (SCT [id number]) Active Condition TO [facility] Coronary artery disease Active Condition [facility] Coronary Artery Disease * (ICD-9-CM 414.9) Active Condition May 27, 2012 Entered By: MATHEUS BUNN MD Comment: stents x2 CX, mi 2012 Entered By: MATHEUS BUNN MD Comment: [facility] cardio [facility] DJD * (ICD-9-CM 715.90) Active Condition May 27, 2012 Entered By: MATHEUS BUNN MD Comment: left TKA, L3-4 surgery x2 2011 [facility] Essential hypertension Active Condition [facility] Exposure to Potentially Hazardous Substance ([facility] [id number]) Active Condition [facility] H/O: urinary stone Active Condition [facility] HTN - Hypertension (SCT 43532102) Active Condition [facility] Hypercholesterolemia Active Condition [facility] Hyperlipidemia (SCT 78417231) Active Condition [facility] Hypertensive heart disease Active Condition [facility] Hypertensive heart disease without congestive heart failure Active Condition [facility] Nicotine dependence Active Condition TO [facility] Tobacco Use Disorder * (ICD-9-CM 305.1) Active Condition [facility] Tobacco User ([facility] [id number]) Active Condition [facility] Diagnosis: ICD-10-CM I25.10 Aths[place] heart disease of [place] coronary artery w/o ang pctrs Active Diagnosis [facility] Medications Combined list of outpatient medications from Department of Defense and Veterans Affairs facilities.Medications provided include 1) outpatient medications from the last 15 months, and 2) patient-reported medications. Medication Details Route Status Patient Instructions Prescription Expires Prescription Number Last Dispense Date Ordering Provider Order Date Order Qty Source ASCORBIC ACID TAB TAKE EVERY DAY ACTIVE MOUNIKA BUNN MD 2012 [facility] ASPIRIN 81MG TAB,EC TAKE ONE TABLET BY MOUTH EVERY DAY ORAL ACTIVE MOUNIKA BUNN MD 2012 [facility] ATENOLOL 25MG TAB TAKE ONE TABLET BY MOUTH EVERY DAY ORAL ACTIVE MOUNIKA BUNN MD 2012 [facility] ATORVASTATI N [place] 80MG TAB TAKE ONE TABLET BY MOUTH EVERY DAY ORAL ACTIVE MOUNIKA BUNN MD 2012 [facility] CLOPIDOGREL BISULFATE 75MG TAB TAKE ONE TABLET BY MOUTH EVERY DAY ORAL ACTIVE MOUNIKA BUNN MD 2012 [facility] GLUCOSAMINE CAP/TAB TAKE BY MOUTH ORAL ACTIVE MOUNIKA BUNN MD 2012 [facility] HYDROCODONE 5MG/ACETAMI NOPHEN 325MG TAB TAKE ONE TABLET BY MOUTH ORAL ACTIVE MOUNIKA BUNN MD 2012 [facility] MULTIVITAMI NS/MINERALS TAB TAKE BY MOUTH EVERY DAY ORAL ACTIVE MOUNIKA BUNN MD 2012 [facility] Allergies, Adverse Reactions, Alerts Combined list of allergies from Department of Defense and Veterans Affairs facilities. It does not include entries that were removed or entered in error. Substance Category Reaction Severity Reaction type Status Date Reported Comments Source PENICILLIN Propensity to adverse reactions to drug (finding) Eruption active 05/27/2012 [facility] Immunizations Combined list of available immunizations from the Department of Defense and Veterans Affairs facilities. Immunization Series Date Given Administered By Site Reaction Lot Number CVX Code Drug Mysql Dba Status Comments Source INFLUENZA, HIGH-DOSE, TRIVALENT, PF 2023 135 complet ed HISTORICA L INFORMATI ON - FROM OTHER REGISTRY, [facility] RSV, RECOMBINANT, PROTEIN SUBUNIT RSVPREF3, ADJUVANT RECONSTITUTED , 0.5 ML, PF 1 2022 303 complet ed HISTORICA L INFORMATI ON - FROM OTHER REGISTRY, [facility] COVID-19 (PFIZER), MRNA, LNP-S, PF, HERNAN-SUCROSE, 30 MCG/0.3 ML (AGES 12+ YEARS) 6 2022 309 complet ed HISTORICA L INFORMATI ON - FROM OTHER REGISTRY, [facility] INFLUENZA, HIGH-DOSE, QUADRIVALENT, PF 2022 197 complet ed HISTORICA L INFORMATI ON - FROM OTHER REGISTRY, [facility] ZOSTER RECOMBINANT 2 2022 187 complet ed HISTORICA L INFORMATI ON - FROM OTHER PROVIDER, Lot#: [id number] [facility] PNEUMOCOCCAL CONJUGATE PCV20, POLYSACCHARID E [id number] CONJUGATE, ADJUVANT, PF 3 2022 216 complet ed HISTORICA L INFORMATI ON - FROM OTHER REGISTRY, [facility] ZOSTER RECOMBINANT 1 2022 187 complet ed HISTORICA L INFORMATI ON - FROM OTHER PROVIDER, [facility] COVID-19 ([facility]), MRNA, LNP-S, BIVALENT, PF, 30 MCG/0.3 ML DOSE 5 2021 300 complet ed HISTORICA L INFORMATI ON - FROM OTHER REGISTRY, [facility] INFLUENZA, UNSPECIFIED FORMULATION 2021 88 complet ed HISTORICA L INFORMATI ON - FROM OTHER PROVIDER, [facility] INFLUENZA, HIGH-DOSE, QUADRIVALENT, PF 8 2021 197 complet ed HISTORICA L INFORMATI ON - FROM OTHER REGISTRY, [facility] COVID-19 (PFIZER), MRNA, LNP-S, PF, 30 MCG/0.3 ML DOSE 3 2021 208 complet ed [facility] COVID-19 (PFIZER), MRNA, LNP-S, PF, 30 MCG/0.3 ML DOSE, HERNAN-SUCROSE (AGES 12+ YEARS) 4 2021 217 complet ed HISTORICA L INFORMATI ON - FROM OTHER REGISTRY, [facility] INFLUENZA, ADJUVANTED, QUADRIVALENT, PF 7 2020 205 complet ed HISTORICA L INFORMATI ON - FROM OTHER REGISTRY, [facility] INFLUENZA, UNSPECIFIED FORMULATION 2020 88 complet ed [facility] COVID-19 (PFIZER), MRNA, LNP-S, PF, 30 MCG/0.3 ML DOSE 3 2020 208 complet ed [facility] COVID-19 (PFIZER), MRNA, LNP-S, PF, 30 MCG/0.3 ML DOSE 2 2020 208 complet ed [facility] COVID-19 (PFIZER), MRNA, LNP-S, PF, 30 MCG/0.3 ML DOSE 1 2020 208 complet ed [facility] INFLUENZA, INJECTABLE, QUADRIVALENT, PRESERVATIVE FREE 2018 150 complet ed 02, [facility] red [facility] Clin[facility] (NPI=Not Provided) . Partner 69 Lot#: [id number] Mfr: Maida PEÑALOZA [facility] PNEUMOCOCCAL POLYSACCHARID E PPV23 2017 33 complet ed merck, [id number], exp 2018august 13 [facility] INFLUENZA, SPLIT VIRUS, QUADRIVALENT, PF 5 2016 150 complet ed HISTORICA L INFORMATI ON - FROM OTHER REGISTRY, [facility] INFLUENZA (HISTORICAL) 2016 88 complet ed [facility] INFLUENZA (HISTORICAL) 2015 88 complet ed [facility] PNEUMOCOCCAL CONJUGATE PCV 13 2015 133 complet ed [facility] TDAP 2015 115 complet ed [employer] [id number] [facility] INFLUENZA, SPLIT VIRUS, TRIVALENT, PRESERVATIVE 4 2014 141 complet ed HISTORICA L INFORMATI ON - FROM OTHER REGISTRY, [facility] INFLUENZA (HISTORICAL) 2014 88 complet ed [facility] INFLUENZA, SEASONAL, INTRADERMAL, PRESERVATIVE FREE 2014 144 complet ed HISTORICA L INFORMATI ON - FROM OTHER REGISTRY, [facility] PNEUMOCOCCAL POLYSACCHARID E PPV23 2014 33 complet ed HISTORICA L INFORMATI ON - FROM OTHER REGISTRY, [facility] INFLUENZA, SPLIT VIRUS, TRIVALENT, PRESERVATIVE 3 2013 141 complet ed HISTORICA L INFORMATI ON - FROM OTHER REGISTRY, [facility] FLU,3 YRS (HISTORICAL) 2013 88 complet ed [facility] FLU,3 YRS (HISTORICAL) 2012 88 complet ed [facility] INFLUENZA, WHOLE 2 2012 16 complet ed HISTORICA L INFORMATI ON - FROM OTHER REGISTRY, [facility] ZOSTER (varicella zoster) (HISTORICAL) 2012 complet ed [facility] PNEUMOCOCCAL, UNSPECIFIED FORMULATION 2011 109 complet ed locally [facility] FLU,3 YRS (HISTORICAL) 2011 88 complet ed [facility] INFLUENZA, WHOLE 1 2010 16 complet ed HISTORICA L INFORMATI ON - FROM OTHER REGISTRY, [facility] Vital Signs Combined list of inpatient and outpatient Vital Signs from Department of Defense and Veterans Affairs, ranging from 12 months to all on record, depending upon the facility. Vital Sign Value Date Comments Source PAIN 0 11/19/2024 10:49:00 JO[address] [facility] Encounters Combined list of: 1) Encounters from Department of Veterans Affairs facilities going backup to the last 18 months, not all [place] inpatient encounters are included; 2) Encounters from the Department of [facility] facilities going backup to 280 months. 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 Social History Type Response Date Comment Sourc e Tobacco smoking status NHIS VA-TOBACCO USE EVERY DAY CIGARETTES 11/19/2024 [facility] History of tobacco use [place]-TOBACCO SCREEN FOLLOW-UP 11/19/2024 [facility] History of tobacco use VA-TOBACCO USER EVERY DAY 4 [facility] History of tobacco use VA-TOBACCO USER EVERY DAY 3 [facility] History of tobacco use VA-TOBACCO USER EVERY DAY 2 [facility] History of tobacco use VA-TOBACCO USE [place] 30 MIN OF WAKEUP 11/09/2020 [facility] 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 tobacco 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 [facility] History of tobacco use CURRENT TOBACCO USER 05/13/2017 [facility] History of tobacco use CURRENT TOBACCO USER 05/15/2016 [facility] History of tobacco use TOBACCO SCREEN TACTICS WORKBOOK 06/13/2015 [facility] History of tobacco use CURRENT TOBACCO USER 06/05/2014 [facility] History of tobacco use CURRENT TOBACCO USER 05/13/2013 [facility] History of tobacco use CURRENT TOBACCO USER 05/27/2012 [facility]
--- OUTSIDE RECORDS SUMMARY | 2024-11-19 07:00 | XMS_ITS | Encounter Summary ---
Author Name [facility] [place] [facility] Address [address] [place] [address] Care Team Providers Care Accounts Manager Name Role Phone IRMA GUDINO Primary Care Provider Unavailabl e Insurance Providers: All historical and current Section Date Range: From patient's date of to the date document was created. This section includes the names of all active insurance providers for the patient. Insurance Provider Type of Coverage Plan Name Start of Policy Coverage End of Policy Coverage Group Number Member ID Insurance Provider's Telephone Number Policy Riddle's Name Patient's Relationship to Policy Riddle MEDICARE (WNR) MEDICARE (M) PART A Dec 30, 2013 PART A [id number] HELD,BRUC E PATIENT MEDICARE (WNR) MEDICARE (M) PART B Dec 30, 2013 PART B [id number] HELD,BRUC E PATIENT MEDICARE (WNR) MEDICARE (M) PART A Dec 30, 2013 PART A [id number] HELD,BRUC E PATIENT MEDICARE (WNR) MEDICARE (M) PART B Dec 30, 2013 PART B [id number] HELD,BRUC E PATIENT MEDICARE (WNR) MEDICARE (M) PART A Dec 30, 2013 PART A [id number] HELD,BRUC E PATIENT MEDICARE (WNR) MEDICARE (M) PART B Dec 30, 2013 PART B [id number] HELD,BRUC E PATIENT MEDICARE (WNR) MEDICARE (M) PART A Dec 30, 2013 PART A [id number] HELD,BRUC E PATIENT MEDICARE (WNR) MEDICARE (M) PART B Dec 30, 2013 PART B [id number] HELD,BRUC E PATIENT MEDICARE PART D (WNR) PRESCRIPT ION PART D Dec 30, 2013 PART D [id number] HELD,BRUC E PATIENT Selected Encounter This section includes the information on record at [place] for the Encounter. Date/Time Encounter Type Encounter Description Reason Provider Source Nov 19, 2024 11:00 AM OFFICE O/P EST MOD 30 MIN PRIMARY CARE/MEDICINE ICD-10-CM I25.10 [place] heart disease of [place] coronary artery w/o IRMA Garcia NP To Encounter Template Text not used by [place] Assessments - Encounter Diagnoses This section includes the primary and secondary diagnoses documented for the Encounter. Date/Time Primary/Secondary Diagnosis Diagnosis Name Provider Source Nov 19, 2024 11:15 AM PRIMARY [place] heart disease of [place] coronary artery w/o IRMA Garcia NP [facility] Nov 19, 2024 11:15 AM SECONDARY Essential (primary) hypertension IRMA GUDINO NP [facility] Nov 19, 2024 11:15 AM SECONDARY Hyperlipidemia, unspecified IRMA GUDINO NP [facility] Nov 19, 2024 11:15 AM SECONDARY longterm (current) use of anticoagulants IRMA GUDINO NP [facility] Nov 19, 2024 11:15 AM SECONDARY Tobacco use IRMA GUDINO NP [facility] Social History: Smoking Status (Most current) and Tobacco Use (All prior to encounter date) This section includes the most current, and the historical, smoking and tobacco- related health factors from the [place] facility where the Encounter took place. Current Smoking Status This section includes the most current smoking, or tobacco-related health factor, from the [place] facility where the Encounter took place. Date/Time Current Smoking Status Comment Juan Jose chau Nov 19, 2024 11:00 AM VA-TOBACCO NEVER USED OTHER TYPE [facility] Tobacco Use History This section includes a history of the smoking, or tobacco-related health factors, that were collected on or before the date of the Encounter. The data comes from the [place] facility where the Encounter took place. Date/Time Smoking Status/Tobacco Use Comment F acility Nov 19, 2024 11:00 AM VA-TOBACCO SCREEN FOLLOW-UP [facility] Nov 19, 2024 11:00 AM VA-TOBACCO USE ADVICE [facility] Nov 19, 2024 11:00 AM VA-TOBACCO USE STACKER TENDER NO [facility] Nov 19, 2024 11:00 AM VA-TOBACCO USE EVERY DAY CIGARET RADHA [facility] Nov 19, 2024 11:00 AM VA-TOBACCO USE MED NO [facility] Nov 28, 2023 09:30 AM VA-TOBACCO USE 30 YEARS OR MORE [facility] Nov 28, 2023 09:30 AM VA-TOBACCO USE ADVICE [facility] Nov 28, 2023 09:30 AM VA-TOBACCO USE STACKER TENDER NO [facility] Nov 28, 2023 09:30 AM VA-TOBACCO USE MED NO [facility] Nov 28, 2023 09:30 AM VA-TOBACCO USE [place] 30 MIN OF WAKE UP [facility] Nov 28, 2023 09:30 AM VA-TOBACCO USER EVERY DAY [facility] Nov 20, 2022 10:30 AM VA-TOBACCO USE 30 YEARS OR MORE [facility] Nov 20, 2022 10:30 AM VA-TOBACCO USE ADVICE [facility] Nov 20, 2022 10:30 AM VA-TOBACCO USE STACKER TENDER NO [facility] Nov 20, 2022 10:30 AM VA-TOBACCO USE MED NO [facility] Nov 20, 2022 10:30 AM VA-TOBACCO USE [place] 30 MIN OF WAKE UP [facility] Nov 20, 2022 10:30 AM VA-TOBACCO USER EVERY DAY [facility] Nov 28, 2021 08:30 AM VA-TOBACCO USE 30 YEARS OR MORE [facility] Nov 28, 2021 08:30 AM VA-TOBACCO USE ADVICE [facility] Nov 28, 2021 08:30 AM VA-TOBACCO USE STACKER TENDER NO [facility] Nov 28, 2021 08:30 AM VA-TOBACCO USE MED NO [facility] Nov 28, 2021 08:30 AM VA-TOBACCO USE [place] 30 MIN OF WAKE UP [facility] Nov 28, 2021 08:30 AM VA-TOBACCO USER EVERY DAY [facility] Nov 09, 2020 08:30 AM VA-TOBACCO USE 30 YEARS OR MORE [facility] Nov 09, 2020 08:30 AM VA-TOBACCO USE ADVICE [facility] Nov 09, 2020 08:30 AM VA-TOBACCO USE STACKER TENDER NO [facility] Nov 09, 2020 08:30 AM VA-TOBACCO USE MED NO [facility] Nov 09, 2020 08:30 AM VA-TOBACCO USE [place] 30 MIN OF WAKE UP [facility] Nov 09, 2020 08:30 AM VA-TOBACCO USER EVERY DAY [facility] May 12, 2018 09:23 AM VA-TOBACCO DOESNT USE [place] 30 MIN WAKEUP [facility] May 12, 2018 09:23 AM VA-TOBACCO USE 30 YEARS OR MORE [facility] May 12, 2018 09:23 AM VA-TOBACCO USE ADVICE [facility] May 12, 2018 09:23 AM VA-TOBACCO USE STACKER TENDER NO [facility] May 12, 2018 09:23 AM VA-TOBACCO USE MED NO [facility] May 12, 2018 09:23 AM VA-TOBACCO USER EVERY DAY [facility] May 13, 2017 09:29 AM CURRENT TOBACCO USER [facility] May 13, 2017 09:29 AM TOBACCO OFFERRED STOP SMOKING CL [facility] May 15, 2016 08:49 AM CURRENT TOBACCO USER [facility] May 15, 2016 08:49 AM TOBACCO OFFERRED STOP SMOKING CL [facility] Jun 13, 2015 03:29 PM CURRENT TOBACCO USER [facility] Jun 13, 2015 03:29 PM TOBACCO OFFERRED STOP SMOKING CL [facility] Jun 13, 2015 03:29 PM TOBACCO SCREEN FY09 TACTICS WORK BOOK [facility] Jun 05, 2014 08:54 AM CURRENT TOBACCO USER [facility] Jun 05, 2014 08:54 AM TOBACCO OFFERRED STOP SMOKING CL [facility] May 13, 2013 03:17 PM CURRENT TOBACCO USER [facility] May 27, 2012 10:54 AM CURRENT TOBACCO USER [facility] May 27, 2012 10:54 AM SMOKER - OFFERRED MEDS (PROVIDER ) [facility] May 27, 2012 10:54 AM TOBACCO OFFERRED STOP SMOKING CL [facility] Encounter Notes: All associated encounter notes This section contains the clinical notes associated to the Encounter. 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 Patient gets all his medication through his outside PCM and his care. Discussed with patient that common side effects of anticoagulation can be stomach upset, loss of appetite, bloating, and diarrhea. Many food and drugs can increase or decrease the extra anticoagulants and patient should be aware of food getting fear with their anticoagulants. Discussed with patient that vitamin K, vitamin E, fish oil, herbal products, smoking and alcohol can also affect anticoagulant activity. Also discussed with patient the importance of taking anticoagulants at the same time each day. Hypertension Blood pressure within normal limits at today's visit. Encouraged patient to continue with home monitoring, low sodium diet and if any issues or concerns return to clinic for further evaluation. Medication will be refilled at today's visit if warranted. Hyperlipidemia Discussed with patient to continue with dietary modifications and to increase lean meats, fresh fruits, and vegetables. Patient gets all his medication through his outside PCM and his care. Tobacco Abuse Discussed with patient when they are ready to quit smoking we had many options available to them here at the [place]. Discussed with patient there were pills, patches, gum, and lozenges. We could also do cognitive-based treatment and acupuncture. Discussed with patient to return call to clinic if they were interested in any of the above treatments and we will get them started. Patient gets his AAA Screening and LDCT through outside PCM. Preventative Measures Encourage patient to follow-up with all recommended vaccinations and immunizations. Encourage patient to complete all preventative testing and procedures appropriate for age. Discussed with patient we will get annual lab work at today's visit. Discussed with patient we will call for any abnormal lab work. Encourage patient to continue with healthy living to include diet and exercise. Return to Clinic - Discussed with patient to follow up at clinic in 12 months. Discussed with patient to return to clinic sooner for any issues or concerns. Encouraged patient to reach out to PCM and RNCM via secure messaging in [employer] stephanie. Patient verbalized understanding and denied any questions or concerns and verbalized understanding of treatment plan. Encounter type: [id number]. Time (F2F + Non-F2F): 30 min. RETURN VISIT: - Return visit in: 12 months 12 month Annual Follow UP Reason for encounter: Annual Visit CO-MANAGED INFORMATION: - PCM: Lucy Alfaro - Cardiology: Dr. Domingo - Urology: VAN Ball HPI: 74 year old male presents for Annual Visit. Patient has multiple outside providers and is comanaged for the following conditions: Hypertension Currently taking Atenolol daily. Coronary Artery Disease S/P Stents/ [facility] Use of Anticoagulants States he sees outside Cardiology and had recent ECHO. Hyperlipidemia Currently taking Atorvastatin daily. PAST MEDICAL HISTORY: Coronary Artery Disease s/p stents X2 2006 Hypertension Hyperlipidemia Past Surgical History Bilateral Rotator Cuff Repair Back Surgery Left Knee Replacement Bilateral Foot Surgery SOCIAL HISTORY - ETOH Use: Current ETOH: No - Tobacco use: Current Smoker: Yes. - Patient smokes: 1 Pack(s) per day for: 55 years --> Total pack years: 56.00 - Marijuana use: No - Illicit drug use: Never - Marital status: - Residence: Home with other: - Occupation: Retired - Hx: [employer] 1969 MEDICATIONS RECONCILIATION: ASCORBIC ACID TAB - DAILY ASPIRIN TAB,EC - 81mg PO DAILY ATENOLOL TAB - 25mg PO DAILY ATORVASTATIN TAB - 80mg PO DAILY CLOPIDOGREL BISULFATE TAB - 75mg PO DAILY GLUCOSAMINE CAP/TAB - PO MULTIVITAMINS/MINERALS TAB - PO DAILY EXAM VITAL SIGNS: Date@Time[Site] BP HR Resp %O2 Pain Wt(kg) BMI Temp(C) 11/19/24 10:53[506] 116/75 66 17 98 0 68.5 22 37 Units mmHg /min /min % kg C PHYSICAL EXAM: Gen:(+) Oriented x3 HEENT:(+) TM Intact Neck:(+) Supple CV:(+) RRR Lungs:(+) CTAB Abd:(+) Soft Gait - Walks by self Neuro - CN Intact HEALTH MAINTENANCE Immunization History: - COVID: 01/24/23 - FLU: 01/28/24 - PCV-13: 06/13/15 - PCV-20: 08/24/22 - PPSV23: 05/13/17 - RSV: 03/19/23 - SHINGLES: 06/05/12 - SHINGRIX: 10/25/22 08/24/22 - TDAP: 06/13/15 - PNEUMOCOCCAL, UNSPECIFIED: 03/01/12 AAA Screening Plan: perform AAA Screening every undefined years. Patient declined. Re-address next visit. Colon Cancer Screening Plan: Patient declined. Re-address next visit. Lung Cancer Screening Plan: perform Lung cancer screening every undefined years. currently being treated by outside PCM. States he had a LDCT completed this past year. Prostate Cancer Screening Plan: perform PSA Test every undefined years. Patient declined. Re-address next visit. P-MEDICATION RECONCILIATION: Completed. Tobacco Use Follow-Up: Patient was advised to stop smoking and/or using other tobacco products. Advised patient that a combination of behavioral counseling and FDA-approved cessation medications is the most effective way to ensure their success in stopping to smoke and/or using other tobacco products. The patient was not interested in additional information about behavioral counseling and other support strategies discussed. Informed patient that medications can help with cravings and withdrawal symptoms, and they greatly increase the chances of successfully stopping your tobacco use. The patient was not interested in a prescription for tobacco cessation medications. P POSITIVE FALL SCREEN: POSITIVE FOR FALL ASSESSMENT Reminder Factors 11/19/2024 Pt Reported Falling In Past Yr CIRCUMSTANCES OF THE FALL: how fall(s) occurred; patient injury sustained, treatment required for injury. states he fell in 2023 MEDICATIONS PATIENT IS TAKING: review of medications which may have contributed to patient fall or mobility disorder. Medications reviewed for any changes as related to fall. RELEVANT CHRONIC CONDITIONS: diseases/disorders likely to contribute to patient fall risk. happened in 2023 DIAGNOSTIC PLANS/THERAPEUTIC RECOMMENDATIONS: changes in patient medications, use of adaptive/assistive equipment, restriction in environment for congnitively impaired patients, adaptation of living conditions to decrease fall risk, i.e., installation of handrails. Happened in 2023 DOCUMENTATION OF ACTIONS TAKEN: No actions needed. Initial Lung Cancer Screen (Provider): No clinical exclusions, patient is a current candidate for the lung cancer screening program. Patient declines lung cancer screening THIS YEAR ONLY. Lung cancer screening information provided. Comment: States he gets this through his outside PCM annually Patient currently uses cigarettes and does not want assistance with smoking cessation at this time. /soumya/ IRMA GUDINO TOOL MACHINIST Nurse Practitioner, [facility] Signed: 11/19/2024 11:16 IRMA GUDINO NP [facility] Nov 19, 2024 10:47 AM PRIMARY CARE NURSI NG NOTE: LOCAL TITLE: PRIMARY CARE PREVENTIVE HEALTH STANDARD TITLE: PRIMARY CARE NURSING NOTE DATE OF NOTE: NOV 19, 2024@10:47 ENTRY DATE: NOV 19, 2024@10:47:59 AUTHOR: KENDY STEPHENS COSIGNER: URGENCY: STATUS: COMPLETED S; Chief complaint/reason for annual appointment O: Vital signs enered. P: To see a provider Irma Gudino NP COVID-19 Immunization: Refused Pfizer Monovalent COVID-19 vaccine Immunization: COVID-19 (PFIZER), MRNA, LNP-S, PF, HERNAN-SUCROSE, 30 MCG/0.3 ML (AGES 12+ YEARS) Refusal Reason: PATIENT DECISION Patient refuses all immunization(s) in the COVID-19 group Date Documented: 11/19/24 10:48 RHS Screen: RHS Screen Session Format: Face to Face Environmental Check Upon inquiry, the individual reports that the environment is safe to proceed. Informed Consent to Screen and Document The individual consents to proceed with screening. The individual consents to documentation of responses. PRIMARY SCREEN: In the past 12 months, how often did a current or former intimate partner (e.g., boyfriend, girlfriend, , , sexual partner): 1. Scream or curse at you Never 2. Insult or talk down to you Never 3. Threaten you with harm Never 4. Physically hurt you Never 5. Force or pressure you to have sexual contact against your will, or when you were unable to say no Never The HITS tool (items 1-4 above) is [place] copyright protected by Juan M Armijo MD, and the user has full rights to use it throughout the [place] system. PRIMARY SCREEN RESULT: The Primary Screen is NEGATIVE. The individual answered never to all forms of IPV above (i.e., answered never to all 5 items) The individual accepts education and/or resources: No EDUCATION: Other: safe Comments: safe N-Pain Screen: Are you currently experiencing pain? No: Pain Score: 0 Alcohol Use Screen (AUDIT-C): Alcohol Screen: SCREEN FOR ALCOHOL (AUDIT-C) An alcohol screening test (AUDIT-C) was negative (score=0). 1. How often did you have a drink containing alcohol in the past year? Consider a drink to be a 12 ounce can or bottle of regular beer, 8 ounces of malt liquor, a 5 ounce glass of table wine, or a 1.5 ounce shot of liquor (like scotch, gin, or vodka). Never 2. How many drinks containing alcohol did you have on a typical day when you were drinking in the past year? Response not required due to responses to other questions. 3. How often did you have six or more drinks on one occasion in the past year? Response not required due to responses to other questions. Tobacco Use Screening: The patient smokes cigarettes every day. The patient has never used other types of tobacco. N-MEDICATION RECONCILIATION: Review of medications and allergies at the time of this encounter included: Local and remote allergies, active and pending prescriptions dispensed from this [facility] (local) and dispensed from another [place] or [place] facility (remote) as well as local inpatient and clinic medications (IMOs), locally documented non-VA medications and local prescriptions that have or been discontinued in the past 90 days. If a category is not listed below, it means there were no known relevant local and/or remote medications and/or allergies. The patient/family member received an updated list of current medications. Local & Remote Allergies: PENICILLIN Active Outpatient Medications (including Supplies): Non-VA ASCORBIC ACID TAB EVERY DAY ACTIVE Non-VA ASPIRIN 81MG EC TAB 81MG MOUTH EVERY DAY ACTIVE Non-VA ATENOLOL 25MG TAB 25MG MOUTH EVERY DAY ACTIVE Non-VA ATORVASTATIN CALCIUM 80MG TAB 80MG MOUTH EVERY DAY ACTIVE Non-VA CLOPIDOGREL BISULFATE 75MG TAB 75MG MOUTH EVERY DAY ACTIVE Non-VA GLUCOSAMINE CAP/TAB MOUTH ACTIVE Non-VA HYDROCODONE 5MG/ACETAMINOPHEN 325MG TAB 1 TABLET ACTIVE MOUTH Non-VA MULTIVITAMINS/MINERALS TAB MOUTH EVERY DAY ACTIVE Depression Screening: Perform PHQ-2 A PHQ-2 screen was performed. The score was 0 which is a negative screen for depression. Over the past two weeks, how often have you been bothered by the following problems? 1. Little interest or pleasure in doing things Not at all 2. Feeling down, depressed, or hopeless Not at all N-Stress Discussed ([place]AAHS): DENIES experiencing substantial stress or worry in the past month. Suicide Screen: C-SSRS Screening [place] Suicide Severity Rating Scale (C-SSRS) screener 1. Over the past month, have you wished you were or wished you could go to sleep and not wake up? No 2. Over the past month, have you had any actual thoughts of killing yourself? No 3. Over the past month, have you been thinking about how you might do this? Response not required due to responses to other questions. 4. Over the past month, have you had these thoughts and had some intention of acting on them? Response not required due to responses to other questions. 5. Over the past month, have you started to work out or worked out the details of how to kill yourself? Response not required due to responses to other questions. 6. If yes, at any time in the past month did you intend to carry out this plan? Response not required due to responses to other questions. 7. In your lifetime, have you ever done anything, started to do anything, or prepared to do anything to end your life (for example, collected pills, obtained a gun, gave away valuables, went to the roof but didn't jump)? No 8. If YES, was this within the past 3 months? Response not required due to responses to other questions. N-FRAIL ELDERLY SCREEN (ACOVE): FALLS HISTORY: Has the patient fallen within the past 12 months? YES. FUNCTIONAL ASSESSMENT: Index of [place] in Activities of Daily Living ACTIVITIES: INDEPENDENCE (1 point) NO supervision, direction, or personal assistance. DEPENDENCE (0 points) WITH supervision, direction, personal assistance, OR total care. Points: 1 BATHING: (1 point) Baths self completely or needs help in bathing only a single a single part of the body such as the back, genital area or disabled extremity. (0 point) Needs help with bathing more than one part of the body, getting in or out of the tub or shower. Requires total bathing. Points: 1 DRESSING: (1 point) Gets clothes from closets and drawers and puts on clothes and outer garments complete with fasteners. May complete with fasteners. May have help tying shoes. (0 point) Needs help withdressing self or needs to be completely dressed. Points: 1 TRANSFERRING: (1 point) Moves in and out of bed or chair unassisted. Mechanical transferring aides are acceptable. (0 point) Needs help in moving from bed to chair or requires a complete transfer. Points: 1 TOILETING: (1 point) Goes to toilet, gets on and off, arranges clothes, cleans genital area without help. (0 point) Needs help transferring to the toilet, cleaning self or uses bedpan or commode. Points: 1 CONTINENCE: (1 point) Exercises complete self control over urination and defecation. (0 point) Is partially totally incontinent of bowel or bladder. Points: 1 Patient satisfied with current status FEEDING: (1 point) Gets food from plate into mouth without help Preparation of food may be done by another person. (0 point) Needs partial or total help with feeding or requires parenteral feeding. Points: 1 TOTAL POINTS: 6=High (patient independent) 0=Low (patient very dependent) 6 INSTRUMENTAL ACTIVITIES OF DAILY LIVING (IADL) SCALE (Cesar) Ability to use telephone: 1 point - Operates telephone on own initiative; looks up and dials numbers, etc. Shoppin point - Takes care of all shopping needs independently Food preparation: 1 point - Plans, prepares, and serves adequate meals independently Housekeepin point - Maintains house alone or with occasional assistance (e.g., heavy work domestic help ) Laundry: 1 point - Does personal laundry completely Mode of transportation: 1 point - Travels independently on public transportation or drives own car Responsibility for own medications: 1 point - Is responsible for taking medication in correct dosages at correct time Ability to handle finances: 1 point - Manages financial matters independently (budgets, writes checks, pays rent and bills, goes to bank), collects and keeps track of income SCORING: The total score may range from 0 - 8. A lower score indicates a higher level of dependence. Total score: 8 points Click appropriate selection below: Patient does not require assistance. Comment: helps /es/ KENDY STEPHENS LPN Signed: 11/19/2024 10:53 KENDY STEPHENS [facility]
--- OUTSIDE RECORDS SUMMARY | 2024-12-02 08:06 | XMS_ITS | Clinical Summary ---
Author Organization [facility] Address [address] [place] [address] Care Team Providers Care Parachute Marker Name Role Phone Lucy Alfaro RELATIONSHIP EXECUTIVE Primary Care Provider Allergies Active Allergy Reactions [...] iron-minerals) liquid Take by mouth Daily Active Social History Tobacco Use Types Packs/Day Years [...] 65+ Years Completed 3, 06/01/2014 Insurance MEDICARE [facility] [place] [address] Care Teams Parachute Marker Relationship Specialty Start Date End Date Lucy lAfaro NP [address] [place] [address] [place] [address] PCP - General Family Medicine 10/14/23
--- OUTSIDE RECORDS SUMMARY | 2024-12-02 08:06 | XMS_ITS | Clinical Summary ---
Author Organization [facility] Address [address] [place] [address] Care Team Providers Care Hotel Front Office Manager Name Role Phone Brenda Martínez MD Primary Care Provider [phone] Allergies Active Allergy Reactions Criticality Noted Date Comments Penicillins Other,Unknown 03/19/2014 rash Medications aspirin 81 mg chewable tablet in the morning. Active metFORMIN (Glucophage) 500 mg tablet Take 500 mg by mouth in the morning. Active traMADol (Ultram) 50 mg tablet Take 50 mg by mouth every 6 (six) hours if needed. 4 Active clopidogrel (Plavix) 75 mg tabletIndications:A therosclerosis of [place] coronary artery of [place] heart without angina pectoris Take 1 tablet (75 mg) by mouth once daily as directed. 90 tablet 3 5 10/09/19 26 Active atorvastatin (Lipitor) 80 mg tabletIndications:A therosclerosis of [place] coronary artery of [place] heart without angina pectoris,Mixed hyperlipidemia Take 1 tablet (80 mg) by mouth at bedtime. 90 tablet 3 5 10/09/19 26 Active atenolol (Tenormin) 25 mg tabletIndications:A therosclerosis of [place] coronary artery of [place] heart without angina pectoris Take 1 tablet (25 mg) by mouth once daily as directed. 90 tablet 3 5 10/09/19 26 Active Active Problems Problem Noted Date Diagnosed Date Chronic ischemic heart disease 09/19/2023 Overview (09/19/2023): May 27, 2012 Entered By: MOUNIKA BUNN MD Comment: stents x2 CX, mi 2012 Entered By: MOUNIKA BUNN MD Comment: [facility] cardio Essential hypertension 09/19/2023 Hypertensive heart disease [...] Date Type Department Care Team Description 10/08/2024 [facility] [address] [place] [address] Nu [place], MICHAELLE Atherosclerosis of [place] coronary artery of [place] heart without angina pectoris; Mixed hyperlipidemia from Last 3 Months Family History Medical [...] age to complete this topic Insurance [place] [id number] Care Teams Hotel Front Office Manager Relationship Specialty Start Date End Date Brenda Martínez MD [address] [facility] P[facility] - General 09/19/23
--- OUTSIDE RECORDS SUMMARY | 2024-12-02 08:06 | XMS_ITS | Clinical Summary ---
Author Organization [facility] Address [id number] [address] [place] [address] Care Team Providers Care Yard Conductor Name Role Phone Lucy Alfaro APRN-VAN Primary [...] total) by mouth in the morning. Active mdgmypio-gprn-F A-calcium &mins (THERAGRAN-M) 9 mg iron-400 mcg [...] Health Maintenance Due Date Last Done Comments Depression Screening 1961 DTaP,Tdap and Td Vaccines (1 - Tdap) 01/06/1968 Fall Risk Screening 2014 COVID-19 Vaccine (2023-2 5 season) 2023 01/24/2023, 01/13/2022, 07/13/2021, Additional history exists Tobacco Screening 11/05/2024 11/06/2023 Influenza Vaccine 11/30/2024 01/21/2023, , 01/20/2021, Additional history exists Zoster (Shingles) Vaccine Completed 10/25/2022, Medical Devices Implanted Type Area Quality Assurance Project Manager Device Identifier Shelf Expiration Date Model / Serial / Lot Anch Sut 4.75mm 2 Healicoil - Sna - [id number] Implanted:Qty: 1 on 01/28/2019 by Ryan Washington DO at [facility] [place] Left: Shoulder [employer] Nephew 07/14/2021 [id number] / NA / [id number] Anch Sut 4.75mm 2 Regenesorb - Sna - [id number] Implanted:Qty: 1 on 01/28/2019 by Ryan Washington DO at [facility] [place] Left: Shoulder [employer] Nephew 08/20/2021 [id number] / NA / [id number] Anch Sut 4.5mm Ftprnt Ult Pk Rpl [id number]+Cmt - Sna - [id number] Implanted:Qty: 2 on 01/28/2019 by Ryan Washington DO at [facility] [place] Left: Shoulder [employer] Nephew 11/16/2022 [id number] / NA / [id number] Healicoil Regenesorb 4.75mm Suture [place] Implanted:Qty: 1 on 11/06/2023 by Ryan Washington DO at [facility] [place] Right: Shoulder CAR[employer] NEPHEW ORTHO 04/03/2025 [id number] / NA / [id number] Healicoil Regenesorb 4.75 Suture [place] Implanted:Qty: 1 on 11/06/2023 by Ryan Washington DO at [facility] [place] Right: Shoulder [employer]HEW ORTHO 11/23/2025 [id number] / NA / [id number] Healicoil Knotless Regenesorb Suture [place] Implanted:Qty: 2 on 11/06/2023 by Ryan Washington DO at [facility] [employer] Right: Shoulder [employer] NEPHEW ORTHO 08/01/2026 [id number] / NA / [id number] Explanted Type Area Quality Assurance Project Manager Device Identifier Shelf Expiration Date Model / Serial / Lot Anch Sut 4.75mm 2 Healicoil - Sn/A - [id number] Implanted:Qty : 1 Explanted:Qty : 1 on 01/28/2019 by Ryan Washington DO at [facility] [place] Left: Shoulder [employer]hew 06/10/2021 [id number] / N/A / [id number] Insurance MEDICARE [facility] [place] [address] Care Teams Yard Conductor Relationship Specialty Start Date End Date Lucy Alfaro APRN-VAN [address] [place] [address] PCP - General Nurse Practitioner 10/30/23
--- OUTSIDE RECORDS SUMMARY | 2024-12-02 08:06 | XMS_ITS | Encounter Summary ---
Author Organization [facility] Address [address] [place] [facility] [place] [address] Care Team Providers Care Driver Retraining Instructor Name Role Phone Lucy Alfaro NP Primary Care Provider Encounter Details Date Type Department Care Team (Late st Contact Info) Description 10/21/2023 Orders Only [facility] [address] [place] [id number] Silva Mak NP Internal derangement of right [...] shoulder documented in this encounter Care Teams Driver Retraining Instructor Relationship Specialty Start Date End Date Lucy Alfaro NP [address] [place] [address] [place] [address] PCP - General Family Medicine 10/14/23 documented as of this encounter
--- OUTSIDE RECORDS SUMMARY | 2024-12-02 08:13 | XMS_ITS | CCD ---
Author Organization [facility]iniSym[facility] Care Team Providers Care Chief Juvenile Probation Officer Name Role Phone PHYSICIAN, DEFAULT Admitting Unavailable [...] Unavailable HOUSE, RAMIN P Primary Care Unavailable [place], SEDA Webb Attending Unavailable DAINA, SEDA Webb Referring Unavailable HOUSE, RAMIN P Primary Care Unavailable [place], SEDA A Referring Unavailable HOUSE, RAMIN P Primary Care Unavailable [place], SEDA Webb Attending Unavailable DAINA, SEDA Webb Referring Unavailable HOUSE, RAMIN P Primary Care Unavailable [place], SEDA Tracey Admitting Unavailable DAINA, SEDA Webb Attending Unavailable DAINA, SEDA A Referring Unavailable HOUSE, RAMIN P Primary Care Unavailable EMILY SILVER Attending Unavailable LUCY ALFARO Primary Care Unavailable Angeilna LABORER MARINE TERMINAL, Lucy Webb Primary Care Provider ALYX GARCIA Primary Care Physician [phone] Vlad DO, Ramin Simms Primary Care Provider IMELDA VILLA Attending Unavailable IMELDA VILLA Attending Unavailable SILVA MAK Attending Unavailable DAINA, SEDA Webb Attending Unavailable IMELDA VILLA Attending Unavailable RUSHER, IMELDA Webb Attending Unavailable APLING, SILVA Perkins Attending Unavailable ZAHLER, JOHN Krishna Attending Unavailable ANTHONY SEGOVIA Referring Unavailable APLING, SILVA Perkins Attending Unavailable BLACKSTON, MADELYN T Attending Unavailable [...] Care Provider Lucy Alfaro APRN Attending Provider FELICIA BRICENO Attending Unavailab FELICIA Santana Attending Unavailab nash Allergies Allergy Classification Reported Allergen(s) Allergy Type Date of Onset Reaction(s) Facility (6 sources) Penicillins; Translations: [penicillins] Drug allergy (disorder) 4 Unknown (qualifier value) [facility] Repository (20 sources) Penicillins; Translations: [penicillins] Drug Intolerance 4 Rash, Unknown (qualifier value) [facility] (1 source) Penicillins Propensity to adverse reactions [...] (six) hours as needed for itching. Active doxycycline monohydrate 100 mg oral tablet (1 source) Tetracycline-class Drug Start: take 1 tablet by mouth twice daily Doxycycline Monohydrate 100 mg tablet Active 100 MG PO Twice daily 18 01October 28, 2024 12:00am Complies with drug therapy ferrous sulfate (20 sources) take 1 tablet by mouth in the morning Ferrous Sulfate (IRON PO) Take 1 tablet by mouth in the morning. Active hydrocortisone 10 mg/ml / neomycin 3.5 mg/ml / polymyxin b [id number] unt/ml otic solution (5 sources) Aminoglycoside Antibacterial, Polymyxin-class Antibacterial, Corticosteroid Start: End: Iyfpilim-Drkfxoffv-Wf 3.5-10,000-1 mg/mL-unit/mL-% solution Active 4 DROPS OTIC Three times daily 10 October 01, 2024 8:44am Complies with drug therapy Multiple Vitamins-Minerals (multivitamin with iron-minerals) liquid (11 sources) Multiple Vitamins-Minerals (multivitamin with iron-minerals) liquid Take by mouth Daily Active ltbhlhjy-qqcg-JR-calci um &mins (THERAGRAN-M) 9 mg iron-400 mcg tablet (1 source) uaqjfxzk-yqou-DY -calc ium &mins (THERAGRAN-M) 9 mg iron-400 mcg tablet Take 1 tablet by mouth in the morning. Active mupirocin 0.02 mg/mg topical ointment (1 source) RNA Synthetase Inhibitor Antibacterial Start: Mupirocin 2 % ointment Active 1 APPLIC TOPICAL Twice daily October 28, 2024 12:00am Complies with drug therapy triamcinolone acetonide 1 mg/ml topical cream (2 sources) Corticosteroid Start: Triamcinolone Acetonide 0.1 % cream Active 1 APPLIC TOPICAL Twice daily 30 5 August 31, 2024 12:00am Complies with drug therapy Completed/Discontinued Medications Medication Drug Class(es) Dates Sig (Normalized) Sig (Original) acetaminophen 500 mg / diphenhydrAMINE hydrochloride 25 mg oral tablet (9 sources) Histamine-1 Receptor Antagonist Start: 06-20-2017 End: [...] / HYDROcodone bitartrate 5 mg oral tablet (8 sources) Opioid Agonist Start: 06-20-2017 End: 07-20-2017 Hydrocodone-Acetaminophen 5-325 mg tablet Discontinued 5 - 325 MG PO As Directed as needed for Pain June 20, 2017 12:00am July 20, 2017 8:22am biotin 1 mg oral capsule (8 sources) Start: 06-20-2017 End: 09-30-2023 take 1 capsule by mouth once daily Biotin 1 mg Capsule Discontinued 1 MG PO Daily June 20, 2017 12:00am September 30, 2023 8:58am cyclobenzaprine hydrochloride 10 mg oral tablet (8 sources) Muscle Relaxant Start: 07-20-2017 End: 09-30-2023 take 1 tablet by mouth three times daily as needed for muscle spasms Cyclobenzaprine 10 mg tablet Discontinued 10 MG PO Three times daily as needed for back spasms 50 July 20, 2017 12:00am September 30, 2023 8:58am gabapentin 300 mg oral capsule (8 sources) Anti-epilepti c Agent Start: 06-20-2017 End: 09-30-2023 take 1 capsule by mouth twice daily Gabapentin 300 mg capsule Discontinued 300 MG PO Twice daily June 20, 2017 12:00am September 30, 2023 8:58am metFORMIN hydrochloride 500 mg oral tablet (20 sources) Biguanide Start: 01-27-2024 End: 10-01-2024 take 1 tablet by mouth once daily Metformin 500 mg tablet Discontinued 500 MG PO Daily 90 90 April 29, 2024 9:43am October 01, 2024 8:46am oxyCODONE hydrochloride 5 mg oral tablet (8 sources) Opioid Agonist Start: 07-20-2017 End: 09-30-2023 Oxycodone (Roxicodone) 5 mg Tablet Discontinued 5 MG PO Q6H as needed for Pain 60 July 20, 2017 September 30, 2023 8:52am Take 1 or 2 p.o. every 6 hours as needed for pain predniSONE 10 mg oral tablet (8 sources) Start: 07-20-2017 End: 09-30-2023 Prednisone 10 mg tablets,dose pack Discontinued 1 dose pk PO per [...] mg / trimethoprim 160 mg oral tablet (8 sources) Dihydrofolate Reductase Inhibitor Antibacterial, Sulfonamide Antimicrobial Start: 07-20-2017 End: 09-30-2023 take 1 tablet by mouth every twelve hours Sulfamethoxazole-Trimethoprim (Bactrim Ds) 800-160 mg Tablet Discontinued 1 TAB PO Q12H July 20, 2017 12:00am September 30, 2023 8:52am Problems Active Problems Problem Classification Problem Date Documented Date Episodic/Chronic Acute myocardial infarction (2 sources) Myocardial infarction 02-17-2019 Chronic Allergic reactions (4 sources) Atopic dermatitis; Translations: [Atopic dermatitis, unspecified] [...] Chronic Coronary atherosclerosis and other heart disease (19 sources) Coronary arteriosclerosis; Translations: [Atherosclerotic heart disease of [place] coronary artery without angina pectoris] Onset: 3 09-30-2023 Chronic Coronary atherosclerosis and other heart disease (4 sources) Presence of coronary angioplasty implant and graft; Translations: [Percutaneous transluminal coronary angioplasty status] 09-30-2023 Episodic Diabetes mellitus without complication (9 sources) Impaired fasting glycemia; Translations: [Impaired fasting glucose] 10-25-2023 Episodic Disorders of lipid metabolism (19 sources) Hypercholesterolemia; Translations: [Hyperlipidemia] Onset: 3 02-17-2019 Chronic E Codes: Fall (12 sources) Fall; Translations: [Unspecified fall, initial encounter] 09-30-2023 Episodic Essential hypertension (15 sources) Hypertensive disorder; Translations: [Essential (primary) hypertension] [...] foot] 04-30-2024 Episodic Other connective tissue disease (2 sources) Dupuytren contracture of left palm; Translations: [Palmar fascial fibromatosis [Dupuytren]] 01-28-2024 Episodic Other connective tissue disease (2 sources) Trigger finger of left hand; Translations: [Trigger finger, unspecified finger] 01-28-2024 Episodic Other ear and sense organ disorders (6 sources) Otitis externa; Translations: [Unspecified otitis externa, [...] conditions (not mental disorders or infectious disease) (19 sources) Raised prostate specific antigen; Translations: [Elevated prostate specific antigen [PSA]] Onset: 2 Episodic Other skin disorders (4 sources) Acquired keratoderma; 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] palmaris et plantaris] 04-30-2024 Episodic Colleen-; endo-; and myocarditis; cardiomyopathy (except that caused by tuberculosis or sexually transmitted disease) (2 sources) Cardiomyopathy, unspecified; Translations: [Cardiomyopathy, unspecified] Onset: 3 Chronic Residual codes; unclassified (5 sources) History of arthroscopic procedure on shoulder; Translations: [Other specified postprocedural states] 01-22-2024 Episodic Residual codes; unclassified (2 sources) Tobacco use; Translations: [Tobacco use] Onset: 5 Episodic Skin and subcutaneous tissue infections (2 sources) Abscess; Translations: [Cutaneous abscess, unspecified] 10-28-2024 Episodic Spondylosis; intervertebral disc disorders; other back problems (8 sources) Prolapsed lumbar intervertebral disc; Translations: [Other intervertebral disc displacement, lumbar region] 03-13-2023 Chronic Comment on above: Problem List clean-u p per request of Phys. EHR Cmte Substance-related disorders (15 sources) Smoker; Translations: [Nicotine dependence] Onset: 4 [...] Test Name Value Interpretation Reference Range Facility HbA1c HPLC (Bld) [Mass fract ion]Ordered By: Lucy Alfaro on 10-01-2024 HbA1c (Bld) [Mass fraction] 6.2 % [facility] Office Visiton 08-26-2024 Follow-up visit [id number] Held,Mart Webb 1950 M Date Provider Department Center 08/26/2024 [id number] YARBROUGH MARCO A [place] [facility] Family History Problem Relation Age of Onset Coronary artery disease Other Family Status - Relation Status Age at Mother Father Other Level of Service:62291 [place] OFFICE/OUTPATIENT ESTABLISHED MOD MDM 30 MIN Normal [facility] Urology Office/Clinic Noteon 03-17-2024 Urology Office/Clinic Note [...] E&M of Est. Patient Moderate 30-39 Min 00752 Fall Risk Screen 2 or more w/injury 1100F Influenza immunization status assessed 1030F Medication list documented in medical record 1159F Most recent diastolic blood pressure <80 mm Hg 3078F Review of all meds by a prescribing practitioner or clinical pharmacist documented in EHR 1160F Systolic BP <130 mm Hg (Most Recent) 3074F Urnls Dip Stick Auto w/o Microscopy POC 61958 2. Elevated PSA (R97.20: Elevated prostate specific [...] E&M of Est. Patient Moderate 30-39 Min 27223 PSA Total 3. Nephrolithiasis (N20.0: Calculus of kidney) CT ap 11/05/22 - showed small 4mm nonobstructing L renal stone. KUB 03/04/23 - punctate L stone confirmed. KUB 03/11/24 - stable L stones. No recent flank pain/gross hematuria or stone passage sx. Continue increased fluid intake. Repeat KUB 1 yr. Ordered: Complex E&M Add on G2211 E&M of Est. Patient Moderate 30-39 Min 67464 XR Abdomen 1 View 4. Smoker (F17.200: Nicotine dependence, unspecified, uncomplicated) Cessation encouraged. Ordered: Complex E&M Add on G2211 E&M of Est. Patient Moderate 30-39 Min 48732 Follow-up With When Contact Information LUCY BRICENO PA-C, THOM In 1 year [address] [place] [address] Additional Instructions: Patient Education Benign [...] virus vaccine, inactivated 12/2022 Recorded SARS-CoV-2 (COVID-19) [id number] 01/13/2022 Recorded influenza virus vaccine, inactivated 12/18/2021 Recorded SARSCoV2 mRNA(tozinamer-glenny- sucros) vac 07/13/2021 Recorded influenza virus vaccine, inactivated 01/20/2021 Recorded SARS-CoV-2 (COVID-19) mRNA BNT-162b2 vax 12/27/2020 Recorded SARS-CoV-2 (COVID-19) mRNA BNT-162b2 vax 05/28/2020 Recorded 2022-03-28: [id number] SARS-CoV-2 (COVID-19) mRNA BNT-162b2 (more content not included)... Normal [facility] Comment on above: Result Comment: Elec tronically Signed By: JANAK DUARTE, LUCY Ariza\.br\Date and Time Signed: 03/17/24 12:50 EST No Panel Informationon 03-11 Prostate Specific Antigen Total 8.20 ng/mL High <=4.00 [facility] 36on 11-27-2023 36 Regarding lab results from 11/26/2023: VAN De Los Santos MA His labs look great- CBC, kidney and liver function perfect Cholesterol levels are well controlled- continue all meds. Patient informed. Normal [facility] Basophils Auto (Bld) [#/Vol] on 11-26-2023 Basophils (Bld) [#/Vol] 0.1 10 3/uL 0.0-0.1 [facility] Basophils/100 WBC Auto (Bld) on 11-26-2023 Basophils/100 WBC (Bld) 0.6 % 0.2-2.0 [facility] Cholesterol in LDL Calc [Mas s/Vol]on 11-26-2023 Cholesterol in LDL [Mass/Vol] 44.2 mg/dL [facility] Comment on above: <100 mg/dl [id number] 0-129 mg/dl NEAR OR ABOVE [id number] mg/dl BORDERLINE [id number] mg/dl HIGH>190 mg/dl VERY HIGH Cholesterol in VLDL Calc [Ma ss/Vol]on 11-26-2023 Cholesterol in VLDL [Mass/Vol] 12.8 mg/dL [facility] Eosinophils/100 WBC Auto (Bl d)on 11-26-2023 Eosinophils/100 WBC (Bld) 2.8 % 0.9-7.0 [facility] Erythrocyte distribution wid th Auto (RBC) [Ratio]on 11-26-2023 Erythrocyte distribution width (RBC) [Ratio] 12.2 % 11.0-15.0 [facility] Estimated glomerular filtrat ion rate (GFR) non- Americanon 11-26-2023 GFR/1.73 sq M.predicted among non-blacks MDRD (S/P/Bld) [Vol rate/Area] mL/min/{1.73_m2} >=60 [facility] Globulin Calc (S) [Mass/Vol] on 11-26-2023 Globulin (S) [Mass/Vol] 2.7 g/dL [facility] Hematocrit Auto (Bld) [Volum e fraction]on 11-26-2023 Hematocrit (Bld) [Volume fraction] 45.3 % 42.0-54.0 [facility] Hemoglobin [Mass/volume] in Bloodon 11-26-2023 Hemoglobin (Bld) [Mass/Vol] 14.9 g/dL 14.0-18.0 [facility] Laboratory - Chemistry and C hemistry - challengeon 11-26-2023 Albumin [Mass/Vol] 3.8 g/dL 3.4-5.0 [facility] ALP [Catalytic activity/Vol] 93 U/L 46-116 [facility] ALT [Catalytic activity/Vol] 72 U/L High 16-63 [facility] AST [Catalytic activity/Vol] 28 U/L 15-37 [facility] Bilirubin [Mass/Vol] 0.4 mg/dL 0.2-1.0 [facility] Calcium [Mass/Vol] 8.8 mg/dL 8.5-10.1 [facility] Chloride [Moles/Vol] 106 mmol/L 98-107 [facility] Cholesterol [Mass/Vol] 100 mg/dL <=200 [facility] Cholesterol in HDL [Mass/Vol] 43 mg/dL 40-60 [facility] Comment on above: > or =60 mg/dl - LOW CARDIOVASCULAR RISK<40 mg/dl - HIGH CARDIOVASCULAR RISK CO2 [Moles/Vol] 27.1 mmol/L 21.0-32.0 [facility] Creatinine [Mass/Vol] 0.90 mg/dL 0.70-1.30 [facility] GFR/1.73 sq M.predicted MDRD (S/P/Bld) [Vol rate/Area] mL/min/{1.73_m2} >=60 [facility] Glucose [Mass/Vol] 153 mg/dL High 74-106 [facility] Potassium [Moles/Vol] 4.8 mmol/L 3.5-5.1 [facility] Protein [Mass/Vol] 6.5 g/dL 6.4-8.2 [facility] Sodium [Moles/Vol] 140 mmol/L 136-145 [facility] Triglyceride [Mass/Vol] 64 mg/dL <=150 [facility] Urea nitrogen [Mass/Vol] 16.0 mg/dL 7.0-18.0 [facility] Urea nitrogen/Creatinine [Mass ratio] 17.8 mg/mg [facility] Laboratory - Hematology and Cell countson 11-26-2023 Immature granulocytes/100 WBC (Bld) 0.5 % 0.0-0.5 [facility] Leukocytes [#/volume] correc lila for nucleated erythrocytes in Blood by Automated counon 11-26-2023 WBC corrected for nucl RBC Auto (Bld) [#/Vol] 8.7 10 3/uL 4.0-11.0 [facility] Lymphocytes Auto (Bld) [#/Vo l]on 11-26-2023 Lymphocytes (Bld) [#/Vol] 1.9 10 3/uL 1.2-3.8 [facility] Lymphocytes/100 WBC Auto (Bl d)on 11-26-2023 Lymphocytes/100 WBC (Bld) 22.1 % 20.5-60.0 [facility] MCH Auto (RBC) [Entitic mass ]on 11-26-2023 MCH (RBC) [Entitic mass] 31.0 pg 25.9-34.0 [facility] MCHC Auto (RBC) [Mass/Vol]on 11-26-2023 MCHC (RBC) [Mass/Vol] 32.9 g/dL 29.9-35.2 [facility] MCV Auto (RBC) [Entitic vol] on 11-26-2023 MCV (RBC) [Entitic vol] 94.4 fL High 80.0-94.0 [facility] Monocytes Auto (Bld) [#/Vol] on 11-26-2023 Monocytes (Bld) [#/Vol] 0.8 10 3/uL 0.3-0.8 [facility] Monocytes/100 WBC Auto (Bld) on 11-26-2023 Monocytes/100 WBC (Bld) 9.6 % 1.7-12.0 [facility] Neutrophils Auto (Bld) [#/Vo l]on 11-26-2023 Neutrophils (Bld) [#/Vol] 5.6 10 3/uL 1.4-6.5 [facility] Neutrophils/100 WBC Auto (Bl d)on 11-26-2023 Neutrophils/100 WBC (Bld) 64.4 % 43.0-75.0 [facility] No Panel Informationon 11-25 Eosinophils # (Auto) 0.2 10 3/uL 0.0-0.7 [facility] Immature Granulocyte # (Auto) 0.04 10 3/uL High 0.00-0.03 [facility] Platelet mean volume Auto (B ld) [Entitic vol]on 11-26-2023 Platelet mean volume (Bld) [Entitic vol] 10.9 fL 9.5-13.5 [facility] Platelets Auto (Bld) [#/Vol] on 11-26-2023 Platelets (Bld) [#/Vol] 232 10 3/uL 150-450 [facility] RBC Auto (Bld) [#/Vol]on RBC (Bld) [#/Vol] 4.80 10 6/uL 4.70-6.10 [facility] Serum or plasma albumin/glob ulin mass ratioon 11-26-2023 Albumin/Globulin [Mass ratio] 1.4 {ratio} [facility] Serum or plasma anion gap de terminationon 11-26-2023 Anion gap [Moles/Vol] 11.7 mmol/L [facility] Serum or plasma total choles terol/high density lipoprotein (HDL) cholesterol mass nicolle 11-26-2023 Cholesterol.total/C holesterol in HDL [Mass ratio] 2.3 {ratio} [facility] Comment on above: 3.3 - 4.4 LOW RISK4. 4 - 7.1 AVERAGE RISK7.1 - 11.0 MODERATE RISK>11.0 HIGH RISK ECG 12 leadon 10-25-2023 TRACEMASTERVUE [facility] BASIC METABOLIC PANLon 10-23 Anion gap [Moles/Vol] 8 mmol/L Normal 5-15 [facility] Comment on above: Performed By: #### 7 18-7, BMP #### [facility] ([id number]) [address] [place] [address] Calcium [Mass/Vol] 9.1 mg/dL Normal 8.5-10.5 [place] Comment on above: Performed By: #### 7 18-7, BMP #### [facility] ([id number]) [address], [address] [place] [address] Chloride [Moles/Vol] 106 mmol/L Normal 98-109 [facility] Comment on above: Performed By: #### 7 18-7, BMP #### [facility] ([id number]) [address], [address] [place] [address] CO2 [Moles/Vol] 26 mmol/L Normal 22-32 [facility] Comment on above: Performed By: #### 7 18-7, BMP #### [facility] ([id number]) [address], [address] [place] [address] Creatinine [Mass/Vol] 0.88 mg/dL Normal 0.60-1.30 [facility] Comment on above: Result Comment: METH OD TRACEABLE TO IDMS STANDARD Performed By: #### 7 18-7, BMP #### [facility] ([id number]) [address], [address] [place] [address] eGFR (CKD-EPI) NON-RACE DEPENDENT >90 Normal >59 [facility] Comment on above: Result Comment: Reported eGFR is based on the CKD-EPI 2020 equation that does not use a race coefficient. Performed By: #### 7 18-7, BMP #### [facility] ([id number]) [address], [address] [place] [address] Glucose [Mass/Vol] 144 mg/dL High 65-99 [place] Comment on above: Performed By: #### 7 -7, BMP #### [facility] ([id number]) [address], [address] [place] [address] Potassium [Moles/Vol] 4.6 mmol/L Normal 3.5-5.0 [facility] Comment on above: Performed By: #### 7 18-7, BMP #### [facility] ([id number]) [address], [address] [place] [address] Sodium [Moles/Vol] 140 mmol/L Normal 134-146 [place] Comment on above: Performed By: #### 7 18-7, BMP #### [facility] ([id number]) [address], [address] [place] [address] Urea nitrogen [Mass/Vol] 18 mg/dL Normal 5-27 [facility] Comment on above: Performed By: #### 7 18-7, BMP #### [facility] ([id number]) [address], [address] [place] [address] Basic Metabolic Panelon 07-2 Anion gap [Moles/Vol] 8 mmol/L 5 - 15 mmol/L [facility] Calcium [Mass/Vol] 9.1 mg/dL 8.5 - 10. 5 mg/dL [facility] Chloride [Moles/Vol] 106 mmol/L 98 - 109 mmol/L [facility] CO2 [Moles/Vol] 26 mmol/L 22 - 32 mmol/L [facility] Creatinine [Mass/Vol] 0.88 mg/dL 0.60 - 1.30 mg/dL [facility] Comment on above: METHOD TRACEABLE TO [facility] STANDARD eGFR (CKD-EPI)non-race dependent - PINF [facility] Comment on above: Reported eGFR is based on the CKD-EPI 2020 equation that does not use a race coefficient. Glucose [Mass/Vol] 144 mg/dL High 65 - 99 mg/dL [facility] Interpretation and review of laboratory results Abnormal [facility] Potassium [Moles/Vol] 4.6 mmol/L 3.5 - 5.0 mmol/L [facility] Sodium [Moles/Vol] 140 mmol/L 134 - 146 mmol/L [facility] Urea nitrogen [Mass/Vol] 18 mg/dL 5 - 27 mg/dL [facility] HEMOGLOBINon 10-24-2023 Hemoglobin (Bld) [Mass/Vol] 15.3 g/dL Normal 13.0-17.0 [facility] Comment on above: Performed By: #### 7 18-7, BMP #### [facility] ([id number]) [address], [address] [place] [address] Hemoglobinon 10-24-2023 Hemoglobin (Bld) [Mass/Vol] 15.3 g/dL 13.0 - 17.0 g/dL [facility] Hemoglobin (Bld) [Mass/Vol]o n 10-24-[address] [facility] Documentationon 10-23-2023 Documentation [id number] Mart Villa 1950 M Date Provider Department Center 10/23/2023 FÁTIMA LUGO Family History Problem Relation Age of Onset Coronary artery disease Other Family Status - Relation Status Age at Other Normal [facility] 37on 06-20-2024 36 Have blood drawn/ lab work in about October- must be fasting after midnight. Normal [facility] Office Visiton 09-19-2023 Follow-up visit [id number] Held,Mart Webb 1950 M Date Provider Department Center 09/19/2023 NemoFÁTIMA PHILLIP CARD [facility] Family History Problem Relation Age of Onset Coronary artery disease Other Family Status - Relation Status Age at Other Level of Service:[address] [place] OFFICE/OUTPATIENT ESTABLISHED LOW MDM 20 MIN Normal [facility] CBC AUTO DIFFon 08-13-2022 BASO # 0.1 103/ul Normal 0.0-0.1 [facility] Comment on above: Performed By: #### C BC #### [facility] [address] [place] [address] Dr. Roxane Clayton Basophils/100 WBC (Bld) 0.7 % Normal 0.2-2.0 [facility] Comment on above: Performed By: #### C BC #### [facility] [address] [place] [address] Dr. Roxane Clayton EO # 0.3 103/ul Normal 0.0-0.7 [facility] Comment on above: Performed By: #### C BC #### [facility] [address] [place] [address] Dr. Roxane Clayton Eosinophils/100 WBC (Bld) 3.2 % Normal 0.9-7.0 [facility] Comment on above: Performed By: #### C BC #### [facility] [address] [place] [address] Dr. Roxane Clayton Erythrocyte distribution width (RBC) [Ratio] 12.3 % Normal 11.0-15.0 [facility] Comment on above: Performed By: #### C BC #### [facility] [address] [place] [address] Dr. Roxane Clayton Hematocrit (Bld) [Volume fraction] 49.2 % Normal 42.0-54.0 [facility] Comment on above: Performed By: #### C BC #### [facility] [address] [place] [address] Dr. Roxane Clayton Hemoglobin (Bld) [Mass/Vol] 15.8 g/dL Normal 14.0-18.0 [facility] Comment on above: Performed By: #### C BC #### [facility] [address] [place] [address] Dr. Roxane Clayton IG # 0.05 10e3/ul Critically high 0.00-0.03 [facility] Comment on above: Performed By: #### C BC #### [facility] [address] [address] [address] Roxane Clayton IG % 0.6 % Critically high 0.0-0.5 [facility] Comment on above: Performed By: #### C BC #### [facility] [address] [place] [address] Dr. Roxane Clayton LYMPH # 1.8 103/ul Normal 1.2-3.8 [facility] Comment on above: Performed By: #### C BC #### [facility] [address] [place] [address] Dr. Roxane Clayton Lymphocytes/100 WBC (Bld) 20.7 % Normal 20.5-60.0 [facility] Comment on above: Performed By: #### C BC #### [facility] [address] [place] [address] Dr. Roxane Clayton MANUAL DIFF REQ NO Normal [facility] Comment on above: Performed By: #### C BC #### [facility] [address] [place] [address] Dr. Roxane Clayton MCH (RBC) [Entitic mass] 30.9 pg Normal 25.9-34.0 [facility] Comment on above: Performed By: #### C BC #### [facility] [address] [place] [address] Dr. Roxane Clayton MCHC (RBC) [Mass/Vol] 32.1 g/dL Normal 29.9-35.2 [facility] Comment on above: Performed By: #### C BC #### [facility] [address] [place] [address] Dr. Roxane Clayton MCV (RBC) [Entitic vol] 96.3 fL Critically high 80.0-94.0 [facility] Comment on above: Performed By: #### C BC #### [facility] [address] [place] [address] Dr. Roxane Clayton MONO # 0.8 103/ul Normal 0.3-0.8 [facility] Comment on above: Performed By: #### C BC #### [facility] [address] [place] [address] Dr. Roxane Clayton Monocytes/100 WBC (Bld) 8.8 % Normal 1.7-12.0 [facility] Comment on above: Performed By: #### C BC #### [facility] [address] [place] [address] Dr. Roxane Clayton NEUT # 5.6 103/ul Normal 1.4-6.5 [facility] Comment on above: Performed By: #### C BC #### [facility] [address] [place] [address] Dr. Roxane Clayton Neutrophils/100 WBC (Bld) 66.0 % Normal 43.0-75.0 [facility] Comment on above: Performed By: #### C BC #### [facility] [address] [place] [address] Dr. Roxane Clayton Platelet mean volume (Bld) [Entitic vol] 10.8 fL Normal 9.5-13.5 [facility] Comment on above: Performed By: #### C BC #### [facility] [address] [place] [address] Dr. Roxane Clayton PLT 230 103/ul Normal 150-450 [facility] Comment on above: Performed By: #### C BC #### [facility] [address] [place] [address] Dr. Roxane Clayton RBC 5.11 106/ul Normal 4.70-6.10 [facility] Comment on above: Performed By: #### C BC #### [facility] [address] [place] [address] Dr. Rxoane Clayton WBC 8.5 103/ul Normal 4.0-11.0 [facility] Comment on above: Performed By: #### C BC #### [facility] [address] [address] [address] Roxane Clayton LIPID PROFILEon 08-13-2022 CHOL-HDL RATIO NORM SEE BELOW Normal [facility] Comment on above: Result Comment: 3.3 - 4.4 LOW RISK 4.4 - 7.1 AVERAGE RISK 7.1 - 11.0 MODERATE RISK >11.0 HIGH RISK Performed By: #### C MP, LIPID #### [facility] [address] [address] [address] Roxane Clayton Cholesterol [Mass/Vol] 105 mg/dL Normal <=200 [facility] Comment on above: Performed By: #### C MP, LIPID #### [facility] [address] [address] [address] Roxane Clayton Cholesterol in HDL [Mass/Vol] 43 mg/dL Normal 40-60 [facility] Comment on above: Performed By: #### C MP, LIPID #### [facility] [address] [address] [address] Roxane Clayton Cholesterol in LDL [Mass/Vol] 54.8 mg/dL Normal [facility] Comment on above: Performed By: #### C MP, LIPID #### [facility] [address] [address] [address] Roxane Clayton Cholesterol.total/C holesterol in HDL [Mass ratio] 2.4 {ratio} Normal [facility] Comment on above: Performed By: #### C MP, LIPID #### [facility] [address] [address] [address] Roxane Clayton HDL NORMAL > or = 60 mg/dl - LOW CARDIOVASCULAR RISK <40 mg/dl - HIGH CARDIOVASCULAR RISK Normal [facility] Comment on above: Performed By: #### C MP, LIPID #### [facility] [address] [address] [address] Roxane Clayton LDL CALC NORMAL SEE BELOW Normal [facility] Comment on above: Result Comment: <100 mg/dl OPTIMAL 100 - 129 mg/dl NEAR OR ABOVE OPTIMAL 130 - 159 mg/dl BORDERLINE HIGH 160 - 189 mg/dl HIGH >190 mg/dl VERY HIGH Performed By: #### C MP, LIPID #### [facility] [address] [address] [address] Roxane Clayton Triglyceride [Mass/Vol] 36 mg/dL Normal <=150 [facility] Comment on above: Performed By: #### C MP, LIPID #### [facility] [address] [address] [address] Roxane Clayton VLDL CALC 7.2 mg/dL Normal [facility] Comment on above: Performed By: #### C MP, LIPID #### [facility] [address] [address] [address] Roxane Clayton PROF 14(COMP METB)on 023 Albumin [Mass/Vol] 4.0 g/dL Normal 3.4-5.0 [facility] Comment on above: Performed By: #### C MP, LIPID #### [facility] [address] [place] [address] Dr. Roxane Clayton Albumin/Globulin [Mass ratio] 1.1 {ratio} Normal [facility] Comment on above: Performed By: #### C MP, LIPID #### [facility] [address] [place] [address] Dr. Roxane Clayton ALP [Catalytic activity/Vol] 112 U/L Normal 46-116 [facility] Comment on above: Performed By: #### C MP, LIPID #### [facility] [address] [place] [address] Dr. Roxane Clayton ALT [Catalytic activity/Vol] 48 U/L Normal 16-63 [facility] Comment on above: Performed By: #### C MP, LIPID #### [facility] [address] [place] [address] Dr. Roxane Clayton Anion gap [Moles/Vol] 13.7 mmol/L Normal [facility] Comment on above: Performed By: #### C MP, LIPID #### [facility] [address] [address] [address] Roxane Clayton AST [Catalytic activity/Vol] 30 U/L Normal 15-37 [facility] Comment on above: Performed By: #### C MP, LIPID #### [facility] [address] [address] [address] Roxane Clayton Bilirubin [Mass/Vol] 0.3 mg/dL Normal 0.2-1.0 [facility] Comment on above: Performed By: #### C MP, LIPID #### [facility] [address] [place] [address] Dr. Roxane Clayton Calcium [Mass/Vol] 9.0 mg/dL Normal 8.5-10.1 [facility] Comment on above: Performed By: #### C MP, LIPID #### [facility] [address] [place] [address] Dr. Roxane Clayton Chloride [Moles/Vol] 107 mmol/L Normal 98-107 [facility] Comment on above: Performed By: #### C MP, LIPID #### [facility] [address] [place] [address] Dr. Roxane Clayton CO2 [Moles/Vol] 28.1 mmol/L Normal 21.0-32.0 [facility] Comment on above: Performed By: #### C MP, LIPID #### [facility] [address] [place] [address] Dr. Roxane Clayton Creatinine [Mass/Vol] 1.04 mg/dL Normal 0.70-1.30 [facility] Comment on above: Performed By: #### C MP, LIPID #### [facility] [address] [place] [address] Dr. Roxane Clayton EGFR-AF TURKS AND CAICOS ISLANDER >60 Normal >=60 [facility] Comment on above: Performed By: #### C MP, LIPID #### [facility] [address] [place] [address] Dr. Roxane Clayton EGFR-NON AF TURKS AND CAICOS ISLANDER >60 Normal >=60 [facility] Comment on above: Performed By: #### C MP, LIPID #### [facility] [address] [place] [address] Dr. Roxane Clayton Globulin (S) [Mass/Vol] 3.8 g/dL Normal [facility] Comment on above: Performed By: #### C MP, LIPID #### [facility] [address] [address] [address] Roxane Clayton Glucose [Mass/Vol] 134 mg/dL Critically high 74-106 [facility] Comment on above: Performed By: #### C MP, LIPID #### [facility] [address] [address] [address] Roxane Clayton Potassium [Moles/Vol] 4.8 mmol/L Normal 3.5-5.1 [facility] Comment on above: Performed By: #### C MP, LIPID #### [facility] [address] [address] [address] Roxane Clayton Protein [Mass/Vol] 7.8 g/dL Normal 6.4-8.2 [facility] Comment on above: Performed By: #### C MP, LIPID #### [facility] [address] [place] [address] Dr. Roxane Clayton Sodium [Moles/Vol] 144 mmol/L Normal 136-145 [facility] Comment on above: Performed By: #### C MP, LIPID #### [facility] [address] [address] [address] Roxane Clayton Urea nitrogen [Mass/Vol] 19.0 mg/dL Critically high 7.0-18.0 [facility] Comment on above: Performed By: #### C MP, LIPID #### [facility] [address] [address] [address] Roxane Clayton Urea nitrogen/Creatinine [Mass ratio] 18.3 mg/mg Normal [facility] Comment on above: Performed By: #### C MP, LIPID #### [facility] [address] [address] [address] Roxane Clayton ECHOCARDIO M/2D COMPLETEon 0 08-02-2022 ECHOCARDIO M/2D COMPLETE Patient: MART VILLA Exam Date: 08/02/2022 : 1950 Gender:M Ordering : ORQUIDEAARABELLA GREENWOOD Admission #: [id number] Family : Order #: [id number] CLICK HERE TO VIEW EXAM ECHOCARDIOGRAM REPORT [...] Domingo M.D. on 08/03/2022 at 09:18 Normal [facility] XR RIBS LT PA Nik 3 [...] by: IMELDA EDMOND Date: 2022-05-04 09:10 Normal [facility] Vital Signs Date Time Vital Sign Value Performing Clinician Facility 10-28-2024 13:00-0400 Body height 177.8 cm Lucy Alfaro APRN Work Phone: [facility] 10-28-2024 13:00-0400 Body mass index (BMI) [Ratio] 21.7 kg/m2 Lucy Alfaro APRN Work Phone: [facility] 10-28-2024 13:00-0400 Body temperature 98.9 [degF] Lucy Alfaro APRN Work Phone: [facility] 10-28-2024 13:00-0400 Body weight 68.49 kg Lucy Alfaro APRN Work Phone: [facility] 10-28-2024 13:00-0400 Diastolic blood pressure 78 mm[Hg] Lucy Alfaro APRN Work Phone: [facility] 10-28-2024 13:00-0400 Heart rate 72 /min Lucy Alfaro APRN Work Phone: [facility] 10-28-2024 13:00-0400 SaO2% (BldA) [Mass fraction] 97 % Lucy Alfaro APRN Work Phone: [facility] 10-28-2024 13:00-0400 Systolic blood pressure 130 mm[Hg] Lucy Alfaro APRN Work Phone: [facility] 10-01-2024 08:25-0400 Body height 177.8 cm Lucy Alfaro APRN Work Phone: [facility] 10-01-2024 08:25-0400 Body mass index (BMI) [Ratio] 21.8 kg/m2 Lucy Alfaro APRN Work Phone: [facility] 10-01-2024 08:25-0400 Body temperature 98.2 [degF] Lucy Rosalesrafat CUSTOMER RESPONSE REPRESENTATIVE Work Phone: [facility] 10-01-2024 08:25-0400 Body weight 68.94 kg Lucy Anguianoarmando CUSTOMER RESPONSE REPRESENTATIVE Work Phone: [facility] 10-01-2024 08:25-0400 Diastolic blood pressure 68 mm[Hg] Lucy Anguianoarmando CUSTOMER RESPONSE REPRESENTATIVE Work Phone: [facility] 10-01-2024 08:25-0400 Heart rate 67 /min Lucy Anguianoarmando CUSTOMER RESPONSE REPRESENTATIVE Work Phone: [facility] 10-01-2024 08:25-0400 SaO2% (BldA) [Mass fraction] 98 % Lucy Agnuianoarmando CUSTOMER RESPONSE REPRESENTATIVE Work Phone: [facility] 10-01-2024 08:25-0400 Systolic blood pressure 110 mm[Hg] Lucy Rosalesrafat CUSTOMER RESPONSE REPRESENTATIVE Work Phone: [facility] 08-31-2024 14:23-0400 Body height 177.8 cm [facility] 08-31-2024 14:23-0400 Body mass index (BMI) [Ratio] 21.8 kg/m2 [facility] 08-31-2024 14:23-0400 Body temperature 97.3 [degF] [facility] 08-31-2024 14:23-0400 Body weight 68.94 kg [facility] 08-31-2024 14:23-0400 Diastolic blood pressure 78 mm[Hg] [facility] 08-31-2024 14:23-0400 Heart rate 73 /min [facility] 08-31-2024 14:23-0400 SaO2% (BldA) [Mass fraction] 93 % [facility] 08-31-2024 14:23-0400 Systolic blood pressure 128 mm[Hg] [facility] 08-25-2024 09:34-0400 Body height 177.8 cm Imelda Villa DPM Work Phone: [facility] 08-25-2024 09:34-0400 Body mass index (BMI) [Ratio] 21.52 kg/m2 Imelda Rusher DPM Work Phone: [facility] 08-25-2024 09:34-0400 Body weight 68.04 kg Imeldaslava Villa DPM Work Phone: [facility] 05-28-2024 09:04-0500 Body height 177.8 cm Imelda Rusher DPM Work Phone: [facility] 05-28-2024 09:04-0500 Body mass index (BMI) [Ratio] 22.53 kg/m2 Imelda Rusher DPM Work Phone: [facility] 05-28-2024 09:04-0500 Body weight 71.22 kg Imelda Villa DPM Work Phone: [facility] 05-07-2024 15:34-0500 Body height 177.8 cm Imelda Villa DPM Work Phone: [facility] 05-07-2024 15:34-0500 Body mass index (BMI) [Ratio] 22.53 kg/m2 Imelda Rusher DPM Work Phone: [facility] 05-07-2024 15:34-0500 Body weight 71.22 kg Imelda Villa DPM Work Phone: [facility] 04-29-2024 08:24-0500 Body height 177.8 cm [facility] 04-29-2024 08:24-0500 Body mass index (BMI) [Ratio] 22.4 kg/m2 [facility] 04-29-2024 08:24-0500 Body temperature 96.5 [degF] [facility] 04-29-2024 08:24-0500 Body weight 70.93 kg [facility] 04-29-2024 08:24-0500 Diastolic blood pressure 84 mm[Hg] [facility] 04-29-2024 08:24-0500 Heart rate 72 /min [facility] 04-29-2024 08:24-0500 SaO2% (BldA) [Mass fraction] 96 % [facility] 04-29-2024 08:24-0500 Systolic blood pressure 126 mm[Hg] [facility] 03-17-2024 09:32-0500 Blood Pressure Location LUCY BRICENO [facility] 03-17-2024 09:32-0500 Body temperature 98.6 [degF] LUCY JANAK [facility] 03-17-2024 09:32-0500 Diastolic blood pressure 58 mm[Hg] LUCY JANAK [facility] 03-17-2024 09:32-0500 Heart rate 57 /min LUCY JANAK [facility] 03-17-2024 09:32-0500 Respiratory rate 18 /min LUCY JANAK [facility] 03-17-2024 09:32-0500 Systolic blood pressure 110 mm[Hg] LUCY JANAK [facility] 01-27-2024 14:27-0400 Body height 177.8 cm [facility] 01-27-2024 14:27-0400 Body mass index (BMI) [Ratio] 23.3 kg/m2 [facility] 01-27-2024 14:27-0400 Body temperature 97.4 [degF] [facility] 01-27-2024 14:27-0400 Body weight 73.93 kg [facility] 01-27-2024 14:27-0400 Diastolic blood pressure 78 mm[Hg] [facility] 01-27-2024 14:27-0400 Heart rate 71 /min [facility] 01-27-2024 14:27-0400 SaO2% (BldA) [Mass fraction] 98 % [facility] 01-27-2024 14:27-0400 Systolic blood pressure 130 mm[Hg] [facility] 10-25-2023 08:22-0400 Body height 177.8 cm [facility] 10-25-2023 08:22-0400 Body mass index (BMI) [Ratio] 23.3 kg/m2 [facility] 10-25-2023 08:22-0400 Body weight 73.93 kg [facility] 10-25-2023 08:22-0400 Diastolic blood pressure 74 mm[Hg] [facility] 10-25-2023 08:22-0400 Heart rate 75 /min [facility] 10-25-2023 08:22-0400 SaO2% (BldA) [Mass fraction] 96 % [facility] 10-25-2023 08:22-0400 Systolic blood pressure 122 mm[Hg] [facility] 10-24-2023 10:01-0400 Body height 177.8 cm [facility] 10-24-2023 10:01-0400 Body mass index (BMI) [Ratio] 23.39 kg/m2 [facility] 10-24-2023 10:01-0400 Body weight 73.94 kg [facility] 09-30-2023 08:51-0400 Body height 177.8 cm [facility] 09-30-2023 08:51-0400 Body mass index (BMI) [Ratio] 23.3 kg/m2 [facility] 09-30-2023 08:51-0400 Body weight 73.93 kg [facility] 09-30-2023 08:51-0400 Diastolic blood pressure 80 mm[Hg] [facility] 09-30-2023 08:51-0400 Heart rate 71 /min [facility] 09-30-2023 08:51-0400 SaO2% (BldA) [Mass fraction] 97 % [facility] 09-30-2023 08:51-0400 Systolic blood pressure 132 mm[Hg] [facility] 03-28-2022 14:12-0500 Blood Pressure Location LUCY BRICENO [facility] 03-28-2022 14:12-0500 Diastolic blood pressure 83 mm[Hg] LUCY JANAK [facility] 03-28-2022 14:12-0500 Heart rate 77 /min LUCY JANAK [facility] 03-28-2022 14:12-0500 Systolic blood pressure 144 mm[Hg] LUCY JANAK [facility] Encounters Encounter Date Encounter Type Care Provider Facility Start: 03-18-2025 ambulatory PA-C LUCY BRICENO Facility:[facility] Start: 11-09-2024 ambulatory PA-C LUCY BRICENO Fac ility:[facility] Start: 10-28-2024 End: 10-28-2024 ambulatory Lucy Alfaro APRN Work Phone: [facility] Work Phone: Start: 10-28-2024 End: 10-28-2024 Patient encounter procedure Lucy Alfaro APRN [facility] Work Phone: Start: 10-01-2024 End: 10-01-2024 ambulatory Lucy Alfaro APRN Work Phone: [facility] Work Phone: Start: 10-01-2024 End: 10-01-2024 Patient encounter procedure Lucy Alfaro APRN [facility] Work Phone: Start: 08-31-2024 End: 08-31-2024 ambulatory [facility] Work Phone: Start: 08-31-2024 End: 08-31-2024 Patient encounter procedure [facility] Work Phone: Start: 08-26-2024 End: 08-26-2024 ambulatory MOI PIKE [facility] Start: 08-25-2024 End: 08-25-2024 Bamboo flowsheet Imelda Villa DPM Work Phone: [facility] Start: 08-25-2024 End: 08-25-2024 Bamboo flowsheet Imelda Villa DPM Work Phone: [facility] Start: 08-25-2024 End: 08-25-2024 Office outpatient visit 15 minutes Imelda Villa DPM Work Phone: 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 Start: 05-28-2024 End: 05-28-2024 Bamboo flowsheet Imelda Villa DPM Work Phone: [facility] Start: 05-28-2024 End: 05-28-2024 Office outpatient visit 15 minutes Imelda Villa DPM Work Phone: 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 Start: 05-07-2024 End: 05-07-2024 Bamboo flowsheet Imelda Villa DPM Work Phone: [facility] Start: 04-30-2024 End: 04-30-2024 Bamboo flowsheet Imelda Villa DPM Work Phone: [facility] Start: 04-30-2024 End: 04-30-2024 Bamboo flowsheet Imelda Villa DPM Work Phone: [facility] Start: 04-30-2024 End: 04-30-2024 Office outpatient visit 25 minutes Imelda Villa DPM Work Phone: 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; Acquired keratoderma; Pain in left foot; Difficulty walking Start: 04-30-2024 End: 04-30-2024 ambulatory IMELDA VILLA Not Available Start: 04-29-2024 End: 04-29-2024 ambulatory [facility] Work Phone: Start: 04-29-2024 End: 04-29-2024 [facility] Start: 03-17-2024 End: 03-17-2024 ambulatory FELICIA BRICENO Facility:[facility] Start: 03-17-2024 End: 03-17-2024 Patient encounter procedure LUCY BRICENO [facility] Start: 03-11-2024 Non-patient / Non-visit [facility] Work Phone: Start: 03-04-2024 End: 03-04-2024 Bamboo flowsheet Silva Mak [employer] Work Phone: [facility] Start: 03-04-2024 End: 03-04-2024 Bamboo flowsheet Silva Perkins Aplzac [employer] Work Phone: [facility] Start: 03-04-2024 End: 03-04-2024 Office outpatient visit 10 minutes Silva Mak [employer] Work Phone: [facility] Comment on above: Right shoulder pain, unspecified chronicity (Primary Dx); S/P right rotator cuff repair Start: 03-04-2024 End: 03-04-2024 ambulatory SILVA Perkins DEMARCUSZAC Not Available Start: 02-06-2024 End: 02-06-2024 Bamboo flowsheet Madelyn Coffey PT Work Phone: [facility] Start: 02-06-2024 End: 02-06-2024 Bamboo flowsheet Madelyn Coffey PT Work Phone: [facility] Start: 02-06-2024 End: 02-06-2024 ambulatory Madelyn Coffey PT Work Phone: [facility] Comment on above: Acute pain of right shoulder (Primary Dx); Shoulder stiffness, right; S/P right rotator cuff repair Start: 02-04-2024 End: 02-04-2024 ambulatory Fátima Sanders RETURNING OFFICER [facility] Comment on above: Acute pain of right shoulder (Primary Dx); Shoulder stiffness, right; S/P right rotator cuff repair Start: 01-30-2024 End: 01-30-2024 ambulatory Jory Walsh RETURNING OFFICER [facility] Comment on above: Acute pain of right shoulder (Primary Dx); Shoulder stiffness, right; S/P right rotator cuff repair Start: 01-29-2024 End: 01-29-2024 Bamboo flowsheet Silva Perkins Demarcusing [employer] Work Phone: [facility] Start: 01-29-2024 End: 01-29-2024 Bamboo flowsheet Silva Perkins Aplzac [employer] Work Phone: [facility] Start: 01-29-2024 End: 01-29-2024 Office outpatient visit 15 minutes Silva Perkins Obdulio [employer] Work Phone: [facility] Comment on above: Left hand pain (Prim zack Dx); Finger pain, left; Trigger ring finger of left hand; Dupuytren's contracture Start: 01-29-2024 End: 01-29-2024 ambulatory SILVA Perkins DEMARCUSZAC Not Available Start: 01-28-2024 End: 01-28-2024 Bamboo flowsheet Fátima Sanders RETURNING OFFICER [facility] Start: 01-28-2024 End: 01-28-2024 Bamboo flowsheet Fátima Sanders RETURNING OFFICER [facility] Start: 01-28-2024 End: 01-28-2024 ambulatory Fátima Sanders RETURNING OFFICER [facility] Comment on above: Acute pain of right shoulder (Primary Dx); Shoulder stiffness, right; S/P right rotator cuff repair Start: 01-27-2024 End: 01-27-2024 ambulatory [facility] Work Phone: Start: 01-27-2024 End: 01-27-2024 Patient encounter procedure [facility] Work Phone: Start: 01-23-2024 End: 01-23-2024 Bamboo flowsheet Jory Brink RETURNING OFFICER [facility] Start: 01-23-2024 End: 01-23-2024 Bamboo flowsheet Jory Brink RETURNING OFFICER [facility] Start: 01-23-2024 End: 01-23-2024 ambulatory Jory Brink RETURNING OFFICER [facility] Comment on above: Acute pain of right shoulder (Primary Dx); Shoulder stiffness, right; S/P right rotator cuff repair Start: 01-22-2024 End: 01-22-2024 Bamboo flowsheet Silva Perkins Apling [employer] Work Phone: [facility] Start: 01-22-2024 End: 01-22-2024 Bamboo flowsheet Silva Mak [employer] Work Phone: [facility] Start: 01-22-2024 End: 01-22-2024 Postop follow up visit related to original px Silva Mak [employer] Work Phone: [facility] Comment on above: S/P right rotator cu ff repair (Primary Dx); Arthritis of right acromioclavicular joint Start: 01-22-2024 End: 01-22-2024 ambulatory SILVA MAK Not Available Start: 01-21-2024 End: 01-21-2024 Bamboo flowsheet Fátima Ospinabley RETURNING OFFICER [facility] Start: 01-21-2024 End: 01-21-2024 Bamboo flowsheet Fátima Kelbley RETURNING OFFICER [facility] Start: 01-21-2024 End: 01-21-2024 ambulatory Fátima Kelbley RETURNING OFFICER [facility] Comment on above: Acute pain of right shoulder (Primary Dx); Shoulder stiffness, right; S/P right rotator cuff repair Start: 01-16-2024 End: 01-16-2024 Bamboo flowsheet Jory Brink RETURNING OFFICER [facility] Start: 01-16-2024 End: 01-16-2024 Bamboo flowsheet Jory Brink RETURNING OFFICER [facility] Start: 01-16-2024 End: 01-16-2024 ambulatory Jory Brink RETURNING OFFICER [facility] Comment on above: Acute pain of right shoulder (Primary Dx); Shoulder stiffness, right; S/P right rotator cuff repair Start: 01-14-2024 End: 01-14-2024 Bamboo flowsheet Fátima Kelbley RETURNING OFFICER [facility] Start: 01-14-2024 End: 01-14-2024 Bamboo flowsheet Fátima Kelbley RETURNING OFFICER [facility] Start: 01-14-2024 End: 01-14-2024 ambulatory Fátima Kelbley RETURNING OFFICER [facility] Comment on above: Acute [...] 01-07-2024 End: 01-07-2024 Bamboo flowsheet Fátima Rinaldiy RETURNING OFFICER [facility] Start: 01-07-2024 End: 01-07-2024 Bamboo flowsheet Fátima Rinaldiy RETURNING OFFICER [facility] Start: 01-07-2024 End: 01-07-2024 ambulatory Fátimaalvaro Ospinabley RETURNING OFFICER [facility] Comment on above: S/P [...] right Start: 12-31-2023 End: 12-31-2023 Bamboo flowsheet Fátimaalvaro Ospinabley RETURNING OFFICER [facility] Start: 12-31-2023 End: 12-31-2023 Bamboo flowsheet Fátimaalvaro Ospinabley RETURNING OFFICER [facility] Start: 12-31-2023 End: 12-31-2023 ambulatory Fátima Sanders RETURNING OFFICER [facility] Comment on above: Acute pain of right shoulder (Primary Dx); Shoulder stiffness, right; S/P right rotator cuff repair Start: 12-26-2023 End: 12-26-2023 ambulatory Madelyn T [place] PT Work Phone: [facility] Comment on above: Acute pain of right shoulder (Primary Dx); Shoulder stiffness, right; S/P right rotator cuff repair Start: 12-24-2023 End: 12-24-2023 Bamboo flowsheet Fátima Sanders RETURNING OFFICER [facility] Start: 12-24-2023 End: 12-24-2023 Bamboo flowsheet Fátima Sanders RETURNING OFFICER [facility] Start: 12-24-2023 End: 12-24-2023 ambulatory Fátima Sanders RETURNING OFFICER [facility] Comment on above: Acute pain of right shoulder (Primary Dx); Shoulder stiffness, right; S/P right rotator cuff repair Start: 12-19-2023 End: 12-19-2023 Bamboo flowsheet Madelyn Smyth [place] PT Work Phone: [facility] Start: 12-19-2023 End: 12-19-2023 Bamboo flowsheet Madelyn Shandra [place] PT Work Phone: [facility] Start: 12-19-2023 End: 12-19-2023 ambulatory Madelyn Shandra [place] PT Work Phone: [facility] Comment on above: Acute pain of right shoulder (Primary Dx); Shoulder stiffness, right; S/P right rotator cuff repair Start: 12-17-2023 End: 12-17-2023 ambulatory Madelyn T [place] PT Work Phone: [facility] Comment on above: Acute pain of right shoulder (Primary Dx); Shoulder stiffness, right; S/P right rotator cuff repair Start: 12-17-2023 End: 12-17-2023 Bamboo flowsheet Madelyn Smyth [place] PT Work Phone: [facility] Start: 12-17-2023 End: 12-17-2023 Bamboo flowsheet Madelyn Coffey PT Work Phone: [facility] Start: 12-11-2023 End: 12-11-2023 Bamboo flowsheet Silva Mak [employer] Work Phone: [facility] Start: 12-11-2023 End: 12-11-2023 Bamboo flowsheet Silva Perkins Aplzac [employer] Work Phone: [facility] Start: 12-11-2023 End: 12-11-2023 Postop follow up visit related to original px Silva Mak [employer] Work Phone: [facility] Comment on above: S/P right rotator cu ff repair (Primary Dx) Start: 12-11-2023 End: 12-11-2023 ambulatory SILVA B APLING Not Available Start: 11-29-2023 End: 11-29-2023 Bamboo flowsheet John Espinal DO Work Phone: [facility] Start: 11-29-2023 End: 11-29-2023 Bamboo flowsheet John Espinal DO Work Phone: [facility] Start: 11-29-2023 End: 11-29-2023 ambulatory JOHN ESPINAL Not Available Start: 11-26-2023 Non-patient / Non-visit [facility] Work Phone: Start: 11-13-2023 End: 11-13-2023 ambulatory SILVA B APLING Not Available Start: 11-06-2023 End: 11-06-2023 Evaluation and management of inpatient [facility] Start: 11-06-2023 End: 11-06-2023 [facility] Start: 10-25-2023 Patient encounter status [facility] Start: 10-25-2023 Preprocedural examin ation done Lucy Alfaro APRN Work Phone: [facility] Start: 10-25-2023 End: 10-25-2023 ambulatory [facility] Work Phone: Start: 10-25-2023 End: 10-25-2023 Patient encounter procedure [facility] Work Phone: Start: 10-24-2023 End: 10-24-2023 ambulatory [facility] Start: 10-24-2023 Encounter for other preprocedural examination [facility] Start: 10-24-2023 End: 10-24-2023 Patient encounter procedure Pm Pre-Admission Testing 1 [facility] - Pre Admit Comment on above: Preop examination (P rimary Dx); Coronary artery disease, unspecified vessel or lesion type, unspecified whether angina present, unspecified whether caddo or transplanted heart; Hypertension, unspecified type Start: 10-24-2023 End: 10-24-2023 Preprocedural examination done Pm 1 [facility] Start: 10-24-2023 End: 10-25-2023 ambulatory [facility] Start: 10-22-2023 End: 10-22-2023 ambulatory [facility] Not Available Start: 10-14-2023 End: 10-14-2023 ambulatory SILVA Perkins APLING Not Available Start: 10-01-2023 ambulatory [facility] Work Phone: Start: 10-01-2023 Non-patient / Non-visit [facility] Work Phone: Start: 09-30-2023 End: 09-30-2023 ambulatory [facility] Work Phone: Start: 09-30-2023 End: 09-30-2023 Patient encounter [facility] Work [facility]: Start: 09-19-2023 End: 09-19-2023 ambulatory FÁTIMA PHILLIP [facility] Start: 08-13-2022 End: 08-14-2022 ambulatory FÁTIMA PHILLIP Facility:[facility] Start: 08-02-2022 End: 08-03-2022 ambulatory RAMIN IYER Facility:[facility] Start: 05-03-2022 End: 05-04-2022 ambulatory RAMIN IYER Facility:[facility] Start: 03-28-2022 End: 03-28-2022 Patient encounter procedure LUCY BRICENO [facility] Start: 01-15-2022 End: 01-16-[address] ABDIAZIZ Lovell Facility:[facility] Start: 07-17-2018 End: 07-18-2018 Patient encounter procedure DEFAULT PHYSICIAN Facility:[facility] Procedures Date Procedure Procedure Detail Performing Clinician Start: 11-29-2023 End: 11-29-2023 Oph medical xm&eval compre new pt 1/> vst Bilateral posterior capsular opacification John Espinal DO Work Phone: Comment on above: Bilateral posterior capsular opacification (Primary Dx) Start: 01-15-[address] ABDIAZIZ Lovell Comment on above: Performed By: #### P SAD #### [facility] [address] [place] [address] Dr. 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 History of repair of musculotendinous cuff of shoulder S/P right rotator cuff repair Fátima Kelbley RETURNING OFFICER History of repair of musculotendinous cuff of shoulder S/P right rotator cuff repair Madelyn Coffey PT Work Phone: History of repair of musculotendinous cuff of shoulder S/P right rotator cuff repair Fátima Kelbley RETURNING OFFICER History of repair of musculotendinous cuff of shoulder S/P right rotator cuff repair Madelyn Coffey PT Work Phone: History of repair of musculotendinous cuff of shoulder S/P right rotator cuff repair Fátima Kelbley RETURNING OFFICER History of repair of musculotendinous cuff of shoulder S/P right rotator cuff repair Jory Brink RETURNING OFFICER History of repair of musculotendinous cuff of shoulder S/P right rotator cuff repair Fátima Kelbley RETURNING OFFICER History of repair of musculotendinous cuff of shoulder S/P right rotator cuff repair Silva Mak [employer] Work Phone: History of repair of musculotendinous cuff of shoulder S/P right rotator cuff repair Jory Brink RETURNING OFFICER History of repair of musculotendinous cuff of shoulder S/P right rotator cuff repair Fátima Kelbley RETURNING OFFICER History of repair of musculotendinous cuff of shoulder S/P right rotator cuff repair Jory Brlaz RETURNING OFFICER History of repair of musculotendinous cuff of shoulder S/P right rotator cuff repair Fátima Kelbley RETURNING OFFICER History of repair of musculotendinous cuff of shoulder S/P right rotator cuff repair Madelyn Coffey PT Work Phone: History of repair of musculotendinous cuff of shoulder S/P right rotator cuff repair Silva Mak [employer] Work Phone: History of repair of musculotendinous cuff of shoulder S/P right rotator cuff repair Madelyn Coffey PT Work Phone: History of repair of musculotendinous cuff of shoulder S/P right rotator cuff repair Silva Mak [employer] Work Phone: History of repair of musculotendinous cuff of shoulder S/P right rotator cuff repair Madelyn Coffey PT Work Phone: History of repair of musculotendinous cuff of shoulder S/P right rotator cuff repair Fátima Sanders RETURNING OFFICER History of repair of musculotendinous cuff of shoulder S/P right rotator cuff repair Madelyn Coffey PT Work Phone: Rotator cuff includi ng muscles and tendons (body structure) LUCY BRICENO Plan of Treatment Date Care Activity Detail Author Start: 10-23-2024 Adult BMI Screening Adult BMI Screen ing [facility] Start: 10-23-2024 Tobacco Screening Tobacco Screening [facility] Start: 08-25-2024 End: 08-25-2024 Patient encounter procedure [facility] Comment on above: Arrived Start: 05-28-2024 End: 05-28-2024 Patient encounter procedure [facility] Comment on above: Arrived Start: 05-07-2024 End: 05-07-2024 Patient encounter procedure 05/07/2024 3:45 PM EST Office Visit [facility] [address] [place] [address] Imelda Villa, [facility] [address] [place] [address] [facility] Comment on above: Arrived Start: 04-30-2024 End: 04-30-2024 Patient encounter procedure 04/30/2024 9:15 AM EST Office Visit [facility] [address] [place] [address] Imelda Villa, DP [address] [place] [address] [facility] Comment on above: Arrived Start: 03-04-2024 End: 03-04-2024 Patient encounter procedure [facility] Comment on above: Right shoulder pain, unspecified chronicity (Primary Dx); S/P right rotator cuff repair Start: 02-06-2024 End: 02-06-2024 ambulatory 02/06/2024 7:00 AM EST Treatment [facility] [address] [place] [address] Erlinda Madelyn T, PT [address] [facility] [address] [place] [address] [facility] Start: 02-04-2024 End: 02-04-2024 ambulatory 02/04/2024 7:00 AM EST Treatment [facility] [address] [facility] [address] [place] [address] Fátima Sanders, RETURNING OFFICER [facility] Start: 01-30-2024 End: 01-30-2024 ambulatory 01/30/2024 7:30 AM EDT Treatment [facility] [address] [facility] [address] [place] [address] Jory Walsh, RETURNING OFFICER [facility] Start: 01-29-2024 End: 01-29-2024 Patient encounter procedure [facility] Comment on above: Left hand pain (Prim zack Dx); Finger pain, left Start: 01-28-2024 End: 01-28-2024 ambulatory 01/28/2024 7:00 AM EDT Treatment [facility] [address] [facility] [address] [place] [address] Fátima Sanders, RETURNING OFFICER [facility] Start: 01-23-2024 End: 01-23-2024 ambulatory [facility] Comment on above: Arrived Start: 01-22-2024 End: 01-22-2024 Patient encounter procedure [facility] Comment on above: S/P right rotator cu ff repair (Primary Dx); Arthritis of right acromioclavicular joint Start: 01-21-2024 End: 01-21-2024 ambulatory 01/21/2024 7:00 AM EDT Treatment [facility] [address] [facility] [address] [place] [address] Fátima Sanders, RETURNING OFFICER [facility] Start: 01-16-2024 End: 01-16-2024 ambulatory [facility] Comment on above: Arrived Start: 01-15-2024 End: 01-15-2024 Patient encounter procedure 01/15/2024 7:20 AM EDT Procedure Visit [facility] John Espinal, DO [address] [place] [address] [facility] Start: 01-14-2024 End: 01-14-2024 ambulatory 01/14/2024 7:00 AM EDT Treatment [facility] [address] [place] [address] Fátima Sanders RETURNING OFFICER [facility] Start: 01-09-2024 End: 01-09-2024 ambulatory [facility] Comment on above: Arrived Start: 01-07-2024 End: 01-07-2024 ambulatory 01/07/2024 7:00 AM EDT Treatment [facility] [address] [place] [address] Fátmia Sanders RETURNING OFFICER [facility] Start: 01-02-2024 End: 01-02-2024 ambulatory 01/02/2024 7:00 AM EDT Treatment [facility] [address] [place] [address] Madelyn Coffey, PT [address] [place] [address] [facility] Start: 12-31-2023 End: 12-31-2023 ambulatory 12/31/2023 7:00 AM EDT Treatment [facility] [address] [place] [address] Fátima Sanders RETURNING OFFICER [facility] Start: 12-26-2023 End: 12-26-2023 ambulatory 12/26/2023 7:00 AM EDT Treatment [facility] [address] [place] [address] Madelyn Coffey, PT [address] [place] [address] [facility] Start: 12-25-2023 End: 12-25-2023 Patient encounter procedure 12/25/2023 6:40 AM EDT Procedure Visit [facility] John Espinal, DO [address] [place] [address] [facility] Start: 12-24-2023 End: 12-24-2023 ambulatory 12/24/2023 7:00 AM EDT Treatment [facility] [address] [place] [address] Fátima Sanders PTA [facility] Start: 12-19-2023 End: 12-19-2023 ambulatory 12/19/2023 7:00 AM EDT Treatment [facility] [address] [place] [address] Madelyn Coffey, PT [address] [place] [address] [facility] Start: 12-17-2023 End: 12-17-2023 ambulatory 12/17/2023 2:30 PM EDT Evaluation [facility] [address] [place] [address] Madelyn Coffey, PT [address] [place] [address] Arrived [facility] Comment on above: Arrived Start: 12-11-2023 End: 12-11-2023 Patient encounter procedure [facility] Comment on above: S/P right rotator cu ff repair (Primary Dx) Start: 12-01-2023 Influenza vaccination [facility] Start: 11-29-2023 End: 11-29-2023 Patient encounter procedure 11/29/2023 10:00 AM EDT Office Visit [facility] [address] [place] [address] John Espinal, DO [address] [place] [address] Arrived [facility] Comment on above: Arrived Start: 11-06-2023 End: 11-06-2023 Admission to same day surgery center 11/06/2023 7:30 AM EDT - 11/06/2023 9:15 AM EDT Surgery [facility] - Surgery [address] [place] [address] Seda Washington, DO [address] [place] [address] ARTHROSCOPIC REPAIR ROTATOR CUFF SHOULDER [30056 (CPT )] [facility] Comment on above: ARTHROSCOPIC REPAIR ROTATOR CUFF SHOULDER [25959 (CPT )] Start: 11-06-2023 End: 11-06-2023 Arthroscopy shoulder rotator cuff repair ARTHROSCOPIC REPAIR ROTATOR CUFF SHOULDER right shoulder rotator cuff tear 11/06/2023 7:30 AM EDT [facility] Start: 11-06-2023 Subsequent hospital visit by physician 11/06/2023 7:30 AM EDT Hospital Encounter [facility] - Surgery [address] [place] [address] Seda Washington, DO [address] [place] [address] [facility] Start: 10-01-2023 Patient referral [facility] Work Phone: Start: 05-27-2023 COVID-19 Vaccine ( season) COVID-19 Vaccine ( season) [facility] Start: 2014 Fall Risk Screening Fall Risk Screen [facility] Start: 01-06-1968 DTaP,Tdap and Td Vac cines (1 - Tdap) DTaP,Tdap and Td Vaccines (1 - Tdap) [email or web address] [employer] [facility] Start: 1961 Depression Screening Depression Scre jessica [email or web address] Start: 1949 Medicare Annual Well ness Visit Medicare Annual Wellness Visit [facility] [employer] [facility] Start: 1949 Screening for malign ant neoplasm of colon [facility] Start: 1949 Tobacco Counseling Tobacco Counselin g [facility] Comprehensive metabo lic 2000 panel - Serum or Plasma [facility] Patient referral [facility] Work Phone: XR Shoulder - right Views Fi [facility] Immunizations Immunization Date Immunization Notes Care Provider [facility] 01-28-2024 influenza virus vacc ine, unspecified formulation Silva Mak LAB[employer] Work Phone: [facility] 01-21-2023 influenza virus vacc ine, unspecified formulation Fátima Sanders RETURNING OFFICER [facility] 12-30-2022 influenza virus vacc ine, unspecified formulation LUCY BRICENO [facility] 01-13-2022 SARS-CoV-2 (COVID-19 ) [id number] LUCY BRICENO [facility] 12-18-2021 influenza virus vacc ine, unspecified formulation LUCY JANAK [facility] 07-13-2021 SARS-CoV-2 mRNA (nzpazfckojd-mcrl-xhiyat e) vaccine LUCY BRICENO [facility] 01-20-2021 influenza virus vacc ine, unspecified formulation LUCY BRICENO [facility] 12-27-2020 SARS-CoV-2 (COVID-19 ) mRNA BNT-162b2 vax LUCY BRICENO [facility] 05-28-2020 SARS-CoV-2 (COVID-19 ) mRNA BNT-162b2 vax LUCY JANAK [facility] Comment on above: Result Comment: 2021: [id number] 05-08-2020 SARS-CoV-2 (COVID-19 ) mRNA BNT-162b2 vax LUCY JANAK [facility] Comment on above: Result Comment: 2021: [id number] 04-01-2020 SARS-CoV-2 (COVID-19 ) mRNA BNT-162b2 vax LUCY JANAK [facility] Comment on above: Result Comment: Pt d oes not know the dates but states he has also had the booster 01-12-2019 influenza virus vacc ine, unspecified formulation LUCY JANAK [facility] 01-15-2017 influenza virus vacc ine, unspecified formulation LUCY JANAK [facility] 02-14-2015 influenza virus vacc ine, unspecified formulation LUCY JANAK [facility] 12-30-2014 influenza virus vacc ine, unspecified formulation LUCY JANAK [facility] 06-01-2014 pneumococcal polysaccharide vaccine, 23 valent LUCY JANAK [facility] 01-27-2014 influenza virus vacc ine, unspecified formulation LUCY JANAK [facility] 01-07-2013 influenza, whole LUCY PE RRY [facility] 01-19-2011 influenza, whole LUCY ROBERTS [facility] Payers Date Payer Category Payer Private Health Insurance [id number] 2022 Unknown 2022 Unknown [id number] 2013 Medicare [id number]. [id number] 1959 Medicare [id number] 1959 Unknown [id number] 1959 Unknown [id number] 1949 Unknown [id number] 2.16.840.1.742315.3.579.2.647 1949 Unknown [id number] 2.16.840.1.727121.3.579.2.593 1949 Unknown [id number] 2.16.840.1.535583.3.579.2.593 1949 Unknown [id number] 2.16.840.1.477527.3.579.2.593 1949 Unknown [id number] 2.16.840.1.813987.3.579.2.593 1949 Unknown [id number] 2.16.840.1.256536.3.579.2.1286 1949 Unknown [id number] 2.16.840.1.674973.3.579.2.1286 1949 Unknown [id number] 2.16.840.1.187254.3.579.2.1286 1949 Unknown [id number] 2.16.840.1.180591.3.579.2.1286 1949 Unknown [id number] 2.16.840.1.688314.3.579.2.1286 1949 Unknown [id number] 2.16.840.1.391093.3.579.2.1286 1949 Unknown [id number] 2.16.840.1.741588.3.579.2.1286 1949 Unknown [id number] 2.16.840.1.813852.3.579.2.1259 1949 Unknown [id number] 2.16.840.1.329835.3.579.2.125 1949 Unknown [id number] 2.16.840.1.506948.3.579.2.125 1949 Unknown [id number] 2.16.840.1.959136.3.579.2.125 1949 Unknown [id number] 2.16.840.1.940022.3.579.2.125 1949 Unknown [id number] 2.16.840.1.976377.3.579.2.125 1949 Unknown [id number] 2.16.840.1.470590.3.579.2.1259 1949 Unknown [id number] 2.16.840.1.829199.3.579.2.125 1949 Unknown [id number] 2.16.840.1.236686.3.579.2.1259 1949 Unknown [id number] 2.16.840.1.223832.3.579.2.125 1949 Unknown [id number] 2.16.840.1.971472.3.579.2.125 1949 Unknown [id number] 2.16.840.1.674316.3.579.2.1259 1949 Unknown [id number] 2.16.840.1.731944.3.579.2.1259 1949 Unknown [id number] 2.16.840.1.709857.3.579.2.125 1949 Unknown [id number] 2.16.840.1.448782.3.579.2.125 1949 Unknown [id number] 2.16.840.1.167285.3.579.2.125 1949 Unknown [id number] 2.16.840.1.847669.3.579.2.125 1949 Unknown [id number] 2.16.840.1.394129.3.579.2.1258 1949 Unknown [id number] 2.16.840.1.828993.3.579.2.1258 1949 Unknown [id number] 2.16.840.1.970237.3.579.2.1258 1949 Unknown [id number] 2.16.840.1.286499.3.579.2.1258 1949 Unknown [id number] 2.16.840.1.284084.3.579.2.1258 1949 Unknown [id number] 2.16.840.1.952567.3.579.2.1258 1949 Unknown [id number] 2.16.840.1.288928.3.579.2.125 1949 Unknown [id number] 2.16.840.1.732089.3.579.2.125 1949 Unknown [id number] 1950 Unknown [id number] 1950 Unknown [id number] 1950 Unknown [id number] 1950 Unknown [id number] Medicare Medicare [id number] Self-pay Self Pay [id number] Unknown [facility] Health Claims [id number] Social History Date Type Detail Facility Start: 03-28-2022 End: 03-17-2024 Tobacco smoking status Heavy tobacco smoker (finding) [facility] Start: 09-30-2023 End: 09-30-2023 Tobacco smoking status Smoker (finding) [facility] Tobacco smoking status Never [facility] Start: 12-11-2023 End: 08-25-2024 Sex Assigned At Male [facility] Start: 1950 Sex Assigned At Male F [facility] Start: 09-30-2023 End: 10-14-2023 Tobacco smoking status NHIS Smokes tobacco daily [facility] History of tobacco use Cigarette Smoker N [facility] Start: 10-14-2023 End: 10-24-2023 Tobacco use and exposure Smokeless tobacco non-user [facility] Start: 12-11-2023 End: 08-25-2024 Alcoholic beverage intake Ex-drinker (finding) [facility] Start: 12-11-2023 End: 08-25-2024 History of Social function [facility] Start: 1950 Sex assigned at Not on file [facility] Start: 04-29-2024 End: 08-31-2024 Sex Male (finding) [facility] Start: 10-24-2023 Alcoholic beverage intake Lifetime non-drinker (finding) [facility] Medical Equipment Procedure Code Equipment Code Equipment Origin al Text Equipment Identifier Dates Anch Sut 4.75mm 2 Healicoil - Sna - [id number] Start: 01-28-2019 Anch Sut 4.75mm 2 Regenesorb - Sna - [id number] Start: 01-28-2019 Anch Sut 4.5mm Ftprnt Ult Pk Rpl [id number] - Sna - [id number] Start: 01-28-2019 Functional Status Date Assessment Result Facility 03-17-2024 Functional Status N/A [facility] 03-28-2022 Functional Status N/A [facility] Clinical Notes 03-28-2022 to 08-31-2024 Note Date & Type Note Facility 08-31-2024 Evaluation note Diagnosis Onset Date Resolution Atopic dermatitis acute August 2:20pm Otitis externa acute August 31, 2024 2:20pm CAD (coronary artery disease) acute October 01, 2024 8 :21am Hyperlipemia acute October 01 8:21am Hypertension acute October 01 8:21am Impaired fasting glucose acute October 01, 2024 8 :21am [facility] Work Phone: 1(871) 114-587806-02-2025 Evaluation note* Diagnosis Onset Date Resolution Status Admit Date Atopic dermatitis acute August 2:20pm Otitis externa acute August 31, 2024 2:20pm CAD (coronary artery disease) acute October 01, 2024 8:21am H/O heart artery stent acute 2024 8:21am Hyperlipemia acute October 01 8:21am Hypertension acute October 01 8:21am Impaired fasting glucose acute October 01, 2024 8:21am Nicotine dependence acute October 01, 2024 8:21am Otitis externa acute October 01, 2024 8:21am Screening for lung cancer acute October 01, 2024 8:21am Abscess acute October 28 12:55pm [facility] Work Phone: 1(847) 861-922705-28-2025 NoteSUBJECTIVE Reason for Visit: Mart Villa is [...] daily - Continue clopidog (more content not included)...[facility]05-27-2025 History of Present illness Narrative* Imelda Villa DPM - 08/25/2024 9:30 AM EDT Images [...] understanding. Imelda Villa DPM documented in this encounterSt. [facility] CenterQpnimhnloe20-60-3957 Instructions* Patient Instructions* Imelda Villa DPM - 08/25/2024 9:30 AM EDT As noted documented in this encounterSt. Joseph Medical CenterZesodqdbia35-09-1740 History of Present illness Narrative* Imelda Villa [...] understanding. Imelda Villa DPM documented in this [facility]02-27-2025 Instructions* Patient Instructions* Imelda Villa DPM - 05/28/2024 9:15 AM EST As noted documented in this [facility]02-06-2025 History of Present illness Narrative* Imelda Villa [...] understanding. Imelda Villa DPM documented in this [facility]02-06-2025 Instructions* Patient Instructions* Imelda Villa DPM - 05/07/2024 3:45 PM EST Wound care measures as noted documented in this [facility]01-30-2025 History of Present illness Narrative* Imelda Villa [...] understanding. Imelda Villa DPM documented in this [facility]01-30-2025 Instructions* Patient Instructions* Imelda Villa DPM - 04/30/2024 9:15 AM EST As noted documented in this [facility]12-17-2024 Hospital Discharge instructions Patient Education 03/17/2024 11:24:55 [...] urethra. Follow these instructions at home: Take pnej-kvw-zrlvjeg and prescription medicines only as told by [...] provider. Document Revised: 10/04/2021 Document Reviewed: 10/04/2021 [employer] Patient Education 2023 EdCaliber. Follow Up Care 03/12/2023 10:35:12 With:LUCY BRICENO PA-C, URL Address: [address] [place] [address] When:Within 1 Year(s) [facility] 12-17-2024 NotePatient Education Urology Benign Prostatic Hyperplasia [...] Follow these instructions at home: ??? Take kctd-fat-bblyrsd and prescription medicines only as told by [...] symptoms do not get (more content not included)...[facility]12-04-2024 History of Present illness Narrative* Silva Mak [...] as tolerated, f/U prn documented in this encounterSt. Joseph Medical CenterVqkamvuldw42-04-8097 History of Present illness Narrative* Silva Mak [...] as tolerated, f/U prn documented in this encounterSt. Joseph Medical CenterTkwwqktqab60-44-2463 History of Present illness Narrative* Silva Mak [...] f/u in 6-8 weeks documented in this encounterSt. Joseph Medical CenterJpprwxejve21-83-2532 History of Present illness Narrative* Madelyn Coffey, [...] to be instructed in home exercise program. Chaperon Goals: To be met in 10 weeks [...] Please sign below. Date: documented in this encounterSt. Joseph Medical CenterOhgzruivqk81-99-1887 History of Present illness Narrative* Madelyn Coffey, [...] to be instructed in home exercise program. Retirement Goals: To be met in 10 weeks [...] Please sign below. Date: documented in this encounterSt. Joseph Medical CenterLjvnsrsfqy69-21-9231 History of Present illness Narrative* Madelyn Coffey, [...] to be instructed in home exercise program. Chaperon Goals: To be met in 10 weeks [...] Please sign below. Date: documented in this encounterSt. Joseph Medical CenterOszgamsonc50-45-1378 History of Present illness Narrative* Madelyn Coffey, [...] to be instructed in home exercise program. Chaperon Goals: To be met in 10 weeks [...] Please sign below. Date: documented in this encounterSt. Joseph Medical CenterEpfbeewchn76-47-6607 History of Present illness Narrative* Silva Mak, VAN - 12/11/2023 12:00 PM EDT Subjective Patient [...] begin AROM/PROM, also sent a referral for P.TNas for jeaneth condon to begin no strengthening , f/U in 6 weeks documented in this encounterSt. Joseph Medical CenterEqmnrvvwku21-01-3648 History of Present illness Narrative* John Espinal [...] laser capsulotomy, they are to notify their pallet assembler promptly if they have a significant change in symptoms, such as flashes of light (photopsia), an increase in floaters, loss of visual field or decrease in visual acuity. documented in this encounterSt. Joseph Medical CenterLsflryipbo98-91-9842 Instructions* Patient Instructions* Claudia Garcia RN - 10/24/2023 9:45 AM EDT Preoperative Education Checklist- General Surgery date: 11/06/23 Surgery time: 0730 a.m. Arrival time: 0610 a.m. 1. Bring a photo ID and your insurance card with you the day of surgery. You will check in at the main lobby of the [facility]- registration desk is straight ahead as soon as you walk in. Tell them you are here for surgery. 2. If you have a Living Will/Durable Power of Sales Support Consultant for Health Care that is not on [...] after you have bathed. 5. NO nail norwegian/acrylic on at least one finger. If you are having a hand, wrist or foot surgery then all nail norwegian and artificial/acrylic nails must be removed from [...] please call the Preadmission Testing office at [phone], Mon.-Fri. 7 a.m.-3 p.m. Leave a voicemail [...] Stop taking 0 days prior to procedure rlntpary-onvd-OD-calcium &mins (THERAGRAN-M) 9 mg iron-400 mcg tablet [...] appointment with your doctor. documented in this encounterSum[facility]07-25-2024 Miscellaneous Notes* Perioperative Nursing Note - Claudia Garcia RN - 10/24/2023 9:45 AM EDT Preoperative Education Checklist- General Surgery date: 11/06/23 Surgery time: 0730 a.m. Arrival time: 0610 a.m. 1. Bring a photo ID and your insurance card with you the day of surgery. You will check in at the main lobby of the [facility]- registration desk is straight ahead as soon as you walk in. Tell them you are here for surgery. 2. If you have a Living Will/Durable Power of Sales Support Consultant for Health Care that is not on [...] after you have bathed. 5. NO nail norwegian/acrylic on at least one finger. If you are having a hand, wrist or foot surgery then all nail norwegian and artificial/acrylic nails must be removed from [...] please call the Preadmission Testing office at [phone], Mon.-Fri. 7 a.m.-3 p.m. Leave a voicemail [...] Stop taking 0 days prior to procedure ukitpbqz-gjcx-FQ-calcium &mins (THERAGRAN-M) 9 mg iron-400 mcg tablet [...] go swimming or use a hot tub ([employer]uzzi), or perform activities where your hand or [...] reviewed. Patient verbalized understanding. documented in this encounterSumma Health07-25-2024 Nurse Note* Perioperative Nursing Note - Claudia Garcia RN - 10/24/2023 9:45 AM EDT Preoperative Education Checklist- General Surgery date: 11/06/23 Surgery time: 0730 a.m. Arrival time: 0610 a.m. 1. Bring a photo ID and your insurance card with you the day of surgery. You will check in at the main lobby of the [facility]- registration desk is straight ahead as soon as you walk in. Tell them you are here for surgery. 2. If you have a Living Will/Durable Power of Sales Support Consultant for Health Care that is not on [...] after you have bathed. 5. NO nail norwegian/acrylic on at least one finger. If you are having a hand, wrist or foot surgery then all nail norwegian and artificial/acrylic nails must be removed from [...] please call the Preadmission Testing office at [phone], Mon.-Fri. 7 a.m.-3 p.m. Leave a voicemail [...] Stop taking 0 days prior to procedure dzvmoybl-hqjw-VQ-calcium &mins (THERAGRAN-M) 9 mg iron-400 mcg tablet [...] to the follow-up appointment with your doctor. [facility]07-25-2024 Nurse Note* Perioperative Nursing Note - Claudia Garcia RN - 10/24/2023 9:45 AM EDT Hibiclens and surgical instructions reviewed. Patient verbalized understanding. [facility]07-24-2024 NoteRCRI= 2 points Class III Risk 10.1 % 30- day risk of , MD, or cardiac arrest From a cardiac perspective pt may proceed with shoulder, he is a moderate risk for a low to moderate risk surgery. He may hold plavix 5-7 days prior and resume post op. Please monitor hemodynamics carefully and prevent any major fluid shifts. Fátima Phillip [facility] Cardiology Available 7a-5pm via Zapnip Chat Pager [phone] Municipal Hospital06-20-2024 NoteNoted Mitral, Aortic, tricuspid and pulmonic valve regurg- no concerning symptoms today. Will continue to monitor - d/w pt to call office for increased SOB, orthopnea, palpitations, syncope or chest pain.[facility]06-20-2024 NoteHeart failure is unchanged. NYHA Class II. Continue current treatment regimen. Dietary sodium restriction. Encouraged daily monitoring of the patient's weight. Continue current medications. Heart failure will be reassessed in 1 year.[facility] 09-19-2023 NotePatient here for 1 year follow up CAD, primary cardiomyopathy, and valve disorder. Had routine labs w/ lipid last July 2022. He is doing great. Denies chest pain, SOB, palpitations, and lightheadedness/syncope. Review of Systems Musculoskeletal: Positive for arthritis and joint pain. All other systems reviewed and are negative.[facility] 09-19-2023 NoteUTP CARDIOLOGY PROGRESS NOTE HPI: Mart [...] given to pt to be completed about October.[facility]06-20-2024 NoteLipid abnormalities are stable Continue statinUnSelect Medical [facility]06-20-2024 NoteCoronary artery disease is stable Continue GDMT- ASA, atenolol, lipitor and plavix for life. continue risk factor modifications- heart healthy diet, regular exercise as tolerated and continue all medications.[facility] 03-28-2022 Hospital Discharge instructions Patient Education [...] urethra. Follow these instructions at home: Take iyhu-sha-xxsaied and prescription medicines only as told by [...] 03/18/2006 Document Revised: 02/10/2019 Document Reviewed: 04/22/2017 [employer] International Patient Education 2020 EdCaliber. Follow Up Care 01/19/2021 11:03:50 With:LUCY BRICENO PA-C, URL Address: [facility] [address] [place] [address] When: Unknown [facility] evaluation + Plan note Future Appointments Appointment Date:03/12/2023 11:15:00 AM Scheduled Provider:Raf Stinson MD, Abdiaziz Simpson Location:[facility] Appointment Type:URO Office Visit Diagnostic Tests Pending * PSA Total 03/28/22 * PSA Total 03/28/[address] [facility] evaluation + Plan note Future Appointments Appointment Date:03/18/2025 08:20:00 AM Scheduled Provider:LUCY BRICENO PA-C Location:[facility] Appointment Type:URO Office Visit Diagnostic Tests Pending * PSA Total 03/17/[address] [facility] evaluation note* Diagnosis Onset Date Resolution Status CAD (coronary artery disease) acute Fall acute Hyperlipemia acute Right shoulder pain acute [facility] Work Phone: Evaluation note* Diagnosis Onset Date Resolution Status CAD (coronary artery disease) acute Fall acute H/O heart artery stent acute Hyperlipemia acute Hypertension acute Nicotine dependence acute Right shoulder pain acute Screening for lung cancer ac [facility] Work Phone: evaluation note* Diagnosis Onset Date Resolution Status CAD (coronary artery disease) acute Fall acute H/O heart artery stent acute Hyperlipemia acute Hypertension acute Nicotine dependence acute Right shoulder pain acute Screening for lung cancer [place] CAD (coronary artery disease) acute H/O heart artery stent acute Hyperlipemia acute Hypertension acute Nicotine dependence acute Pre-op evaluation acute [facility] Work Phone: Evaluation note* Diagnosis Acute pain [...] Onset Date Resolution Status Impaired fasting glucose [facility] Work Phone: Evaluation note* Diagnosis Left hand [...] rotator cuff repair documented in this encounter [facility] HealthcareEvaluation note* Diagnosis Bilateral posterior capsular opacification- Primary Unspecified after-cataract documented in this encounter [facility] HealthcareEvaluation note* Diagnosis S/P right rotator cuff repair- Primary documented in this encounter [facility] HealthcareEvaluation note* Diagnosis Onset Date Resolution Status Admit Date CAD (coronary artery disease) acute April 29, 2024 8:17am Fall acute April 29, 2024 8:17am H/O heart artery stent acute nuary 2024 8:17am Hyperlipemia acute April 8:17am Hypertension acute April 8:17am Impaired fasting glucose acute April 29, 2024 8:17am Medicare annual wellness vis it, subsequent acute April 29 8:17am Nicotine dependence acute 2024 8:17am Right shoulder pain acute 2024 8:17am Screening for lung cancer acute April 29, 2024 8:17am [facility] Work Phone: Evaluation note* Diagnosis Bursitis of left foot- Primary 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 Acquired keratoderma Pain in left foot Pain in soft tissues of limb Difficulty walking Difficulty in walking documented in this encounter [facility] HealthcareEvaluation note* Diagnosis Pressure injury of left foot, stage 1- Primary Pain in left foot Pain in soft tissues of limb 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 Difficulty walking Difficulty in walking documented in this encounter [facility] HealthcareEvaluation note* Diagnosis Preop examination- Primary Unspecified pre-operative examination Coronary artery disease, unspecified vessel or lesion type, unspecified whether angina present, unspecified whether caddo or transplanted heart Hypertension, unspecified type Preop examination Unspecified pre-operative examination Coronary artery disease, unspecified vessel or lesion type, unspecified whether angina present, unspecified whether caddo or transplanted heart Hypertension, unspecified type [facility]* Diagnosis Bursitis of left foot- Primary 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 Pain in left foot Pain in soft tissues of limb Difficulty walking Difficulty in walking documented in this encounter [facility] HealthcareEvaluation note* Diagnosis Onset Date Resolution Status Admit Date Otitis externa acute August 31, 2024 2:20pm [facility] Work Phone: Hospital course Narrative No data available for this section [facility] Hospital Discharge instructionsAmbulatory Orders* Referral to Orthopedics Time Frame: 10/01/23, Location: None Selected [facility] Work Phone: Progress note No data available for this section [facility] reason for referral (narrative)* Consultation (Routine) - Authorized Specialty Diagnoses / Procedures Referred By Contac t Referred To Contact Physical Therapy Diagnoses S/P right rotator cuff repair Procedures [place] OFFICE/OUTPATIENT NEW HIGH MDM 60 MINUTES Silva Mak NP [address] [place] [address] Madelyn Coffey, PT [address] [place] [address] Referral ID Status Reason Start Date Expiration Date Visits Requested Visits Authorized [id number] Authorized Consult and Treat 12/11/2023 06/08/2024 10 10 [facility] for referral (narrative)No reason for referral information availableMercy [facility] Work Phone: Reason for visit Narrative* Consultation (Routine) - Authorized Specialty Diagnoses / Procedures Referred By Contac t Referred To Contact Physical Therapy Diagnoses S/P right rotator cuff repair Procedures [place] OFFICE/OUTPATIENT NEW HIGH MDM 60 MINUTES Silva Mak NP [address] [place] [address] Madelyn Coffey, PT [address] [place] [address] Referral ID Status Reason Start Date Expiration Date Visits Requested Visits Authorized [id number] Authorized Consult and Treat 12/11/2023 06/08/2024 30 30 [facility]Reason for visit Narrative* Consultation (Routine) - Authorized Specialty Diagnoses / Procedures Referred By Contac t Referred To Contact Physical Therapy Diagnoses S/P right rotator cuff repair Procedures [place] OFFICE/OUTPATIENT NEW HIGH MDM 60 MINUTES Silva Mak, [employer] [address] [place] [address] Phone: tel: fax: Madelyn Coffey, PT [address] [place] [address] Phone: tel: fax: Referral ID Status Reason Start Date Expiration Date Visits Requested Visits Authorized [id number] Authorized Consult and Treat 12/11/2023 06/08/2024 30 30 [facility] HealthcareRecaronde[facility] health for [facility] Narrative* Consultation (Routine) - Authorized Specialty Diagnoses / Procedures Referred By Contac t Referred To Contact Physical Therapy Diagnoses S/P right rotator cuff repair Primary osteoarthritis, right shoulder Procedures [place] OFFICE/OUTPATIENT NEW HIGH MDM 60 MINUTES Silva Mak, [employer] [address] [place] [address] Phone: tel: fax: Madelyn Coffey, PT [address] [place] [address] Phone: tel: fax: Referral ID Status Reason Start Date Expiration Date Visits Requested Visits Authorized [id number] Authorized Consult and Treat 12/11/2023 06/08/[address] [facility] Narrative* Consultation (Routine) - Closed Specialty Diagnoses / Procedures Referred By Contac t Referred To Contact Physical Therapy Diagnoses S/P right rotator cuff repair Primary osteoarthritis, right shoulder Procedures [place] OFFICE/OUTPATIENT NEW HIGH MDM 60 MINUTES Silva Mak, [employer] [address] [place] [address] Phone: tel: fax: Madelyn Coffey, PT [address] [place] [address] Phone: tel: fax: Referral ID Status Reason Start Date Expiration Date V isits Requested Visits Authorized [id number] Closed Consult and Treat 12/11/2023 06/08/2024 30 30 [facility]Reason for visit Narrative* Consultation (Routine) - Authorized Specialty Diagnoses / Procedures Referred By Loy smyth Referred To Contact Physical Therapy Diagnoses S/P right rotator cuff repair Procedures [place] OFFICE/OUTPATIENT NEW HIGH MDM 60 MINUTES Silva Mak, [employer] [address] [place] [address] Madelyn Coffey, PT [address] [place] [address] Referral ID Status Reason Start Date Expiration Date Visits Requested Visits Authorized [id number] Authorized Consult and Treat 12/11/2023 06/08/2024 10 [...] Date/ Time Advance Directives Yes July 25, 018 10:09am Advance Directive Response Recorded Date/ Time [...] Complaint Establish Surgery Clearance- testing 10/23 @ [place] Reason for Visit CAD (coronary artery disease) [...] 2024 8 :17am Impaired fasting glucose April 29, 2 025 8:17am Medicare annual wellness visit, brandon nt April 29, 2024 8:17am Nicotine dependence [...] Impaired fasting glucose October 01, 2024 8:21am Chief Complaint Admit Date ear pain August 31, 2024 2:20p m diabetic check October 01, 2024 8:21a m ear pain, rash under arm October 28, 2024 12:55pm Reason for Visit Admit Date Atopic dermatitis August 31, 2024 2:20p m Otitis externa August 31, 2024 2:20p m CAD (coronary artery disease) October 01, 2024 8:21am H/O heart artery stent October 01, 2024 8: 21am Hyperlipemia October 01, 2024 8:21a m Hypertension October 01, 2024 8:21a m Impaired fasting glucose October 01, 2024 8:21am Nicotine dependence October 01, 2024 8:21a m Otitis externa October 01, 2024 8:21a m Screening for lung cancer October 01, 2024 8:21am Abscess October 28, 2024 12:5 5pm Reason for Referral Specialty Diagnoses / Procedures Referred By Contac t Referred To Contact Diagnoses Preop examination Coronary artery disease, unspecified vessel or lesion type, unspecified whether angina present, unspecified whether caddo or transplanted heart Hypertension, unspecified type Procedures ECG 12 lead Seda Washington DO [address] [facility] [address] [place] [address] Referral ID Status Reason Start Date Expiration Date V isits Requested Visits Authorized [id number] Pending Review 10/22/2023 10/21/2024 1 1 Additional Source Comments (unrecognized sect ion and content) No Status Records FoundNo Status Records FoundNo Status Records FoundNo Status Records FoundNo Status Records FoundNo Status Records Found INFORMATION SOURCE (unrecogn ized section and content) DATE CREATED AUTHOR 07/18/2018 [facility] DATE CREATED AUTHOR AUTHOR'S ORGANIZ ATION 08/14/2022 [facility] DATE CREATED AUTHOR AUTHOR'S ORGANIZ ATION 11/08/2023 [facility] DATE CREATED AUTHOR AUTHOR'S ORGANIZ ATION 08/28/2024 [facility] [facility] DATE CREATED AUTHOR AUTHOR'S ORGANIZ ATION 08/29/2024 [facility] DATE CREATED AUTHOR AUTHOR'S ORGANIZ ATION 11/10/2024 [facility] Patient Care team informatio n (unrecognized section and content) Team Status: Active Member Role Status Dates Lucy Alfaro APRN [employer]-C Primary Care Provider Active Team Status: Inactive Member Role Status Dates Lucy Alfaro APRN [employer]C Primary Care Provider, Attending Provider Active Start: September 30, 2023 End: September 30, 2023 Team Status: Active Member Role Status Dates Lucy Alfaro APRN [employer]-C Primary Care Provider, Attending Provider Active Start: October 01, 2023 Team Status: Inactive Member Role Status Dates Lucy Alfaro APRN [employer]-C Primary Care Provider, Attending Provider Active Start: October 25, 2023 End: October 25, 2023 Chief Juvenile Probation Officer Relationship Specialty Start Date End Date Lucy Alfaro NP [facility] [place] [address] PCP - General Family Medicine 10/14/23 Chief Juvenile Probation Officer Relationship Specialty Start Date End Date Lucy Alfaro NP [address] [place] [address] PCP - General Family Medicine 10/14/23 Chief Juvenile Probation Officer Relationship Specialty Start Date End Date Lucy Alfaro NP [address] [place] [address] PCP - General Family Medicine 10/14/23 Chief Juvenile Probation Officer Relationship Specialty Start Date End Date Lucy Alfaro NP [address] [place] [address] PCP - General Family Medicine 10/14/23 Chief Juvenile Probation Officer Relationship Specialty Start Date End Date Lucy Alfaro NP [address] [place] [address] PCP - General Family Medicine 10/14/23 Chief Juvenile Probation Officer Relationship Specialty Start Date End Date Lucy Alfaro NP [address] [place] [address] PCP - General Family Medicine 10/14/23 Chief Juvenile Probation Officer Relationship Specialty Start Date End Date Lucy Alfaro NP [address] [place] [address] PCP - General Family Medicine 10/14/23 Chief Juvenile Probation Officer Relationship Specialty Start Date End Date Lucy Alfaro NP [address] [place] [address] PCP - General Family Medicine 10/14/23 Chief Juvenile Probation Officer Relationship Specialty Start Date End Date Lucy Alfaro NP [address] [place] [address] [place] [address] PCP - General Family Medicine 10/14/23 Chief Juvenile Probation Officer Relationship Specialty Start Date End Date Lucy Alfaro NP [address] [place] [address] [place] [address] PCP - General Family Medicine 10/14/23 Chief Juvenile Probation Officer Relationship Specialty Start Date End Date Lucy Alfaro NP [address] [place], [place] [address] [id number] PCP - General Family Medicine 10/14/23 Chief Juvenile Probation Officer Relationship Specialty Start Date End Date Lucy Alfaro NP [address] [place] [address] [id number] PCP - General Family Medicine 10/14/23 Team Status: Active Member Role Status Dates Lucy Alfaro APRN [employer]C Primary Care Provider Active Start: November 26, 2023 NASIM De Los Santos Attending Provider Active S tart: November 26, 2023 Team Status: Inactive Member Role Status Dates Lucy Alfaro APRN [employer]C Primary Care Provider, Attending Provider Active Start: January 27, 2024 End: January 27, 2024 Chief Juvenile Probation Officer Relationship Specialty Start Date End Date Lucy Alfaro NP [address] [place] [address] [place], [place] [id number] PCP - General Family Medicine 10/14/23 Chief Juvenile Probation Officer Relationship Specialty Start Date End Date Lucy Alfaro NP [address] [place], [place] [address] [id number] PCP - General Family Medicine 10/14/23 Chief Juvenile Probation Officer Relationship Specialty Start Date End Date Lucy Alfaro NP [address] [place] [id number] PCP - General Family Medicine 10/14/23 Chief Juvenile Probation Officer Relationship Specialty Start Date End Date Lucy Alfaro NP [address] [place] [id number] PCP - General Family Medicine 10/14/23 Team Status: Active Member Role Status Dates Lucy Alfaro APRN NP-C Primary Care Provider Active Start: March 112023 Lucy Briceno PA-C Attending Provider Active Start: March 11, 2024 Team Status: Inactive Member Role Status Dates Lucy Alfaro APRN NP-C Primary Care Provider, Attending Provider Active Start: April 29, 2024 End: April 29, 2024 Chief Juvenile Probation Officer Relationship Specialty Start Date End Date Lucy Alfaro NP [address] [place], [place] [id number] PCP - General Family Medicine 10/14/23 Chief Juvenile Probation Officer Relationship Specialty Start Date End Date Lucy Alfaro NP [address] [place], [place] [id number] PCP - General Family Medicine 10/14/23 Chief Juvenile Probation Officer Relationship Specialty Start Date End Date Ramin Iyer DO [address] [place] [id number] PCP - General Family Medicine 01/21/19 Team Status: Inactive Member Role Status Dates MENG McneilC Primary Care Provider, Attending Provider Active Start: August 31, 2024 End: August 31, 2024 Team Status: Inactive Member Role Status Dates Lucy Alfaro APRN NP-Tye Primary Care Provider Active Start: August 31, 2024 End: August 31, 2024 MENG Mcneil Attending Provider Act herb Start: August 31, 2024 End: August 31, 2024 Team Status: Inactive Member Role Status Dates Lucy MENG Alfaro [employer]-Tye Primary Care Provider Active Start: October 01, 2024 End: October 01, 2024 Lucy MENG Alfaro [employer]Jero Attending Provider Act herb Start: October 01, 2024 End: October 01, 2024 Team Status: Inactive Member Role Status Dates Lucy MENG Alfaro [employer]-Tye Primary Care Provider Active Start: October 28, 2024 End: October 28, 2024 Lucy MENG Alfaro [employer]-Tey Attending Provider Act herb Start: October 28, 2024 End: October 28, 2024 Goals (unrecognized section and content) Goals [...] the Lt ankle A1C: 6.1 Reason Comments PRASHANT Villa is [...] BE BASED ON THE PRIMARY CLINICAL RECORDS. [facility]. provides no warranty or guarantee of the accuracy or completeness of information in this document.
[2024-12-02 10:48] LABS: Hematocrit 49.2 % (42.0-54.0); Hemoglobin 16.0 g/dL (14.0-18.0); Immature Granulocytes Abs Auto 0.04 10^3/uL (0.00-0.03); Immature Granulocytes Pct Auto 0.5 % (0.0-0.5); Lymphocytes Absolute Auto 1.8 10^3/uL (1.2-3.8); Mean Corpuscular HGB Conc 32.5 g/dL (29.9-35.2); Mean Corpuscular Hemoglobin 31.1 pg (25.9-34.0); Mean Corpuscular Volume 95.7 fL (80.0-94.0); Platelet Count 234 10^3/uL (150-450); Red Blood Count 5.14 10^6/uL (4.70-6.10); White Blood Count 8.5 10^3/uL (4.0-11.0)
[2024-12-02 11:36] LABS: Alanine Aminotransferase 43 U/L (16-63); Albumin Globulin Ratio 1.3; Albumin Level 4.3 g/dL (3.4-5.0); Alkaline Phosphatase 90 U/L (46-116); Anion Gap 13.7; Aspartate Amino Transferase 29 U/L (15-37); Blood Urea Nitrogen 18.0 mg/dL (7.0-18.0); Calcium 9.3 mg/dL (8.5-10.1); Carbon Dioxide 25.9 mmol/L (21.0-32.0); Chloride 106 mmol/L (98-107); Cholesterol 101 mg/dL (<=200); Estimated GFR (African America >60 (>=60 mL/min/1.73m^2); Estimated GFR (Non-African Ame >60 (>=60 mL/min/1.73m^2); Globulin 3.2 g/dL; Glucose 135 mg/dL (74-106); HDL Cholesterol 47 mg/dL (40-60); Potassium 4.6 mmol/L (3.5-5.1); Sodium 141 mmol/L (136-145); Total Protein 7.5 g/dL (6.4-8.2); Triglycerides 30 mg/dL (<=150); VLDL CHOLESTEROL 6.0 mg/dL
== END 2024-12-02 08:04 | disposition home or self-care (01) ==
LOC: LAB 08:04
PROVIDERS: PCP Nurse Practitioner Family; Visit Provider Nurse Practitioner Family
DX: E78.5 Hyperlipidemia, unspecified (principal); I10 Essential (primary) hypertension; I25.10 Atherosclerotic heart disease of native coronary artery without angina pectoris; R73.01 Impaired fasting glucose
CPT/HCPCS: 36415; 80053; 80061; 85025

== ENCOUNTER 2025-03-10 08:07 | Outpatient (OUT) | payer MEDICARE, OTHER, SELFPAY ==
--- OUTSIDE RECORDS SUMMARY | 2025-03-10 08:12 | XMS_ITS | CCD ---
Author Organization [facility] Care Team Providers Care Clinical Psychology Professor Name Role Phone PHYSICIAN, DEFAULT Admitting Unavailable PHYSICIAN, DEFAULT Attending Unavailable SOULEYMANE SCHROEDER Primary Care Unavailable House, Ramin Simms Primary Care Physician HEMANT Lovell, DR ABDIAZIZ Simpson Consulting Unavaila [...] Unavailable HOUSE, RAMIN P Primary Care Unavailable [place], SEDA Webb Attending Unavailable DAINA, SEDA Webb Referring Unavailable HOUSE, RAMIN P Primary Care Unavailable [place], SEDA A Referring Unavailable HOUSE, RAMIN P Primary Care Unavailable [place], SEDA Webb Attending Unavailable DAINA, SEDA Webb Referring Unavailable HOUSE, RAMIN P Primary Care Unavailable [place], SEDA Tracey Admitting Unavailable DAINA, SEDA Webb Attending Unavailable DAINA, SEDA A Referring Unavailable HOUSE, RAMIN P Primary Care Unavailable EMILY SILVER Attending Unavailable LUCY ALFARO Primary Care Unavailable Angelina ROENTGENOLOGY TEACHER, Lucy Webb Primary Care Provider ALXY GARCIA Primary Care Physician Vlad DO, Ramin Simms Primary Care Provider IMELDA VILLA Attending Unavailable IMELDA VILLA Attending Unavailable SILVA MAK Attending Unavailable DAINA, SEDA Webb Attending Unavailable IMELDA VILLA Attending Unavailable RUSHER, IMELDA Webb Attending Unavailable APLING, SILVA Perkins Attending Unavailable ZAHLER, JOHN Krishna Attending Unavailable ANTHONY PINO Referring Unavailable APLING, SILVA Perkins Attending Unavailable [...] BRICENO Attending Unavailab FELICIA Santana Attending Unavailab le Allergies Allergy ClassificationReported Allergen(s)Allergy TypeDate of OnsetReaction(s) Facility (6 sources)Penicillins; Translations: [penicillins]Drug allergy (disorder) 50-56-9553Lqyyfax (qualifier value)[facility] (20 sources)Penicillins; Translations: [penicillins]Drug Hjxubjpaezp70-15-9041 Rash, Unknown (qualifier value)[facility] (1 source)PenicillinsPropensity to adverse reactions to fuyi75-75-5295[facility] Medications Current Medications MedicationDrug Class(es)DatesSig (Normalized)Sig (Original)acetaminophen 300 mg / codeine phosphate 30 mg oral tablet (1 source)Opioid AgonistStart: 87-42-4205iada 1 tablet by mouth every six hours Tylenol with Codeine 300 mg-30 mg Tab tab(s), Oral, q6hr, Refill(s) 0 Start Date: 04/30/19 Status: OrderedAspirin (20 sources)Platelet Aggregation Inhibitor, Nonsteroidal Anti-inflammatory Drug Start: 98-42-1809ogqrmrq 81 mg Start Date: 02/17/19 Status: OrderedStart: 83-75-9480lhiq 1 tablet by mouth once dailyAspirin 81 mg Tablet,Delayed Release (Dr/Ec) Active 81 MG PO Daily June 20, 2017 12:00am Complies with drug therapytake 1 tablet by mouth once dailyaspirin 81 MG chewable tablet Chew 1 tablet every day by oral route. Activeatenolol 25 mg oral tablet (20 sources)beta-Adrenergic BlockerStart: 60-27-0910yaya 1 tablet by mouth once daily at bedtimeAtenolol 25 mg tablet Active 25 MG PO Daily at bedtime June 20, 2017 12:00am Complies with drug therapytake 0.5 tablet by mouth in the morningatenolol (TENORMIN) 50 mg tablet Take 0.5 tablets (25 mg total) by mouth in the morning. Activeatorvastatin 80 mg oral tablet (20 sources)HMG-CoA Reductase InhibitorStart: 81-86-0511tlwx 1 tablet by mouth once dailyAtorvastatin 80 mg tablet Active 80 MG PO Daily June 20, 2017 12:00am Complies with drug therapytake 2 tablets by mouth in the morning atorvastatin (LIPITOR) 40 mg tablet Take 2 tablets (80 mg total) by mouth in the morning. ActiveCentrum Silver (2 sources)Start: 60-53-6915Bmhsqsc Silver tab(s) Start Date: 02/17/19 Status: OrderedOsteo Bi-Flex (1 source)Start: 09-77-0970Fdrvu Bi-Flex Start Date: 02/17/19 Status: Ordered clopidogrel 75 mg oral tablet (20 sources)P2Y12 Platelet InhibitorStart: 78-99-4959kphp 1 tablet by mouth once dailyClopidogrel 75 mg tablet Active 75 MG PO Daily September 30, 2023 12:00am Complies with drug therapyStart: 06-20-2017 End: 62-12-4598jnuj 1 tablet by mouth once dailyClopidogrel 75 mg tablet Discontinued 75 MG PO Daily June 20, 2017 12:00am July 20, 2017 8:22am diphenhydrAMINE hydrochloride 25 mg oral capsule (1 source)Histamine-1 Receptor Antagonisttake 1 capsule by mouth every six hours as neededdiphenhydrAMINE (BENADRYL) 25 mg capsule Take 1 capsule (25 mg total) by mouth every 6 (six) hours as needed for itching. Activedoxycycline monohydrate 100 mg oral tablet (1 source)Tetracycline-class DrugStart: 98-30-3147ntby 1 tablet by mouth twice dailyDoxycycline Monohydrate 100 mg tablet Active 100 MG PO Twice daily 18 01October 28, 2024 12:00am Complies with drug therapyferrous sulfate (20 sources)take 1 tablet by mouth in the morningFerrous Sulfate (IRON PO) Take 1 tablet by mouth in the morning. Activehydrocortisone 10 mg/ml / neomycin 3.5 mg/ml / polymyxin b 83997 unt/ml otic solution (5 sources)Aminoglycoside Antibacterial, Polymyxin-class Antibacterial, CorticosteroidStart: 08-31-2024 End: 21-34-3083Svbbvoie-Polymyxin-Hc 3.5-10,000-1 mg/mL-unit/mL-% solution Active 4 DROPS OTIC Three times daily 10 October 01, 2024 8:44am Complies with drug therapyMultiple Vitamins-Minerals (multivitamin with iron-minerals) liquid (11 sources)Multiple Vitamins-Minerals (multivitamin with iron-minerals) liquid Take by mouth Daily Dsjhpsdvzjnsmb-jviw-XY-calcium &mins (THERAGRAN-M) 9 mg iron-400 mcg tablet (1 source)sjboklgz-bjln-BB-calcium &mins (THERAGRAN-M) 9 mg iron-400 mcg tablet Take 1 tablet by mouth inthe morning. Activemupirocin 0.02 mg/mg topical ointment (1 source)RNA Synthetase Inhibitor AntibacterialStart: 60-86-2366Ajfwlmyac 2 % ointment Active 1 APPLIC TOPICAL Twice daily October 28, 2024 12:00am Complies withdrug therapytriamcinolone acetonide 1 mg/ml topical cream (2 sources)CorticosteroidStart: 54-56-0893Rlhelgmbimkdp Acetonide 0.1 % cream Active 1 APPLIC TOPICAL Twice daily 30 5 August 31, 2024 12:00amComplies with drug therapy Completed/Discontinued Medications MedicationDrug Class(es)DatesSig (Normalized)Sig (Original)acetaminophen 500 mg / diphenhydrAMINE hydrochloride 25 mg oral tablet (9 sources)Histamine-1 Receptor AntagonistStart: 06-20-2017 End: 10-07-7177ybez 2 tablets by mouth at bedtimeDiphenhydramine-Acetaminophen (Tylenol Pm Extra Strength) 25-500 mg Tablet Discontinued 2 TAB PO Bedtime June 20, 2017 12:00am September 30, 2023 8:58amtake 1 tablet by mouth once daily as needed for sleepdiphenhydrAMINE-acetaminophen (TYLENOL PM) 25-500 mg tablet Take 1 tablet by mouth nightly as needed for sleep. Activeacetaminophen 325 mg / HYDROcodone bitartrate 5 mg oral tablet (8 sources)Opioid AgonistStart: 06-20-2017 End: 03-01-2438Dzmpisanbbr-Acetaminophen 5-325 mg tablet Discontinued 5 - 325 MG PO As Directed as needed for PainMarch 2017 12:00am July 20, 2017 8:22ambiotin 1 mg oral capsule (8 sources)Start: 06-20-2017 End: 53-05-6707eoay 1 capsule by mouth once dailyBiotin 1 mg Capsule Discontinued 1 MG PO Daily June 20, 2017 12:00am September 30, 2023 8:58am cyclobenzaprine hydrochloride 10 mg oral tablet (8 sources)Muscle RelaxantStart: 07-20-2017 End: 85-89-3306fxuf 1 tablet by mouth three times daily as needed for muscle spasmsCyclobenzaprine 10 mg tablet Discontinued 10 MG PO Three times daily as needed for back spasms 50 July 20, 2017 12:00am September 30, 2023 8:58am gabapentin 300 mg oral capsule (8 sources)Anti-epileptic AgentStart: 06-20-2017 End: 68-92-9976hhzw 1 capsule by mouth twice dailyGabapentin 300 mg capsule Discontinued 300 MG PO Twice daily June 20, 2017 12:00am September 30, 2023 8:58ammetFORMIN hydrochloride 500 mg oral tablet (20 sources)BiguanideStart: 01-27-2024 End: 04-15-9667vjcp 1 tablet by mouth once dailyMetformin 500 mg tablet Discontinued 500 MG PO Daily 90 90 April 29, 2024 9:43am October 01, 2024 8:46amoxyCODONE hydrochloride 5 mg oral tablet (8 sources)Opioid AgonistStart: 07-20-2017 End: 14-36-8036Xyvzobact (Roxicodone) 5 mg Tablet Discontinued 5 MG PO Q6H as needed for Pain 60 July 20, 2017 September 30, 2023 8:52am Take 1 or 2 p.o. every 6 hours as needed for painpredniSONE 10 mg oral tablet (8 sources)Start: 07-20-2017 End: 88-69-2109Ftbyvawniw 10 mg tablets,dose pack Discontinued 1 dose pk PO per package directions July 20, 2017 12:00am September 30, 2023 8:52am take 4 tabs for 3 days then take 3 tabs for 3 days then take 2 tabs for 3 days then take 1 tab for 3 daysStart: 07-20-2017 End: 20-93-5098Tagyiflbcz Discontinued 1 dose pk PO per package directions July 20, 2017 12:00am September 30, 2023 8:52am take 4 tabs for 3 days then take 3 tabs for 3 days then take 2 tabs for 3 days then take 1 tab for 3 days sulfamethoxazole 800 mg / trimethoprim 160 mg oral tablet (8 sources)Dihydrofolate Reductase Inhibitor Antibacterial, Sulfonamide AntimicrobialStart: 07-20-2017 End: 18-02-4279qxno 1 tablet by mouth every twelve hoursSulfamethoxazole- Trimethoprim (Bactrim Ds) 800-160 mg Tablet Discontinued 1 TAB PO Q12H July 20, 2017 12:00am September 30, 2023 8:52am Problems Active Problems Problem ClassificationProblemDateDocumented DateEpisodic/ChronicAcute myocardial infarction (2 sources)Myocardial -07-2714AkojxveOqtutrxt reactions (4 sources)Atopic dermatitis; Translations: [Atopic dermatitis, unspecified] 26-10-6855RblxrivBzdmymav of urinary tract (6 sources)History of calculus of kidney; Translations: [Personal history of urinary calculi]Onset: 29-22-8586QiamkepzTclmmhzq (1 source)After-cataract of bilateral eyes; Translations: [Other secondary cataract, bilateral]50-40-6558QkuwkcyKndlvri ulcer of skin (4 sources)Pressure ulcer of other site, stage 1; Translations: [Pressure ulcer, other site]14-61-3288DliadszDntkyoqm atherosclerosis and other heart disease (19 sources)Coronary arteriosclerosis; Translations: [Atherosclerotic heart disease of [place] coronary artery without angina pectoris]Onset: 08-03-2022 94-37-0939RebkdawQdqmardf atherosclerosis and other heart disease (4 sources)Presence of coronary angioplasty implant and graft; Translations: [Percutaneous transluminal coronary angioplasty status]62-49-7759Hnfalnfj Diabetes mellitus without complication (9 sources)Impaired fasting glycemia; Translations: [Impaired fasting glucose] 46-54-1838JotofeccNnxzrguyj of lipid metabolism (19 sources)Hypercholesterolemia; Translations: [Hyperlipidemia]Onset: 469605-20-9381ZkmviapC Codes: Fall (12 sources)Fall; Translations: [Unspecified fall, initial encounter]09-30-2023 EpisodicEssential hypertension (15 sources)Hypertensive disorder; Translations: [Essential (primary) hypertension]Onset: 779716-71-7713ZdjmamoWyoyygwewyoib symptoms and ill- defined conditions (8 sources)Blood in urine; Translations: [Dysuria]36-36-8158XdgfxfirJqyme valve disorders (6 sources)Nonrheumatic mitral (valve) insufficiency; Translations: [Rheumatic disorders of both mitral and aortic valves]Onset: 81-96-3051OxxixqwZxwkswxipbb of prostate (5 sources)Benign prostatic hypertrophy with outflow obstruction; Translations: [Benign prostatic hyperplasia with lower urinary tract symptoms]Onset: 16-32-3567BwcjtiqUfgfxbahueis conditions of male genital organs (2 sources)Acute tjjkltfmhyk04-29-5460WijrfqnjJqrmlkpsquflis (4 sources)Arthritis of right acromioclavicular joint; Translations: [Primary osteoarthritis, right shoulder]65-73-1099JtoppatVplqs acquired deformities (8 sources)Deformity of metatarsal; Translations: [Unspecified acquired deformity of left lower leg]16-76-7090QgisgibyJwpjg connective tissue disease (2 sources)Pain of left hand; Translations: [Pain in left hand]01-28-2024 EpisodicOther connective tissue disease (2 sources)Pain in finger of left hand; Translations: [Pain in left finger(s)] 77-90-2433FsrdhgsvXcesg connective tissue disease (4 sources)Triggering of digit; Translations: [Trigger finger, left ring finger] 50-69-3041QfgbhtjaKikax connective tissue disease (4 sources)Dupuytren's contracture; Translations: [Palmar fascial fibromatosis [Dupuytren]]14-62-4108LnrmraukLzmuq connective tissue disease (4 sources)Bursitis of left foot; Translations: [Other enthesopathy of left foot and ankle]79-05-2257BlstigpeLiuzq connective tissue disease (8 sources)Pain in left foot; Translations: [Pain in left foot]04-30-2024 EpisodicOther connective tissue disease (2 sources)Dupuytren contracture of left palm; Translations: [Palmar fascial fibromatosis [Dupuytren]]08-75-6577TcjjvwhiEfaef connective tissue disease (2 sources)Trigger finger of left hand; Translations: [Trigger finger, unspecified finger]71-32-3903EmaqauafBwodf ear and sense organ disorders (6 sources)Otitis externa; Translations: [Unspecified otitis externa, unspecified ear]51-80-9732JirwdtjQbspx ear and sense organ disorders (1 source)Unspecified otitis externa, unspecified ear; Translations: [Infective otitis externa, unspecified]55-05-7988NfndzpkIwkzk nervous system disorders (8 sources)Difficulty walking; Translations: [Difficulty in walking, not elsewhere classified]80-00-9382VgdheckUrvyn non-traumatic joint disorders (20 sources)Pain in right shoulder; Translations: [Right shoulder pain] 74-55-0018OvagtkwpMzbxp non-traumatic joint disorders (16 sources)Stiffness of right shoulder; Translations: [Stiffness of right shoulder, not elsewhere classified]82-45-3261TvsyflqsFvvet screening for suspected conditions (not mental disorders or infectious disease) (19 sources)Raised prostate specific antigen; Translations: [Elevated prostate specific antigen [PSA]]Onset: 63-26-9366UndzmreoDunnx skin disorders (4 sources)Acquired keratoderma; 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] palmaris et plantaris]37-86-9585XtxoeyljZefv-; endo-; and myocarditis; cardiomyopathy (except that caused by tuberculosis or sexually transmitted disease) (2 sources)Cardiomyopathy, unspecified; Translations: [Cardiomyopathy, unspecified]Onset: 80-87-3384JsljsbzWfzjbwqy codes; unclassified (5 sources)History of arthroscopic procedure on shoulder; Translations: [Other specified postprocedural states]40-02-0045XdagwcjpEsktivuk codes; unclassified (2 sources)Tobacco use; Translations: [Tobacco use]Onset: 84-20-6246YyopwtwuDlkt and subcutaneous tissue infections (2 sources)Abscess; Translations: [Cutaneous abscess, unspecified]10-28-2024 EpisodicSpondylosis; intervertebral disc disorders; other back problems (8 sources)Prolapsed lumbar intervertebral disc; Translations: [Other intervertebral disc displacement, lumbarregion]82-66-5056BuyeltjOfhtatr on above:Problem List clean-up per request of Phys. EHR CmteSubstance-related disorders (15 sources)Smoker; Translations: [Nicotine dependence]Onset: 03-17-2024 65-11-1394UlwsqhnMbisssv on above:Added secondary to documentation in Social History.Unclassified (2 sources)Drug therapy pjdxryy89-11-1622Ktrrhlkudytz (1 source)right shoulder rotator cuff tearOnset: 11-06-2023 Past or Other Problems Problem ClassificationProblemDateDocumented DateEpisodic/ChronicNonspecific chest pain (4 sources)Other chest pain; Translations: [OTHER CHEST PAIN]Onset: 05-03-2022 Episodic Results Test NameValueInterpretationReference QprccCoiggxkaBsP2q HPLC (Bld) [Mass fraction]Ordered By: Lucy Alfaro on 45-49-5125PhI9n (Bld) [Mass fraction]6.2 %[facility]Office Visiton 82-55-2780Rrtqhk- up [id number] Mart Villa 1950 Date Provider Department Center 08/26/2024 [id number]-TUVIRCMOI PIKE [facility] Family History Problem Relation Age of Onset Coronary artery disease Other Family Status - Relation Status Age at Mother Father Other Level of Service:67091 MO OFFICE/OUTPATIENT ESTABLISHED MOD [facility] Urology Office/Clinic NoteUrology Office/Clinic Note Chief Complaint 1yr f/u HPI [...] E&M of Est. Patient Moderate 30-39 Min 95313 Fall Risk Screen 2 or more w/injury 1100F Influenza immunization status assessed 1030F Medication list documented in medical record 1159F Most recent diastolic blood pressure <80 mm Hg 3078F Review of all meds by a prescribing practitioner or clinical pharmacist documented in EHR 1160F Systolic BP <130 mm Hg (Most Recent) 3074F Urnls Dip Stick Auto w/o Microscopy POC 03702 2. Elevated PSA (R97.20: Elevated prostate specific [...] E&M of Est. Patient Moderate 30-39 Min 02066 PSA Total 3. Nephrolithiasis (N20.0: Calculus of kidney) CT ap 11/05/22 - showed small 4mm nonobstructing L renal stone. KUB 03/04/23 - punctate L stone confirmed. KUB 03/11/24 - stable L stones. No recent flank pain/gross hematuria or stone passage sx. Continue increased fluid intake. Repeat KUB 1 yr. Ordered: Complex E&M Add on G2211 E&M of Est. Patient Moderate 30-39 Min 29760 XR Abdomen 1 View 4. Smoker (F17.200: Nicotine dependence, unspecified, uncomplicated) Cessation encouraged. Ordered: Complex E&M Add on G2211 E&M of Est. Patient Moderate 30-39 Min 65490 Follow-up With When Contact Information LUCY BRICENO PA-C, URL In 1 year [address] [place] [address] Additional Instructions: Patient Education Benign Prostatic Hyperplasia Problem List/Past Medical History Ongoing Acute prostatitis Anticoagulated BPH with urinary obstruction Elevated cholesterol Elevated PSA Hematuria Myocardial infarction Nephrolithiasis Nocturia Smoker Historical Dysuria History of kidney stones Urine frequency Procedure/Surgical History Transrectal biopsy of prostate using ultrasound (US) guidance (05/25/2019), Ureteroscopic removal of ureteric calculus (09/24/2012), Back Surgery, Cataract extraction, Foot Surgery, Knee replacement,Rotator cuff. Medications aspirin, 81 mg atenolol 25 [...] virus vaccine, inactivated 12/2022 Recorded SARS-CoV-2 (COVID-19) mRNAMUL.ORD![id number] 01/13/2022 Recorded influenza virus vaccine, inactivated 12/18/2021 Recorded SARSCoV2 mRNA(wixporqyj-ybqx-grzrrr) vac 07/13/2021 Recorded influenza virus vaccine, inactivated 01/20/2021 Recorded SARS-CoV-2 (COVID-19) mRNA BNT-162b2 vax 12/27/2020 Recorded SARS-CoV-2 (COVID-19) mRNA BNT-162b2 vax 05/28/2020 Recorded 2022-03-28: TPV70 SARS-CoV-2 (COVID-19) mRNA BNT-162b2 (more content not included)...[facility] HospitalComment on above:Result Comment: Electronically Signed By: LUCY BRICENO PA-C\.br\Date and Time Signed: 03/17/2412:50 ESTNo Panel Informationon 94-39-9763Vmlyjkoa Specific Antigen Total8.20 ng/mLHigh<=4.00 [facility]36on 29-54-620153Hxpthrmyh lab results from 11/26/2023: VAN De Los Santos MA His labs look great- CBC, kidney and liver function perfect Cholesterol levels are well controlled- continue all meds. Patient informed.NormalEast [place] Regional HospitalBasophils Auto (Bld) [#/Vol]on 88-21-7368Jbsewnoun (Bld) [#/Vol]0.1 10 3/uL0.0-0.1FCleveland Clinic Akron GeneralBasophils/100 WBC Auto (Bld)on 88-95-1286Fbztobrlz/100 WBC (Bld) 0.6 %0.2-2.0[facility] HospitalCholesterol in LDL Calc [Mass/Vol] on 16-52-4133Zrqmmddhnky in LDL [Mass/Vol]44.2 mg/dLUc West Chester HospitalComment on above:<100 mg/dl WYXWJSB960-212 mg/dl NEAR OR ABOVE PPQUNGX744- 159 mg/dl BORDERLINE YTSN955-839 mg/dl HIGH>190 mg/dl VERY HIGHCholesterol in VLDL Calc [Mass/Vol]on 05-90-1822Aemhtgbjamy in VLDL [Mass/Vol]12.8 mg/dL [facility] HospitalEosinophils/100 WBC Auto (Bld)on 11-26-2023 Eosinophils/100 WBC (Bld)2.8 %0.9-7.0[facility] Erythrocyte distribution width Auto (RBC) [Ratio]on 24-65-3693Tpqfgdbggov distribution width (RBC) [Ratio]12.2 %11.0-15.0[facility] Estimated glomerular filtration rate (GFR) non- Americanon 11-26-2023 GFR/1.73 sq M.predicted among non-blacks MDRD (S/P/Bld) [Vol rate/Area] mL/min/{1.73_m2}>=60[facility] HospitalGlobulin Calc (S) [Mass/Vol]on 27-10-3409Ouagsujr (S) [Mass/Vol]2.7 g/dLUc West Chester HospitalHematocrit Auto (Bld) [Volume fraction]on 94-31-7319Qacwlveuuo (Bld) [Volume fraction]45.3 %42.0-54.0[facility] HospitalHemoglobin [Mass/volume] in Bloodon 95-45-5038Aplwrfhsdo (Bld) [Mass/Vol]14.9 g/dL14.0-18.0 [facility] HospitalLaboratory - Chemistry and Chemistry - challengeon 61-57-1546Nrjkvvq [Mass/Vol]3.8 g/dL3.4-5.0[facility] HospitalALP [Catalytic activity/Vol]93 U/T37-742IafaxustmUc West [facility] HospitalALT [Catalytic activity/Vol]72 U/EOohe45-26UycvbnqsfUc West Chester HospitalAST [Catalytic activity/Vol]28 U/A73-28FvzutxpgqUc [facility] Hospital Bilirubin [Mass/Vol]0.4 mg/dL0.2-1.0[facility] HospitalCalcium [Mass/Vol]8.8 mg/dL8.5-10.1FCleveland Clinic Akron GeneralChloride [Moles/Vol] 106 mmol/J64-453NnkicqjcmUc West Chester HospitalCholesterol [Mass/Vol]100 mg/dL <=200[facility] HospitalCholesterol in HDL [Mass/Vol]43 mg/dL40-60 [facility] HospitalComment on above:> or =60 mg/dl - LOW CARDIOVASCULAR RISK<40 mg/dl - HIGH CARDIOVASCULAR RISKCO2 [Moles/Vol]27.1 mmol/L21.0-32.0[facility] HospitalCreatinine [Mass/Vol]0.90 mg/dL 0.70-1.30[facility] HospitalGFR/1.73 sq M.predicted MDRD (S/P/Bld) [Vol rate/Area]mL/min/{1.73_m2}>=60[facility] HospitalGlucose [Mass/Vol]153 mg/tJLmbn77-613OaxalkqixUc West [facility] HospitalPotassium [Moles/Vol]4.8 mmol/L3.5-5.1FCleveland Clinic Akron GeneralProtein [Mass/Vol] 6.5 g/dL6.4-8.2FHolmes County Joel Pomerene Memorial Hospitalodium [Moles/Vol]140 mmol/L 136-145[facility] HospitalTriglyceride [Mass/Vol]64 mg/dL<=150 [facility] HospitalUrea nitrogen [Mass/Vol]16.0 mg/dL7.0-18.0 [facility] HospitalUrea nitrogen/Creatinine [Mass ratio]17.8 mg/mg [facility] HospitalLaboratory - Hematology and Cell countson 70-17-7568Gwjtjizp granulocytes/100 WBC (Bld)0.5 %0.0-0.5FCleveland Clinic Akron GeneralLeukocytes [#/volume] corrected for nucleated erythrocytes in Blood by Automated counon 68-47-8550JFP corrected for nucl RBC Auto (Bld) [#/Vol]8.7 10 3/uL4.0-11.0[facility] HospitalLymphocytes Auto (Bld) [#/Vol]on 42-30-9361Tmdymzuojjg (Bld) [#/Vol]1.9 10 3/uL1.2-3.8[facility] HospitalLymphocytes/100 WBC Auto (Bld)on 11-26-2023 Lymphocytes/100 WBC (Bld)22.1 %20.5-60.0[facility] HospitalMCH Auto (RBC) [Entitic mass]on 12-70-2168RDQ (RBC) [Entitic mass]31.0 pg25.9-34.0 [facility] HospitalMCHC Auto (RBC) [Mass/Vol]on 37-89-0726BUDO (RBC) [Mass/Vol]32.9 g/dL29.9-35.2FCleveland Clinic Akron GeneralMCV Auto (RBC) [Entitic vol]on 48-04-3739EHA (RBC) [Entitic vol]94.4 pHViwa87.0-94.0 [facility] HospitalMonocytes Auto (Bld) [#/Vol]on 11-26-2023 Monocytes (Bld) [#/Vol]0.8 10 3/uL0.3-0.8[facility] Monocytes/100 WBC Auto (Bld)on 72-24-7941Jdhxeslmj/100 WBC (Bld)9.6 %1.7-12.0 [facility] HospitalNeutrophils Auto (Bld) [#/Vol]on 11-26-2023 Neutrophils (Bld) [#/Vol]5.6 10 3/uL1.4-6.5FC[facility] Neutrophils/100 WBC Auto (Bld)on 10-12-1999Qokhbhrynlt/100 WBC (Bld)64.4 % 43.0-75.0[facility] HospitalNo Panel Informationon 11-26-2023 Eosinophils # (Auto)0.2 10 3/uL0.0-0.7FCleveland Clinic Akron GeneralImmature Granulocyte # (Auto)0.04 10 3/uLHigh0.00-0.03[facility] Platelet mean volume Auto (Bld) [Entitic vol]on 19-61-8708Hrrjgesv mean volume (Bld) [Entitic vol]10.9 fL9.5-13.5FCleveland Clinic Akron GeneralPlatelets Auto (Bld) [#/Vol]on 15-75-0141Iqwhbjrki (Bld) [#/Vol]232 10 3/cA360-032 [facility] HospitalRBC Auto (Bld) [#/Vol]on 75-31-1878QMK (Bld) [#/Vol]4.80 10 6/uL4.70-6.10[facility] Medical Centererum or plasma albumin/globulin mass ratioon 66-20-8233Uxryigs/Globulin [Mass ratio]1.4 {ratio} [facility] Medical Centererum or plasma anion gap determinationon 12-86-2643Lhawj gap [Moles/Vol]11.7 mmol/LFHolmes County Joel Pomerene Memorial Hospitalerum or plasma total cholesterol/high density lipoprotein (HDL) cholesterol mass rat on 79-03-5974Ixnumgpvhpn.total/Cholesterol in HDL [Mass ratio]2.3 {ratio} [facility] HospitalComment on above:3.3 - 4.4 LOW RISK4.4 - 7.1 AVERAGE RISK7.1 - 11.0 MODERATE RISK>11.0 HIGH RISKECG 12 leadon 10-25-2023 TRACEMASTERVUEProHolzer Medical Center – Jackson SystemBASIC METABOLIC PANLon 55-14-4350Thara gap [Moles/Vol]8 mmol/LNormal5-15Mount St. Mary HospitalComment on above: Performed By: #### 718-7, BMP #### [facility] ([id number]) [address], [address] [place], [place] [id number] [Mass/Vol]9.1 mg/dLNormal8.5-10.5PBlanchard Valley Health System Bluffton HospitalComment on above:Performed By: #### 718-7, BMP #### [facility] ([id number]) [address], [address] [place] [id number] [Moles/Vol]106 mmol/WEmacwy51-374PweNmhpkcHca Houston Healthcare Medical CenterComment on above:Performed By: #### 718-7, BMP #### [facility] ([id number]) [address], [address] [place], [place] [address]KW5 [Moles/Vol]26 mmol/NGdektb61-98KzqHlepkvBlanchard Valley Health System [facility] Comment on above:Performed By: #### 718-7, BMP #### [facility] ([id number]) [address], [address] [place], [place] [address]Qebazzspxc [Mass/Vol]0.88 mg/dLNormal0.60-1.30Mount St. Mary HospitalComment on above:Result Comment: METHOD TRACEABLE TO IDMS STANDARD Performed By: #### 718-7, BMP #### [facility] ([id number]) [address] [address] [place], [place] [address]zUXL (CKD-EPI) NON-RACE DEPENDENT>90Normal>59ProHca Houston Healthcare Medical CenterComment on above:Result Comment: Reported eGFR is based on the CKD-EPI 2021 equation that does not use a race coefficient.Performed By: #### 718-7, BMP #### [facility] ([id number]) [address], [address] [place], [place] [address]Otvhhqb [Mass/Vol]144 mg/rJYvto39-96ClvWsbsukMount St. Mary Hospital Comment on above:Performed By: #### 718-7, BMP #### [facility] ([id number]) [address], [address] [place], [place] [address]Zlkcvbuhs [Moles/Vol]4.6 mmol/LNormal3.5-5.0Mount St. Mary HospitalComment on above:Performed By: #### 718-7, BMP #### [facility] ([id number]) [address], [address] [place], [place] [address]Jeqcox [Moles/Vol]140 mmol/JNvscun491-537WraMduocn [facility] HospitalComment on above:Performed By: #### 718-7, BMP #### [facility] ([id number]) [address], [address] [place], [place] [address]Gxiw nitrogen [Mass/Vol]18 mg/dLNormal5-27Mount St. Mary HospitalComment on above:Performed By: #### 718-7, BMP #### [facility] ([id number]) [address], [address] [place], [place] [address]Okkko Metabolic Panelon 09-93-0807Fvhxk gap [Moles/Vol]8 mmol/L5 - 15 mmol/Pending sale to [facility] Health SystemCalcium [Mass/Vol]9.1 mg/dL8.5 - 10.5 mg/dL [facility] HospitalChloride [Moles/Vol]106 mmol/L98 - 109 mmol/Pending sale to [facility] HealthoMed[facility] Health SystemCO2 [Moles/Vol]26 mmol/L22 - 32 mmol/[facility] Creatinine [Mass/Vol]0.88 mg/dL0.60 - 1.30 mg/dLPaulding County HospitalComment on above:METHOD TRACEABLE TO IDIN STANDARDeGFR (CKD-EPI)non-race dependent- PINF [facility] HospitalComment on above: Reported eGFR is based on the CKD-EPI 2020 equation that does not use a race coefficient. Glucose [Mass/Vol]144 mg/zAEypt93 - 99 mg/dLPaulding County Hospital Interpretation and review of laboratory resultsAbnormalPaulding County Hospital Potassium [Moles/Vol]4.6 mmol/L3.5 - 5.0 mmol/Pending sale to [facility] HealthoMed[facility] Health SystemSodium [Moles/Vol]140 mmol/L134 - 146 mmol/LProMedica Clermont County Hospital SystemUrea nitrogen [Mass/Vol]18 mg/dL5 - 27 mg/dLProNoland Hospital Dothan Health SystemProHolzer Medical Center [facility] System HEMOGLOBINon 94-60-0665Rscgehfvpn (Bld) [Mass/Vol]15.3 g/nYLpdzmc36.0-17.[address] Mary HospitalComment on above:Performed By: #### 718-7, BMP #### [facility] ([id number]) [address], [address] [place], [place] [address]Lwlgiyfjmjmb 90-28-8504Dwrkmecftn (Bld) [Mass/Vol]15.3 g/dL13.0 - 17.0 g/dLProLakehealth Beachwood Medical CenterHemoglobin (Bld) [Mass/Vol]on 10-24-2023 [facility] HospitalDocumentationon [id number] Mart [place] 1950 Date Provider Department Center 10/23/2023 FÁTIMA LUGO [facility] Family History Problem Relation Age of Onset Coronary artery disease Other Family Status - Relation Status Age at OtherNormalUniversChillicothe Hospital37on [id number] blood drawn/ lab work in about October- must be fasting after midnight.[facility] HospitalOffice Visiton [id number]-up [id number] Mart [place] 1950 Date Provider Department Center 09/19/2023 FÁTIMA LUGO MARCO [facility] Family History Problem Relation Age of Onset Coronary artery disease Other Family Status - Relation Status Age at Other Level of Service:60335 MO OFFICE/OUTPATIENT ESTABLISHED LOW MDM 20 [facility] OhioCBC AUTO DIFFon [id number] #0.1 103/ul Normal0.0-0.1[facility] [place] CampusComment on above:Performed By: #### CBC #### [facility] [address] [address] [address] Roxane Kilpatrickphils/100 WBC (Bld)0.7 %Normal0.2-2.0The [facility] Comment on above:Performed By: #### CBC #### [facility] [address] [place] [address] Dr. Roxane Echavarria #0.3 103/ulNormal0.0-0.7The [facility] CampusComment on above: Performed By: #### CBC #### [facility] [address] [place] [address] Dr. Roxane Ricardoosinophils/100 WBC (Bld)3.2 %Normal0.9-7.0The [facility] Comment on above:Performed By: #### CBC #### [facility] [address] [place] [address] Dr. Roxane Ricardorythrocyte distribution width (RBC) [Ratio]12.3 %Stozey27.0-15.0 The [facility] CampusComment on above:Performed By: #### CBC #### [facility] [address] [place] [address] Dr. Roxane ClaytonHematocrit (Bld) [Volume fraction]49.2 %Krlhgo97.0-54.0The [facility] CampusComment on above:Performed By: #### CBC #### [facility] [address] [place] [address] Dr. Roxane ClaytonHemoglobin (Bld) [Mass/Vol]15.8 g/pULxcdzp30.0-18.0The [facility] CampusComment on above:Performed By: #### CBC #### [facility] [address] [place] [address] Dr. Roxane Tavares #0.05 10e3/ulCritically high0.00-0.03The [facility] Comment on above:Performed By: #### CBC #### [facility] [address] [place] [address] Dr. Roxane Tavares %0.6 %Critically high0.0-0.5The [facility] CampusComment on above:Performed By: #### CBC #### [facility] [address] [place] [address] Dr. Roxane Cardozo #1.8 103/ulNormal1.2-3.8The [facility] CampusComment on above:Performed By: #### CBC #### [facility] [address] [place] [address] Dr. Roxane Lopezmphocytes/100 WBC (Bld)20.7 %Mdiynf19.5-60.0The [facility] CampusComment on above:Performed By: #### CBC #### [facility] [address] [place] [address] Dr. Roxane Menendez DIFF REQNONormalThe [facility] CampusComment on above: Performed By: #### CBC #### [facility] [address] [place] [address] Dr. Roxane Mendieta (RBC) [Entitic mass]30.9 qzSagoom37.9-34.0The [facility] CampusComment on above:Performed By: #### CBC #### [facility] [address] [place] [address] Dr. Roxane Ernst (RBC) [Mass/Vol]32.1 g/nQFrybwg82.9-35.2The [facility] CampusComment on above:Performed By: #### CBC #### [facility] [address] [place] [address] Dr. Roxane Spears (RBC) [Entitic vol]96.3 fLCritically high80.0-94.0The [facility] CampusComment on above:Performed By: #### CBC #### [facility] [address] [place] [address] #0.8 103/ulNormal0.3-0.8The [facility] CampusComment on above:Performed By: #### CBC #### [facility] [address] [place] [address] Dr. Roxane Palmerocytes/100 WBC (Bld)8.8 %Normal1.7-12.0The [facility] Comment on above:Performed By: #### CBC #### [facility] [address] [place] [address] Dr. Roxane Serrato #5.6 103/ulNormal1.4-6.5The [facility] CampusComment on above:Performed By: #### CBC #### [facility] [address] [place] [address] Dr. Roxane Galdamezutrophils/100 WBC (Bld)66.0 %Mvqwij41.0-75.0The [facility] CampusComment on above:Performed By: #### CBC #### [facility] [address] [place] [address] Dr. Roxane ClaytonPlatelet mean volume (Bld) [Entitic vol]10.8 fLNormal9.5-13.5The [facility] CampusComosf healthcare [facility] on above:Performed By: #### CBC #### [facility] [address] [place] [address] Dr. Roxane ClaytonPLT230 103/ijBvhypy610-331Ibk [facility] CampusComosf [facility] on above: Performed By: #### CBC #### [facility] [address] [place] [address] Dr. Roxane ClaytonRBC5.11 106/ulNormal4.70-6.10The [facility] CampusComosf [facility] on above:Performed By: #### CBC #### [facility] [address] [place] [address] Dr. Roxane ClaytonWBC8.5 103/ulNormal4.0-11.0The [facility] CampusComosf [facility] on above: Performed By: #### CBC #### [facility] [address] [place] [address] Dr. Roxane ClaytonLIPID PROFILEon 37-30-3530DNTN-HDL RATIO NORMSPike Community HospitalComosf healthcare [facility] on above:Result Comment: 3.3 - 4.4 LOW RISK 4.4 - 7.1 AVERAGE RISK 7.1 - 11.0 MODERATE RISK >11.0 HIGH RISKPerformed By: #### CMP, LIPID #### [facility] [address] [place] [address] Dr. Roxane ClaytonCholesterol [Mass/Vol]105 mg/dLNormal<=200[facility] [place] [facility] Comment on above:Performed By: #### CMP, LIPID #### [facility] [address] [address] [address] Roxane ClaytonCholesterol in HDL [Mass/Vol]43 mg/iBVirbtt07-73OljSumma Health [place] CampusComment on above:Performed By: #### CMP, LIPID #### [facility] [address] [address] [address] Roxane Perezesterol in LDL [Mass/Vol]54.8 mg/dLSelect Medical Specialty Hospital - Cincinnati NorthComment on above:Performed By: #### CMP, LIPID #### [facility] [address] [place] [address] Dr. Roxane Alvarado.total/Cholesterol in HDL [Mass ratio]2.4 {ratio} NormalThe [facility] CampusComment on above:Performed By: #### CMP, LIPID #### [facility] [address] [place] [address] Dr. Roxane Vázquez NORMAL> or = 60 mg/dl - LOW CARDIOVASCULAR RISK <40 mg/dl - HIGH CARDIOVASCULAR RISKSelect Medical Specialty Hospital - [facility] NorthComment on above:Performed By: #### CMP, LIPID #### [facility] [address] [place] [address] Dr. Roxane Meza CALC NORMALSEE BELOWSelect Medical Specialty Hospital - Cincinnati NorthComment on above:Result Comment: <100 mg/dl OPTIMAL 100 - 129 mg/dl NEAR OR ABOVE OPTIMAL 130 - 159 mg/dl BORDERLINE HIGH 160 - 189 mg/dl HIGH >190 mg/dl VERY HIGH Performed By: #### CMP, LIPID #### [facility] [address] [place] [address] Dr. Roxane ClaytonTriglyceride [Mass/Vol]36 mg/dLNormal<=150[facility] [place] [facility] Comment on above:Performed By: #### CMP, LIPID #### [facility] [address] [place] [address] Dr. Roxane KayLDL CALC7.2 mg/dLNoACMC Healthcare SystemComment on above: Performed By: #### CMP, LIPID #### [facility] [address] [address] [address] Roxane Abbott 14(COMP METB)on [id number] [Mass/Vol]4.0 g/dLNormal 3.4-5.0The [facility] CampusComment on above:Performed By: #### CMP, LIPID #### [facility] [address] [address] [address] Roxane ClaytonAlbumin/Globulin [Mass ratio]1.1 {ratio}NormalThe [facility] CampusComment on above:Performed By: #### CMP, LIPID #### [facility] [address] [address] [address] Roxane Puente [Catalytic activity/Vol]112 U/BTtcmcm94-860Piv [facility] CampusComment on above:Performed By: #### CMP, LIPID #### [facility] [address] [place] [address] Dr. Roxane Arreola [Catalytic activity/Vol]48 U/MKjombt39-97Txi [facility] CampusComment on above:Performed By: #### CMP, LIPID #### [facility] [address] [address] [address] Roxane Bella gap [Moles/Vol]13.7 mmol/LNormalThe [facility] Comment on above:Performed By: #### CMP, LIPID #### [facility] [address] [address] [address] Roxane Boyer [Catalytic activity/Vol]30 U/OVwkcrz08-05Exd [facility] CampusComment on above:Performed By: #### CMP, LIPID #### [facility] [address] [address] [address] Roxane ClaytonBilirubin [Mass/Vol]0.3 mg/dLNormal0.2-1.0The [facility] Comment on above:Performed By: #### CMP, LIPID #### [facility] [address] [place] [address] Dr. Roxane ClaytonCalcium [Mass/Vol]9.0 mg/dLNormal8.5-10.1The [facility] Comment on above:Performed By: #### CMP, LIPID #### [facility] [address] [address] [address] Roxane ClaytonChloride [Moles/Vol]107 mmol/UDofddc13-271Olh [facility] Comment on above:Performed By: #### CMP, LIPID #### [facility] [address] [address] [address] Roxane ClaytonCO2 [Moles/Vol]28.1 mmol/RQbigkk23.0-32.0The [facility] Comment on above:Performed By: #### CMP, LIPID #### [facility] [address] [address] [address] Roxane ClaytonCreatinine [Mass/Vol]1.04 mg/dLNormal0.70-1.30The [facility] CampusComment on above:Performed By: #### CMP, LIPID #### [facility] [address] [place] [address] Dr. Roxane RicardoGFR-AF CITIZEN OF [place]>60Normal>=60The [facility] CampusComment on above:Performed By: #### CMP, LIPID #### [facility] [address] [place] [address] Dr. Roxane Bonilla-NON AF CITIZEN OF [place]>60Normal>=60The [facility] CampusComment on above:Performed By: #### CMP, LIPID #### [facility] [address] [address] [address] Roxane ClaytonGlobulin (S) [Mass/Vol]3.8 g/dLNormalThe [facility] CampusComment on above:Performed By: #### CMP, LIPID #### [facility] [address] [place] [address] Dr. Roxane ClaytonGlucose [Mass/Vol]134 mg/dLCritically isdy65-715Llv [facility] CampusComment on above:Performed By: #### CMP, LIPID #### [facility] [address] [place] [address] Dr. Roxane ClaytonPotassium [Moles/Vol]4.8 mmol/LNormal3.5-5.1The [facility] Comment on above:Performed By: #### CMP, LIPID #### [facility] [address] [address] [address] Roxane ClaytonProtein [Mass/Vol]7.8 g/dLNormal6.4-8.2[facility] [place] [facility] Comment on above:Performed By: #### CMP, LIPID #### [facility] [address] [address] [address] Roxane ClaytonSodium [Moles/Vol]144 mmol/DTcnoxn675-840JhmSumma Health [place] Campus Comment on above:Performed By: #### CMP, LIPID #### [facility] [address] [address] [address] Roxane ClaytonUrea nitrogen [Mass/Vol]19.0 mg/dLCritically high7.0-18.0[facility] [place] CampusComment on above:Performed By: #### CMP, LIPID #### [facility] [address] [place] [address] Dr. Roxane Etienne nitrogen/Creatinine [Mass ratio]18.3 mg/mgNormalThe [facility] CampusComment on above:Performed By: #### CMP, LIPID #### [facility] [address] [place] [address] Dr. Roxane EscobedoCARLUIS M/2D COMPLETEon [id number] M/2D COMPLETE Patient: MART VILLA Exam Date: 08/02/2022 : 1950 Gender:M Ordering : GALI CARLOSTANVI Admission #: [id number] Family : Order #: [id number] CLICK HERE TO VIEW EXAM ECHOCARDIOGRAM REPORT [...] by: Qiana Domingo M.D. on 08/03/2022 at 09:18[facility] NorthXR RIBS LT PA Nik [id number] RIBS LT PA CHEXAMINATION: XR RIBS LT PA CH HISTORY: Chest [...] Electronically authenticated by: IMELDA EDMOND Date: 2022-05-04 09:10[facility] Vital Signs Date TimeVital SignValuePerforming [id number] 13:00-0400Body .8 cmJennsarah Alfaro APRN Work Phone: [phone]07-30-2025 13:00-0400 Body mass index (BMI) [Ratio]21.7 kg/h3DbxnlgltLucy Cheekr THERAPEUTIC CONSULTANT Work Phone: [phone] [place], [place] 3424107-30-2025 13:00-0400 Body cglpysdvpxz63.9 [degF]Lucy Angelina THERAPEUTIC CONSULTANT Work Phone: [phone] [place], [place] 3424107-30-2025 13:00-0400 Body gfogvz75.49 kgLucy Anguianofedeacher THERAPEUTIC CONSULTANT Work Phone: [phone] [place], [place] 34[address]107-30-2025 13:00-0400 Diastolic blood icbaabga92 mm[Hg]Lucy Angelina THERAPEUTIC CONSULTANT Work Phone: [phone] [place], [place] [address]107-30-2025 13:00-0400 Heart rate72 /minLucy Anguianoarmando THERAPEUTIC CONSULTANT Work Phone: [phone] [place], [place] [address]107-30-2025 13:00-0400 SaO2% (BldA) [Mass fraction]97 %Lucy Anguianoarmando THERAPEUTIC CONSULTANT Work Phone: [phone] [place], [place] [address]107-30-2025 13:00-0400 Systolic blood pmmdixso255 mm[Hg]Lucy Anguianoarmando THERAPEUTIC CONSULTANT Work Phone: [phone] [place], [place] 34[address]107-03-2025 08:25-0400 Body agecqb321.8 cmLucy Anguianofedetamaralemuel THERAPEUTIC CONSULTANT Work Phone: [phone] [place], [place] 34[address]107-03-2025 08:25-0400 Body mass index (BMI) [Ratio]21.8 kg/d0KdfrwrixLucy Rosalesacher THERAPEUTIC CONSULTANT Work Phone: [phone] [place], [place] [address]107-03-2025 08:25-0400 Body xtmytqkcwtm91.2 [degF]Lucy Angelina THERAPEUTIC CONSULTANT Work Phone: [phone] [place], [place] [address]107-03-2025 08:25-0400 Body oydvib36.94 kgLucy Alfaro THERAPEUTIC CONSULTANT Work Phone: [facility]07-03-2025 08:25-0400 Diastolic blood oozmnnan09 mm[Hg]Lucy Alfaro THERAPEUTIC CONSULTANT Work Phone: [facility]07-03-2025 08:25-0400 Heart rate67 /Castillo Alfaro THERAPEUTIC CONSULTANT Work Phone: [facility]07-03-2025 08:25-0400 SaO2% (BldA) [Mass fraction]98 %Lucy Alfaro THERAPEUTIC CONSULTANT Work Phone: [facility]07-03-2025 08:25-0400 Systolic blood oouhefyk439 mm[Hg]Lucy Alfaro THERAPEUTIC CONSULTANT Work Phone: [facility]06-02-2025 14:23-0400 Body vmelsy159.8 cmU[facility]06-02-2025 14:23-0400Body mass index (BMI) [Ratio]21.8 kg/y0JtfzlymdcUc [facility] Hospital06-02-2025 14:23-0400Body fdgjyknfszq78.3 [degF][facility]06-02-2025 14:23-0400Body ruxcpy38.94 kgU[facility]06-02-2025 14:23-0400Diastolic blood wotftfjd82 mm[Hg][facility] 08-31-2024 14:23-0400Heart rate73 /minUc [facility] 08-31-2024 14:23-1650AyG2% (BldA) [Mass fraction]93 %[facility]06-02-2025 14:23-0400Systolic blood mm[Hg][facility]05-27-2025 09:34-0400Body weaqrh712.8 cmSteven Rusher DPM Work Phone: [facility] [id number] 09:34-0400Body mass index (BMI) [Ratio]21.52 kg/b1Cbdyba Rusher DPM Work Phone: [phone]05-27-2025 09:34-0400Body caoizt02.04 kgSteven Rusher DPM Work Phone: [phone] [place], [place] 4870102-27-2025 09:04-0500Body esickh666.8 cmSteven Rusher DPM Work Phone: [phone] [place], [place] 4870102-27-2025 09:04-0500Body mass index (BMI) [Ratio]22.53 kg/m6Yjudug Rusher DPM Work Phone: [phone] [place], [place] 4870102-27-2025 09:04-0500Body gufriz03.22 kgSteven Rusher DPM Work Phone: [phone] [place], [place] 4870102-06-2025 15:34-0500Body twnldo808.8 cmSteven Rusher DPM Work Phone: [phone] [place], [place] 4870102-06-2025 15:34-0500Body mass index (BMI) [Ratio]22.53 kg/w8Iqbdsy Rusher DPM Work Phone: [phone] [place], [place] 4870102-06-2025 15:34-0500Body rvcijf13.22 kgSteven Rusher DPM Work Phone: [phone] [place], [place] 4870101-29-2025 08:24-0500Body tryxec780.8 cmU[facility]01-29-2025 08:24-0500Body mass index (BMI) [Ratio]22.4 kg/y9RkpjnxahiUc [facility]01-29-2025 08:24-0500Body tmhhxophidv24.5 [degF][facility]01-29-2025 08:24-0500Body .93 kgU[facility]01-29-2025 08:24-0500Diastolic blood rxiplidq29 mm[Hg][facility]01-29-2025 08:24-0500 Heart rate72 /minU[facility]01-29-2025 08:24-8550XfD4% (BldA) [Mass fraction]96 %[facility]01-29-2025 08:24-0500 Systolic blood ogxxzjft906 mm[Hg][facility]12-17-2024 09:32-0500Blood Pressure LocationJENNIFER JANAK [facility]12-17-2024 09:32-0500Body xpwbkfcxgaq37.6 [degF]LUCY BRICENO [facility]12-17-2024 09:32-0500Diastolic blood eoosztwe05 mm[Hg]LUCY BRICENO [facility]12-17-2024 09:32-0500Heart rate57 /minJENNIFER JANAK [facility]12-17-2024 09:32-0500Respiratory rate18 /minJENNIFER JANAK [facility]12-17-2024 09:32-0500Systolic blood mtesrbbi993 mm[Hg]LUCY BRICENO [facility]10-28-2024 14:27-0400Body xodcwt078.8 cmU[facility]10-28-2024 14:27-0400Body mass index (BMI) [Ratio]23.3 kg/s9QilxervklUc [facility]10-28-2024 14:27-0400Body dbmqvpckceg07.4 [degF][facility]10-28-2024 14:27-0400Body .93 kg[facility]10-28-2024 14:27-0400Diastolic blood mm[Hg] [facility]10-28-2024 14:27-0400Heart rate71 /minU[facility]10-28-2024 14:27-8746RdP7% (BldA) [Mass fraction]98 % [facility]10-28-2024 14:27-0400Systolic blood hleinpbq486 mm[Hg][facility]07-26-2024 08:22-0400Body skrecp687.8 cm [facility]07-26-2024 08:22-0400Body mass index (BMI) [Ratio]23.3 kg/f7LtbtcrljbUc [facility]07-26-2024 08:22-0400Body .93 kg[facility]07-26-2024 08:22-0400Diastolic blood ytmmkkcd90 mm[Hg][facility]07-26-2024 08:22-0400 Heart rate75 /[facility]07-26-2024 08:22-5901OdQ7% (BldA) [Mass fraction]96 %[facility]07-26-2024 08:22-0400 Systolic blood uovouwqs962 mm[Hg][facility]07-25-2024 10:01-0400Body foaqqx533.[address]07-25-2024 10:01-0400 Body mass index (BMI) [Ratio]23.39 kg/m2Pmh [address] [place], [place] 2595807-25-2024 10:01-0400Body hywrpn24.[address] [place], [place] 2595807-01-2024 08:51-0400 Body sizpar000.8 cmU[facility]07-01-2024 08:51-0400Body mass index (BMI) [Ratio]23.3 kg/h9SggbjbtzyU[facility]07-01-2024 08:51-0400Body gtiogy91.93 kgU[facility]07-01-2024 08:51-0400Diastolic blood mm[Hg][facility] 09-30-2023 08:51-0400Heart rate71 /[facility] 09-30-2023 08:51-1939YdP2% (BldA) [Mass fraction]97 %[facility]07-01-2024 08:51-0400Systolic blood gnezanqu457 mm[Hg][facility]12-28-2022 14:12-0500Blood Pressure LocationJENNIFER JANAK [facility]12-28-2022 14:12-0500Diastolic blood clxkaiee73 mm[Hg]LUCY BRICENO [facility]12-28-2022 14:12-0500Heart rate77 /minLUCY BRICENO [facility]12-28-2022 14:12-0500Systolic blood fchqsces981 mm[Hg]LUCY BRICENO [facility] Encounters Encounter DateEncounter TypeCare ProviderFacilityStart: 82-03-0265deoxyeoxqrCG-C LUCY Ariza PERRYFacility:EU BellevueStart: 94-81-0163mtwpptyjnkSV-C LUCY PERRYFacility:GS BellevueStart: 10-28-2024 End: 71-08-8425yrkgsbbsrsCmxhsrus Silviorbacher THERAPEUTIC CONSULTANT Work Phone: [facility] Work Phone: Start: 10-28-2024 End: 47-10-5349Hbutwfh encounter procedureJennifer Silviorbacher THERAPEUTIC CONSULTANT [facility] Work Phone: Start: 10-01-2024 End: 21-66-3986xfeuuklghgDopliwtn Rohrbacher THERAPEUTIC CONSULTANT Work Phone: [facility] Work Phone: Start: 10-01-2024 End: 32-79-9500Jqfhing encounter procedureJennifer Rohrbacher THERAPEUTIC CONSULTANT [facility] Work Phone: Start: 08-31-2024 End: 59-02-8549jhckkmtxnoWasmorzlzKettering Health Work Phone: Start: 08-31-2024 End: 94-12-5763Rgtngyl encounter procedureNov[facility] Work Phone: Start: 08-26-2024 End: 97-21-2891ijrkquxcitRVIP [facility] Hospitaltart: 08-25-2024 End: 91-30-9704Axwnpo flowsheetSteven A Rusher DPM Work Phone: [facility] PODIATRYStart: 08-25-2024 End: 20-70-5903Kmtnfq flowsheetSteven A Rusher DPM Work Phone: [facility] PODIATRYStart: 08-25-2024 End: 31-78-9667Wyogym outpatient visit 15 minutesSteven A Rusher DPM Work Phone: [facility]S PODIATRYComment on above:Bursitis of left foot (Primary Dx); Acquired keratoderma; 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; Pain in left foot; Difficulty walkingStart: 08-25-2024 End: 52-96-7118sfukouawciXSFXWS A RUSHERNot AvailableStart: 05-28-2024 End: 39-82-7940Zkyfpb flowsheetSteven A Rusher DPM Work Phone: [facility] PODIATRYStart: 05-28-2024 End: 60-24-9278Bcfagw flowsheetSteven A Rusher DPM Work Phone: [facility] PODIATRYStart: 05-28-2024 End: 97-52-9101Erdjyb outpatient visit 15 minutesSteven A Rusher DPM Work Phone: N[facility]S PODIATRYComment on above:Pressure injury of left foot, stage 1 (Primary Dx); Pain in left foot; 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; Difficulty walkingStart: 05-28-2024 End: 05-50-5982ruvluhrebbSUKFNA A RUSHERNot AvailableStart: 05-07-2024 End: 35-68-0192Qrjewd outpatient visit 15 minutesSteven A Rusher DPM Work Phone: [facility] PODIATRYComment on above:Pressure injury of left foot, stage 1 (Primary Dx); Pain in left foot; 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; Difficulty walkingStart: 05-07-2024 End: 00-62-5164vmmghpcihqPIDVOI A RUSHERNot AvailableStart: 05-07-2024 End: 69-68-4628Zjcaek flowsheetSteven A Rusher DPM Work Phone: [facility] PODIATRYStart: 05-07-2024 End: 36-19-6321Vnbpld flowsheetSteven A Rusher DPM Work Phone: [facility] PODIATRYStart: 04-30-2024 End: 65-60-0327Scupud flowsheetSteven A Rusher DPM Work Phone: [facility] PODIATRYStart: 04-30-2024 End: 50-71-5284Dfzmst flowsheetSteven A Rusher DPM Work Phone: [facility] PODIATRYStart: 04-30-2024 End: 15-77-2225Kkrira outpatient visit 25 minutesSteven A Rusher DPM Work Phone: 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; Acquired keratoderma; Pain in left foot; Difficulty walkingStart: 04-30-2024 End: 63-68-4575wmvhjihkspPNOXVF A RUSHERNot AvailableStart: 04-29-2024 End: 26-31-7405gxdqjwgpfsCxccbktmbKettering Health Work Phone: Start: 04-29-2024 End: 67-50-1512Devszur encounter procedureNovant Health [facility] GroupG[facility] Work Phone: Start: 03-17-2024 End: 06-95-6041xvozdarukpEH-Tye BRICENOFacility:EU BellevueStart: 03-17-2024 End: 99-28-1667Zgcuzfm encounter procedureLUCY BRICENO [facility] Andria start: 48-05-2910Qsa-patient / Non-visitNovant Health [facility] Work Phone: Start: 03-04-2024 End: 59-69-6682Ecttyk flowsheetMaria B Apling ROENTGENOLOGY TEACHER Work Phone: noms CI ORTHOPAEDICSStart: 03-04-2024 End: 80-77-3175Axadki flowsheetMaria B Apling ROENTGENOLOGY TEACHER Work Phone: noms CI ORTHOPAEDICSStart: 03-04-2024 End: 17-52-1253Tkoucq outpatient visit 10 minutesMaria B Apling ROENTGENOLOGY TEACHER Work Phone: noms CI ORTHOPAEDICSComment on above:Right shoulder pain, unspecified chronicity (Primary Dx); S/P right rotator cuff repairStart: 03-04-2024 End: 33-75-4157dlkyllgkvxAUWIP B APLINGNot AvailableStart: 02-06-2024 End: 36-99-9631Kjnqmt Aleksandr Coffey PT Work Phone: noMS CI PTStart: 02-06-2024 End: 19-91-7576Zrliqo Aleksandr Coffey PT Work Phone: noms CI PTStart: 02-06-2024 End: 54-59-8054bcfbsjuuicMsbajk T Blackston PT Work Phone: noMS CI PTComment on above:Acute pain of right shoulder (Primary Dx); Shoulder stiffness, right; S/P right rotator cuff repairStart: 02-04-2024 End: 37-07-5794gfduryqsrgMeufwsx Kelbley PTANOMS CI PTComment on above:Acute pain of right shoulder (Primary Dx); Shoulder stiffness, right; S/P right rotator cuff repairStart: 01-30-2024 End: 11-71-0643ntdwupuzujSxjprolp Brink PTANOMS CI PTComment on above:Acute pain of right shoulder (Primary Dx); Shoulder stiffness, right; S/P right rotator cuff repairStart: 01-29-2024 End: 68-90-4787Hqvxwm flowsheetMaria B Apling ROENTGENOLOGY TEACHER Work Phone: n[facility] CI ORTHOPAEDICSStart: 01-29-2024 End: 89-58-1773Kfedhz flowsheetMaria B Apling ROENTGENOLOGY TEACHER Work Phone: noms CI ORTHOPAEDICSStart: 01-29-2024 End: 07-98-3725Vdcobh outpatient visit 15 minutesMaria B Apling ROENTGENOLOGY TEACHER Work Phone: noms CI ORTHOPAEDICSComment on above:Left hand pain (Primary Dx); Finger pain, left; Trigger ring finger of left hand; Dupuytren's contractureStart: 01-29-2024 End: 76-19-8174ukuohrhkweXOBEK B APLINGNot AvailableStart: 01-28-2024 End: 25-44-1115Vghoag flowsheetMelissa Kelbley PTANOMS CI PTStart: 01-28-2024 End: 86-06-3316Bzbmxx flowsheetMelissa Kelbley PTANOMS CI PTStart: 01-28-2024 End: 07-86-8787eybwpoblumCkvqpza Kelbley PTANOMS CI PTComment on above:Acute pain of right shoulder (Primary Dx); Shoulder stiffness, right; S/P right rotator cuff repairStart: 01-27-2024 End: 90-89-3750hpggyhznqqMsviokxflKettering Memorial Hospital Work Phone: Start: 01-27-2024 End: 08-03-7196Slawkzb encounter procedureNovant Health [facility] Work Phone: Start: 01-23-2024 End: 17-53-8307Sapllj flowsheetMarshall Brink PTANOMS CI PTStart: 01-23-2024 End: 45-31-9753Nybazk flowsheetMarshall Brink PTANOMS CI PTStart: 01-23-2024 End: 81-88-3219gwfpcbdlsoNhrnqvgz Brink PTANOMS CI PTComment on above:Acute pain of right shoulder (Primary Dx); Shoulder stiffness, right; S/P right rotator cuff repairStart: 01-22-2024 End: 75-47-5929Sagszi flowsheetMaria B Apling ROENTGENOLOGY TEACHER Work Phone: n[facility] CI ORTHOPAEDICSStart: 01-22-2024 End: 99-70-8162Vctfsj flowsheetMaria B Apling ROENTGENOLOGY TEACHER Work Phone: noms CI ORTHOPAEDICSStart: 01-22-2024 End: 07-41-1579Rovbdq follow up visit related to original pxMaria B Apling ROENTGENOLOGY TEACHER Work Phone: noms CI ORTHOPAEDICSComment on above:S/P right rotator cuff repair (Primary Dx); Arthritis of right acromioclavicular jointStart: 01-22-2024 End: 55-31-9087dzgrgoytdkVSZGL B APLINGNot AvailableStart: 01-21-2024 End: 29-27-3161Zjqfqc flowsheetMelissa Kelbley PTANOMS CI PTStart: 01-21-2024 End: 45-22-1895Nvmuon flowsheetMelissa Kelbley PTANOMS CI PTStart: 01-21-2024 End: 80-90-1990xbkoyfrbsnKbcjeqg Kelbley PTANOMS CI PTComment on above:Acute pain of right shoulder (Primary Dx); Shoulder stiffness, right; S/P right rotator cuff repairStart: 01-16-2024 End: 49-49-7738Aumhvz flowsheetMarshall Brink PTANOMS CI PTStart: 01-16-2024 End: 46-27-5311Fwbmoi flowsheetMarshall Brink PTANOMS CI PTStart: 01-16-2024 End: 22-11-1472kwwfamugmnMkmrsqxr Brink PTANOMS CI PTComment on above:Acute pain of right shoulder (Primary Dx); Shoulder stiffness, right; S/P right rotator cuff repairStart: 01-14-2024 End: 57-76-6602Nxwxhc flowsheetMelissa Kelbley PTANOMS CI PTStart: 01-14-2024 End: 32-12-6338Oegnoj flowsheetMelissa Kelbley PTANOMS CI PTStart: 01-14-2024 End: 07-56-7646wwbqjhxivhOlhbcai Kelbley PTANOMS CI PTComment on above:Acute pain of right shoulder (Primary Dx); Shoulder stiffness, right; S/P right rotator cuff repairStart: 01-09-2024 End: 93-41-0356Taovvn flowsheetKashifremy Shandra [employer] PT Work Phone: [facility] CI PTStart: 01-09-2024 End: 88-18-5338Rxduqd flowsheetKashifremy [employer] PT Work Phone: noMS CI PTStart: 01-09-2024 End: 88-21-6235nhjhsipeicIngixh [employer] PT Work Phone: noms CI PTComment on above:Acute pain of right shoulder (Primary Dx); Shoulder stiffness, right; S/P right rotator cuff repairStart: 01-07-2024 End: 40-07-6703Nqqgua flowsheetMelissa Kelbley PTANOMS CI PTStart: 01-07-2024 End: 55-11-0188Anleby flowsheetMelissa Kelbley PTANOMS CI PTStart: 01-07-2024 End: 59-42-4553hocgmybsolDdnukbn Kelbley PTANOMS CI PTComment on above:S/P right rotator cuff repair (Primary Dx); Acute pain of right shoulder; Shoulder stiffness, rightStart: 01-02-2024 End: 08-87-3515Rxwvxf flowsheetKashifremy Shandra Coffey PT Work Phone: [facility] CI PTStart: 01-02-2024 End: 45-27-3568Jugrnl flowsheetKashifremy T [employer] PT Work Phone: [facility] CI PTStart: 01-02-2024 End: 10-80-1119ihnwiwnmliJzshut [employer] PT Work Phone: noMS CI PTComment on above:Acute pain of right shoulder (Primary Dx); S/P right rotator cuff repair; Shoulder stiffness, rightStart: 12-31-2023 End: 85-13-8092Vqnoqs flowsKartik Sanders PTANO CI PTStart: 12-31-2023 End: 98-53-6263Cllxfh flowsKartik Sanders PTANO CI PTStart: 12-31-2023 End: 45-92-8374nqmihechgrRgzkuyo Kelbley PTANO CI PTComment on above:Acute pain of right shoulder (Primary Dx); Shoulder stiffness, right; S/P right rotator cuff repairStart: 12-26-2023 End: 65-61-5228celcqbgfogFrvhqd T [employer] PT Work Phone: noMS CI PTComment on above:Acute pain of right shoulder (Primary Dx); Shoulder stiffness, right; S/P right rotator cuff repairStart: 12-24-2023 End: 20-78-8350Pjwwpw Sabiha JACKSON CI PTStart: 12-24-2023 End: 77-12-8615Lccont flowsheetFátima Sanders PTANO CI PTStart: 12-24-2023 End: 23-36-4678kxumfcqhnvHrckvvnJesus JACKSON CI PTComment on above:Acute pain of right shoulder (Primary Dx); Shoulder stiffness, right; S/P right rotator cuff repairStart: 12-19-2023 End: 52-87-4189Zfurtj Aleksandr T [employer] PT Work Phone: noMS CI PTStart: 12-19-2023 End: 49-35-1744Tnndcx flowsRaulitoremy T [employer] PT Work Phone: noMS CI PTStart: 12-19-2023 End: 59-05-9278rwdxhlflcoMsaqnf T [employer] PT Work Phone: noMS CI PTComment on above:Acute pain of right shoulder (Primary Dx); Shoulder stiffness, right; S/P right rotator cuff repairStart: 12-17-2023 End: 82-81-9324lboiqlohrxFscxby [employer] PT Work Phone: N[facility] CI PTComment on above:Acute pain of right shoulder (Primary Dx); Shoulder stiffness, right; S/P right rotator cuff repairStart: 12-17-2023 End: 31-40-7194Dhhhnn shitalKelseydonna Coffey PT Work Phone: [facility] CI PTStart: 12-17-2023 End: 60-87-0818Dolqbp shitalpalomaKashifmeladonna Coffey PT Work Phone: [facility] CI PTStart: 12-11-2023 End: 22-92-6209Ilxgzu flowsheetMaria B Apling ROENTGENOLOGY TEACHER Work Phone: [facility] CI ORTHOPAEDICSStart: 12-11-2023 End: 43-73-6306Wblyss flowsheetMaria B Apling ROENTGENOLOGY TEACHER Work Phone: noms CI ORTHOPAEDICSStart: 12-11-2023 End: 82-93-9304Bwsqjj follow up visit related to original pxMaria B Apling ROENTGENOLOGY TEACHER Work Phone: noms CI ORTHOPAEDICSComment on above:S/P right rotator cuff repair (Primary Dx)Start: 12-11-2023 End: 95-03-5450ldefbkembiPSYGV B APLINGNot AvailableStart: 11-29-2023 End: 21-69-0539Haafma flowsheetJohn Brito DO Work Phone: NOMS NB OPHTStart: 11-29-2023 End: 96-29-5760Lvyedl flowsDaishahan Erendira Steinhler DO Work Phone: noms NB OPHTStart: 11-29-2023 End: 52-98-0758qyipsecjzcZIAWOYAV D ZAHLERNot AvailableStart: 65-23-2232Mev- patient / Non-visitNovant Health [facility] Physician GroupPeace[facility] Professional [facility] Work Phone: Start: 11-13-2023 End: 35-12-2844fhshfpwoicHJVZX B APLINGNot AvailableStart: 11-06-2023 End: 07-50-5233Pjegwuagth and management of inpatientDAVID Nimco NADEEMMemorial Health System [facility]by [facility] Hospitaltart: 11-06-2023 End: 49-21-7217Igajvutibx and management of inpatientSEDA Webb [facility] Miamisburgtart: 33-18-1400Qovwqij encounter statusSt. Mary's Medical Centertart: 23-60-8085Yrfdzbynbblxz examination doneKashifapril Alfaro APRN Work Phone: [facility] Centertart: 10-25-2023 End: 69-31-5180vaczdakutgQcktgiehaKettering Memorial Hospital Work Phone: Start: 10-25-2023 End: 49-15-8763Qrgcmwm encounter procedureNovant Health [facility] Work Phone: Start: 10-24-2023 End: 56-07-5913fwcxujbiweDAANZPrisma Health [facility] HospitalStart: 82-85-0239Gnxqyratt for other preprocedural examinationMemorial Hospitaltart: 10-24-2023 End: 21-46-3747Uloodbc encounter procedureUniversity [facility]als [facility] Pre-Admission Testing [address] [place] [address] - Pre AdmitComment on above:Preop examination (Primary Dx); Coronary artery disease, unspecified vessel or lesion type, unspecified whether angina present, unspecified whether sauk-suiattle or transplanted heart; Hypertension, unspecified typeStart: 10-24-2023 End: 04-42-9873Dgjcqrnidrweo examination donePm[address] Gal[address] Streettart: 10-24-2023 End: 37-34-8417uevlhzteewGUNWDUniversity Hospitals Conneaut Medical Centertart: 10-22-2023 End: 60-70-3039njvutayzfpQTHEX Tracey DAINANot AvailableStart: 10-14-2023 End: 87-41-8602baasrtivwnMMRZS B APLINGNot AvailableStart: 88-42-5753vrtccmnjsfKettering Health Troy Work Phone: Start: 46-81-2415Jyc-patient / Non-visitNovant Health [facility] Work Phone: Start: 09-30-2023 End: 07-39-9963padwtzdznpBmcnspsbdKettering Health Work Phone: Start: 09-30-2023 End: 62-11-6245Hnjanst encounter procedureNovant Health [facility] Work Phone: Start: 09-19-2023 End: 76-34-2361atijfrchusXVPOPVY BOESUniversity of Memorial Hermann Cypress Hospitaltart: 08-13-2022 End: 13-66-6764uyrrfxscftPPEFWWS N BOESFacility:O7Eyvgi: 08-02-2022 End: 53-58-3837rhvlkmpqjjEUWORAZ P HOUSEFacility:E7Nmjyy: 05-03-2022 End: 99-14-8392yqmouhxwbkXJVXYDH P HOUSEFacility:X2Mgdce: 03-28-2022 End: 51-87-0215Pxunmtb encounter procedureJEAPRIL BRICENO [facility] start: 01-15-2022 End: 38-60-9667pysbnebiteRV ABDIAZIZ LovellFacility:S7Xdlqk: 07-17-2018 End: 78-72-4439Hvqsagy encounter procedureDEFAULT PHYSICIANFacility:[facility] Procedures DateProcedureProcedure DetailPerforming ClinicianStart: 11-29-2023 End: 19-71-4056Weknp medical xm&eval compre new pt 1/> vstBilateral posterior capsular opacificationJoyue Brito DO Work Phone: comment on above:Bilateral posterior capsular opacification (Primary Dx)Start: 16-10-2228EQV screeningDR ABDIAZIZ Lovell Comment on above:Performed By: #### PSAD #### [facility] [address] [place] [address] Dr. Roxane ClaytonStart: 54-35-3332Bweyozcemyq biopsy of prostate using ultrasound guidanceJENNIFER JANAK Start: 48-93-8036Qxeemyytocovr removal of ureteric calculusJENNIFER JANAK Arthroplasty of kneeJENNIFER JANAK Back SurgeryJENNIFER JANAK Extraction of cataractJENNIFER JANAK Comment on above:B/LFoot SurgeryJENNIFER JANAK History of placement of stent for coronary artery diseaseH/O heart artery stentHistory of placement of stent for coronary artery diseaseH/O heart artery stentJennifer Rohrbacher THERAPEUTIC CONSULTANT CNPHistory of repair of musculotendinous cuff of shoulderS/P right rotator cuff repairMelissa Kelbley PTAHistory of repair of musculotendinous cuff of shoulderS/P right rotator cuff repairJedayanna Coffey PT Work Phone: History of repair of musculotendinous cuff of shoulder S/P right rotator cuff repairMelissa Kelbley PTAHistory of repair of musculotendinous cuff of shoulderS/P right rotator cuff repairJedayanna Coffey PT Work Phone: History of repair of musculotendinous cuff of shoulder S/P right rotator cuff repairMelissa Kelbley PTAHistory of repair of musculotendinous cuff of shoulderS/P right rotator cuff repairMarshall Brink LABORER SHAFT SINKING History of repair of musculotendinous cuff of shoulderS/P right rotator cuff repairMelissa Kelbley PTAHistory of repair of musculotendinous cuff of shoulder S/P right rotator cuff repairMaria Maddie Mak ROENTGENOLOGY TEACHER Work Phone: History of repair of musculotendinous cuff of shoulder S/P right rotator cuff repairMarshall Brink PTAHistory of repair of musculotendinous cuff of shoulderS/P right rotator cuff repairMelissa Kelbley PTAHistory of repair of musculotendinous cuff of shoulderS/P right rotator cuff repairMarshall Brink PTAHistory of repair of musculotendinous cuff of shoulder S/P right rotator cuff repairMelissa Kelbley PTAHistory of repair of musculotendinous cuff of shoulderS/P right rotator cuff repairJeremy T Blackston PT Work Phone: History of repair of musculotendinous cuff of shoulder S/P right rotator cuff repairMaria B Apling ROENTGENOLOGY TEACHER Work Phone: History of repair of musculotendinous cuff of shoulder S/P right rotator cuff repairJeremy T Blackston PT Work Phone: History of repair of musculotendinous cuff of shoulder S/P right rotator cuff repairMaria B Apling ROENTGENOLOGY TEACHER Work Phone: History of repair of musculotendinous cuff of shoulder S/P right rotator cuff repairJeremy T Blackston PT Work Phone: History of repair of musculotendinous cuff of shoulder S/P right rotator cuff repairMelissa Kelbley PTAHistory of repair of musculotendinous cuff of shoulderS/P right rotator cuff repairJeremy T Blackston PT Work Phone: Rotator cuff including muscles and tendons (body structure)LUCYDIANE BRICENO Plan of Treatment DateCare ActivityDetailAuthorStart: 19-38-6544Lozuk BMI ScreeningAdult BMI ScreeningProAdena Health Systemca Health SystemStart: 16-81-5114Tdksfgh ScreeningTobacco ScreeningProAdena Health Systemca [facility] SystemStart: 08-25-2024 End: 13-05-9596Vehdxqt encounter procedureNOMS PODIATRYComment on above: ArrivedStart: 05-28-2024 End: 69-30-8308Dirphic encounter procedureNOMS PODIATRYComment on above: ArrivedStart: 05-07-2024 End: 42-47-3697Udijrvv encounter kdorlvirh31/06/2025 3:45 PM EST Office Visit [facility] [address] [place] [address] Imelda Villa DPM [address] [place] [address] ArrivedNOMS PODIATRYComment on above:ArrivedStart: 04-30-2024 End: 48-76-3472Rcmlkzj encounter /30/2025 9:15 AM EST Office Visit [facility] [address] [place] [id number] Imelda Villa, DPM [address] [place] [address] ArrivedNOMS PODIATRYComment on above:ArrivedStart: 03-04-2024 End: 17-83-3507Ykmscuv encounter procedureNOMS CI ORTHOPAEDICSComment on above: Right shoulder pain, unspecified chronicity (Primary Dx); S/P right rotator cuff repairStart: 02-06-2024 End: 79-80-5106anuglileyf08/07/2024 7:00 AM EST Treatment [facility] [address] [facility] [address] [place] [address] Madelyn Coffey, PT [address] [facility] [address] [place] [address] NOMS CI PTStart: 02-04-2024 End: 03-65-4656zetrqiagnk71/05/2024 7:00 AM EST Treatment [facility] [address] [facility] [address] [place] [address] Fátima Sanders, LABORER SHAFT SINKING NOMS CI PTStart: 01-30-2024 End: 63-70-8363lujovospzi59/31/2024 7:30 AM EDT Treatment [facility] [address] [facility] [address] [place] [address] Jory Walsh, LABORER SHAFT SINKING NOMS CI PTStart: 01-29-2024 End: 91-49-4554Bdpmpic encounter procedureNOMS CI ORTHOPAEDICSComment on above: Left hand pain (Primary Dx); Finger pain, leftStart: 01-28-2024 End: 93-56-8546hrxsazongr29/29/2024 7:00 AM EDT Treatment [facility] [address] [facility] [address] [place] [address] Fátima Sanders, LABORER SHAFT SINKING NOMS CI PTStart: 01-23-2024 End: 90-83-2055iuhlvhjgqrGDZY CI PTComment on above:ArrivedStart: 01-22-2024 End: 61-03-6071Esmgtkn encounter procedureNOMS CI ORTHOPAEDICSComment on above: S/P right rotator cuff repair (Primary Dx); Arthritis of right acromioclavicular jointStart: 01-21-2024 End: 36-67-7738kjmwkcrrqg82/22/2024 7:00 AM EDT Treatment [facility] [address] [facility] [address] [place] [id number] Fátima Sanders, LABORER SHAFT SINKING NOM[facility] CI PTStart: 01-16-2024 End: 93-64-5097evvhteptweBAVQ CI PTComment on above:ArrivedStart: 01-15-2024 End: 17-62-9607Dpnjcth encounter ueifxdvka20/16/2024 7:20 AM EDT Procedure Visit [facility] EXT DEP John Brito, DO [address] [place], [place] [address] [address] [place] [address] NOMS EXT DEPStart: 01-14-2024 End: 54-69-5684bwmwfnwrjs19/15/2024 7:00 AM EDT Treatment [facility] [address] [facility] [address] [place] [address] Fátima Sanders, LABORER SHAFT SINKING NOM[facility] CI PTStart: 01-09-2024 End: 80-91-7004efelkhtfxkKIEN CI PTComment on above:ArrivedStart: 01-07-2024 End: 75-35-2485lxgqavvzwx92/08/2024 7:00 AM EDT Treatment [facility] [address] [facility] [address] [place] [address] Fátima Sanders, LABORER SHAFT SINKING NOMS CI PTStart: 01-02-2024 End: 01-07-8375vrmqvjmoon49/03/2024 7:00 AM EDT Treatment [facility] [address] [place] [address] [place] [address] Madelyn Coffey, PT [address] [place] [address] [place] [address] NOMS CI PTStart: 12-31-2023 End: 94-59-7429dghsugapus73/01/2024 7:00 AM EDT Treatment [facility] [address] [place] [address] [place] [phone] Fátima Sanders, LABORER SHAFT SINKING NOMS CI PTStart: 12-26-2023 End: 32-53-0857fqrfuxpcui46/26/2024 7:00 AM EDT Treatment [facility] [address] [place] [address] [place] [address] Madelyn Coffey, PT [address] [place] [address] [place] [address] NOMS CI PTStart: 12-25-2023 End: 51-63-7372Xeqmjxz encounter icqvsbbgj87/25/2024 6:40 AM EDT Procedure Visit [facility] EX[facility]P John Brito, DO [address] [place] [address] [facility]OMS EXT DEPStart: 12-24-2023 End: 39-26-1070qqafqknrdr32/24/2024 7:00 AM EDT Treatment [facility] [address] [place] [address] [place] [address] Fátima Sanders, LABORER SHAFT SINKING [facility]OM[facility] CI PTStart: 12-19-2023 End: 65-17-8527mxbnsgnmyj81/19/2024 7:00 AM EDT Treatment [facility] [address] [place] [address] [place] [address] Madelyn Coffey, PT [address] [place] [address] [place] [address] NOMS CI PTStart: 12-17-2023 End: 19-64-0400hylcezcudg92/17/2024 2:30 PM EDT Evaluation [facility] [address] [place] [address] [place] [address] Madelyn Coffey, PT [address] [place] [address] ArrivedNOMS CI PTComment on above:ArrivedStart: 12-11-2023 End: 25-76-4837Euijogt encounter procedureNOMS CI ORTHOPAEDICSComment on above: S/P right rotator cuff repair (Primary Dx)Start: 84-43-3823Yyjrdaulr vaccination NOMS HealthcareStart: 11-29-2023 End: 74-98-5033Vqdpwtm encounter ozetualkj79/30/2024 10:00 AM EDT Office Visit [facility] [address] [place] [id number] John Brito, DO [address] [place] [address] ArrivedNOMS NB OPHTComment on above:ArrivedStart: 11-06-2023 End: 08-31-9875Ebihkrgqa to same day surgery ktbyzv7911/06/2023 7:30 AM EDT - 11/06/2023 9:15 AM EDT Surgery [facility] - Surgery [address] [place] [id number] Seda Washington, DO [address] [place] [address] ARTHROSCOPIC REPAIR ROTATOR CUFF SHOULDER [[id number] (CPT )][facility] - SurgeryComment on above:ARTHROSCOPIC REPAIR ROTATOR CUFF SHOULDER [[id number] (CPT )]Start: 11-06-2023 End: 51-67-3282Elmoeneiftj shoulder rotator cuff repairARTHROSCOPIC REPAIR ROTATOR CUFF SHOULDER right shoulder rotator cuff tear 11/06/2023 7:30 AM EDT [facility]Start: 36-34-5122Tvlwmdbnje hospital visit by inyqbcorf18/07/2024 7:30 AM EDT Hospital Encounter [facility] - Surgery [address] [place] [id number] Seda Washington, DO [address] [place], [place] [address] [facility] - SurgeryStart: 68-98-5709Vzdhies [facility] Work Phone: Start: 85-37-1234EZRDN-19 Vaccine ( season) COVID-19 Vaccine ( season)[facility] SystemStart: 2014 Fall Risk ScreeningFall Risk ScreeningProHolzer Medical Center [facility] SystemStart: 01-06-1968 DTaP,Tdap and Td Vaccines (1 - Tdap)DTaP,Tdap and Td Vaccines (1 - Tdap) [facility] SystemStart: 48-60-7214Zwqrqaseah ScreeningDepression Screening [facility] SystemStart: 1949Medicare Annual Wellness VisitMedicare Annual Wellness VisitProHolzer Medical Center – [facility] SystemStart: 48-62-6124Bvhncqxsy for malignant neoplasm of colonNOMS HealthcareStart: 31-93-6524Itknfpn Counseling Tobacco CounselingPaulding County HospitalComprehensive metabolic 2000 panel - Serum or PlasmaUc West Chester HospitalPatient referralMercy Health [facility] Work Phone: XR Shoulder - right ViewsAdventHealth Palm Coast Immunizations Immunization DateImmunizationNotesCare AnmfkcwmKeidjenx61-94-0739jiywoqhef virus vaccine, unspecified formulationMaria Obdulio ROENTGENOLOGY TEACHER Work Phone: [facility] HospitalStybcdgxda15-32-9981oqzczqles virus vaccine, unspecified formulationFátima Sanders [facility] HospitalPjxkqgxwer13-12-7357qzfnserik virus vaccine, unspecified formulationJENNIFER JANAK [facility]10-15-2022SARS-CoV-2 (COVID-19) mRNAMUL.ORD!z43465COMQLKKI JANAK [facility]09-19-2022influenza virus vaccine, unspecified formulationJENNIFER JANAK [facility]04-14-2022SARS-CoV-2 mRNA (dgxdjtxysik-hpqz-ehlmcfr) vaccineJENNIFER JANAK [facility]10-22-2021influenza virus vaccine, unspecified formulationJENNIFER JANAK [facility]09-28-2021SARS-CoV-2 (COVID-19) mRNA BNT-162b2 vaxJENNIFER JANAK [facility]02-27-2021SARS-CoV-2 (COVID-19) mRNA BNT-162b2 vaxJENNIFER JANAK [facility] on above:Result Comment: 2022-03-28: [id number]-GrQ-0 (COVID-19) mRNA BNT-162b2 vaxJENNIFER JANAK [facility] on above:Result Comment: 2022-03-28: [id number]-KgQ-0 (COVID-19) mRNA BNT-162b2 vaxJENNIFER JANAK [facility] HospitalComment on above:Result Comment: Pt does not know the dates but states he has also had the gskzadi83-28-4172ffbaevlik virus vaccine, unspecified formulationJENNIFER JANAK [facility]10-17-2017influenza virus vaccine, unspecified formulationJENNIFER JANAK [facility]11-16-2015influenza virus vaccine, unspecified formulationJENNIFER JANAK [facility]10-01-2015influenza virus vaccine, unspecified formulationJENNIFER JANAK [facility]03-03-2015pneumococcal polysaccharide vaccine, 23 valentJENNIFER JANAK [facility]10-29-2014influenza virus vaccine, unspecified formulationJENNIFER JANAK [facility]10-09-2013influenza, wholeJENNIFER JANAK [facility]10-21-2011influenza, wholeJENNIFER JANAK [facility] Payers DatePayer CategoryPayerPolicy [id number] Health Insurance [id number] [id number] 2014Medicare [id number] [id number] 1960 [id number] 2.16.840.1.955163.3.57[id number] 2.16.840.1.435164.3.57[id number] 2.16.840.1.536272.3.57[id number] 2.16.840.1.343834.3.57[id number] 2.16.840.1.336720.3.57[id number] 2.16.840.1.774847.3.579.2.040885-13-3660Bsbygrz65608637 2.16.840.1.113087.3.579.2.150755-39-4097Ihltuih12323863 2.16.840.1.705764.3.579.[id number] 2.16.840.1.476546.3.579.2.077051-74-0460Xgmlntn13293812 2.16.840.1.919666.3.579.2.801198-49-3842Opyiugm63376708 2.16.840.1.936252.3.579.2.228305-74-9667Fefyyov87534204 2.16.840.1.521576.3.579.2.527740-47-4558Snmgnqq9969623 2.16.840.1.376284.3.579.2.616209-07-0885Jdsgxfj2577078 2.16840.1.606541.3.579.2.169527-36-5811Mgboslp7947389 2.16.840.1.776562.3.579.2.337153-03-3733Icexzmh1468799 2.16840.1.833714.3.579.2.031690-40-3119Wolpuoz6726388 2.16840.1.967897.3.579.2.910993-54-0947Gcqbvqo6846384 2.840.1.175846.3.579.2.011047-29-4828Ebhmptj9416725 2.840.1.436928.3.579.2.404770-67-2747Muyypus2043403 2.840.1.226642.3.579.2.370195-65-3880Poqtxkn3781197 2.840.1.208161.3.579.2.596740-60-3889Rsqlbzx7283664 2.16840.1.021826.3.579.2.066933-43-6218Uautqay2373354 2.16840.1.250231.3.579.2.229528-96-1316Iuyarou8088604 2.16840.1.728909.3.579.2.408197-48-9331Xitwpql0745089 2.16840.1.987721.3.579.2.495089-20-5599Ngyxtuo7787655 2.16840.1.576865.3.579.2.537651-04-2855Izksuvw7952386 2.16.840.1.990561.3.579.2.169438-50-4284Npgnsud0332499 2.16840.1.853351.3.579.2.936572-26-2261Knwveyf5939797 2.16840.1.017232.3.579.2.335745-02-9832Maqivgf0283737 2.16840.1.913702.3.579.2.389262-07-7721Uhmjfpi0562598 2.16840.1.649318.3.579.2.785549-14-3566Qkohfaf2409073 2..1.198725.3.579.2.103955-84-5528Zurzaue8467309 2.840.1.427759.3.579.2.406799-03-1578Kajminh3428052 2.16840.1.991733.3.579.2.982110-62-5805Eopcais2068308 2.16840.1.863804.3.579.2.672417-15-9423Nqoslag5157371 2.840.1.785833.3.579.2.219484-87-9212Lqybimp4197810 2.16840.1.980460.3.579.2.279462-98-4208Bkanduf0931489 2.16840.1.352454.3.579.2.681250-40-1944Cosemny9962153 2.16840.1.278001.3.579.2.532560-78-8391Mdtjxee6900598 2.16840.1.491235.3.579.2.695569-62-1169Fxigbrt12901404 2.160.1.701829.3.579.2.82652-93-3527Vczdvjd06784138 2.16.840.1.792024.3.5[id number]-qnvThqc [facility] [id number] Health [id number] [id number]-81id-[id number] Social History DateTypeDetailFacilityStart: 03-28-2022 End: 50-62-6769Dvdmvgm smoking statusHeavy tobacco smoker (finding)[facility] 09-30-2023 End: 10-89-3691Byimdlo smoking statusSmoker (finding)[facility] smoking statusNeverExec[facility] of [facility] Hospitaltart: 12-11-2023 End: 73-67-0709[facility]fc [facility]: 33-69-5514Pne [facility]igned At [facility]: 09-30-2023 End: 49-75-3986Zaztkfk smoking status NHISSmokes tobacco dailyNOMS Healthcare History of tobacco useCigarette SmokerNOMS HealthcareStart: 10-14-2023 End: 56-97-2032Shnsmwm use and exposureSmokeless tobacco non-userNOMS Healthcare Start: 12-11-2023 End: 71-08-1316Eqcwoomhv beverage intakeEx-drinker (finding)[facility] Start: 12-11-2023 End: 29-03-1172Vbdfyww of Social functionNOMS HealthcareStart: 16-93-6813Chn assigned at [facility] johnstonNot on fileNOMS HealthcareStart: 04-29-2024 End: 33-14-8216GbrQjhq (finding)[facility] Cent[facility]art: 73-87-9591Kyjwfmqys beverage intakeLifetime non-drinker (finding)[employer] Medical Equipment Procedure CodeEquipment CodeEquipment Original TextEquipment IdentifierDatesAnch Sut 4.75mm 2 Healicoil - Sna - [id number]: 94-61-8482Lxtk Sut 4.75mm 2 Regenesorb - Sna - [id number]: 35-25-0871Cifq Sut 4.5mm Ftprnt Ult Pk Rpl [id number]+Cmt - Sna - [id number]: 01-28-2019 Functional Status EhjrXdipiohmeyKxpzbqFarkspsi81-62-0284Orqjlpiqsg StatusN/AExec[facility]12-28-2022Functional StatusN/A[facility] Clinical Notes 03-28-2022 to 08-31-2024 Note Date & DywkEbjlVvlgrspv76-67-3154 Evaluation note* Diagnosis Onset Date Resolution Status Admit Date Atopic dermatitis acuteJune 2024 2:20pmOtitis externaacuteJune 2024 2:20pmCAD (coronary artery disease)acuteJuly 2024 8:21amHyperlipemiaacuteJuly 2024 8:21am HypertensionacuteJuly 2024 8:21amImpaired fasting glucoseacutely 2024 8:21am [facility] Work Phone: 1(893) 667-833806-02-2025 Evaluation note* Diagnosis Onset Date Resolution Status Admit Date Atopic dermatitis acuteJune 2024 2:20pmOtitis externaacuteJune 2024 2:20pmCAD (coronary artery disease)acuteJuly 2024 8:21amH/O heart artery stentacuteJuly 2024 8:21amHyperlipemiaacuteJuly 2024 8:21amHypertensionacuteJuly 2024 8:21amImpaired fasting glucoseacuteJuly 2024 8:21amNicotine dependenceacute Lilli 2024 8:21amOtitis externaacuteJuly 2024 8:21amScreening for lung canceracuteJuly 2024 8:21amAbscessacuteJuly 2024 12:55pm [facility] Work Phone: 1(547) 515-510905-28-2025 NoteSUBJECTIVE Reason for Visit: Mart Villa is [...] in taking Chantix. 09/19/2023 office visit (Fátima Licona NP): Patient here for 1 year follow [...] daily - Continue clopidog (more content not included)...[facility]05-27-2025 History of Present illness Narrative* Imelda Villa, [...] understanding. Imelda Villa DPM documented in this [facility]05-27-2025 Instructions* Patient Instructions* Imelda Villa DPM - 08/25/2024 9:30 AM EDT As noted documented in this encounterChristian HospitalCkdwgfphmk97-00-4393 History of Present illness Narrative* Imelda Villa [...] understanding. Imelda Villa DPM documented in this [facility]02-27-2025 Instructions* Patient Instructions* Imelda Villa DPM - 05/28/2024 9:15 AM EST As noted documented in this [facility]02-06-2025 History of Present illness Narrative* Imelda [...] understanding. Imelda Villa DPM documented in this encounterChristian HospitalDddmwxsdnq81-18-4099 Instructions* Patient Instructions* Imelda Villa DPM - 05/07/2024 3:45 PM EST Wound care measures as noted documented in this encounterChristian HospitalYmlvitthtj48-80-0787 History of Present illness Narrative* Imelda Villa [...] understanding. Imelda Villa DPM documented in this [facility]01-30-2025 Instructions* Patient Instructions* Imelda Villa DPM - 04/30/2024 9:15 AM EST As noted documented in this [facility]12-17-2024 Hospital Discharge instructions Patient Education 03/17/2024 [...] urethra. Follow these instructions at home: Take aeim-hcp-rzzyfxb and prescription medicines only as told by [...] provider. Document Revised: 10/04/2021 Document Reviewed: 10/04/2021 [employer] Patient Education 2023 Edutor. Follow Up Care 03/12/2023 10:35:12 With:JANAK DUARTE, LUCY Ariza, URL Address: [address] [place] [id number] When:Within 1 Year(s) [facility] Andria 12-17-2024 NotePatient Education Urology Benign Prostatic [...] Follow these instructions at home: ??? Take qhng-afu-vhmthmx and prescription medicines only as told by [...] symptoms do not get (more content not included)...[facility]12-04-2024 History of Present illness Narrative* [...] as tolerated, f/U prn documented in this encounterChristian HospitalNnpazbknqk30-33-0358 History of Present illness Narrative* Silva Mak [...] as tolerated, f/U prn documented in this encounterChristian HospitalPyvprzcdpq96-24-4436 History of Present illness Narrative* Silva Mak [...] f/u in 6-8 weeks documented in this encounterChristian HospitalVdwkbfaqbx83-88-2688 History of Present illness Narrative* Madelyn Coffey, [...] while reaching overhead to perform tasks. Pain: 1-210 Objective: PT Evaluation (12/17/23) Right shoulder AROM: [...] to be instructed in home exercise program. 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 Date: documented in this encounterChristian HospitalXogwiftqlk14-06-8276 History of Present illness Narrative* Madelyn Coffey, [...] to be instructed in home exercise program. Residential Goals: To be met in 10 weeks [...] Please sign below. Date: documented in this encounterChristian HospitalEurhsjvfvn57-83-8944 History of Present illness Narrative* Madelyn Coffey, PT - 12/26/2023 7:00 AM EDT Physical Therapy Treatment Visit Patient Name: Mrat Villa Today's Date: 12/26/2023 Encounter Diagnoses Name [...] to be instructed in home exercise program. 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 Date: documented in this encounterChristian HospitalEbsdvrglhu58-32-6507 History of Present illness Narrative* Madelyn Coffey, PT - 12/19/2023 7:00 AM EDT Physical Therapy Treatment Visit Patient Name: Mart Villa Today's Date: 12/19/2023 Encounter Diagnoses Name Primary? Acute pain of right shoulder Yes Shoulder stiffness, right S/P right rotator cuff repair Visit number: 2 Timed Code Treatment Minutes: 45 minutes Total Treatment Time: 45 minutes Time In: 07 Time Out: 0750 History: Pt. Presents to [...] to be instructed in home exercise program. 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 Date: documented in this encounterChristian HospitalHcxdzenopt36-55-5456 History of Present illness Narrative* Silva Mak, [...] f/U in 6 weeks documented in this encounterChristian HospitalWthffttwzc77-58-8191 History of Present illness Narrative* John Brito DO - 11/29/2023 10:00 AM EDT Images [...] and haloes. Comments Pt referred by Dr Pino for YAG eval. Right eye (OD). Pt states vision right eye (OD) has been very cloudy. Not using any drops. Last edited by John Brito DO on 11/29/2023 10:50 AM. No current [...] laser capsulotomy, they are to notify their field appraiser promptly if they have a significant change in symptoms, such as flashes of light (photopsia), an increase in floaters, loss of visual field or decrease in visual acuity. documented in this encounterChristian HospitalIloubcsloo73-04-3932 Instructions* Patient Instructions* Claudia Garcia RN - 10/24/2023 9:45 AM EDT Preoperative Education Checklist- General Surgery date: 11/06/23 Surgery time: 0730 a.m. Arrival time: 0610 a.m. 1. Bring a photo ID and your insurance card with you the day of surgery. You will check in at the main lobby of the [facility]- registration desk is straight ahead as soon as you walk in. Tell them you are here for surgery. 2. If you have a Living Will/Durable Power of Buffet Attendant for Health Care that is not on [...] after you have bathed. 5. NO nail burundian/acrylic on at least one finger. If you are having a hand, wrist or foot surgery then all nail burundian and artificial/acrylic nails must be removed from [...] WITH YOU ANY DEVICES YOU MAY NEED: JOHAN hose, ice machine, sling/swath, brace or special [...] please call the Preadmission Testing office at [phone], Mon.-Fri. 7 a.m.-3 p.m. Leave a voicemail [...] Stop taking 0 days prior to procedure ovbbrpdr-jtio-ZQ-calcium &mins (THERAGRAN-M) 9 mg iron-400 mcg tablet [...] appointment with your doctor. documented in this encounterPaulding County Hospital07-25-2024 Miscellaneous Notes* Perioperative Nursing Note - Claudia Garcia RN - 10/24/2023 9:45 AM EDT Preoperative Education Checklist- General Surgery date: 11/06/23 Surgery time: 0730 a.m. Arrival time: 0610 a.m. 1. Bring a photo ID and your insurance card with you the day of surgery. You will check in at the main lobby of the [facility]- registration desk is straight ahead as soon as you walk in. Tell them you are here for surgery. 2. If you have a Living Will/Durable Power of Buffet Attendant for Health Care that is not on [...] after you have bathed. 5. NO nail burundian/acrylic on at least one finger. If you are having a hand, wrist or foot surgery then all nail burundian and artificial/acrylic nails must be removed from [...] WITH YOU ANY DEVICES YOU MAY NEED: JOHAN hose, ice machine, sling/swath, brace or special [...] please call the Preadmission Testing office at [phone], Mon.-Fri. 7 a.m.-3 p.m. Leave a voicemail [...] Stop taking 0 days prior to procedure nbksxyha-yimr-IZ-calcium &mins (THERAGRAN-M) 9 mg iron-400 mcg tablet [...] reviewed. Patient verbalized understanding. documented in this encounterPaulding County Hospital07-25-2024 Nurse Note* Perioperative Nursing Note - Claudia Garcia RN - 10/24/2023 9:45 AM EDT Preoperative Education Checklist- General Surgery date: 11/06/23 Surgery time: 0730 a.m. Arrival time: 0610 a.m. 1. Bring a photo ID and your insurance card with you the day of surgery. You will check in at the main lobby of the [facility]- registration desk is straight ahead as soon as you walk in. Tell them you are here for surgery. 2. If you have a Living Will/Durable Power of Buffet Attendant for Health Care that is not on [...] after you have bathed. 5. NO nail burundian/acrylic on at least one finger. If you are having a hand, wrist or foot surgery then all nail burundian and artificial/acrylic nails must be removed from [...] WITH YOU ANY DEVICES YOU MAY NEED: JOHAN hose, ice machine, sling/swath, brace or special [...] please call the Preadmission Testing office at [phone], Mon.-Fri. 7 a.m.-3 p.m. Leave a voicemail [...] Stop taking 0 days prior to procedure bqadauws-maaq-ID-calcium &mins (THERAGRAN-M) 9 mg iron-400 mcg tablet [...] go swimming or use a hot tub ([employer]), or perform activities where your hand or [...] to the follow-up appointment with your doctor. [facility]07-25-[facility] Nurse Note* Perioperative Nursing Note - Claudia Garcia RN - 10/24/2023 9:45 AM EDT Hibiclens and surgical instructions reviewed. Patient verbalized understanding. [facility]07-24-2024 NoteRCRI= 2 points Class III Risk 10.1 % 30- day risk of , AR, or cardiac arrest From a cardiac perspective pt may proceed with shoulder, he is a moderate risk for a low to moderate risk surgery. He may hold plavix 5-7 days prior and resume post op. Please monitor hemodynamics carefully and prevent any major fluid shifts. Fátima Licona [facility] Cardiology Available 7a-5pm via [employer] Pager [phone] Health West Hospital06-20-2024 NoteNoted Mitral, Aortic, tricuspid and pulmonic valve regurg- no concerning symptoms today. Will continue to monitor - d/w pt to call office for increased SOB, orthopnea, palpitations, syncope or chest pain.[facility]06-20-2024 NoteHeart failure is unchanged. NYHA Class II. Continue current treatment regimen. Dietary sodium restriction. Encouraged daily monitoring of the patient's weight. Continue current medications. Heart failure will be reassessed in 1 year.[facility] 09-19-2023 NotePatient here for 1 year follow up CAD, primary cardiomyopathy, and valve disorder. Had routine labs w/ lipid last July 2022. He is doing great. Denies chest pain, SOB, palpitations, and lightheadedness/syncope. Review of Systems Musculoskeletal: Positive for arthritis and joint pain. All other systems reviewed and are negative.[facility] 09-19-2023 NoteUTP CARDIOLOGY PROGRESS NOTE HPI: [...] given to pt to be completed about October.[facility]06-20-2024 NoteLipid abnormalities are stable Continue statinUnMercy Health West Hospital06-20-2024 NoteCoronary artery disease is stable Continue GDMT- ASA, atenolol, lipitor and plavix for life. continue risk factor modifications- heart healthy diet, regular exercise as tolerated and continue all medications.[facility] 03-28-2022 Hospital Discharge instructions Patient Education [...] urethra. Follow these instructions at home: Take jbaw-tht-gynkato and prescription medicines only as told by [...] 03/18/2006 Document Revised: 02/10/2019 Document Reviewed: 04/22/2017 [employer] Patient Education 2020 Edutor. Follow Up Care 01/19/2021 11:03:50 With:LUCY BRICENO PA-C, URL Address: [address] [place] [address] When: Unknown [facility] evaluation + Plan note Future Appointments Appointment Date:03/12/2023 11:15:00 AM Scheduled Provider:Abdiaziz Carbone Jr., MD Location:[facility] Appointment Type:URO Office Visit Diagnostic Tests Pending * PSA Total 03/28/22 * PSA Total 03/28/22 [facility] evaluation + Plan note Future Appointments Appointment Date:03/18/2025 08:20:00 AM Scheduled Provider:LUCY BRICENO PA-C Location:[facility] Appointment Type:URO Office Visit Diagnostic Tests Pending * PSA Total 03/17/24 [facility] evaluation note* Diagnosis Onset Date Resolution Status CAD (coronary artery disease) acuteFallacuteHyperlipemiaacuteRight shoulder painacute [facility] Work Phone: Evaluation note* Diagnosis Onset Date Resolution Status CAD (coronary artery disease) acuteFallacuteH/O heart artery stentacuteHyperlipemiaacuteHypertensionacute Nicotine dependenceacuteRight shoulder painacuteScreening for lung canceracute [facility] Work Phone: Evaluation note* Diagnosis Onset Date Resolution Status CAD (coronary artery disease) acuteFallacuteH/O heart artery stentacuteHyperlipemiaacuteHypertensionacute Nicotine dependenceacuteRight shoulder painacuteScreening for lung canceracute CAD (coronary artery disease)acuteH/O heart artery stentacuteHyperlipemiaacute HypertensionacuteNicotine dependenceacutePre-op evaluationacute [facility] Work Phone: Evaluation note* Diagnosis Acute pain of right shoulder- Primary Shoulder stiffness, right S/P right rotator cuff repair documented in this encounter [facility] HealthcareEvaluation note* Diagnosis Acute pain of right shoulder- Primary S/P right rotator cuff repair Shoulder stiffness, right documented in this encounter [facility] HealthcareEvaluation note* Diagnosis S/P right rotator cuff repair- Primary Acute pain of right shoulder Shoulder stiffness, right documented in this encounter [facility] HealthcareEvaluation note* Diagnosis Acute pain of right shoulder- Primary Shoulder stiffness, right S/P right rotator cuff repair documented in this encounter [facility] HealthcareEvaluation note* Diagnosis Acute pain of right shoulder- Primary Shoulder stiffness, right S/P right rotator cuff repair documented in this encounter [facility] HealthcareEvaluation note* Diagnosis Acute pain of right shoulder- Primary Shoulder stiffness, right S/P right rotator cuff repair S/P right rotator cuff repair- Primary Arthritis of right acromioclavicular joint documented in this encounter [facility] HealthcareEvaluation note* Diagnosis Acute pain of right shoulder- Primary Shoulder stiffness, right S/P right rotator cuff repair S/P right rotator cuff repair- Primary Arthritis of right acromioclavicular joint documented in this encounter [facility] HealthcareEvaluation note* Diagnosis S/P right rotator cuff repair- Primary Arthritis of right acromioclavicular joint documented in this encounter [facility] HealthcareEvaluation note* Diagnosis Acute pain of right shoulder- Primary Shoulder stiffness, right S/P right rotator cuff repair documented in this encounter [facility] HealthcareEvaluation note* Diagnosis Onset Date Resolution Status Impaired fasting glucose acute [facility] Work Phone: Evaluation note* Diagnosis Left hand [...] Status Admit Date CAD (coronary artery disease) acuteJanuary 2024 8:17amFallacuteJanuary 2024 8:17amH/O heart artery stentacuteJanuary 2024 8:17amHyperlipemiaacuteJanuary 2024 8:17am HypertensionacuteJanuary 2024 8:17amImpaired fasting glucoseacuteJanuary 2024 8:17amMedicare annual wellness visit, subsequentacuteJanuary 2024 8:17amNicotine dependenceacuteJanuary 2024 8:17amRight shoulder pain acuteJanuary 2024 8:17amScreening for lung canceracuteJanuary 2024 8:17am [facility] Work Phone: Evaluation note* Diagnosis Bursitis [...] type, unspecified whether angina present, unspecified whether [place] or transplanted heart Hypertension, unspecified type Preop examination Unspecified pre-operative examination Coronary artery disease, unspecified vessel or lesion type, unspecified whether angina present, unspecified whether [place] or transplanted heart Hypertension, unspecified type documented in this [facility] Diagnosis Bursitis of left foot- Primary 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 Pain in left foot Pain in soft tissues of limb Difficulty walking Difficulty in walking documented in this encounter [facility]* Diagnosis Onset Date Resolution Status Admit Date Otitis externa acuteJune 2024 2:20pm [facility] Work Phone: Hospital course Narrative No data available for this section [facility] Hospital Discharge instructionsAmbulatory Orders* Referral to Orthopedics Time Frame: 10/01/23, Location: None Selected [facility] Work Phone: Progress note No data available for this section [facility] reason for referral (narrative)* Consultation (Routine) - AuthorizedSpecialtyDiagnoses / ProceduresReferred By ContactReferred To ContactPhysical Therapy Diagnoses S/P right rotator cuff repair Procedures MO OFFICE/OUTPATIENT [facility] 60 MINUTES Silva Mak, VAN [address] [facility] [address] [place] [address] Madelyn Coffey, PT 112 [facility] [address] [place] [address] Referral IDStatusReasonStart DateExpiration DateVisits RequestedVisits [id number] Consult and Treat [id number] [facility] HealthcareReason for referral (narrative)No reason for referral information [facility] Work Phone: Reason for visit Narrative* Consultation (Routine) - AuthorizedSpecialtyDiagnoses / ProceduresReferred By ContactReferred To ContactPhysical Therapy Diagnoses S/P right rotator cuff repair Procedures MO OFFICE/OUTPATIENT [facility] MDM 60 MINUTES Silva Mak, ROENTGENOLOGY TEACHER [address] [facility] [address] [place] [address] Madelyn Coffey, PT [address] [facility] [address] [place] [address] Referral IDStatusReasonStart DateExpiration DateVisits RequestedVisits [id number] Consult and Treat [facility] Narrative* Consultation (Routine) - Authorized SpecialtyDiagnoses / ProceduresReferred By ContactReferred To ContactPhysical Therapy Diagnoses S/P right rotator cuff repair Procedures MO OFFICE/OUTPATIENT [facility] MDM 60 MINUTES Silva Mak, ROENTGENOLOGY TEACHER [address] [facility] [address] [place] [address] Phone: tel: fax: Madelyn Coffey, PT [address] [address] Phone: tel: fax: Referral IDStatusReasonStart DateExpiration DateVisits RequestedVisits [id number] Consult and Treat [facility] for visit Narrative* Consultation (Routine) - Authorized SpecialtyDiagnoses / ProceduresReferred By ContactReferred To ContactPhysical Therapy Diagnoses S/P right rotator cuff repair Primary osteoarthritis, right shoulder Procedures MO OFFICE/OUTPATIENT [facility] 60 MINUTES Silva Mak, ROENTGENOLOGY TEACHER [address] [facility] [address] [place] [address] Phone: tel: fax: Madelyn Coffey, PT [address] [facility] [address] [place] [address] Phone: tel: fax: Referral IDStatusReasonStart DateExpiration DateVisits RequestedVisits [id number] Consult and Treat [facility] HealthcareReason for visit Narrative* Consultation (Routine) - Closed SpecialtyDiagnoses / ProceduresReferred By ContactReferred To ContactPhysical Therapy Diagnoses S/P right rotator cuff repair Primary osteoarthritis, right shoulder Procedures MO OFFICE/OUTPATIENT [facility] 60 MINUTES Silva Mak, ROENTGENOLOGY TEACHER 112 [facility] [address] [place] [address] Phone: tel: fax: Madelyn Coffey, PT [address] [facility] [address] [place] [address] Phone: tel: fax: Referral IDStatusReasonStart DateExpiration DateVisits RequestedVisits [id number] Consult and Treat [facility] HealthcareReason for visit Narrative* Consultation (Routine) - Authorized SpecialtyDiagnoses / ProceduresReferred By ContactReferred To ContactPhysical Therapy Diagnoses S/P right rotator cuff repair Procedures MO OFFICE/OUTPATIENT [facility] 60 MINUTES Silva Mak, ROENTGENOLOGY TEACHER 112 [facility] [address] [place] [address] Madelyn Coffey, PT [address] [address] Referral IDStatusReasonStart DateExpiration DateVisits RequestedVisits [id number] Consult and Treat 010 [facility] Healthcare Summary Purpose Family History No Family [...] Complaint Establish Surgery Clearance[facility] VisitCAD (coronary artery disease) Fall H/O heart artery [...] 28, 2024 12:5 5pm Reason for Referral SpecialtyDiagnoses / ProceduresReferred By ContactReferred To Contact Diagnoses Preop examination Coronary artery disease, unspecified vessel or lesion type, unspecified whether angina present, unspecified whether [place] or transplanted heart Hypertension, unspecified type Procedures ECG 12 lead Seda Washington DO [address] [address] Referral IDStatusReasonStart DateExpiration DateVisits RequestedVisits [id number] Review Additional Source Comments (unrecognized sect ion and content) No Status Records FoundNo Status Records FoundNo Status Records FoundNo Status Records FoundNo Status Records FoundNo Status Records Found INFORMATION SOURCE (unrecogn ized section and content) DATE CREATED AUTHOR 07/18/2018 [facility] DATE CREATED AUTHOR AUTHOR'S ORGANIZ ATION 08/14/2022 [facility] DATE CREATED AUTHOR AUTHOR'S ORGANIZ ATION 11/08/[address] [facility] DATE CREATED AUTHOR AUTHOR'S ORGANIZ ATION 08/28/2024 [facility] DATE CREATED AUTHOR AUTHOR'S ORGANIZ ATION 08/29/2024 [facility] DATE CREATED AUTHOR AUTHOR'S ORGANIZ ATION 11/10/2024 [facility] Patient Care team informatio n (unrecognized section and content) Team Status: Active Member Role Status Dates Lucy Alfaro APRN ROENTGENOLOGY TEACHER-C Primary Care Provider Active Team Status: Inactive Member Role Status Dates Lucy Alfaro APRN ROENTGENOLOGY TEACHER-C Primary Care Provider, Attending Provider Active Start: September 30, 2023 End: September 30, 2023 Team Status: Active Member Role Status Dates Lucy Alfaro APRN ROENTGENOLOGY TEACHER-C Primary Care Provider, Attending Provider Active Start: October 01, 2023 Team Status: Inactive Member Role Status Dates Lucy Alfaro APRN ROENTGENOLOGY TEACHER-C Primary Care Provider, Attending Provider Active Start: October 25, 2023 End: October 25, 2023Team MemberRelationshipSpecialtyStart DateEnd Date Lucy Alfaro NP [address] [facility] [place] [address] PCP - GeneralFamily Medicine10/14/23Team MemberRelationshipSpecialtyStart DateEnd Date Lucy Alfaro NP [address] [facility] [place] [address] PCP - GeneralFamily Medicine10/14/23Team MemberRelationshipSpecialtyStart DateEnd Date Lucy Alfaro NP [address] [place] [address] PCP - GeneralFamily Medicine10/14/23Team MemberRelationshipSpecialtyStart DateEnd Date Lucy Alfaro NP [address] [place] [address] PCP - GeneralFamily Medicine10/14/23Team MemberRelationshipSpecialtyStart DateEnd Date Lucy Alfaro NP [address] [place] [address] PCP - GeneralFamily Medicine10/14/23Team MemberRelationshipSpecialtyStart DateEnd Date Lucy Alfaro NP [address] [place] [address] PCP - GeneralFamily Medicine10/14/23Team MemberRelationshipSpecialtyStart DateEnd Date Lucy Alfaro NP [address] [place] [address] PCP - GeneralFamily Medicine10/14/23Team MemberRelationshipSpecialtyStart DateEnd Date Lucy Alafro NP [address] [place] [address] PCP - GeneralFamily Medicine10/14/23Team MemberRelationshipSpecialtyStart DateEnd Date Lucy Alfaro NP [address] [place] [address] PCP - GeneralFamily Medicine10/14/23Team MemberRelationshipSpecialtyStart DateEnd Date Lucy Alfaro NP [address] [place] [address] PCP - GeneralFamily Medicine10/14/23Team MemberRelationshipSpecialtyStart DateEnd Date Lucy Alfaro NP [address] [place] [address] PCP - GeneralFamily Medicine10/14/23Team MemberRelationshipSpecialtyStart DateEnd Date Lucy Alfaro NP [address] [place] [address] PCP - GeneralFamily Medicine10/14/23 Team Status: Active Member Role Status Dates Lucy Alfaro APRN ROENTGENOLOGY TEACHER-C Primary Care Provider Active Start: November 26, 2023 SAMEER De Los Santos-Sommer ProviderActiveStart: November 26, 2023 Team Status: Inactive Member Role Status Dates Lucy Alfaro APRN ROENTGENOLOGY TEACHER-C Primary Care Provider, Attending Provider Active Start: January 27, 2024 End: January 27, 2024Team MemberRelationshipSpecialtyStart DateEnd Date Lucy Alfaro NP [address] [place] [address] PCP - GeneralChi [facility]ly Medicine10/14/23Team MemberRelationshipSpecialtyStart DateEnd Date Lucy Alfaro NP [address] [place] [address] [facility] - [facility] Medicine10/14/23Team MemberRelationshipSpecialtyStart DateEnd Date Lucy Alfaro NP [address] [place] [address] [facility] - [facility] Medicine10/14/23Team MemberRelationshipSpecialtyStart DateEnd Date Lucy Alfaro NP [address] [place] [address] [facility] - [facility] Medicine10/14/23 Team Status: Active Member Role Status Dates Lucy Alfaro APRN ROENTGENOLOGY TEACHER-C Primary Care Provider Active Start: March 112023 GABRIELA Jiménez-Sommer ProviderActiveStart: March 11, 2024 Team Status: Inactive Member Role Status Dates Lucy Alfaro APRN ROENTGENOLOGY TEACHER-C Primary Care Provider, Attending Provider Active Start: April 29, 2024 End: April 29, 2024Team MemberRelationshipSpecialtyStart DateEnd Date Lucy Alfaro NP [address] [facility] [facility] [place] [address] PCP - Generalmily Medicine10/14/23Team MemberRelationshipSpecialtyStart DateEnd Date Lucy Alfaro TraceyAVN [address] [facility] [facility] [place] [address] PCP - GeneralFamily Medicine10/14/23Team MemberRelationshipSpecialtyStart DateEnd Date Ramin Chu DO [address] [place] [address] PCP - GeneralFamily Bxzmptjr35/23/19 Team Status: Inactive Member Role Status Dates Lucy Alfaro APRN ROENTGENOLOGY TEACHER-C Primary Care Provider, Attending Provider Active Start: August 31, 2024 End: August 31, 2024 Team Status: Inactive Member Role Status Dates Lucy Alfaro APRN ROENTGENOLOGY TEACHER-C Primary Care Provider Active Start: August 31, 2024 End: August 31, 2024Lucy Alfaro APRN ROENTGENOLOGY TEACHER-CAttending ProviderActiveStart: August 31, 2024 End: August 31, 2024 Team Status: Inactive Member Role Status Dates Lucy Alfaro APRN ROENTGENOLOGY TEACHER-C Primary Care Provider Active Start: October 01, 2024 End: October 01, 2024Lucy Alfaro APRN ROENTGENOLOGY TEACHER-CAttending ProviderActiveStart: October 01, 2024 End: October 01, 2024 Team Status: Inactive Member Role Status Dates Lucy Alfaro APRN ROENTGENOLOGY TEACHER-C Primary Care Provider Active Start: October 28, 2024 End: October 28, 2024Lucy Alfaro APRN ROENTGENOLOGY TEACHER-CAttending ProviderActive Start: October 28, 2024 End: October 28, 2024 Goals (unrecognized section and content) Goals may be documented in a n alternate section Reason for Visit (unrecogniz ed section and content) WjrfbyCzhujkkmTciy-hnQlhwpqIuzxzyqrCfcyEvfnqvYjvuzirtZheher-itPocdmjPykujztcBUI Blurred VisionReasonCommentsFollow-upReasonCommentsFoot Oycrbdtpp40 yo OP presents today with concerns of a painful callus on left foot, ongoing for quite a while .ReasonCommentsFoot PainPt is here today with continued pain to the area where the lesion was removed. Hard to walk, can't touch it. He also noted swelling in the Lt ankle A1C: 6.1ReasonCommentsFUVBruce A Held is a 74 y.o. male. Pt is here today for FUV of left foot, area where the lesion was rem luis enrique. Patient relates wound is healed. A1C: 6.1ReasonCommentsFUVBruce A Held is a 74 y.o. male. Pt is [...] BE BASED ON THE PRIMARY CLINICAL RECORDS. [facility] [employer] [facility]. provides no warranty or guarantee of the accuracy or completeness of information in this document.
--- NOTE | 2025-03-10 08:22 | XR_ITS ---
The [address] [address] Patient Name: TANK VILLA MRN: [id number] date: 1950 Sex: M Assigned Patient Location: LAB Current Patient Location: LAB Accession/Order Number: [id number] Exam Date: 03/10/2025 08:25 Report Date: 03/10/2025 10:44 At the request of: CORRY OCHOA Procedure: XR abdomen 1V SINGLE VIEW ABDOMEN COMPARISON: 03/11/2024 CLINICAL DATA: Annual follow-up of kidney stones. Supine views of the abdomen and pelvis were obtained. There is air and stool within the colon. There is also air within nondistended small bowel. Both kidneys are obscured. There is still a suspected stone at the inferior left kidney measuring approximately 6 mm in size. No obvious radiopaque right renal or ureteral stones are visualized. There are similar pelvic calcifications. No soft tissue masses are seen. Scoliotic curvature and degenerative changes are visualized at the spine. XR/XR abdomen 1V IMPRESSION: CONTINUED LEFT NEPHROLITHIASIS. Impression dictated by: Sosa Cornelius M.D. 03/10/2025 10:44 AM Dictation Location: [place] [address] Electronically authenticated by: [id number] Y Date: 03/10/2025 10:44
[2025-03-10 10:08] LABS: Prostate Specific Antigen Dx 7.32 ng/mL (<=4.00)
== END 2025-03-10 08:08 | disposition home or self-care (01) ==
LOC: LAB 08:08
PROVIDERS: PCP Nurse Practitioner Family; Visit Provider Student in an Organized Health Care Education/Training Program
DX: N20.0 Calculus of kidney (principal); R97.20 Elevated prostate specific antigen [PSA]
CPT/HCPCS: 36415; 74018; 84153